=== PATIENT | male | born 1960 | race Caucasian/White ===

== ENCOUNTER → 2017-12-14 07:42 | Outpatient (CLI) | payer BC, SELFPAY ==
--- NOTE | 2017-12-14 07:49 | CA_ITS ---
PROCEDURE: 2-D M-mode and color Doppler study INDICATIONS FOR THE TEST: Chest pain+ COPD Heart Murmur Tobacco Smoking Palpitations Fatigue Syncope Edema Hypertension+Diabetes Mellitus+ Rheumatic Fever SOB JOEL Obesity Hyperlipidemia+ Family History HD+ Additional History cad, 6 stents, smokeless tobacco PATIENT INFORMATION HEIGHT: 73 WEIGHT: 209 GENDER: Male B/P: 142/78 2-D/M-MODE INTERPRETATION: 2-D MEASUREMENTS OBSERVED VALUES IN CMS Right Ventricular Dimension (RVDd) 1.7 Interventricular Septum (Thickness)(IVsd) 0.9 Left Ventricular Internal Dimensions(LVIDd) 5.6 Left Ventricular Posterior Wall (Thickness)(LVPWd) 0.9 Aortic Root 3.5 Aortic Cusp Separation 2.4 Left Atrial Dimensions (LAD) 3.7 2D 1. Left atrium is qualitatively mildly enlarged, left ventricle is normal size, there is no concentric left ventricular hypertrophy, visually estimated ejection fraction approximately 40-45%, there appears to be moderate hypokinesis involving the inferobasal, and it to distal septum wall. 2. The right atrium and right ventricle are relatively normal size and function. 3. The aortic, mitral and tricuspid valve are grossly normal. 4. The pulmonic valve is poorly visualized. 5. There is no significant pericardial effusion noted. DOPPLER INTERROGATION: Doppler interrogation of the aortic, mitral and tricuspid valvular presence of mild mitral and tricuspid regurgitation, tricuspid regurgitant jet velocity is insufficient for calculation of the right ventricular systolic pressure, grade 1 diastolic dysfunction seen with tissue Doppler evidence of raised left atrial pressure. CONCLUSION: 1. Mildly enlarged left atrium, normal left ventricular size, visually estimated ejection fraction approximately 40-45% with segmental wall motion abnormality described above, grade 1 diastolic dysfunction seen with tissue Doppler evidence of raised left atrial pressure. 2. Mild mitral and tricuspid regurgitation 3. No significant pericardial effusion noted.
== END ==
PROVIDERS: PCP Family Medicine; Visit Provider Family Medicine
DX: R93.1 Abnormal findings on diagnostic imaging of heart and coronary circulation (principal)
CPT/HCPCS: 93306

== ENCOUNTER 2018-01-24 14:19 | Observation (INO) ==
[2018-01-24 14:45] LABS: Basophils # 0.1 K/mm3 (0-0.2); Basophils % 0.6 % (0.1-2.0); Eosinophils # 0.2 K/mm3 (0.0-0.4); Eosinophils % 1.9 % (0.1-12.0); Hematocrit 49.6 % (42.0-52.0); Hemoglobin 16.8 g/dL (14.1-18.0); Lymphocytes # 2.3 K/mm3 (0.7-4.5); Mean Corpuscular HGB Conc 33.9 g/dL (31.8-35.4); Mean Corpuscular Hemoglobin 30.8 pg (27.0-31.2); Mean Platelet Volume 6.9 fl (7.4-10.4); Monocytes # 0.7 K/mm3 (0.1-1.0); Monocytes % 7.9 % (1.7-9.3); Neutrophils # 5.7 K/mm3 (1.8-7.8); Neutrophils % 63.7 % (37.0-80.0); Platelet Count 310 K/mm3 (142-424); Red Blood Count 5.45 M/mm3 (4.60-6.20); Red Cell Distribution Width 12.5 % (11.5-17.5); White Blood Count 8.9 K/mm3 (4.8-10.8)
[2018-01-24 15:04] LABS: Alanine Aminotransferase 28 U/L (12-78); Albumin Level 4.3 gm/dL (3.4-5.0); Albumin/Globulin Ratio 1.2 (1.1-1.8); Alkaline Phosphatase 92 U/L (46-116); Aspartate Amino Transferase 15 U/L (15-37); Bilirubin,Total 0.4 mg/dL (0.2-1.0); Blood Urea Nitrogen 16 mg/dL (7-18); Calcium 9.7 mg/dL (8.5-10.1); Carbon Dioxide 31 mmol/L (21.0-32.0); Chloride 100 mmol/L (98-107); Creatine Kinase 137 U/L (39-308); Globulin 3.7 gm/dl (1.3-3.2); Glucose 134 mg/dL (74-106); Sodium 138 mmol/L (136-145)
--- NOTE | 2018-01-24 15:53 | Emergency Department Note ---
ED Disposition Clinical Impression: Chest pain Disposition: Admitted As Inpatient Condition on Discharge: Good - Critical Care Critical Care Time: No Attestation: On 01/24/18, the high probability of a clinically significant, sudden or life threatening deterioration of the following system(s) required my full and direct attention, intervention and personal management. The time I documented below is in addition to time spent performing reported procedures but includes the following listed in this critical care notation. Medical Decision Making - Medical Records Medical records reviewed: Yes: I reviewed the patient's medical records. - Danny Inquiry Pt receiving controlled substance: No Vital Signs: 01/24/18 14:19 01/24/18 15:20 01/24/18 16:16 Temperature 98.1 F 98.1 F Temperature Source Oral Oral Pulse Rate Pulse Rate [Right Brachial] 82 80 75 Respiratory Rate 16 18 16 Blood Pressure Blood Pressure [Right Arm] 161/94 127/94 144/94 Blood Pressure Mean [Right Arm] 116 105 110 Blood Pressure Source Blood Pressure Source [Right Arm] Automatic Cuff Automatic Cuff Automatic Cuff Blood Pressure Position Blood Pressure Position [Right Arm] Sitting Sitting Sitting 02 Sat by Pulse Oximetry 97 97 95 Oxygen Delivery Method Room Air Room Air Room Air 01/24/18 16:17 Temperature 98.1 F Temperature Source Oral Pulse Rate 75 Pulse Rate [Right Brachial] Respiratory Rate 16 Blood Pressure 144/94 Blood Pressure [Right Arm] Blood Pressure Mean [Right Arm] Blood Pressure Source Automatic Cuff Blood Pressure Source [Right Arm] Blood Pressure Position Sitting Blood Pressure Position [Right Arm] 02 Sat by Pulse Oximetry Oxygen Delivery Method Room Air - Lab Data Lab results reviewed: Yes: I reviewed the patient's lab results. Lab Results 01/24/18 14:20: WBC 8.9, RBC 5.45, Hgb 16.8, Hct 49.6, MCV 91.0, MCH 30.8, MCHC 33.9, RDW 12.5, Plt Count 310, MPV 6.9 L, Neut % (Auto) 63.7, Lymph % (Auto) 26.0, [place] % (Auto) 7.9, Eos % (Auto) 1.9, Baso % (Auto) 0.6, Neut # (Auto) 5.7 , Lymph # (Auto) 2.3, [place] # (Auto) 0.7, Eos # (Auto) 0.2, Baso # (Auto) 0.1 01/24/18 14:20: Sodium 138, Potassium 4.0, Chloride 100, Carbon Dioxide 31, Anion Gap 11.0, BUN 16, Creatinine 0.88, Estimated Creat Clear 126, Estimated GFR 90, Est GFR ( Amer) 108, Glucose 134 H, Calcium 9.7, Total Bilirubin 0.4, AST 15, ALT 28, Alkaline Phosphatase 92, Total Creatine Kinase 137, CK-MB ( CK-2) 2.2, CK-MB (CK-2) Rel Index 1.6, Troponin I < 0.02, Total Protein 8.0, Albumin 4.3, Globulin 3.7 H, Albumin/Globulin Ratio 1.2 Result diagrams: 01/24/18 14:20 01/24/18 14:20 Orders (Tests/Meds): ED MEDICATIONS Generic Name Dose Route Start Last Admin Trade Name Freq PRN Reason Stop Dose Admin Amlodipine Besylate 5 mg 01/25/18 09:00 Norvasc 5mg Tablet PO 02/24/18 08:59 DAILY [facility] Aspirin 81 mg 01/25/18 09:00 Aspirin 81mg Enteric Coated Tablet PO 02/24/18 08:59 DAILY [facility] Blood Glucose Test Strips 1 each 01/24/18 16:30 Fsbs (Bedside Glucose), Results Only !! FS 02/23/18 16:29 ACHS [facility] Carvedilol 6.25 mg 01/24/18 21:00 Coreg 6.25mg Tablet PO 02/23/18 20:59 BID [facility] Fentanyl Citrate 25 mcg 01/24/18 17:06 Fentanyl 250mcg/5ml Vial IV 01/25/18 17:06 Q3MINP PRN Moderate to Severe Pain Fentanyl Citrate 50 mcg 01/24/18 17:06 Fentanyl 250mcg/5ml Vial IV 01/25/18 17:06 Q3MINP PRN Moderate to Severe Pain Flumazenil 0.2 mg 01/24/18 17:06 Romazicon 0.1mg/Ml 5ml Vial IV 01/24/18 23:00 NEEDED PRN Sedation Glimepiride 2 mg 01/25/18 09:00 Amaryl 2mg Tablet PO 02/24/18 08:59 DAILY [facility] Insulin Human Lispro 0 unit 01/24/18 16:30 Humalog 100 Units/Ml 3ml Vial (Ssi) SQ 02/23/18 16:29 ACHS [facility] Protocol Lisinopril 20 mg 01/24/18 21:00 Zestril 20mg Tab PO 02/23/18 20:59 BID MI Midazolam HCl 1 mg 01/24/18 17:06 Midazolam 2mg/2ml Vial IV 01/25/18 17:06 Q3MINP PRN Sedation Midazolam HCl 1 mg 01/24/18 17:06 Midazolam 1mg/Ml 5ml Vial IV 01/25/18 17:06 Q3MINP PRN Sedation Naloxone HCl 0.4 mg 01/24/18 17:06 Narcan 0.4mg/Ml Vial IV 01/25/18 17:06 Q5MINP PRN Decreased respirations Nitroglycerin 1 gm 01/25/18 01:00 Nitroglycerin 1 Inch Oint Udp TD 02/24/18 00:59 Q8H [facility] Paroxetine HCl 20 mg 01/25/18 09:00 Paxil 20mg Tablet PO 02/24/18 08:59 DAILY [facility] Discontinued Medications Generic Name Dose Route Start Last Admin Trade Name Freq PRN Reason Stop Dose Admin Aspirin 243 mg 01/24/18 14:22 01/24/18 14:35 Aspirin 81mg Chewable Tablet PO 01/24/18 14:23 243 mg ONCE ONE Administration Nitroglycerin 1 gm 01/24/18 16:02 01/24/18 16:05 Nitroglycerin 1 Inch Oint Udp TD 01/24/18 16:03 1 gm ONCE ONE Administration Nitroglycerin 1 gm 01/24/18 16:18 01/24/18 17:20 Nitroglycerin 1 Inch Oint Udp TD 01/24/18 16:19 Not Given ONCE ONE ORDERS Category Date Time Status Consult to Cardiology [CONS] Routine Cons 01/24/18 16:18 Active - Radiology Data #1 Image(s): Chest Image Reviewed: Yes I reviewed the patient's radiology results, Yes I reviewed the patient's radiology image, Yes I have reviewed radiologist's interpretation Preliminary Findings: Normal/NAD - Physician Consults Physician Consulted: Dr Beltran Time: 15:53 Reason -: Admission, Pt condition Comment/Response: agreeable with admission Additional Consult: Dr. Blanco Time: 15:53 Reason -: Admission, Pt condition, Cardiology Eval/Care - Reevaluation(s) Time: 15:52 Reevaluation #1: patient medically stable, complains with chest pain 12/02. Chest Pain HPI - General Chief Complaint: Chest Pain Stated Complaint: chest pain Time Seen by Provider: 01/24/18 14:35 Mode of Arrival: Ambulatory Limitations: No Limitations Description of Symptoms (Recalled from ER Triage Doc. by RN): Pt reports chest pain that began approx 1030 this morning, pt describes pain as pressure like in nature. - History of Present Illness HPI narrative: Patient is a 57-year-old male patient presented to emergency room with midsternal chest pain radiating the left shoulder and down the left lower extremity since 10:30 AM. Patient is a known coronary patient, and he has 6 stents. Last cardiac cath was in August 2016, when he has received 3 stents, with Dr. Blanco. Previously he had a cath in March 2015 when he had another 3 stents. She recently had a stress test done by Dr. Blanco which was abnormal , and he was advised that he will need to have a heart cath shortly. MD complaint: chest pain indicative of cardiac Onset (ago): hour(s) (4) Duration: intermittent Activity at onset: during exertion Pain location: substernal Severity: moderate Severity scale (1-10): 4 Quality: heaviness Pain radiation: LUE Relieving factors: remaining still Exacerbating factors: movement Associated symptoms: dyspnea Risk Factors for CAD: Hypertension, Hypercholesterolemia, Family Hx of CAD, Diabetes Treatments prior to or on arrival for Cardiac Chest Pain: aspirin, beta blockers - JULIUS Score Non-Stemi Age of patient: Less than 65 yrs Number of risk factors for CAD: Presence of 3 or more Prior coronary artery stenosis(seen in coronary angiography): 50% or more ST-Segment deviation on ECG (more than 1 min): Absent Prior aspirin intake: ASA intake in the last 7 days Severe anginal chest pain: No or one episode in last 24 hours Elevated cardiac markers(CK-MB or troponin): Present Non-Stemi Risk Score: 4 Risk Stratification: 0-2= Low Risk Patients - Related Data Home Medications Medication Instructions Recorded Confirmed aspirin 81 mg tablet,delayed 81 mg PO QDAY 11/01/17 01/24/18 release glimepiride 2 mg tablet 2 mg PO QAM 11/01/17 01/24/18 insulin detemir (U-100) 100 60 unit SUB-Q BID ml 11/01/17 01/24/18 unit/mL (3 mL) subcutaneous pen sitagliptin 50 mg-metformin 1,000 1 tab PO .QD tab 11/01/17 01/24/18 mg tablet Carvedilol [Carvedilol 6.25mg Tab] 6.25 mg PO BID 01/24/18 01/24/18 PARoxetine HCl [Paxil] 20 mg PO DAILY 01/24/18 01/24/18 Previous Rx's Medication Instructions Recorded amlodipine 5 mg tablet 5 mg PO QDAY #30 tab 11/02/17 lisinopril 20 mg tablet 20 mg PO BID #60 tab 11/02/17 Allergies Allergy/AdvReac Type Severity Reaction Status Date / Time No Known Allergies Allergy Verified 01/24/18 14:25 [facility] History I have reviewed the patient's past medical history: Yes Medical History: Reports:: Coronary Artery Disease, Diabetes Mellitus Type 2, Hyperlipidemia, Hypertension Denies:: Diabetes Mellitus Type 1 Laterality Cases: Bilateral: Tonsillectomy Other Surgeries: Yes: Other (C-6 stents) - Social History Smoking Status: Never smoker Tobacco Type: smokeless tobacco Alcohol Intake: never - Psychiatric History Expresses thoughts of harming self/others: None Suicide Plan Description: No Plan Family Hx:: Coronary Artery Disease, Heart Attack ROS Obtained: Yes All systems reviewed & no additional complaints, Yes Systems reviewed as appropriate & no additional complaints - Cardiovascular Cardiovascular: Reports system reviewed and no additional complaints, except as docu, Reports chest pain Physical Exam - General General appearance: alert, in no apparent distress - Head Head exam: atraumatic, normocephalic, normal inspection - Eye Eye exam: Present: normal appearance, PERRL, EOMI, other (Normal fundi) - Neck Neck exam: Present: normal inspection, full ROM, trachea midline. Absent: meningismus, lymphadenopathy - Chest Chest inspection: Present: normal inspection, symmetric chest wall rise. Absent : tenderness - Respiratory Respiratory exam: Present: normal lung sounds bilaterally. Absent: respiratory distress - Cardiovascular Cardiovascular exam: Present: regular rate, normal rhythm. Absent: JVD - Abdominal Exam Abdominal exam: Present: soft, normal bowel sounds. Absent: distention, tenderness, guarding - Extremities Exam Extremities exam: Present: normal inspection, full ROM, normal capillary refill. Absent: calf tenderness - Back Exam Back exam: Present: normal inspection, full ROM. Absent: tenderness - Neurological Exam Neurological exam: Present: alert, oriented X3, CN II-XII intact, normal gait, motor sensory deficit - Psychiatric Psychiatric exam: Present: normal affect, normal mood - Skin Skin exam: Present: warm, dry, intact, normal color - Lymphatic Lymphatic Findings: no adenopathy
--- NOTE | 2018-01-24 16:12 | History & Physical Report ---
*Admission Date: 01/24/18 <Jean BaptisteSherriNayeli - 01/24/18 16:12> *Chief complaint: chest pain <Jean BaptisteNayeli 01/24/18 16:12> *History of present illness: Mr Lanza is a 57 year old male with a history of CAD , T2DM, HTN, and HLP who experienced CP this AM. The pain started in the left shoulder area, was intense in nature, and without associated SOB, palpitations, nausea or radiation. The pain is similar to the pain with his last heart event at which time he had 6 stents placed. He was working as usual but not doing anything physical. He came home from work and discussed a plan with his . He was experiencing some chills and they decided to be seen at the [facility]. He was directed immediately to the ER for evaluation. He denies any URI and GI symptoms. To Note he had an abnormal stress test 2 months ago at which time repeat cardiac cath was recommended. He did not want to have it done at that time. He did have an ECHO which indicated an EF of 40%. He was evaluated in the ER and given an ASA after which the pain improved. Initial TI was normal. He is to be admitted with further cardiac evaluation and cardiac cath in the AM. <Nayeli Jean Baptiste 01/24/18 17:05> [facility] History Medical History: Reports:: Atherosclerotic Heart Disease, Coronary Artery Disease, Diabetes Mellitus Type 2, Hyperlipidemia, Hypertension Denies:: Diabetes Mellitus Type 1, Gastroesophageal Reflux Disease(GERD), Palpitations <Nayeli Jean Baptiste 01/24/18 16:37> Other Medical History: Denies: Hypothyroidism <Nayeli Jean Baptiste 01/24/18 16:37> Laterality Cases: Right: Other (cyst removed from right knee), Bilateral: Tonsillectomy <Nayeli Jean Baptiste 01/24/18 16:37> Other Surgeries: Yes: Other ([facility]-6 stents) <Nayeli Jean Baptiste 01/24/18 16:12> Comment: left heart cath with stents 02/2015; left heart cath with stents 09/2016 <Nayeli Jean Baptiste 01/24/18 16:37> - *Social History Smoking Status: Never smoker <Nayeli Jean Baptiste 01/24/18 16:12> Tobacco Type: smokeless tobacco <Nayeli Jean Baptiste 01/24/18 16:12> Alcohol Intake: never <Nayeli Jean Baptiste 01/24/18 16:12> - Psychiatric History Expresses thoughts of harming self/others: None <Nayeli Jean Baptiste 01/24/18 16: 12> Suicide Plan Description: No Plan <Nayeli Jean Baptiste 01/24/18 16:12> *Family Hx:: Cancer, Coronary Artery Disease, Heart Attack <Nayeli Jean Baptiste 16:37> Comment: both grandfather and father at the age of 74 with AMI <Nayeli Jean Baptiste 01/24/18 16:37> Review of Systems - Constitutional Reports chills, Denies body ache(s), Denies fever(s), Denies headache(s) < Jean BaptisteNayeli 01/24/18 16:37> - Eyes Denies change in vision <Nayeli Jean Baptiste 01/24/18 16:37> - ENT Denies ear pain, Denies headache(s), Denies nasal congestion, Denies sore throat , Denies dizziness <Nayeli Jean Baptiste 01/24/18 16:37> - *Cardiovascular Reports chest pain, Denies shortness of breath, Denies shortness of breath with activity, Denies generalized swelling, Denies irregular heart rhythm, Denies leg swelling, Denies fast heart rate <Nayeli Jean Baptiste 01/24/18 16:37> - *Respiratory Denies chest congestion, Denies cough, Denies shortness of breath, Denies coughing up blood, Denies wheezing <Jean BaptisteNayeli 01/24/18 16:37> - *Gastrointestinal Denies abdominal pain, Denies change in bowel habits, Denies constipation, Denies heartburn, Denies nausea, Denies vomiting <Jean BaptisteNayeli 01/24/18 16: 37> - *Genitourinary Denies difficulty urinating <Jean BaptisteNayeli 01/24/18 16:37> - *Musculoskeletal Denies abnormal walking, Denies joint pain <Jean BaptisteNayeli 01/24/18 16:37> - *Neurologic Denies abnormal walking, Denies seizure-like activity, Denies dizziness, Denies tingling/numbness/burning sensations, Denies radiating pain <Nayeli Jean Baptiste - 01/24/18 16:37> Meds Home Medications Medication Instructions Recorded Confirmed Type aspirin 81 mg tablet,delayed 81 mg PO QDAY 11/01/17 01/24/18 History release glimepiride 2 mg tablet 2 mg PO QAM 11/01/17 01/24/18 History insulin detemir (U-100) 100 60 unit SUB-Q BID ml 11/01/17 01/24/18 History unit/mL (3 mL) subcutaneous pen sitagliptin 50 mg-metformin 1,000 1 tab PO .QD tab 11/01/17 01/24/18 History mg tablet Carvedilol [Carvedilol 6.25mg Tab] 6.25 mg PO BID 01/24/18 01/24/18 History PARoxetine HCl [Paxil] 20 mg PO DAILY 01/24/18 01/24/18 History <Shemar Beltran - 01/24/18 17:32> Allergies Allergy/AdvReac Type Severity Reaction Status Date / Time No Known Allergies Allergy Verified 01/24/18 14:25 <Shemar Beltran - 01/24/18 17:32> Exam Vital signs and Labs for Last 24 Hours: Temp Pulse Resp BP Pulse Ox 98.1 F 81 18 145/94 97 01/24/18 16:41 01/24/18 16:41 01/24/18 16:41 01/24/18 16:41 01/24/18 16:41 <Shemar Beltran - 01/24/18 17:32> Temp Pulse Resp BP Pulse Ox 98.1 F 86 18 127/94 98 01/24/18 14:19 01/24/18 15:20 01/24/18 15:20 01/24/18 15:20 01/24/18 15:20 Laboratory Tests 01/24/18 01/24/18 14:20 14:20 WBC 8.9 RBC 5.45 Hgb 16.8 Hct 49.6 MCV 91.0 MCH 30.8 MCHC 33.9 Plt Count 310 Neut % (Auto) 63.7 Lymph % (Auto) 26.0 [place] % (Auto) 7.9 Eos % (Auto) 1.9 Sodium 138 Potassium 4.0 Chloride 100 Carbon Dioxide 31 Anion Gap 11.0 BUN 16 Creatinine 0.88 Glucose 134 H Calcium 9.7 Total Bilirubin 0.4 AST 15 ALT 28 Alkaline Phosphatase 92 Total Creatine Kinase 137 CK-MB (CK-2) 2.2 CK-MB (CK-2) Rel Index 1.6 Troponin I < 0.02 Total Protein 8.0 Albumin 4.3 <[facility] 01/24/18 16:37> Radiology Reports for the Last 24 Hours: 01/24/18 CXR IMPRESSION .... nothing definitely acute. Lungs clear. Stable chest <Jean Baptiste,[facility] 01/24/18 16:37> - Constitutional no acute distress <[facility] 01/24/18 16:37> Comments: appears comfortable <[facility] 01/24/18 17:05> - *Routine Respiratory Exam Present: CTA bilaterally (A&P) <[facility] 01/24/18 16:37> - *Routine Cardiovascular Exam Present: RRR <[facility] 01/24/18 16:37> Comments: Occasional PVC <Jean Baptiste,[facility] 01/24/18 16:37> - *Routine Abdominal Exam Present: soft, normoactive bowel sounds. Absent: tenderness, distended, guarding <[facility] 01/24/18 16:37> - *Routine Extremities Exam Absent: edema, calf tenderness <[facility] 01/24/18 16:37> - *Routine Neurological Exam Present: alert, oriented X3 <[facility] 01/24/18 16:37> Assessment and Plan (1) Chest pain Current visit: Yes Status: Acute Category: Medical Code(s): R07.9 - Chest pain, unspecified (2) Coronary arteriosclerosis Current visit: No Status: Chronic Category: Medical Code(s): I25.10 - Atherosclerotic heart disease of [place] coronary artery without angina pectoris (3) Diabetes mellitus Current visit: No Status: Chronic Qualifiers: Diabetes mellitus type: type 2 Diabetes mellitus group home insulin use: unspecified group home insulin use status Diabetes mellitus complication status : without complication Qualified Code(s): E11.9 - Type 2 diabetes mellitus without complications Category: Medical Code(s): E11.9 - Type 2 diabetes mellitus without complications (4) Hyperlipidemia Current visit: No Status: Chronic Qualifiers: Hyperlipidemia type: other hyperlipidemia Qualified Code(s): E78.4 - Other hyperlipidemia Category: Medical Code(s): E78.5 - Hyperlipidemia, unspecified (5) Hypertensive heart disease Current visit: No Status: Chronic Qualifiers: Heart failure presence: without heart failure Qualified Code(s): I11.9 - Hypertensive heart disease without heart failure Category: Medical Code(s): I11.9 - Hypertensive heart disease without heart failure (6) Stented coronary artery Current visit: No Status: Chronic Category: Surgical Code(s): Z95.5 - Presence of coronary angioplasty implant and graft (7) CHF (congestive heart failure) Current visit: Yes Status: Acute Category: Medical Code(s): I50.9 - Heart failure, unspecified <Shemar Beltran - 01/24/18 17:32> (1) Chest pain Current visit: Yes Status: Acute Category: Medical Code(s): R07.9 - Chest pain, unspecified (2) Coronary arteriosclerosis Current visit: No Status: Chronic Category: Medical Code(s): I25.10 - Atherosclerotic heart disease of [place] coronary artery without angina pectoris (3) Diabetes mellitus Current visit: No Status: Chronic Category: Medical Code(s): E11.9 - Type 2 diabetes mellitus without complications (4) Hyperlipidemia Current visit: No Status: Chronic Category: Medical Code(s): E78.5 - Hyperlipidemia, unspecified (5) Hypertensive heart disease Current visit: No Status: Chronic Category: Medical Code(s): I11.9 - Hypertensive heart disease without heart failure (6) Stented coronary artery Current visit: No Status: Chronic Category: Surgical Code(s): Z95.5 - Presence of coronary angioplasty implant and graft <Nayeli Jean Baptiste - 01/24/18 17:02> - Assessment and plan all Dx Assessment and Plan for all problems:: Saw patient, agree with above note. <Shemar Beltran - 01/24/18 17:32> Admit. Cardiology to see. Probable cardiac cath in AM <Nayeli Jean Baptiste - 01/24/18 17:05>
--- NOTE | 2018-01-24 16:29 | Consult Report ---
History of Present Illness Consult date: 01/24/18 Requesting physician: Shemar Beltran Consult reason: chest pain Chief complaint: chest pain Additional Medical History:: 1. CAD A. Cath, [facility]ETH to LAD, diagonal and RCA, 03/18/2015. On DAPT. B. LHC with subsequent LAD/diagonal and RCA stenting, 09/2016. C. Stress test in 03/2017 showed evidence of mild reversible ischemia involving the distal anteroapical and anteroseptal wall, a fixed defect in the inferior wall with normal contractility on the gated SPECT is likely secondary to soft tissue attenuation. Computer derived EF is 46% with segmental wall motion abnormality described above. Right ventricle is mildly enlarged with normal contractility. [facility] recommended but patient did not have it done. D. Admit for UAP, 01/24/2018. 2. DM, poorly controlled. 3. HTN A. Echo, 11/2017, 1. Left atrium is qualitatively mildly enlarged, left ventricle is normal size, there is no concentric left ventricular hypertrophy, visually estimated ejection fraction approximately 40-45%, there appears to be moderate hypokinesis involving the inferobasal, and it to distal septum wall. 2. The right atrium and right ventricle are relatively normal size and function. 3. The aortic, mitral and tricuspid valve are grossly normal. 4. The pulmonic valve is poorly visualized. 5. There is no significant pericardial effusion noted. DOPPLER INTERROGATION: Doppler interrogation of the aortic, mitral and tricuspid valvular presence of mild mitral and tricuspid regurgitation, tricuspid regurgitant jet velocity is insufficient for calculation of the right ventricular systolic pressure, grade 1 diastolic dysfunction seen with tissue Doppler evidence of raised left atrial pressure. 4. Hyperlipidemia, on statin. History of present illness: Mr Lanza is a 57 year old male with a history of CAD , T2DM, HTN, and HLP who experienced CP this AM. The pain started in the left shoulder area, was intense in nature, and without associated SOB, palpitations, nausea or radiation. The pain is similar to the pain with his last heart event at which time he had 6 stents placed. He was working as usual but not doing anything physical. He came home from work and discussed a plan with his . He was experiencing some chills and they decided to be seen at the [facility]. He was directed immediately to the ER for evaluation. He denies any URI and GI symptoms. To Note he had an abnormal stress test 03/2017 but did not hear results until at which time repeat cardiac cath was recommended. He did not want to have it done at that time. He did have an ECHO 11/2017 which indicated an EF of 40-45% with wall motion abnormalities consistent with previous ND. He was evaluated in the ER and given an ASA after which the pain improved. Initial TI was normal. He is to be admitted with further cardiac evaluation and cardiac cath in the AM. The above per Nayeli Jean Baptiste APRN for Dr. Beltran Pt relates some left shoulder discomfort recently without chest pain. The chest pain today did include the left shoulder discomfort at a much higher intensity than previously noted in the last 2 weeks. Patient states he is mosque about his diet and taking his medications as directed. He does not check his blood sugars but notes that his recent hemoglobin A1c was in the 8-9 range. Patient is currently pain-free with nitroglycerin paste in place. [facility] History Medical History: Reports:: Atherosclerotic Heart Disease, Coronary Artery Disease, Diabetes Mellitus Type 2, Hyperlipidemia, Hypertension Denies:: Diabetes Mellitus Type 1, Gastroesophageal Reflux Disease(GERD), Palpitations Other Medical History: Denies: Hypothyroidism Laterality Cases: Right: Other (cyst removed from right knee), Bilateral: Tonsillectomy Other Surgeries: Yes: Other (LHC-6 stents) - *Social History Smoking Status: Never smoker Tobacco Type: smokeless tobacco Alcohol Intake: never - Psychiatric History Expresses thoughts of harming self/others: None Suicide Plan Description: No Plan *Family Hx:: Coronary Artery Disease, Heart Attack Meds Home Medications Medication Instructions Recorded Confirmed Type aspirin 81 mg tablet,delayed 81 mg PO QDAY 11/01/17 01/24/18 History release glimepiride 2 mg tablet 2 mg PO QAM 11/01/17 01/24/18 History insulin detemir (U-100) 100 60 unit SUB-Q BID ml 11/01/17 01/24/18 History unit/mL (3 mL) subcutaneous pen sitagliptin 50 mg-metformin 1,000 1 tab PO .QD tab 11/01/17 01/24/18 History mg tablet Carvedilol [Carvedilol 6.25mg Tab] 6.25 mg PO BID 01/24/18 01/24/18 History PARoxetine HCl [Paxil] 20 mg PO DAILY 01/24/18 01/24/18 History Allergies Allergy/AdvReac Type Severity Reaction Status Date / Time No Known Allergies Allergy Verified 01/24/18 14:25 Review of Systems - *Cardiovascular Reports chest pain, Reports shortness of breath with activity - *Respiratory Reports shortness of breath with activity - *Gastrointestinal Denies abdominal pain Exam Vital signs and Labs for Last 24 Hours: Temp Pulse Resp BP Pulse Ox 98.1 F 75 16 144/94 95 01/24/18 16:17 01/24/18 16:17 01/24/18 16:17 01/24/18 16:17 01/24/18 16:16 - *Routine Neck Exam Absent: JVD, carotid bruit - *Routine Respiratory Exam Present: CTA bilaterally - *Routine Cardiovascular Exam Present: RRR. 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 Diabetes mellitus complication status : without complication Qualified Code(s): E11.9 - Type 2 diabetes mellitus without complications Category: Medical Code(s): E11.9 - Type 2 diabetes mellitus without complications (4) Hyperlipidemia Current visit: No Status: Chronic Qualifiers: Hyperlipidemia type: other hyperlipidemia Qualified Code(s): E78.4 - Other hyperlipidemia Category: Medical Code(s): E78.5 - Hyperlipidemia, unspecified (5) Hypertensive heart disease Current visit: No Status: Chronic Qualifiers: Heart failure presence: without heart failure Qualified Code(s): I11.9 - Hypertensive heart disease without heart failure Category: Medical Code(s): I11.9 - Hypertensive heart disease without heart failure (6) Stented coronary artery Current visit: No Status: Chronic Category: Surgical Code(s): Z95.5 - Presence of coronary angioplasty implant and graft - Assessment and plan all Dx Assessment and Plan for all problems:: 1. Home medications to be continued include aspirin, Coreg, amlodipine and lisinopril. Continue nitroglycerin paste. Patient has been intolerant of statin therapy in the past. 2. Plans will be to proceed with left heart catheterization in the a.m.
--- NOTE | 2018-01-25 07:41 | Pharmacy Consult Notes ---
[facility] Pharmacy VTE Monitoring - Patient Demographics Admission date: 01/24/18 Report Date: 01/25/18 Time: 07:41 Allergies/Adverse Reactions: Patient Allergies No Known Allergies Allergy (Verified 01/24/18 14:25) Height: 1.85 m Weight: 93.922 kg Patient Problems: Current Active Problems Chest pain (Acute) CHF (congestive heart failure) (Acute) - VTE Risk Labs: VTE Related Lab Results Hgb 16.8 g/dL (14.1-18.0) 01/24/18 14:20 Hct 49.6 % (42.0-52.0) 01/24/18 14:20 Plt Count 310 K/mm3 (142-424) 01/24/18 14:20 BUN 16 mg/dL (7-18) 01/24/18 14:20 Creatinine 0.88 mg/dL (0.70-1.30) 01/24/18 14:20 Estimated Creat Clear 126 mL/min (0-300) 01/24/18 14:20 Was VTE Risk Assessment Performed: Yes VTE Score: 1 VTE Risk Level: Very Low Risk - Prophylaxis VTE Prophylaxis Ordered?: Yes Types of VTE Prophylaxis: TEDS Knee High Location of Applied Device: Bilateral Lower Extremeties - VTE Diagnosis Confirmed Treatment or plan recommended: Continue Current Treatment
--- NOTE | 2018-01-25 08:08 | Progress Note ---
<Ramandeep Tucker - Last Filed: 01/25/18 08:07> Internal Medicine - PN: Subj *Date: 01/25/18 *Time: 08:07 Interval history: Patient has had no more chest pain. He slept well last night. Denies any shortness of breath. Exam Vital signs and Labs for Last 24 Hours: Temp Pulse Resp BP Pulse Ox 98.4 F 78 18 147/94 97 01/25/18 07:47 01/25/18 07:47 01/25/18 07:47 01/25/18 07:47 01/25/18 07:47 Laboratory Results - last 24 hr 01/24/18 17:11: POC Glucose 99 01/24/18 18:05: Troponin I < 0.02 01/24/18 20:24: POC Glucose 138 H 01/25/18 05:59: POC Glucose 151 H I & O for Last 24 hours: Intake & Output 01/22/18 01/23/18 01/24/18 01/25/18 11:59 11:59 11:59 11:59 Intake Total 960 / 960 Balance 960 / 960 Weight 207 lb 1 oz - Constitutional no acute distress - *Routine Respiratory Exam Present: CTA bilaterally - *Routine Cardiovascular Exam Present: RRR - *Routine Abdominal Exam Present: soft, normoactive bowel sounds. Absent: tenderness - *Routine Extremities Exam Absent: edema Assessment and Plan (1) Chest pain Current visit: Yes Status: Acute Category: Medical Code(s): R07.9 - Chest pain, unspecified (2) Coronary arteriosclerosis Current visit: No Status: Chronic Category: Medical Code(s): I25.10 - Atherosclerotic heart disease of [place] coronary artery without angina pectoris (3) Diabetes mellitus Current visit: No Status: Chronic Qualifiers: Diabetes mellitus type: type 2 Diabetes mellitus assisted insulin use: unspecified assisted insulin use status Diabetes mellitus complication status : without complication Qualified Code(s): E11.9 - Type 2 diabetes mellitus without complications Category: Medical Code(s): E11.9 - Type 2 diabetes mellitus without complications (4) Hyperlipidemia Current visit: No Status: Chronic Qualifiers: Hyperlipidemia type: other hyperlipidemia Qualified Code(s): E78.4 - Other hyperlipidemia Category: Medical Code(s): E78.5 - Hyperlipidemia, unspecified (5) Hypertensive heart disease Current visit: No Status: Chronic Qualifiers: Heart failure presence: without heart failure Qualified Code(s): I11.9 - Hypertensive heart disease without heart failure Category: Medical Code(s): I11.9 - Hypertensive heart disease without heart failure (6) Stented coronary artery Current visit: No Status: Chronic Category: Surgical Code(s): Z95.5 - Presence of coronary angioplasty implant and graft (7) CHF (congestive heart failure) Current visit: Yes Status: Acute Category: Medical Code(s): I50.9 - Heart failure, unspecified - Assessment and plan all Dx Assessment and Plan for all problems:: Patient is scheduled for heart catheter around 11:45 today. <Shemar Beltran - Last Filed: 01/25/18 08:30> Internal Medicine - PN: Subj *Date: 01/25/18 *Time: 08:29 Exam Vital signs and Labs for Last 24 Hours: Temp Pulse Resp BP Pulse Ox 98.4 F 78 18 147/94 97 01/25/18 07:47 01/25/18 07:47 01/25/18 07:47 01/25/18 07:47 01/25/18 07:47 Laboratory Results - last 24 hr 01/24/18 17:11: POC Glucose 99 01/24/18 18:05: Troponin I < 0.02 01/24/18 20:24: POC Glucose 138 H 01/25/18 05:59: POC Glucose 151 H I & O for Last 24 hours: Intake & Output 01/22/18 01/23/18 01/24/18 01/25/18 11:59 11:59 11:59 11:59 Intake Total 960 / 960 Balance 960 / 960 Weight 207 lb 1 oz Assessment and Plan (1) Chest pain Current visit: Yes Status: Acute Category: Medical Code(s): R07.9 - Chest pain, unspecified (2) Coronary arteriosclerosis Current visit: No Status: Chronic Category: Medical Code(s): I25.10 - Atherosclerotic heart disease of [place] coronary artery without angina pectoris (3) Diabetes mellitus Current visit: No Status: Chronic Qualifiers: Diabetes mellitus type: type 2 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: unspecified superintendent terminal insulin use status Diabetes mellitus complication status : without complication Qualified Code(s): E11.9 - Type 2 diabetes mellitus without complications Category: Medical Code(s): E11.9 - Type 2 diabetes mellitus without complications (4) Hyperlipidemia Current visit: No Status: Chronic Qualifiers: Hyperlipidemia type: other hyperlipidemia Qualified Code(s): E78.4 - Other hyperlipidemia Category: Medical Code(s): E78.5 - Hyperlipidemia, unspecified (5) Hypertensive heart disease Current visit: No Status: Chronic Qualifiers: Heart failure presence: without heart failure Qualified Code(s): I11.9 - Hypertensive heart disease without heart failure Category: Medical Code(s): I11.9 - Hypertensive heart disease without heart failure (6) Stented coronary artery Current visit: No Status: Chronic Category: Surgical Code(s): Z95.5 - Presence of coronary angioplasty implant and graft (7) CHF (congestive heart failure) Current visit: Yes Status: Acute Category: Medical Code(s): I50.9 - Heart failure, unspecified - Assessment and plan all Dx Assessment and Plan for all problems:: Saw patient, agree with above note.
[2018-01-26 06:26] VITALS: BP 116/75
--- NOTE | 2018-01-26 07:58 | Progress Note ---
<Ramandeep Tucker - Last Filed: 01/26/18 07:55> Internal Medicine - PN: Subj *Date: 01/26/18 *Time: 07:55 Interval history: Patient is feeling well this morning. He denies any pain. He slept well. He is anxious to go home. Exam Vital signs and Labs for Last 24 Hours: Temp Pulse Resp BP Pulse Ox 98.5 F 76 20 116/75 96 01/26/18 04:00 01/26/18 06:00 01/26/18 06:00 01/26/18 06:00 01/26/18 06:00 Laboratory Results - last 24 hr 01/25/18 11:21: Activated Clotting Time 318 H* 01/25/18 17:23: POC Glucose 117 H 01/25/18 20:52: POC Glucose 149 H 01/26/18 06:35: POC Glucose 173 H I & O for Last 24 hours: Intake & Output 01/23/18 01/24/18 01/25/18 01/26/18 11:59 11:59 11:59 11:59 Intake Total 960 / 960 420 / 420 Output Total 475 / 475 Balance 960 / 960 -55 / -55 Weight 207 lb 1 oz 207 lb 4 oz Radiology Reports for the Last 24 Hours: Heart cath 1. Severe in-stent restenosis with very large proximal first diagonal artery 2. Successful stenting of the first diagonal artery severe disease reduced to 0 % with 1 drug-eluting stent 3. Normal ejection fraction 4. Normal left ventricular end-diastolic pressure - Constitutional no acute distress - *Routine Respiratory Exam Present: CTA bilaterally - *Routine Cardiovascular Exam Present: RRR - *Routine Abdominal Exam Present: soft, normoactive bowel sounds. Absent: tenderness - *Routine Extremities Exam Absent: edema Assessment and Plan (1) Chest pain Current visit: Yes Status: Acute Category: Medical Code(s): R07.9 - Chest pain, unspecified (2) Stented coronary artery Current visit: No Status: Acute Category: Surgical Code(s): Z95.5 - Presence of coronary angioplasty implant and graft (3) Coronary arteriosclerosis Current visit: No Status: Chronic Category: Medical Code(s): I25.10 - Atherosclerotic heart disease of [place] coronary artery without angina pectoris (4) Diabetes mellitus Current visit: No Status: Chronic Qualifiers: Diabetes mellitus type: type 2 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 Diabetes mellitus complication status : without complication Qualified Code(s): E11.9 - Type 2 diabetes mellitus without complications Category: Medical Code(s): E11.9 - Type 2 diabetes mellitus without complications (5) Hyperlipidemia Current visit: No Status: Chronic Qualifiers: Hyperlipidemia type: other hyperlipidemia Qualified Code(s): E78.4 - Other hyperlipidemia Category: Medical Code(s): E78.5 - Hyperlipidemia, unspecified (6) Hypertensive heart disease Current visit: No Status: Chronic Qualifiers: Heart failure presence: without heart failure Qualified Code(s): I11.9 - Hypertensive heart disease without heart failure Category: Medical Code(s): I11.9 - Hypertensive heart disease without heart failure (7) CHF (congestive heart failure) Current visit: Yes Status: Acute Category: Medical Code(s): I50.9 - Heart failure, unspecified - Assessment and plan all Dx Assessment and Plan for all problems:: Cardiology is following patient. They have stated he is stable to be discharged today. He will need dual antiplatelet therapy, an LDL less than 55, cardiac rehabilitation, and avoidance of tobacco products. <Shemar Beltran - Last Filed: 01/26/18 08:54> Internal Medicine - PN: Subj *Date: 01/26/18 *Time: 08:53 Exam Vital signs and Labs for Last 24 Hours: Temp Pulse Resp BP Pulse Ox 98.5 F 76 20 116/75 96 01/26/18 04:00 01/26/18 06:00 01/26/18 06:00 01/26/18 06:00 01/26/18 06:00 Laboratory Results - last 24 hr 01/25/18 11:21: Activated Clotting Time 318 H* 01/25/18 17:23: POC Glucose 117 H 01/25/18 20:52: POC Glucose 149 H 01/26/18 06:35: POC Glucose 173 H I & O for Last 24 hours: Intake & Output 01/23/18 01/24/18 01/25/18 01/26/18 11:59 11:59 11:59 11:59 Intake Total 960 / 960 420 / 420 Output Total 475 / 475 Balance 960 / 960 -55 / -55 Weight 207 lb 1 oz 207 lb 4 oz Assessment and Plan (1) Chest pain Current visit: Yes Status: Acute Category: Medical Code(s): R07.9 - Chest pain, unspecified (2) Stented coronary artery Current visit: No Status: Acute Category: Surgical Code(s): Z95.5 - Presence of coronary angioplasty implant and graft (3) Coronary arteriosclerosis Current visit: No Status: Chronic Category: Medical Code(s): I25.10 - Atherosclerotic heart disease of [place] coronary artery without angina pectoris (4) Diabetes mellitus Current visit: No Status: Chronic Qualifiers: Diabetes mellitus type: type 2 Diabetes mellitus 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 home 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 Diabetes mellitus complication status : without complication Qualified Code(s): E11.9 - Type 2 diabetes mellitus without complications Category: Medical Code(s): E11.9 - Type 2 diabetes mellitus without complications (5) Hyperlipidemia Current visit: No Status: Chronic Qualifiers: Hyperlipidemia type: other hyperlipidemia Qualified Code(s): E78.4 - Other hyperlipidemia Category: Medical Code(s): E78.5 - Hyperlipidemia, unspecified (6) Hypertensive heart disease Current visit: No Status: Chronic Qualifiers: Heart failure presence: without heart failure Qualified Code(s): I11.9 - Hypertensive heart disease without heart failure Category: Medical Code(s): I11.9 - Hypertensive heart disease without heart failure (7) CHF (congestive heart failure) Current visit: Yes Status: Acute Category: Medical Code(s): I50.9 - Heart failure, unspecified - Assessment and plan all Dx Assessment and Plan for all problems:: Saw patient, agree with above note, OK to discharge today.
--- NOTE | 2018-01-26 09:59 | Progress Note ---
Subjective Date: 01/26/18 Time: 09:56 Principal diagnosis: chest pain Interval history: 57-year-old white male in bed in no acute distress. No further chest pains overnight. He is requesting to go home. Exam Vital signs and Labs for Last 24 Hours: Temp Pulse Resp BP Pulse Ox 98.5 F 71 20 116/75 96 01/26/18 04:00 01/26/18 08:00 01/26/18 06:00 01/26/18 06:00 01/26/18 06:00 Laboratory Results - last 24 hr 01/25/18 11:21: Activated Clotting Time 318 H* 01/25/18 17:23: POC Glucose 117 H 01/25/18 20:52: POC Glucose 149 H 01/26/18 06:35: POC Glucose 173 H I & O for Last 24 hours: Intake & Output 01/23/18 01/24/18 01/25/18 01/26/18 11:59 11:59 11:59 11:59 Intake Total 960 / 960 420 / 420 Output Total 475 / 475 Balance 960 / 960 -55 / -55 Weight 207 lb 1 oz 207 lb 4 oz - *Routine Respiratory Exam Present: CTA bilaterally - *Routine Cardiovascular Exam Present: RRR Progress Note: A&P (1) Chest pain Status: Acute Current Visit: Yes (2) Stented coronary artery Status: Acute Current Visit: No (3) Coronary arteriosclerosis Status: Chronic Current Visit: No (4) Diabetes mellitus Status: Chronic Current Visit: No (5) Hyperlipidemia Status: Chronic Current Visit: No (6) Hypertensive heart disease Status: Chronic Current Visit: No (7) CHF (congestive heart failure) Status: Acute Current Visit: Yes Assessment and Plan for All Diagnoses:: Okay to discharge home from a cardiology standpoint home medications to include aspirin 81 mg daily, Brilinta 90 mg twice daily, Norvasc 5 mg daily, carvedilol 12.5 mg twice daily, lisinopril 20 mg twice daily and atorvastatin 40 mg daily. He will follow-up with us in 1 week. Post-cath precautions of left wrist (no lifting for 48 hours then lifting weight limit of 30 pounds until seen in the office).
--- NOTE | 2018-01-26 10:42 | Discharge Summary ---
General - General Admission date: 01/24/18 Discharge date: 01/26/18 HPI HPI: Mr Lanza is a 57 year old male with a history of CAD , T2DM, HTN, and HLP who experienced CP this AM. The pain started in the left shoulder area, was intense in nature, and without associated SOB, palpitations, nausea or radiation. The pain is similar to the pain with his last heart event at which time he had 6 stents placed. He was working as usual but not doing anything physical. He came home from work and discussed a plan with his . He was experiencing some chills and they decided to be seen at the [facility]. He was directed immediately to the ER for evaluation. He denies any URI and GI symptoms. To Note he had an abnormal stress test 2 months ago at which time repeat cardiac cath was recommended. He did not want to have it done at that time. He did have an ECHO which indicated an EF of 40%. He was evaluated in the ER and given an ASA after which the pain improved. Initial TI was normal. He is to be admitted with further cardiac evaluation and cardiac cath in the AM. Hospital Course Hospital Course: The patient's CXR showed nothing acute. He was seen by Cardiology and they felt he needed a heart cath. His cath showed severe in-stent restenosis with very large proximal first diagonal artery. This was successfully stented and it was recommended the patient have dual antiplatelet therapy, cardiac rehab, and an LDL less than 55. The patient tolerated the procedure well. He had no more CP. He was stable to be discharged home on aspirin 81 mg daily, Brilinta 90 mg twice daily, Norvasc 5 mg daily, carvedilol 12.5 mg twice daily, lisinopril 20 mg twice daily, and atorvastatin 40 mg daily. He will follow-up with cardiology in 1 week. Post-cath precautions of left wrist were recommended (no lifting for 48 hours then lifting weight limit of 30 pounds until seen in the office). Objective Vital signs: Temp Pulse Resp BP Pulse Ox 98.5 F 71 20 116/75 96 01/26/18 04:00 01/26/18 08:00 01/26/18 06:00 01/26/18 06:00 01/26/18 06:00 Narrative: - Constitutional no acute distress Comments: appears comfortable - *Routine Respiratory Exam Present: CTA bilaterally (A&P) - *Routine Cardiovascular Exam Present: RRR Comments: Occasional PVC - *Routine Abdominal Exam Present: soft, normoactive bowel sounds. Absent: tenderness, distended, guarding - *Routine Extremities Exam Absent: edema, calf tenderness - *Routine Neurological Exam Present: alert, oriented X3 Results Labs on day of discharge: Labs from last 24 hours 01/26/18 01/25/18 01/25/18 06:35 20:52 17:23 Activated Clotting Time POC Glucose 173 H 149 H 117 H 01/25/18 11:21 Activated Clotting Time 318 H* POC Glucose DS: Diagnosis - Discharge Diagnosis (1) Chest pain Status: Acute (2) Stented coronary artery Status: Acute (3) Coronary arteriosclerosis Status: Chronic (4) Diabetes mellitus Status: Chronic (5) Hyperlipidemia Status: Chronic (6) Hypertensive heart disease Status: Chronic (7) CHF (congestive heart failure) Status: Acute Discharge Plan - Patient Discharge Instructions ACTIVITY: Continue current activity DIET: continue same diet Patient Instructions: DI for Atypical Chest Pain, DI for Chest Pain - Follow up Plan Follow up with: Shemar Beltran MD [Primary Care Provider] - 1 month Seth Blanco MD [Staff Physician] - 10 days Disposition: Home, Self-Correction Medications: Home Medications Medication Instructions Recorded Confirmed Type aspirin 81 mg tablet,delayed 81 mg PO DAILY 11/01/17 01/25/18 History release glimepiride 2 mg tablet 2 mg PO DAILY 11/01/17 01/25/18 History insulin detemir (U-100) 100 60 unit SUB-Q BID ml 11/01/17 01/24/18 History unit/mL (3 mL) subcutaneous pen sitagliptin 50 mg-metformin 1,000 1 tab PO BID tab 11/01/17 01/25/18 History mg tablet Carvedilol [Carvedilol 6.25mg Tab] 6.25 mg PO BID 01/24/18 01/24/18 History PARoxetine HCl [Paxil] 20 mg PO DAILY 01/24/18 01/24/18 History Amlodipine Besylate [Norvasc 5mg 5 mg PO DAILY 01/25/18 01/25/18 History tablet] Prescriptions/Medication Reconciliation: New Atorvastatin Calcium [Atorvastatin 10mg Tab] 10 mg PO DAILY #90 tab Clopidogrel Bisulfate [Plavix 75mg Tab] 75 mg PO DAILY #90 tab Continue glimepiride 2 mg tablet 2 mg PO DAILY insulin detemir (U-100) 100 unit/mL (3 mL) subcutaneous pen 60 unit SUB-Q BID ml sitagliptin 50 mg-metformin 1,000 mg tablet 1 tab PO BID tab lisinopril 20 mg tablet 20 mg PO BID #60 tab aspirin 81 mg tablet,delayed release 81 mg PO DAILY Carvedilol [Carvedilol 6.25mg Tab] 6.25 mg PO BID Amlodipine Besylate [Norvasc 5mg tablet] 5 mg PO DAILY PARoxetine HCl [Paxil] 20 mg PO DAILY
== END 2018-01-26 10:26 | disposition home or self-care (01) ==
LOC: ER 14:19 → 2ND 14:19
PROVIDERS: ADMIT Family Medicine; ATTEND Family Medicine

== ENCOUNTER 2018-01-26 10:55 | Observation (INO) ==
--- NOTE | 2018-01-26 11:59 | Emergency Department Note ---
ED Disposition Clinical Impression: Syncope, Stented coronary artery Disposition: Admitted as Observation Condition on Discharge: Fair - Critical Care Critical Care Time: Yes Attestation: On 01/26/18, the high probability of a clinically significant, sudden or life threatening deterioration of the following system(s) required my full and direct attention, intervention and personal management. The time I documented below is in addition to time spent performing reported procedures but includes the following listed in this critical care notation. Vital system(s) involved:: Circulatory Failure My critical care processes included: Assessment & monitoring of V/S, Initial and Re-exams, Data Review/Interpretation, Coordinating Care, Documentation Medical Decision Making - Medical Records Medical records reviewed: Yes: I reviewed the patient's medical records. - Danny Inquiry Pt receiving controlled substance: No Vital Signs: 01/26/18 10:55 01/26/18 11:30 01/26/18 11:45 Pulse Rate [Apical] 76 61 59 L Respiratory Rate 12 12 12 Blood Pressure [Right Arm] 108/75 103/55 100/48 Blood Pressure Mean [Right Arm] 86 71 65 Blood Pressure Source [Right Arm] Automatic Cuff Automatic Cuff Automatic Cuff Blood Pressure Position [Right Arm] Supine Supine Supine 02 Sat by Pulse Oximetry 96 96 97 Oxygen Delivery Method Room Air Nasal Cannula Nasal Cannula Nasal Cannula Oxygen Flow Rate (LPM) 3 3 3 01/26/18 12:42 Pulse Rate [Apical] 61 Respiratory Rate 14 Blood Pressure [Right Arm] 107/58 Blood Pressure Mean [Right Arm] 74 Blood Pressure Source [Right Arm] Automatic Cuff Blood Pressure Position [Right Arm] Supine 02 Sat by Pulse Oximetry 97 Oxygen Delivery Method Nasal Cannula Oxygen Flow Rate (LPM) 3 - Lab Data Lab Results 01/26/18 11:00: WBC 10.3, RBC 5.67, Hgb 17.3, Hct 51.1, MCV 90.0, MCH 30.5, MCHC 33.9, RDW 12.7, Plt Count 392 D, MPV 7.1 L, Neut % (Auto) 64.8, Lymph % ( Auto) 26.1, [place] % (Auto) 7.4, Eos % (Auto) 1.5, Baso % (Auto) 0.3, Neut # (Auto ) 6.7, Lymph # (Auto) 2.7, [place] # (Auto) 0.8, Eos # (Auto) 0.2, Baso # (Auto) 0.0 01/26/18 11:00: Sodium 135 L, Potassium 4.0, Chloride 100, Carbon Dioxide 21 D , Anion Gap 18.0 H, BUN 16, Creatinine 1.14 D, Estimated Creat Clear 93, Estimated GFR 66, Est GFR ( Amer) 80 D, Glucose 226 H, Calcium 9.7, Total Bilirubin 0.8, AST 16, ALT 27, Alkaline Phosphatase 99, Total Protein 7.7 , Albumin 3.9, Globulin 3.8 H, Albumin/Globulin Ratio 1.0 L 01/26/18 11:00: Total Creatine Kinase 92, CK-MB (CK-2) 3.1 D, CK-MB (CK-2) Rel Index 3.4, Troponin I 0.68 H Result diagrams: 01/26/18 11:00 01/26/18 11:00 Orders (Tests/Meds): ED MEDICATIONS Discontinued Medications Generic Name Dose Route Start Last Admin Trade Name Freq PRN Reason Stop Dose Admin Sodium Chloride 1,000 mls @ 999 mls/hr 01/26/18 11:15 01/26/18 11:00 Sod Chlor 0.9% 1000ml Bag IV 01/26/18 12:15 999 mls/hr .Q1H1M MI Administration Sodium Chloride 1,000 mls @ 999 mls/hr 01/26/18 11:45 01/26/18 11:00 Sod Chlor 0.9% 1000ml Bag IV 01/26/18 12:45 999 mls/hr .Q1H1M MI Administration Ondansetron HCl 4 mg 01/26/18 11:37 01/26/18 11:27 Zofran 4mg/2ml Vial IV 01/26/18 11:38 4 mg ONCE ONE Administration ORDERS Category Date Time Status Chest XR -- portable [XR chest portable] Stat Exams 01/26/18 11:02 Taken ECG Request by /Kevin Stat Y 01/26/18 11:02 Ordered - CT Data CT Scan: Head Time Received: 12:[address] Reviewed: Yes: I discussed the CT results w/the radiologist Preliminary Findings: Normal/NAD Findings Narrative: neg acute per Dr. Woodson - ECG Data Tracing #1 I reviewed this ECG and interpreted as documented below: NSR 75 no acute changes ECG normal with no acute: arrhythmias, ischemia, conduction abnormalities, chamber hypertrophy Normal Sinus Rhythm: Yes - Physician Consults Physician Consulted: cardiology Time: 10:55 Reason -: Pt condition, Cardiology Eval/Care Comment/Response: De Tripp reports patient on Brilenta; okay to observe and if persistent symptoms, okay to admit to Dr. Beltran for observation; De Tripp also has come to the ED to speak with patient and family Additional Consult: PCP Dr. Beltran Time: 13:13 Reason -: Admission Comment/Response: admit w/ card consult - Reevaluation(s) Time: 12:29 (SBP low 100's, still feeling nauseated and somewhat lightheaded, prefers to stay supine, does not feel well enough to go home; trop still pending and will page PCP when labs back) Medical Decision Narrative: Patient had an episode of emesis and was given Zofran; is quite fatigued but neurologically intact; is a little hypotensive still and receiving IVF; awaiting lab results. 12:06. Syncope HPI - General Chief Complaint: Dizziness Stated Complaint: lethargic, vomitting Time Seen by Provider: 01/26/18 10:55 Mode of Arrival: Wheelchair Source of Information: Spouse Limitations: No Limitations Description of Symptoms (Recalled from ER Triage Doc. by RN): Pt brought in per , pt very lethargic in nature, staff had to get pt out of car. Pt martínez vomitted. states pt was talking like normal and then all of a sudden "stiffened out" and reported to his that he didn't feel well, states he became very pale. states pt had a heart cath yesterday and recieved 1 stent , pt was discharged from hospital yesterday. - History of Present Illness HPI narrative: Patient underwent cardiac stent x [address] Blanco yesterday; placed on Brilenta; discharged home and was in car when he had a brief episode of lightheadedness, vomited without choking, and became diaphoretic and had what may have been a syncopal episode that was brief and self resolving. He arrives able to speak, but is just "coming to" and is diaphoretic. Per d/w De Tripp from cardiology, who was called upon patient arrival to ED, patient had a similar episode s/p [facility] several years ago. Patient initially hypotensive with SBP 108, and with rapid IVF administration recheck is 120's. He denies chest pain. No cephalgia. No unilateral weakness or unilateral neurological sx. No acute back pain. MD complaint: loss of consciousness Onset (ago): minute(s) -: second(s) Prodromal symptoms: diaphoresis, nausea/vomiting Witnessed: yes - by bystander Context: at rest Injuries sustained associated with event: none Current symptoms: lightheaded, nausea History: previous syncopal episode, history of CAD - Related Data Home Medications Medication Instructions Recorded Confirmed aspirin 81 mg tablet,delayed 81 mg PO DAILY 11/01/17 01/25/18 release glimepiride 2 mg tablet 2 mg PO DAILY 11/01/17 01/25/18 insulin detemir (U-100) 100 60 unit SUB-Q BID ml 11/01/17 01/24/18 unit/mL (3 mL) subcutaneous pen sitagliptin 50 mg-metformin 1,000 1 tab PO BID tab 11/01/17 01/25/18 mg tablet Carvedilol [Carvedilol 6.25mg Tab] 6.25 mg PO BID 01/24/18 01/24/18 PARoxetine HCl [Paxil] 20 mg PO DAILY 01/24/18 01/24/18 Amlodipine Besylate [Norvasc 5mg 5 mg PO DAILY 01/25/18 01/25/18 tablet] Ticagrelor [Brilinta 90mg Tablet] 90 mg PO BID 01/26/18 01/26/18 Previous Rx's Medication Instructions Recorded lisinopril 20 mg tablet 20 mg PO BID #60 tab 11/02/17 Atorvastatin Calcium [Atorvastatin 10 mg PO DAILY #90 tab 01/26/18 10mg Tab] Allergies Allergy/AdvReac Type Severity Reaction Status Date / Time No Known Allergies Allergy Verified 01/24/18 14:25 [facility] History I have reviewed the patient's past medical history: Yes Medical History: Reports:: Atherosclerotic Heart Disease, Coronary Artery Disease, Diabetes Mellitus Type 2, Hyperlipidemia, Hypertension, Myocardial Infarction Denies:: Cancer, Diabetes Mellitus Type 1, Gastroesophageal Reflux Disease( GERD), MRSA, Palpitations Other Medical History: Denies: Hypothyroidism Laterality Cases: Right: Other (cyst removed from right knee), Bilateral: Tonsillectomy Other Surgeries: Yes: Other (LHC-6 stents) Amputation: No Fractures: No Comment: left heart cath with stents 02/2015; left heart cath with stents 09/2016 - Social History Smoking Status: Never smoker Tobacco Type: smokeless tobacco Alcohol Intake: never Occupational Status: employed Housing: house Household Members: spouse Family Hx:: Coronary Artery Disease, Heart Attack Comment: both grandfather and father at the age of 74 with AMI ROS Obtained: Yes All systems reviewed & no additional complaints Physical Exam - General General appearance: alert, other (diaphoretic, verbal, "coming to"; afebrile; NSR on monitor at 75. ) - Head Head exam: atraumatic, normocephalic, normal inspection - Eye Eye exam: Present: normal appearance, PERRL, EOMI - ENT ENT exam: Present: normal exam (airway clear), normal oropharynx, mucous membranes moist, TM's normal bilaterally, normal external ear exam - Neck Neck exam: Present: normal inspection, full ROM, trachea midline. Absent: meningismus, lymphadenopathy - Chest Chest inspection: Present: normal inspection, symmetric chest wall rise. Absent : tenderness - Respiratory Respiratory exam: Present: normal lung sounds bilaterally. Absent: respiratory distress - Cardiovascular Cardiovascular exam: Present: regular rate, normal rhythm. Absent: JVD - Abdominal Exam Abdominal exam: Present: soft, normal bowel sounds. Absent: distention, tenderness, guarding - Extremities Exam Extremities exam: Present: normal inspection, full ROM, normal capillary refill. Absent: pedal edema, calf tenderness - Back Exam Back exam: Present: straight leg raise (R), straight leg raise (L) ( B SLT nl) - Neurological Exam Neurological exam: Present: alert, oriented X3, CN II-XII intact, reflexes normal (no unilateral findings; amnesia for event in car but alert now). Absent : motor sensory deficit - Skin Skin exam: Present: warm, diaphoresis. Absent: rash, cyanosis, erythema, pallor , mottled - Lymphatic Lymphatic Findings: no adenopathy
[2018-01-26 12:21] LABS: Albumin Level 3.9 gm/dL (3.4-5.0); Bilirubin,Total 0.8 mg/dL (0.2-1.0); Calcium 9.7 mg/dL (8.5-10.1); Globulin 3.8 gm/dl (1.3-3.2); Total Protein,Serum 7.7 gm/dL (6.4-8.2)
[2018-01-26 12:22] LABS: Basophils % 0.3 % (0.1-2.0); Eosinophils # 0.2 K/mm3 (0.0-0.4); Eosinophils % 1.5 % (0.1-12.0); Hematocrit 51.1 % (42.0-52.0); Hemoglobin 17.3 g/dL (14.1-18.0); Lymphocytes # 2.7 K/mm3 (0.7-4.5); Lymphocytes % 26.1 K/mm3 (10-50); Mean Corpuscular HGB Conc 33.9 g/dL (31.8-35.4); Mean Corpuscular Hemoglobin 30.5 pg (27.0-31.2); Mean Platelet Volume 7.1 fl (7.4-10.4); Monocytes # 0.8 K/mm3 (0.1-1.0); Monocytes % 7.4 % (1.7-9.3); Neutrophils # 6.7 K/mm3 (1.8-7.8); Neutrophils % 64.8 % (37.0-80.0); Platelet Count 392 K/mm3 (142-424); Red Blood Count 5.67 M/mm3 (4.60-6.20); Red Cell Distribution Width 12.7 % (11.5-17.5); White Blood Count 10.3 K/mm3 (4.8-10.8)
--- NOTE | 2018-01-26 13:56 | History & Physical Report ---
*Admission Date: 01/26/18 <Ramandeep Tucker 01/26/18 14:11> *Chief complaint: syncope, vomiting <Ramandeep Tucker 01/26/18 14:11> *History of present illness: Mr. Lanza is a 57yo male who left [facility] today after an admission for CP. He received a stent during that admission. He states he was in the car driving home and he had a syncopal episode and his legs became weak. He also vomited during the syncopal episode. He denies any other symptoms. He is nauseated and has vomited a few times. He has had no further syncope. He denies any CP, SOA, or dizziness. <Ramandeep Tucker 01/26/18 14:11> [facility] History Medical History: Reports:: Atherosclerotic Heart Disease, Coronary Artery Disease, Diabetes Mellitus Type 2, Hyperlipidemia, Hypertension, Myocardial Infarction Denies:: Cancer, Diabetes Mellitus Type 1, Gastroesophageal Reflux Disease( GERD), MRSA, Palpitations <Ramandeep Tucker 01/26/18 14:11> Other Medical History: Denies: Hypothyroidism <Ramandeep Tucker 01/26/18 14:11> Laterality Cases: Right: Other, Bilateral: Tonsillectomy <Ramandeep Tucker 04/09 14:11> Other Surgeries: Yes: Cardiac Catheterization (With Stent placement), Other ([facility] -6 stents) <Ramandeep Tucker 01/26/18 14:11> Amputation: No <Ramandeep Tucker 01/26/18 14:11> Fractures: No <Ramandeep Tucker 01/26/18 14:11> - *Social History Smoking Status: Never smoker <Ramandeep Tucker 01/26/18 14:11> Tobacco Type: smokeless tobacco <Ramandeep Tucker 01/26/18 14:11> Alcohol Intake: never <Ramandeep Tucker 01/26/18 14:11> Occupational Status: employed <Ramandeep Tucker 01/26/18 14:11> Housing: house <Ramandeep Tucker 01/26/18 14:11> Household Members: spouse <Ramandeep Tucker 01/26/18 14:11> - Psychiatric History Expresses thoughts of harming self/others: None <Ramandeep Tucker 01/26/18 14: 11> Suicide Plan Description: No Plan <Ramandeep Tucker 01/26/18 14:11> *Family Hx:: Coronary Artery Disease, Heart Attack <Ramandeep Tucker 01/26/18 14:11> Review of Systems - Constitutional Reports weakness, Denies body ache(s), Denies chills <Ramandeep Tucker 14:11> - Eyes Denies blurry vision, Denies double vision, Denies loss of vision <Ramandeep Tucker 01/26/18 14:11> - ENT Denies nasal congestion, Denies sore throat <Ramandeep Tucker 01/26/18 14:11> - *Cardiovascular Denies chest pain, Denies shortness of breath <Ramandeep Tucker 01/26/18 14:11> - *Respiratory Denies chest congestion, Denies cough, Denies shortness of breath <Ramandeep Tucker 01/26/18 14:11> - *Gastrointestinal Reports nausea, Reports vomiting, Denies abdominal pain, Denies loose stools < Jayce Tuckera 01/26/18 14:11> - *Genitourinary Denies difficulty urinating, Denies painful urination <Jayce Tuckera 14:11> - *Musculoskeletal Denies joint pain <CaitlinRamandeep 01/26/18 14:11> - *Neurologic Reports fainting, Reports weakness, Denies headache(s), Denies dizziness < Ramandeep Tucker 01/26/18 14:11> Meds Home Medications Medication Instructions Recorded Confirmed Type aspirin 81 mg tablet,delayed 81 mg PO DAILY 11/01/17 01/26/18 History release glimepiride 2 mg tablet 2 mg PO DAILY 11/01/17 01/26/18 History insulin detemir (U-100) 100 60 unit SUB-Q BID ml 11/01/17 01/26/18 History unit/mL (3 mL) subcutaneous pen sitagliptin 50 mg-metformin 1,000 1 tab PO BID tab 11/01/17 01/26/18 History mg tablet Carvedilol [Carvedilol 6.25mg Tab] 6.25 mg PO BID 01/24/18 01/26/18 History PARoxetine HCl [Paxil] 20 mg PO DAILY 01/24/18 01/26/18 History Amlodipine Besylate [Norvasc 5mg 5 mg PO DAILY 01/25/18 01/26/18 History tablet] Atorvastatin Calcium [Atorvastatin 10 mg PO DAILY 01/26/18 01/26/18 History 10mg Tab] Ticagrelor [Brilinta 90mg Tablet] 90 mg PO BID 01/26/18 01/26/18 History <Shemar Beltran - 01/26/18 17:19> Allergies Allergy/AdvReac Type Severity Reaction Status Date / Time No Known Allergies Allergy Verified 01/24/18 14:25 <Shemar Beltran - 01/26/18 17:19> Exam Vital signs and Labs for Last 24 Hours: Temp Pulse Resp BP Pulse Ox 97.3 F L 79 20 136/78 99 01/26/18 15:50 01/26/18 15:50 01/26/18 15:50 01/26/18 15:50 01/26/18 15:50 Laboratory Results - last 24 hr 01/26/18 16:33: POC Glucose 168 H <Shemar Beltran - 01/26/18 17:19> Pulse Resp BP Pulse Ox 75 16 110/61 97 01/26/18 13:38 01/26/18 13:38 01/26/18 13:38 01/26/18 13:38 Lab Results 01/26/18 11:00: WBC 10.3, RBC 5.67, Hgb 17.3, Hct 51.1, MCV 90.0, MCH 30.5, MCHC 33.9, RDW 12.7, Plt Count 392 D, MPV 7.1 L, Neut % (Auto) 64.8, Lymph % ( Auto) 26.1, [place] % (Auto) 7.4, Eos % (Auto) 1.5, Baso % (Auto) 0.3, Neut # (Auto ) 6.7, Lymph # (Auto) 2.7, [place] # (Auto) 0.8, Eos # (Auto) 0.2, Baso # (Auto) 0.0 01/26/18 11:00: Sodium 135 L, Potassium 4.0, Chloride 100, Carbon Dioxide 21 D , Anion Gap 18.0 H, BUN 16, Creatinine 1.14 D, Estimated Creat Clear 93, Estimated GFR 66, Est GFR ( Amer) 80 D, Glucose 226 H, Calcium 9.7, Total Bilirubin 0.8, AST 16, ALT 27, Alkaline Phosphatase 99, Total Protein 7.7 , Albumin 3.9, Globulin 3.8 H, Albumin/Globulin Ratio 1.0 L 01/26/18 11:00: Total Creatine Kinase 92, CK-MB (CK-2) 3.1 D, CK-MB (CK-2) Rel Index 3.4, Troponin I 0.68 H [facility]11> - Constitutional Comments: Does not appear to feel well [facility]/26/[facility] 14:11> - *Routine HEENT Exam Head: Present: normocephalic, atraumatic [facility]/26/[facility] 14:11> Eye: Present: EOMI, PERRL [facility] 01/26/18 14:11> ENT: Present: mucous membranes moist [facility] 01/26/18 14:11> - *Routine Neck Exam Present: supple, full ROM <[facility] 01/26/18 14:11> - *Routine Respiratory Exam Present: CTA bilaterally [facility] 01/26/18 14:11> - *Routine Cardiovascular Exam Present: RRR [facility] 01/26/18 14:11> - *Routine Abdominal Exam Present: soft, normoactive bowel sounds. Absent: tenderness [facility] 01/26/18 14:11> - *Routine Extremities Exam Absent: edema [facility] 01/26/18 14:11> - *Routine Skin Exam Present: intact [facility] 01/26/18 14:11> - *Routine Neurological Exam Present: alert, oriented X3, CN II-XII intact <[facility] 01/26/18 14:11> H&P: Result - Impressions CXR - nothing acute Head CT - nothing acute <[facility] 01/26/18 14:11> Assessment and Plan (1) Syncope Current visit: Yes Status: Acute Category: Medical Code(s): R55 - Syncope and collapse (2) Vomiting Current visit: Yes Status: Acute Category: Medical Code(s): R11.10 - Vomiting, unspecified (3) Stented coronary artery Current visit: Yes Status: Acute Category: Surgical Code(s): Z95.5 - Presence of coronary angioplasty implant and graft (4) Coronary arteriosclerosis Current visit: No Status: Chronic Category: Medical Code(s): I25.10 - Atherosclerotic heart disease of [place] coronary artery without angina pectoris (5) Diabetes mellitus Current visit: No Status: Chronic Qualifiers: Diabetes mellitus type: type 2 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 insulin use status Diabetes mellitus complication status : without complication Qualified Code(s): E11.9 - Type 2 diabetes mellitus without complications Category: Medical Code(s): E11.9 - Type 2 diabetes mellitus without complications (6) Hyperlipidemia Current visit: No Status: Chronic Qualifiers: Hyperlipidemia type: other hyperlipidemia Qualified Code(s): E78.4 - Other hyperlipidemia Category: Medical Code(s): E78.5 - Hyperlipidemia, unspecified (7) Hypertensive heart disease Current visit: No Status: Chronic Qualifiers: Heart failure presence: without heart failure Qualified Code(s): I11.9 - Hypertensive heart disease without heart failure Category: Medical Code(s): I11.9 - Hypertensive heart disease without heart failure <Shemar Beltran - 01/26/18 17:19> (1) Syncope Current visit: Yes Status: Acute Category: Medical Code(s): R55 - Syncope and collapse (2) Vomiting Current visit: Yes Status: Acute Category: Medical Code(s): R11.10 - Vomiting, unspecified (3) Stented coronary artery Current visit: Yes Status: Acute Category: Surgical Code(s): Z95.5 - Presence of coronary angioplasty implant and graft (4) Coronary arteriosclerosis Current visit: No Status: Chronic Category: Medical Code(s): I25.10 - Atherosclerotic heart disease of [place] coronary artery without angina pectoris (5) Diabetes mellitus Current visit: No Status: Chronic Qualifiers: Diabetes mellitus type: type 2 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 Diabetes mellitus complication status : without complication Qualified Code(s): E11.9 - Type 2 diabetes mellitus without complications Category: Medical Code(s): E11.9 - Type 2 diabetes mellitus without complications (6) Hyperlipidemia Current visit: No Status: Chronic Qualifiers: Hyperlipidemia type: other hyperlipidemia Qualified Code(s): E78.4 - Other hyperlipidemia Category: Medical Code(s): E78.5 - Hyperlipidemia, unspecified (7) Hypertensive heart disease Current visit: No Status: Chronic Qualifiers: Heart failure presence: without heart failure Qualified Code(s): I11.9 - Hypertensive heart disease without heart failure Category: Medical Code(s): I11.9 - Hypertensive heart disease without heart failure <Ramandeep Tucker - 01/26/18 13:47> - Assessment and plan all Dx Assessment and Plan for all problems:: Saw patient, agree with above note. He appears to have had a vasovagal reaction today while traveling home from the hospital. Will observe him overnight and plan for discharge tomorrow if he does well. <Shemar Beltran - 01/26/18 17:19> The patient will be admitted and placed on a make ready worker. Cardiology will be consulted. He has had fluids and zofran. He is still currently in the ER. <Ramandeep Tucker - 01/26/18 14:11>
--- NOTE | 2018-01-26 15:01 | Consult Report ---
History of Present Illness Consult date: 01/26/18 Requesting physician: Shemar Beltran Chief complaint: Passed out Additional Medical History:: 1. CAD A. Cath, [facility] to LAD, diagonal and RCA, 03/18/2015. On DAPT. B. LHC with subsequent LAD/diagonal and RCA stenting, 09/2016. C. Stress test in 03/2017 showed evidence of mild reversible ischemia involving the distal anteroapical and anteroseptal wall, a fixed defect in the inferior wall with normal contractility on the gated SPECT is likely secondary to soft tissue attenuation. Computer derived EF is 46% with segmental wall motion abnormality described above. Right ventricle is mildly enlarged with normal contractility. [facility] recommended but patient did not have it done. D. Admit for UAP, 01/24/2018. The left heart cath 01/25/2018 with drug-eluting stent placement to ostial diagonal lesion. 2. DM, poorly controlled. 3. HTN A. Echo, 11/2017, mild LAE, normal LV size with EF 40-45% and moderate hypokinesis involving the inferobasal to distal septum wall. No significant valvular heart disease. Right atrium and right ventricle normal size and function. Mild MR TR grade 1 diastolic dysfunction. 4. Hyperlipidemia, on statin. History of present illness: 57-year-old white male discharged this morning after brief hospital stay for chest pain with subsequent left heart catheterization and diagonal artery stenting was on his way home when he developed sudden "stiffening out" per his with seizure-like appearance and became unresponsive. Shortly thereafter the patient began to vomit without apparent choking. Patient did resume consciousness but was severely weak and fatigued. He was brought back to the emergency department and required assistance to be brought into the ER. Patient was noted to be [place] with systolic pressure 100 mmHg which responded quickly to IV fluids. Workup in the emergency department included a CT of the head without acute abnormalities and chest x-ray with no acute abnormalities as well. EKG showed sinus rhythm with no acute changes. Routine labs unremarkable with the exception of troponin slightly elevated in the setting of coronary intervention yesterday. We were notified by the ER of the patient's arrival. I did see the patient in the ER. He did not appear to be in acute distress but was very lethargic. Patient has subsequently been admitted for observation and IV fluids. [facility] History Medical History: Reports:: Atherosclerotic Heart Disease, Coronary Artery Disease, Diabetes Mellitus Type 2, Hyperlipidemia, Hypertension, Myocardial Infarction Denies:: Cancer, Diabetes Mellitus Type 1, Gastroesophageal Reflux Disease( GERD), MRSA, Palpitations Other Medical History: Denies: Hypothyroidism Laterality Cases: Right: Other, Bilateral: Tonsillectomy Other Surgeries: Yes: Cardiac Catheterization (With Stent placement), Other ([facility] -6 stents) Amputation: No Fractures: No - *Social History Smoking Status: Never smoker Tobacco Type: smokeless tobacco Alcohol Intake: never Occupational Status: employed Housing: house Household Members: spouse - Psychiatric History Expresses thoughts of harming self/others: None Suicide Plan Description: No Plan *Family Hx:: Coronary Artery Disease, Heart Attack Meds Home Medications Medication Instructions Recorded Confirmed Type aspirin 81 mg tablet,delayed 81 mg PO DAILY 11/01/17 01/26/18 History release glimepiride 2 mg tablet 2 mg PO DAILY 11/01/17 01/26/18 History insulin detemir (U-100) 100 60 unit SUB-Q BID ml 11/01/17 01/26/18 History unit/mL (3 mL) subcutaneous pen sitagliptin 50 mg-metformin 1,000 1 tab PO BID tab 11/01/17 01/26/18 History mg tablet Carvedilol [Carvedilol 6.25mg Tab] 6.25 mg PO BID 01/24/18 01/26/18 History PARoxetine HCl [Paxil] 20 mg PO DAILY 01/24/18 01/26/18 History Amlodipine Besylate [Norvasc 5mg 5 mg PO DAILY 01/25/18 01/26/18 History tablet] Atorvastatin Calcium [Atorvastatin 10 mg PO DAILY 01/26/18 01/26/18 History 10mg Tab] Ticagrelor [Brilinta 90mg Tablet] 90 mg PO BID 01/26/18 01/26/18 History Allergies Allergy/AdvReac Type Severity Reaction Status Date / Time No Known Allergies Allergy Verified 01/24/18 14:25 Review of Systems - Constitutional Reports malaise - *Cardiovascular Denies chest pain - *Respiratory Denies shortness of breath - *Gastrointestinal Reports vomiting - *Musculoskeletal Reports muscle weakness - *Neurologic Reports fainting, Reports weakness, Denies headache(s), Denies loss of vision, Denies dizziness Exam Vital signs and Labs for Last 24 Hours: Temp Pulse Resp BP Pulse Ox 96.6 F L 65 18 142/90 94 L 01/26/18 14:00 01/26/18 14:00 01/26/18 14:00 01/26/18 14:00 01/26/18 14:00 - *Routine Neck Exam Present: supple. Absent: JVD, carotid bruit - *Routine Respiratory Exam Present: CTA bilaterally. Absent: rhonchi, wheezes - *Routine Cardiovascular Exam Present: RRR, Normal S1, Normal S2. Absent: murmur, gallop, rubs - *Routine Extremities Exam Absent: edema - *Routine Neurological Exam Present: alert, oriented X3, moving all extremities Assessment and Plan (1) Syncope Current visit: Yes Status: Acute Category: Medical Code(s): R55 - Syncope and collapse (2) Vomiting Current visit: Yes Status: Acute Category: Medical Code(s): R11.10 - Vomiting, unspecified (3) Stented coronary artery Current visit: Yes Status: Acute Category: Surgical Code(s): Z95.5 - Presence of coronary angioplasty implant and graft (4) Coronary arteriosclerosis Current visit: No Status: Chronic Category: Medical Code(s): I25.10 - Atherosclerotic heart disease of [place] coronary artery without angina pectoris (5) Diabetes mellitus Current visit: No Status: Chronic Qualifiers: Diabetes mellitus type: type 2 Diabetes mellitus terminal system operator insulin use: unspecified terminal system operator insulin use status Diabetes mellitus complication status : without complication Qualified Code(s): E11.9 - Type 2 diabetes mellitus without complications Category: Medical Code(s): E11.9 - Type 2 diabetes mellitus without complications (6) Hyperlipidemia Current visit: No Status: Chronic Qualifiers: Hyperlipidemia type: other hyperlipidemia Qualified Code(s): E78.4 - Other hyperlipidemia Category: Medical Code(s): E78.5 - Hyperlipidemia, unspecified (7) Hypertensive heart disease Current visit: No Status: Chronic Qualifiers: Heart failure presence: without heart failure Qualified Code(s): I11.9 - Hypertensive heart disease without heart failure Category: Medical Code(s): I11.9 - Hypertensive heart disease without heart failure - Assessment and plan all Dx Assessment and Plan for all problems:: 1. Continue dual antiplatelet therapy (aspirin and Brilinta). 2. Continue IV fluids. 3. Syncopal episode likely related to vasovagal event. 4. No further cardiac workup. 5. Pt was seen by Dr. Blanco on the floor.
[2018-01-27 07:03] LABS: Anion Gap 12.8 mEq/L (5-15); Potassium 3.8 mmoL/L (3.5-5.1)
[2018-01-27 07:08] LABS: Eosinophils # 0.2 K/mm3 (0.0-0.4); Eosinophils % 1.7 % (0.1-12.0)
[2018-01-27 07:33] LABS: Basophils % 0.4 % (0.1-2.0); Hematocrit 45.3 % (42.0-52.0); Lymphocytes # 1.9 K/mm3 (0.7-4.5); Lymphocytes % 21.2 K/mm3 (10-50); Mean Corpuscular HGB Conc 34.1 g/dL (31.8-35.4); Mean Corpuscular Hemoglobin 30.5 pg (27.0-31.2); Mean Corpuscular Volume 89.3 fl (80-94); Mean Platelet Volume 7.1 fl (7.4-10.4); Monocytes # 0.8 K/mm3 (0.1-1.0); Monocytes % 8.2 % (1.7-9.3); Neutrophils # 6.2 K/mm3 (1.8-7.8); Neutrophils % 68.6 % (37.0-80.0); Platelet Count 265 K/mm3 (142-424); Red Blood Count 5.07 M/mm3 (4.60-6.20); Red Cell Distribution Width 12.6 % (11.5-17.5); White Blood Count 9.1 K/mm3 (4.8-10.8)
[2018-01-27 07:34] LABS: Hemoglobin 15.4 g/dL (14.1-18.0)
--- NOTE | 2018-01-27 08:20 | Progress Note ---
Internal Medicine - PN: Subj *Date: 01/27/18 *Time: 08:17 Interval history: Patient has done well overnight. He has no new complaints and wants to go home. He is concerned that he can not afford Brilinta and has taken Plavix in the past and wants to resume its use. Exam Vital signs and Labs for Last 24 Hours: Temp Pulse Resp BP Pulse Ox 97.9 F 68 16 154/88 96 01/27/18 03:54 01/27/18 04:00 01/27/18 03:54 01/27/18 04:30 01/27/18 03:54 Laboratory Results - last 24 hr 01/26/18 16:33: POC Glucose 168 H 01/26/18 21:15: POC Glucose 182 H 01/27/18 06:40: WBC 9.1, RBC 5.07, Hgb 15.4 D, Hct 45.3, MCV 89.3, MCH 30.5, MCHC 34.1, RDW 12.6, Plt Count 265 D, MPV 7.1 L, Neut % (Auto) 68.6, Lymph % ( Auto) 21.2, [place] % (Auto) 8.2, Eos % (Auto) 1.7, Baso % (Auto) 0.4, Neut # (Auto ) 6.2, Lymph # (Auto) 1.9, [place] # (Auto) 0.8, Eos # (Auto) 0.2, Baso # (Auto) 0.0 01/27/18 06:40: Sodium 139, Potassium 3.8, Chloride 106, Carbon Dioxide 24, Anion Gap 12.8, BUN 13, Creatinine 0.83 D, Estimated Creat Clear 129, Estimated GFR 96, Est GFR ( Amer) 116 D, Glucose 185 H Vital Signs Temp Pulse Pulse Pulse Resp BP BP 01/27/18 04:30 154/88 01/27/18 04:00 68 01/27/18 03:54 97.9 F 77 16 165/94 01/27/18 00:00 80 01/26/18 23:55 97.3 F L 77 17 144/86 01/26/18 20:45 01/26/18 20:00 98.4 F 88 84 18 139/81 01/26/18 19:28 01/26/18 16:00 80 01/26/18 15:50 97.3 F L 79 20 01/26/18 15:30 01/26/18 14:00 96.6 F L 65 18 01/26/18 13:46 97.9 F 61 16 117/64 01/26/18 13:38 75 16 01/26/18 12:42 61 14 01/26/18 11:45 59 L 12 01/26/18 11:30 61 12 01/26/18 10:55 76 12 BP Pulse Ox 01/27/18 04:30 01/27/18 04:00 01/27/18 03:54 96 01/27/18 00:00 01/26/18 23:55 95 01/26/18 20:45 95 01/26/18 20:00 95 01/26/18 19:28 95 01/26/18 16:00 01/26/18 15:50 136/78 99 01/26/18 15:30 95 01/26/18 14:00 142/90 94 L 01/26/18 13:46 01/26/18 13:38 110/61 97 01/26/18 12:42 107/58 97 01/26/18 11:45 100/48 97 01/26/18 11:30 103/55 96 01/26/18 10:55 108/75 96 Intake and Output 01/26/18 01/27/18 01/27/18 19:59 03:59 11:59 Intake Total 2480 / 2480 Balance 2480 / 2480 Intake: Intake, Oral Amount 480 / 480 Intake, Total IV Amount 1999 Other: Weight 201 lb 8.992 oz Patient Weight 01/27/18 11:59 Weight 201 lb 8.992 oz I & O for Last 24 hours: Intake & Output 01/24/18 01/25/18 01/26/18 01/27/18 11:59 11:59 11:59 11:59 Intake Total 480 / 2480 Balance 480 / 2480 - Constitutional no acute distress - *Routine Cardiovascular Exam Present: RRR Assessment and Plan (1) Syncope Current visit: Yes Status: Acute Category: Medical Code(s): R55 - Syncope and collapse (2) Vasovagal episode Current visit: Yes Status: Acute Category: Medical Code(s): R55 - Syncope and collapse (3) Vomiting Current visit: Yes Status: Resolved Category: Medical Code(s): R11.10 - Vomiting, unspecified (4) Stented coronary artery Current visit: Yes Status: Acute Category: Surgical Code(s): Z95.5 - Presence of coronary angioplasty implant and graft (5) Coronary arteriosclerosis Current visit: No Status: Chronic Category: Medical Code(s): I25.10 - Atherosclerotic heart disease of [place] coronary artery without angina pectoris (6) Diabetes mellitus Current visit: No Status: Chronic Qualifiers: Diabetes mellitus type: type 2 Diabetes mellitus terminal gauger supervisor insulin use: unspecified terminal gauger supervisor insulin use status Diabetes mellitus complication status : without complication Qualified Code(s): E11.9 - Type 2 diabetes mellitus without complications Category: Medical Code(s): E11.9 - Type 2 diabetes mellitus without complications (7) Hyperlipidemia Current visit: No Status: Chronic Qualifiers: Hyperlipidemia type: other hyperlipidemia Qualified Code(s): E78.4 - Other hyperlipidemia Category: Medical Code(s): E78.5 - Hyperlipidemia, unspecified (8) Hypertensive heart disease Current visit: No Status: Chronic Qualifiers: Heart failure presence: without heart failure Qualified Code(s): I11.9 - Hypertensive heart disease without heart failure Category: Medical Code(s): I11.9 - Hypertensive heart disease without heart failure - Assessment and plan all Dx Assessment and Plan for all problems:: OK for discharge today, patient will keep f/u appointments with Dr. Blanco and myself, ok to take Plavix.
--- NOTE | 2018-01-28 14:49 | Discharge Summary ---
General - General Admission date: 01/26/18 Discharge date: 01/27/18 HPI HPI: Mr. Lanza is a 57yo male who left [facility] today after an admission for CP. He received a stent during that admission. He states he was in the car driving home and he had a syncopal episode and his legs became weak. He also vomited during the syncopal episode. He denies any other symptoms. He is nauseated and has vomited a few times. He has had no further syncope. He denies any CP, SOA, or dizziness. Hospital Course Hospital Course: He had a CXR and heat CT showing nothing acute. He was started on IVF's and zofran as well as a library monitor. Cardiology was consulted. Cardiology and his PCP felt he appeared to have had a vasovagal reaction while traveling home from the hospital. He was observed over night. He had no further episodes. He was stable to be discharged home the next day. He did say he could not afford Brilinta and would prefer plavix. A prescription was sent for this. Objective Vital signs: Temp Pulse Resp BP Pulse Ox 97.7 F 76 20 166/98 97 01/27/18 08:00 01/27/18 08:00 01/27/18 08:00 01/27/18 08:00 01/27/18 08:00 Narrative: - Constitutional Comments: Does not appear to feel well - *Routine HEENT Exam Head: Present: normocephalic, atraumatic Eye: Present: EOMI, PERRL ENT: Present: mucous membranes moist - *Routine Neck Exam Present: supple, full ROM - *Routine Respiratory Exam Present: CTA bilaterally - *Routine Cardiovascular Exam Present: RRR - *Routine Abdominal Exam Present: soft, normoactive bowel sounds. Absent: tenderness - *Routine Extremities Exam Absent: edema - *Routine Skin Exam Present: intact - *Routine Neurological Exam Present: alert, oriented X3, CN II-XII intact Results Labs on day of discharge: Labs from last 24 hours 01/27/18 04:34 POC Glucose 154 H DS: Diagnosis - Discharge Diagnosis (1) Syncope Status: Acute (2) Vomiting Status: Resolved (3) Stented coronary artery Status: Acute (4) Coronary arteriosclerosis Status: Chronic (5) Diabetes mellitus Status: Chronic (6) Hyperlipidemia Status: Chronic (7) Hypertensive heart disease Status: Chronic Discharge Plan - Patient Discharge Instructions ACTIVITY: Continue current activity DIET: continue same diet Patient Instructions: DI for Syncope in Adults (Fainting) - Follow up Plan Follow up with: Shemar Beltran MD [Primary Care Provider] - Seth Blanco MD [Staff Physician] - Disposition: Home, Self-Nursing Home Medications: Home Medications Medication Instructions Recorded Confirmed Type aspirin 81 mg tablet,delayed 81 mg PO DAILY 11/01/17 01/26/18 History release glimepiride 2 mg tablet 2 mg PO DAILY 11/01/17 01/26/18 History insulin detemir (U-100) 100 60 unit SUB-Q BID ml 11/01/17 01/26/18 History unit/mL (3 mL) subcutaneous pen sitagliptin 50 mg-metformin 1,000 1 tab PO BID tab 11/01/17 01/26/18 History mg tablet Carvedilol [Carvedilol 6.25mg Tab] 6.25 mg PO BID 01/24/18 01/26/18 History PARoxetine HCl [Paxil] 20 mg PO DAILY 01/24/18 01/26/18 History Amlodipine Besylate [Norvasc 5mg 5 mg PO DAILY 01/25/18 01/26/18 History tablet] Atorvastatin Calcium [Atorvastatin 10 mg PO DAILY 01/26/18 01/26/18 History 10mg Tab] Prescriptions/Medication Reconciliation: New Clopidogrel Bisulfate [Plavix 75mg Tab] 75 mg PO DAILY 90 Days tablet Continue glimepiride 2 mg tablet 2 mg PO DAILY insulin detemir (U-100) 100 unit/mL (3 mL) subcutaneous pen 60 unit SUB-Q BID ml sitagliptin 50 mg-metformin 1,000 mg tablet 1 tab PO BID tab lisinopril 20 mg tablet 20 mg PO BID #60 tab aspirin 81 mg tablet,delayed release 81 mg PO DAILY Carvedilol [Carvedilol 6.25mg Tab] 6.25 mg PO BID Amlodipine Besylate [Norvasc 5mg tablet] 5 mg PO DAILY PARoxetine HCl [Paxil] 20 mg PO DAILY Atorvastatin Calcium [Atorvastatin 10mg Tab] 10 mg PO DAILY Discontinued Ticagrelor [Brilinta 90mg Tablet] 90 mg PO BID
== END 2018-01-27 09:30 | disposition home or self-care (01) ==
LOC: 2ND 10:58 → ER 10:58 → 2ND 13:47
PROVIDERS: ADMIT Family Medicine; ATTEND Family Medicine

== ENCOUNTER 2020-05-23 16:11 | Emergency (ER) | payer OTHER, SELFPAY ==
[2020-05-23 16:12] VITALS: BP 141/80; PULSE 59; RESP 16; TEMP 36.4; O2SAT 99; BMI 26.6
--- NOTE | 2020-05-23 16:35 | ECG_ITS ---
APPROVED REPORT Exam: Resting ECG HR:60 bpm ECG Measurements Heart Rate 60 AXES NJ 164 P 67 QRSd 86 QRS 65 QT 436 T 73 QTc 436 <Conclusion> Normal sinus rhythm Nonspecific ST abnormality Abnormal ECG Electronically signed by : Bharat Newman, 05/24/2020 22:04:56
--- NOTE | 2020-05-23 16:36 | PC.NURSE ---
Lab at bedside
[2020-05-23 16:37] VITALS: BP 192/104; PULSE 63; O2SAT 99
--- NOTE | 2020-05-23 16:41 | HMH.EDGENADL ---
ED Disposition Condition on Discharge: Fair - Critical Care Critical Care Time: No <Chandler Fernandez - Last Filed: 05/23/20 20:01> Condition on Discharge: Good <Kwame Aldridge - Last Filed: 05/24/20 01:42> Clinical Impression: Pre-syncope Disposition: Home, Self-Care Instructions: DI for Syncope in Adults (Fainting) Additional Instructions: Follow-up with Dr. Blanco in the office, you can be seen at 9 AM on Monday morning. Return to the emergency room if symptoms return. Referrals: Shemar Beltran MD [Primary Care Provider] - Seth Blanco MD [Staff Physician] - Attestation: On 05/23/20, the high probability of a clinically significant, sudden or life threatening deterioration of the following system(s) required my full and direct attention, intervention and personal management. The time I documented below is in addition to time spent performing reported procedures but includes the following listed in this critical care notation. Medical Decision Making - Medical Records Medical records reviewed: Yes: I reviewed the patient's medical records. - Danny Inquiry Pt receiving controlled substance: No - Lab Data Lab results reviewed: Yes: I reviewed the patient's lab results. Result diagrams: 05/23/20 16:46 05/23/20 16:46 - Radiology Data #1 Image(s): Chest Image Reviewed: Yes I reviewed the patient's radiology image Preliminary Findings: Normal/NAD - ECG Data Tracing #1 I reviewed this ECG and interpreted as documented below: ECG initial impression date: 05/23/20 ECG initial impression time: 16:50 ECG normal with no acute: arrhythmias, ischemia, conduction abnormalities, chamber hypertrophy Normal Sinus Rhythm: Yes <Chandler Fernandez - Last Filed: 05/23/20 20:01> - Lab Data Result diagrams: 05/23/20 16:46 05/23/20 16:46 - Physician Consults Physician Consulted: Francis Time: 20:45 Reason -: Cardiology Eval/Care Comment/Response: Discharge, follow-up in the office. Can be seen at 9 AM on Monday. - Reevaluation(s) Time: 20:30 Time: 21:01 <Kwame Aldridge - Last Filed: 05/24/20 01:42> Vital Signs: 05/23/20 16:12 05/23/20 16:37 05/23/20 17:00 Temperature 97.5 F L Temperature Source Oral Pulse Rate Pulse Rate [Radial] 59 L 63 63 Respiratory Rate 16 Blood Pressure Blood Pressure [Right Arm] 141/80 H 192/104 H 141/75 H Blood Pressure Mean [Right Arm] 100 133 97 Blood Pressure Source Blood Pressure Source [Right Arm] Automatic Cuff Automatic Cuff Blood Pressure Position Blood Pressure Position [Right Arm] Supine Sitting 02 Sat by Pulse Oximetry 99 99 99 Oxygen Delivery Method Room Air Room Air Room Air 05/23/20 18:32 05/23/20 20:46 05/23/20 22:02 Temperature 97.5 F L Temperature Source Oral Pulse Rate 54 L Pulse Rate [Radial] 64 54 L Respiratory Rate 18 18 Blood Pressure 145/87 H Blood Pressure [Right Arm] 144/80 H 145/87 H Blood Pressure Mean [Right Arm] 101 106 Blood Pressure Source Automatic Cuff Blood Pressure Source [Right Arm] Automatic Cuff Blood Pressure Position Sitting Blood Pressure Position [Right Arm] Sitting 02 Sat by Pulse Oximetry 98 98 Oxygen Delivery Method Room Air Room Air Room Air - Lab Data Lab Results 05/23/20 16:46: WBC 10.2, RBC 4.59 L, Hgb 14.5, Hct 40.6 L, MCV 88.5, MCH 31.5 H, MCHC 35.6 H, RDW 13.4, Plt Count 324, MPV 7.4, Neut % (Auto) 71.9, Lymph % (Auto) 20.5, [place] % (Auto) 6.7, Eos % (Auto) 0.6, Baso % (Auto) 0.3, Neut # (Auto) 7.3, Lymph # (Auto) 2.1, [place] # (Auto) 0.7, Eos # (Auto) 0.1, Baso # (Auto) 0.0 05/23/20 16:46: Sodium 136, Potassium 4.2, Chloride 99, Carbon Dioxide 23, Anion Gap 18.2 H, BUN 17, Creatinine 0.90, Estimated Creat Clear 100, Estimated GFR 87, Est GFR ( Amer) 105, Glucose 169 H, Calcium 9.6, Total Bilirubin 0.7, AST 20, ALT 20, Alkaline Phosphatase 79, Troponin I < 0.01, Total Protein 7.1, Albumin 4.3, Globulin 2.8, Albumin/Globulin Ratio 1.5 05/23/20 1
[2020-05-23 17:00] VITALS: BP 141/75; PULSE 63; O2SAT 99
--- NOTE | 2020-05-23 17:05 | XR_ITS ---
PROCEDURE: XR CHEST PORTABLE Patient Age:59Y CLINICAL HISTORY: near syncope COMPARISON: CXR2V XR chest 2V from 01/24/2018 CXR1VP XR chest portable from 01/26/2018 Chest from 01/14/2019 FINDINGS: AP portable chest upright. No significant change since December 2018 PA and lateral chest film. Today's graduate assistant, higher contrast AP study Does accentuate markings slightly towards the bases but overall with technique is considered I see no convincing change. No pneumothorax but no pleural effusion. The heart is normal in size. Coronary artery stent noted. Chest wall unremarkable. No pleural effusion or pneumothorax. Stable minimal linear scarring towards left lung base IMPRESSION: nothing definitely acute . No significant change since December 2018 CXR Dictated by: Tom Ortega MD 05/24/2020 12:07 Electronically signed by Tom Ortega MD in [place] 05/24/2020 12:07
[2020-05-23 17:09] LABS: Chloride 99 mmol/L (98-107); Potassium 4.2 mmoL/L (3.5-5.1); Sodium 136 mmol/L (136-145)
[2020-05-23 17:12] LABS: Alanine Aminotransferase 20 U/L (12-78); Albumin Level 4.3 g/dl (3.5-5.0); Albumin/Globulin Ratio 1.5 (1.1-1.8); Alkaline Phosphatase 79 U/L (38-126); Anion Gap 18.2 mEq/L (5-15); Aspartate Amino Transferase 20 U/L (17-59); Bilirubin,Total 0.7 mg/dl (0.2-1.3); Blood Urea Nitrogen 17 mg/dl (9-20); Calcium 9.6 mg/dl (8.4-10.2); Carbon Dioxide 23 mmol/L (22.0-30.0); Creatinine Clearance Estimated 100 mL/min (50-200); Estimated Glomerular Filt Rate 87 ml/min (>60); GFR (African American) 105 ML/MIN (>60); Globulin 2.8 g/dL (1.3-3.2); Glucose 169 mg/dl (74-100); Total Protein,Serum 7.1 g/dl (6.3-8.2)
[2020-05-23 17:13] LABS: Lactic Acid 1.7 mmol/L (0.7-2.1)
[2020-05-23 17:27] LABS: Troponin I < 0.01 ng/ml (0.00-0.034)
[2020-05-23 17:29] LABS: Basophils % 0.3 % (0.1-2.0); Eosinophils # 0.1 K/mm3 (0.0-0.4); Eosinophils % 0.6 % (0.1-12.0); Hematocrit 40.6 % (42.0-52.0); Hemoglobin 14.5 g/dL (14.1-18.0); Lymphocytes # 2.1 K/mm3 (0.7-4.5); Lymphocytes % 20.5 % (10-50); Mean Corpuscular HGB Conc 35.6 g/dL (31.8-35.4); Mean Corpuscular Hemoglobin 31.5 pg (27.0-31.2); Mean Corpuscular Volume 88.5 fl (80-94); Mean Platelet Volume 7.4 fl (7.4-10.4); Monocytes # 0.7 K/mm3 (0.1-1.0); Monocytes % 6.7 % (1.7-9.3); Neutrophils # 7.3 K/mm3 (1.8-7.8); Neutrophils % 71.9 % (37.0-80.0); Platelet Count 324 K/mm3 (142-424); Red Blood Count 4.59 M/mm3 (4.60-6.20); Red Cell Distribution Width 13.4 % (11.5-17.5); White Blood Count 10.2 K/mm3 (4.8-10.8)
[2020-05-23 17:48] LABS: VBG Base Excess -4.5 mmol/L (-2.4-2.3); VBG HCO3 19.8 mmol/L (23-30); VBG Oxygen Saturation 70.5 % (50-70); VBG PCO2 30.6 mmol/L (35-51); VBG PH 7.43 mmol/L (7.31-7.41); VBG PO2 35.4 mmol/L (28-40); VBG Total CO2 20.7 mmol/L (23-27)
[2020-05-23 17:55] LABS: NT Pro Brain Natriuretic Pep. 153 pg/mL (0-125)
[2020-05-23 18:32] VITALS: BP 144/80; PULSE 64; O2SAT 98
--- NOTE | 2020-05-23 18:45 | PC.NURSE ---
Pt up to restroom
[2020-05-23 20:21] LABS: Troponin I < 0.01 ng/ml (0.00-0.034)
[2020-05-23 20:46] VITALS: BP 145/87; PULSE 54; RESP 18; O2SAT 98
[2020-05-23 22:02] VITALS: BP 145/87; PULSE 54; RESP 18; TEMP 36.4; O2SAT 98
== END 2020-05-23 22:05 | disposition home or self-care (01) ==
PROVIDERS: Emergency Medicine; Emergency Provider Emergency Medicine; PCP Family Medicine
DX: R55 Syncope and collapse (principal); I25.10 Atherosclerotic heart disease of native coronary artery without angina pectoris; E11.9 Type 2 diabetes mellitus without complications; E78.5 Hyperlipidemia, unspecified; I25.2 Old myocardial infarction; E03.9 Hypothyroidism, unspecified; I10 Essential (primary) hypertension; Z79.899 Other long term (current) drug therapy
CPT/HCPCS: 71045; 80053; 82803; 83605; 83880; 84484; 85025; 87040; 93005; 96365; 99284

== ENCOUNTER → 2020-06-25 09:07 | Outpatient (CLI) | payer OTHER, SELFPAY ==
[2020-06-25 13:11] LABS: Coronavirus 19 IgG Antibody Negative (Negative); Coronavirus 19 IgM Antibody Negative (Negative)
--- NOTE | 2020-06-26 10:47 | P.PN_ITS ---
[facility] Anesthesia Checklist - Patient Identification Patient Identification: Arm Band - Structural Data Admitted From: Home Planned Operative Procedure/s: colonoscopy Consent for Planned Operative Procedure(s) Verified: Yes Verified Documents: Surgical Consent, History and Physical - NPO Status Verified Time NPO: 00:00 - Additional verifications Anesthesia Reactions: No - Airway Assessment C-Spine Mobility Assessed: Yes (mp2) TMJ Mobility Assessed: Yes Dentition: Good Dentition - Neurological Assessment Level of Consciousness: Awake, Alert - Anesthesia Plan Anesthesia Risk discussed: Yes Anesthesia Plan: Verified ASA Class: III Anesthesia Type: MAC [facility] History I have reviewed the patient's past medical history: Yes Medical History: Reports:: Atherosclerotic Heart Disease, Coronary Artery Disease, Diabetes Mellitus Type 2, Hyperlipidemia, Hypertension, Myocardial Infarction Denies:: Cancer, Diabetes Mellitus Type 1, Gastroesophageal Reflux Disease(GERD), Internal Pacemaker, MRSA, Palpitations, Seizures *Have you ever received a pneumonia vaccine?: Yes *Have you received a flu vaccine this season?: Yes Other Medical History: Denies: Hypothyroidism Anesthesia experience/problems:: nac Laterality Cases: Right: Other, Bilateral: Tonsillectomy Other Surgeries: Yes: Cardiac Catheterization, Coronary Stent, Other. No: Pacemaker Amputation: No Fractures: No - *Social History Smoking Status: Never smoker Tobacco Type: smokeless tobacco # Packs/Day (cigarettes): 1 Alcohol Intake: never Alcohol Intake Frequency:: other Substance Use Type: denies use *Occupational Status:: employed Housing: house Household Members: spouse *Travel in the last 8 weeks: None Family Hx:: Coronary Artery Disease, Heart Attack
== END ==
PROVIDERS: Visit Provider Internal Medicine Gastroenterology
DX: Z01.818 Encounter for other preprocedural examination (principal); Z12.11 Encounter for screening for malignant neoplasm of colon
CPT/HCPCS: 36415; 86328

== ENCOUNTER 2020-06-26 09:30 | Day surgery (SDC) | payer OTHER, SELFPAY ==
[2020-06-23 13:23] VITALS: BMI 26.6
[2020-06-26] VITALS (7 sets, daily range): BP systolic 84–132; BP diastolic 58–83; PULSE 60–72; RESP 16–18; TEMP 36.1–36.6; O2SAT 96–100
[2020-06-26 10:17] LABS: POC Glucose,Bedside 207 (70-110)
--- NOTE | 2020-06-26 11:34 | HMH.PROC ---
[facility] Procedure Note Procedure Note:: Colonoscopy Procedure Report: Colonoscopy with cold snare polypectomy Endoscopist: Grayson Ordonez II, MD Referring physician: Shemar Beltran MD Date of Procedure: June 26, 2020 Equipment: Olympus 180 variable stiffness pediatric colonoscope Sedation: MAC sedation Indication: Mr. Lanza is a 59-year-old gentleman who is here for initial screening colonoscopy. He reports no abdominal pain, weight loss, change in his bowel habits or rectal bleeding. He reports no family history of colon cancer. Procedure: Prior to the procedure, a history and physical exam was performed, and patient's medications and allergies were reviewed. The risks, benefits and alternatives of the sedation and procedure were discussed with the patient. All questions were answered and informed consent was obtained. The patient was brought to the procedure room. Patient identification and proposed procedure were verified by the physician and the nurse. The patient was placed in a left lateral decubitus position and the scope was passed under direct vision. Throughout the procedure, the patient's blood pressure, pulse, and oxygen saturations were monitored continuously. The colonoscopy was accomplished without difficulty. The patient tolerated the procedure well. Findings: On digital rectal examination there was normal rectal tone. There were no external hemorrhoids. The prostate was 2+, smooth, soft, symmetric without nodules. The colonoscope was introduced through the anal canal to the rectum and advanced to the cecum. The ileocecal valve and appendiceal orifice were identified. The scope was advanced a short distance into the ileum which appeared grossly normal. The scope was then withdrawn into the colon. The cecum, ascending and transverse colon and mucosa were grossly normal. There were scattered diverticuli throughout the descending and sigmoid colon (LEFT colon). There was a diminutive 4 mm polyp in the sigmoid colon removed via cold snare polypectomy. The rectum itself was normal. Upon retroflexion within the rectum there were grade 2 internal hemorrhoids. The preparation was excellent throughout with [place] Preparation Score of 9. The cecal time was 12 minutes. Impression: 1. Diminutive sigmoid colon polyp 2. Left-sided diverticulosis 3. Grade 2 internal hemorrhoids Plan: I will follow up the polyp pathology and recommend repeat colonoscopy again in 7-10 years based upon the polyp histology. I would encourage bulk fiber supplementation on a long-term daily maintenance basis.
== END 2020-06-26 12:35 | disposition home or self-care (01) ==
LOC: OUTP 09:31
PROVIDERS: PCP Family Medicine; Visit Provider Internal Medicine Gastroenterology
PROC: 0DJD8ZZ Inspection of Lower Intestinal Tract, Via Natural or Artificial Opening Endoscopic (ICD-10-PCS; CPT 45378; principal; 2020-06-26 10:30)
DX: Z12.11 Encounter for screening for malignant neoplasm of colon (principal); K63.5 Polyp of colon; K57.30 Diverticulosis of large intestine without perforation or abscess without bleeding; K64.1 Second degree hemorrhoids; I11.0 Hypertensive heart disease with heart failure; I50.9 Heart failure, unspecified; E78.5 Hyperlipidemia, unspecified; E11.9 Type 2 diabetes mellitus without complications; I25.10 Atherosclerotic heart disease of native coronary artery without angina pectoris; Z95.818 Presence of other cardiac implants and grafts; Z79.4 Long term (current) use of insulin; Z79.899 Other long term (current) drug therapy
CPT/HCPCS: 45385; 82962

== ENCOUNTER 2020-12-29 12:37 | Emergency (ER) | payer OTHER, SELFPAY ==
[2020-12-29 12:40] VITALS: BP 149/89; PULSE 69; RESP 18; TEMP 35.9; O2SAT 99; BMI 27.4
--- NOTE | 2020-12-29 13:11 | HMH.EDUTC ---
[facility] Disposition Clinical Impression: Exposure to COVID-19 virus Upper respiratory infection Qualifiers: URI type: unspecified URI Qualified Code(s): J06.9 - Acute upper respiratory infection, unspecified Disposition: Home, Self-Care Condition on Discharge: Good Instructions: Preventing the Spread of Coronavirus Discharge Instructions Additional Instructions: Drink plenty of fluids. Take tylenol for pain or fever. Return if you begin to have difficulty breathing. Follow up with your regular doctor. GO TO THE ER FOR ANY WORSENING SYMPTOMS Referrals: Shemar Beltran MD [Primary Care Provider] - Time of Disposition: 13:28 Medical Decision Making - Medical Records Medical records reviewed: No: I reviewed the patient's medical records. - Danny Inquiry Pt receiving controlled substance: No Vital Signs: 12/29/20 12:40 12/29/20 13:34 Temperature 96.7 F L 96.7 F L Temperature Source Oral Pulse Rate 69 Pulse Rate [Right Brachial] 69 Respiratory Rate 18 18 Blood Pressure 149/89 H Blood Pressure [Right Arm] 149/89 H Blood Pressure Mean [Right Arm] 109 Blood Pressure Source [Right Arm] Automatic Cuff Blood Pressure Position [Right Arm] Sitting 02 Sat by Pulse Oximetry 99 Oxygen Delivery Method Room Air Orders (Tests/Meds): ORDERS Category Date Time Status Covid-19 Nasal PCR ([facility]) Routine Lab 12/29/20 12:50 Received [facility] HPI - General Stated complaint: covid exposure Time Seen by Provider: 12/29/20 13:11 Mode of Arrival: Ambulatory Source of Information: Patient Limitations: No Limitations Description of Symptoms (Recalled from Triage Doc. by RN): COVID TEST D/T EXPOSURE. C/O SINUS PAIN AND SORE THROAT X 2-3 DAYS HEENT Symptoms (Recalled from RN notes): Yes Resp Symptoms (Recalled from RN notes): No Skin Symptoms (Recalled from RN notes): No MS Symptoms (Recalled from RN notes): No Functional Status (Recalled from RN notes): WNL - History of Present Illness Provider Complaint: He states that he has been exposed to covid-19 by his son having it. He has had sinus congestion for the past 3 days. He states that he seems to be getting better, but he would like to make sure he - Related Data Home Medications Medication Instructions Recorded Confirmed aspirin 81 mg tablet,delayed 81 mg PO DAILY 11/01/17 06/26/20 release glimepiride 2 mg tablet 2 mg PO DAILY 11/01/17 06/26/20 insulin detemir U-100 100 unit/mL 60 unit SUB-Q BID ml 11/01/17 06/26/20 (3 mL) subcutaneous pen sitagliptin 50 mg-metformin 1,000 1 tab PO BID tab 11/01/17 06/26/20 mg tablet PARoxetine HCl [Paxil] 20 mg PO DAILY 01/24/18 06/26/20 Atorvastatin Calcium [Lipitor 10mg 10 mg PO DAILY 01/26/18 06/26/20 Tab] Lisinopril/Hydrochlorothiazide 1 tab PO DAILY 06/26/20 06/26/20 [Lisinopril-Hctz 20-12.5 mg Tab*] bisoproloL fumarate [Bisoprolol 10 mg PO DAILY 06/26/20 06/26/20 10mg Tablet] Previous Rx's Medication Instructions Recorded amlodipine 5 mg tablet 5 mg PO DAILY #90 tab 07/19/18 Allergies Allergy/AdvReac Type Severity Reaction Status Date / Time No Known Allergies Allergy Verified 06/26/20 09:42 - Worker's Comp Is this a Worker's Comp case?: No [facility] History - Hepatitis A Screen Drug use history?: No High risk sexual behaviors?: No History of sexually transmitted infection?: No Currently employed?: No Childcare worker?: No Do you have indoor plumbing?: Yes Do you have electricity?: Yes Attestation statement:: This patient has been screened for Hepatitis A risk factors. I have reviewed the patient's past medical history: Yes Medical History: Reports:: Atherosclerotic Heart Disease, Coronary Artery Disease, Diabetes Mellitus Type 2, Hyperlipidemia, Hypertension, Myocardial Infarction Denies:: Cancer, Diabetes Mellitus Type 1, Gastroesophageal Reflux Disease(GERD), Internal Pacemaker, MRSA, Palpitations, Seizures Other Medical History: Denies: Hypot
[2020-12-29 13:34] VITALS: BP 149/89; PULSE 69; RESP 18; TEMP 35.9; O2SAT 99
== END 2020-12-29 13:36 | disposition home or self-care (01) ==
PROVIDERS: Emergency Provider Nurse Practitioner Family; PCP Family Medicine
DX: Z20.822 Contact with and (suspected) exposure to COVID-19 (principal); J06.9 Acute upper respiratory infection, unspecified; E11.9 Type 2 diabetes mellitus without complications; I10 Essential (primary) hypertension; E78.5 Hyperlipidemia, unspecified; I25.2 Old myocardial infarction; Z95.5 Presence of coronary angioplasty implant and graft; Z79.899 Other long term (current) drug therapy
CPT/HCPCS: 99202; G0463; U0003

== ENCOUNTER 2021-07-09 11:11 | Inpatient (IN) | payer OTHER, SELFPAY ==
[2021-07-09] VITALS (24 sets, daily range): BP systolic 103–188; BP diastolic 61–95; PULSE 50–72; RESP 14–18; TEMP 36.5–36.8; O2SAT 90–100; BMI 24.4; BMI 21.7; BMI 27.1
--- NOTE | 2021-07-09 | IR_ITS ---
APPROVED REPORT Patient Location: Emergent Test Analyst: JENNIFER Daugherty RT (R) PROCEDURES Left heart catheterization Left ventriculogram Selective coronary angiogram Drug-eluting stent deployment to the proximal and mid LAD Drug-eluting stent deployment to the proximal circumflex artery Drug-eluting stent deployment to the left main artery extending into the proximal LAD INDICATION Acute non-ST elevation myocardial infarction, Coronary artery disease Informed consent was obtained prior to the procedure. COMPLICATIONS None Estimated Blood Loss: Less than 10 mls TECHNIQUE One percent lidocaine used to anesthetize the right anterior aspect of the wrist. The right radial artery was accessed via the Seldinger technique. A 6 [place] sheath was placed in the right radial artery. 2.5 mg of verapamil, 800 mcg of nitroglycerin, 1mg Lidocaine and 5000 U Heparin were given through the arterial sheath. The [place] catheter was also used to perform left heart catheterization, left ventriculogram and selective coronary angiogram. At the end the diagnostic angiogram therapeutic heparin was administered giving a therapeutic ACT and the catheter was kept in the left main artery with a Choice PT extra-support wire being placed distally in the LAD. A 3 mm x 22 mm resolute Aaron stent was deployed at 20 then 24 then 28 lior in the proximal LAD. An additional 3 mm x 18 mm resolute Aaron stent was then placed distal to the stent overlapping the distal aspect and then placed just proximal to the substantive diagonal artery and deployed at 20 lior. The balloon was brought back and deployed at 24 and 28 lior to mesh the 2 stents. Following this the wire was placed into the circumflex artery where primary stenting could not be performed. A balloon was used to predilate the stenosis. Eventually a guide liner was required in order to stent the circumflex artery and deliver a 3 mm x 18 mm resolute Aaron stent to be delivered in the proximal circumflex artery extending back into the left main artery and deployed at 24 lior. Wire was pulled back and placed into the LAD where a 2.5 mm compliant balloon was used to predilate the stenosis and this was followed by a 3.5 x 18 mm and delivered at 24 lior and then 28 lior. There is excellent sizing of the proximal aspect of the stent in the left main artery. There is excellent transitioning with wide patency of the left main artery LAD and circumflex artery. After achieving excellent angiograph results the apparatus removed the sheath was removed and hemostasis was achieved using TR banding patient was transferred to the postoperative area stable patient ANGIOGRAPHIC RESULTS The left main artery Normal The left anterior descending artery Has a proximal complex concentric greater than 90% stenosis at the edge of the stent followed by 50 to 60% concentric stenosis followed by additional 50% stenosis. The stent beyond the diagonal artery is widely patent with mild in-stent restenosis with excellent distal transitioning. A large first diagonal artery has a stent in its ostial proximal segment which is widely patent with a concentric 30 to 40% in-stent restenosis with excellent distal transitioning The circumflex artery Is a nondominant vessel and has an ostial proximal concentric calcified greater than 80% stenosis. The right coronary artery Is a dominant vessel and appears to have stents in the proximal through mid segment which are widely patent free of in-stent restenosis with excellent proximal distal transitioning. Distally the vessel has mild 10% stenoses The CASTANEDA ventriculogram reveals Normal 60% The left ventricular end-diastolic pressure 10 mmHg IMPRESSION Severe proximal L
--- NOTE | 2021-07-09 11:24 | ECG_ITS ---
APPROVED REPORT Exam: Resting ECG HR:70 bpm ECG Measurements Heart Rate 70 AXES MN 172 P 68 QRSd 88 QRS 43 QT 386 T 42 QTc 416 Conclusion Normal sinus rhythm Normal ECG Electronically signed by : Kingston Murrell MD 07/10/2021 21:12:11
--- NOTE | 2021-07-09 11:29 | XR_ITS ---
PROCEDURE: XR CHEST PORTABLE CLINICAL HISTORY: cough Chest pain and cough COMPARISON: CR CXR1VP XR chest portable from 01/26/2018 CR Chest from 01/14/2019 CR XR CHEST PORTABLE from 05/23/2020 FINDINGS: The cardiomediastinal silhouette and pulmonary vascularity are within normal limits. The lungs are clear without infiltrates, suspicious nodules, or pleural effusions. No acute bony abnormalities. IMPRESSION: No acute findings. Dictated by: Mak Lai MD 07/09/2021 11:57 Mak Lai MD in [place] 07/09/2021 11:57
[2021-07-09 11:49] LABS: Basophils # 0.1 K/mm3 (0-0.2); Basophils % 0.9 % (0.1-2.0); Eosinophils # 0.2 K/mm3 (0.0-0.4); Eosinophils % 2.1 % (0.1-12.0); Hematocrit 47.7 % (42.0-52.0); Hemoglobin 16.1 g/dL (14.1-18.0); Lymphocytes # 2.2 K/mm3 (0.7-4.5); Lymphocytes % 27.9 % (10-50); Mean Corpuscular HGB Conc 33.7 g/dL (31.8-35.4); Mean Corpuscular Hemoglobin 31.4 pg (27.0-31.2); Mean Corpuscular Volume 93.2 fl (80-94); Mean Platelet Volume 6.6 fl (7.4-10.4); Monocytes # 0.7 K/mm3 (0.1-1.0); Monocytes % 9.2 % (1.7-9.3); Neutrophils # 4.7 K/mm3 (1.8-7.8); Platelet Count 302 K/mm3 (142-424); Red Blood Count 5.12 M/mm3 (4.60-6.20); Red Cell Distribution Width 12.6 % (11.5-17.5); White Blood Count 7.8 K/mm3 (4.8-10.8)
[2021-07-09 11:52] LABS: Chloride 102 mmol/L (98-107)
[2021-07-09 11:53] LABS: Potassium 4.4 mmoL/L (3.5-5.1); Sodium 140 mmol/L (136-145)
[2021-07-09 11:55] LABS: Alanine Aminotransferase 23 U/L (12-78); Alkaline Phosphatase 78 U/L (38-126); Aspartate Amino Transferase 31 U/L (17-59); Bilirubin,Total 0.4 mg/dl (0.2-1.3); Blood Urea Nitrogen 18 mg/dl (9-20); Creatinine Clearance Estimated 102 mL/min (50-200); Estimated Glomerular Filt Rate 99 ml/min (>60); GFR (African American) 120 ML/MIN (>60)
[2021-07-09 11:56] LABS: Albumin Level 4.4 g/dl (3.5-5.0); Albumin/Globulin Ratio 1.4 (1.1-1.8); Anion Gap 13.4 mEq/L (5-15); Calcium 9.5 mg/dl (8.4-10.2); Carbon Dioxide 29 mmol/L (22.0-30.0); Globulin 3.1 g/dL (1.3-3.2); Glucose 119 mg/dl (74-100); Total Protein,Serum 7.5 g/dl (6.3-8.2)
[2021-07-09 12:10] LABS: Troponin I 0.28 ng/ml (0.00-0.034)
--- NOTE | 2021-07-09 12:12 | PC.NURSE ---
notified ER MD of critical troponin 0.28
[2021-07-09 12:23] LABS: Coronavirus 19, PCR Not Detected (NotDetected); Influenza A, PCR Not Detected (NotDetected); Influenza B, PCR Not Detected (NotDetected)
--- NOTE | 2021-07-09 12:29 | HMH.EDGENADL ---
ED Disposition Clinical Impression: NSTEMI (non-ST elevated myocardial infarction) Disposition: Admitted As Inpatient Condition on Discharge: Good Referrals: Shemar Beltran MD [Primary Care Provider] - - Critical Care Critical Care Time: No Attestation: On 07/09/21, the high probability of a clinically significant, sudden or life threatening deterioration of the following system(s) required my full and direct attention, intervention and personal management. The time I documented below is in addition to time spent performing reported procedures but includes the following listed in this critical care notation. Medical Decision Making - Medical Records Medical records reviewed: Yes: I reviewed the patient's medical records. - Danny Inquiry Pt receiving controlled substance: No Vital Signs: 07/09/21 11:13 07/09/21 11:26 07/09/21 11:30 Temperature 98.1 F Temperature Source Oral Pulse Rate 71 72 Pulse Rate [Apical] 71 Respiratory Rate 18 15 16 Blood Pressure 135/79 149/85 H Blood Pressure [Right Arm] 135/79 Blood Pressure Mean 102 107 Blood Pressure Mean [Right Arm] 97 Blood Pressure Source [Right Arm] Automatic Cuff Blood Pressure Position [Right Arm] Sitting 02 Sat by Pulse Oximetry 98 99 99 Oxygen Delivery Method Room Air 07/09/21 12:00 07/09/21 12:30 Temperature Temperature Source Pulse Rate 68 66 Pulse Rate [Apical] Respiratory Rate 16 16 Blood Pressure 137/83 136/79 Blood Pressure [Right Arm] Blood Pressure Mean 108 98 Blood Pressure Mean [Right Arm] Blood Pressure Source [Right Arm] Blood Pressure Position [Right Arm] 02 Sat by Pulse Oximetry 98 98 Oxygen Delivery Method - Lab Data Lab Results 07/09/21 11:40: WBC 7.8, RBC 5.12, Hgb 16.1, Hct 47.7, MCV 93.2, MCH 31.4 H, MCHC 33.7, RDW 12.6, Plt Count 302, MPV 6.6 L, Neut % (Auto) 60.0, Lymph % (Auto) 27.9, [place] % (Auto) 9.2, Eos % (Auto) 2.1, Baso % (Auto) 0.9, Neut # (Auto) 4.7, Lymph # (Auto) 2.2, [place] # (Auto) 0.7, Eos # (Auto) 0.2, Baso # (Auto) 0.1 07/09/21 11:40: Sodium 140, Potassium 4.4, Chloride 102, Carbon Dioxide 29, Anion Gap 13.4, BUN 18, Creatinine 0.80, Estimated Creat Clear 102, Estimated GFR 99, Est GFR ( Amer) 120, Glucose 119 H, Calcium 9.5, Total Bilirubin 0.4, AST 31, ALT 23, Alkaline Phosphatase 78, Troponin I 0.28 H, Total Protein 7.5, Albumin 4.4, Globulin 3.1, Albumin/Globulin Ratio 1.4 07/09/21 12:19: SARS-CoV-2 (PCR) Not detected, Influenza A Untype (PCR) Not detected, Influenza Type B (PCR) Not detected Result diagrams: 07/09/21 11:40 07/09/21 11:40 Orders (Tests/Meds): ED MEDICATIONS Generic Name Dose Route Start Last Admin Trade Name Freq PRN Reason Stop Dose Admin Fentanyl Citrate 25 mcg 07/09/21 13:06 Fentanyl 100mcg/2ml Vial IV 07/10/21 13:06 Q3MINP PRN Moderate to Severe Pain Fentanyl Citrate 50 mcg 07/09/21 13:06 Fentanyl 100mcg/2ml Vial IV 07/10/21 13:06 Q3MINP PRN Moderate to Severe Pain Fentanyl Citrate 25 mcg 07/09/21 13:06 Fentanyl 250mcg/5ml Vial IV 07/10/21 13:06 Q3MINP PRN Moderate to Severe Pain Fentanyl Citrate 50 mcg 07/09/21 13:06 Fentanyl 250mcg/5ml Vial IV 07/10/21 13:06 Q3MINP PRN Moderate to Severe Pain Flumazenil 0.2 mg 07/09/21 13:06 Flumazenil 0.1mg/Ml 5ml Vial IV 07/09/21 23:00 NEEDED PRN Sedation Heparin Sodium (Porcine) 10,000 unit 07/09/21 13:06 Heparin 1,000 Units/Ml 10ml Vial (Button Tufter) IV 07/09/21 17:06 NEEDED PRN [employer] Associate Sodium Chloride 1,000 mls @ 25 mls/hr 07/09/21 13:15 Sod Chlor 0.9% 1000ml Bag IV 07/10/21 13:06 .Q25H MI Midazolam HCl 1 mg 07/09/21 13:06 Midazolam 2mg/2ml Vial IV 07/10/21 13:06 Q3MINP PRN Sedation Midazolam HCl 1 mg 07/09/21 13:06 Midazolam Hcl 1mg/1ml 5ml Vial IV 07/10/21 13:06 Q3MINP PRN Sedation Naloxone HCl 0.4 mg 07/09/21 13:06
--- NOTE | 2021-07-09 12:58 | PC.NURSE ---
lamar fraire at BS
--- NOTE | 2021-07-09 13:26 | PC.NURSE ---
pt to cardiac cath tech at this time per nora,rn via wheelchair
--- NOTE | 2021-07-09 13:38 | PC.NURSE ---
JT MONTEJO spoke with Dr. Orantes who is regional trainer for Dr. Doll
--- NOTE | 2021-07-09 13:39 | PC.NURSE ---
notified care management of admission, spoke with Keiko
--- NOTE | 2021-07-09 13:41 | HMH.CNCARD ---
History of Present Illness Consult date: 07/09/21 Requesting physician: Shemar Beltran Chief complaint: Left arm pain Additional Medical History:: 1. CAD A. Cath, ELIZABETH to LAD, diagonal and RCA, 03/18/2015. On DAPT. B. LHC with subsequent LAD/diagonal and RCA stenting, 09/2016. C. Stress test in 03/2017 Abnormal. LHC recommended but patient did not have it done. D. Admit for UAP, 01/24/2018. The left heart cath 01/25/2018 with drug-eluting stent placement to large ostial diagonal lesion. 2. DM, poorly controlled. 3. HTN A. Echo, 11/2017, mild LAE, normal LV size with EF 40-45% and moderate hypokinesis involving the inferobasal to distal septum wall. No significant valvular heart disease. Right atrium and right ventricle normal size and function. Mild MR TR grade 1 diastolic dysfunction. 4. Hyperlipidemia, on statin. History of present illness: 60-year-old white male with extensive coronary artery stenting as noted above and diabetic presented to the emergency department for second episode of left arm discomfort. He had an episode 2 or 3 weeks ago with discomfort in the left arm that lasted for about 2 to 3 hours and then resolved spontaneously. Last evening the discomfort occurred again and woke him from sleep. Patient decided to seek evaluation in the emergency department here today and was noted to have initial elevated troponin. His EKG is sinus rhythm with no acute ST segment changes. Cardiology was consulted for evaluation recommendations. Diabetes is managed by PCP with recent hemoglobin A1c between 8 and 9 per patient. Currently left arm discomfort is rated at about a 1 out of 10 but was at a 7 or 8 out of 10 this morning. Patient was last seen in our office in 2019. [facility] [place] History Medical History: Reports:: Atherosclerotic Heart Disease, Coronary Artery Disease, Diabetes Mellitus Type 2, Hyperlipidemia, Hypertension, Myocardial Infarction Denies:: Cancer, Diabetes Mellitus Type 1, Gastroesophageal Reflux Disease(GERD), Internal Pacemaker, MRSA, Palpitations, Seizures *Have you ever received a pneumonia vaccine?: No *Have you received a flu vaccine this season?: No Other Medical History: Denies: Hypothyroidism Laterality Cases: Right: Other, Bilateral: Tonsillectomy Other Surgeries: Yes: Cardiac Catheterization, Coronary Stent, Other. No: Pacemaker Amputation: No Fractures: No - *Social History Smoking Status: Never smoker Tobacco Type: smokeless tobacco # Packs/Day (cigarettes): 1 Alcohol Intake: never Alcohol Intake Frequency:: other Substance Use Type: denies use *Occupational Status:: other Housing: house Household Members: spouse *Travel in the last 8 weeks: Inside the [place] Family Hx:: Coronary Artery Disease, Heart Attack Meds Home Medications Medication Instructions Recorded Confirmed Type aspirin 81 mg tablet,delayed 81 mg PO DAILY 11/01/17 07/09/21 History release glimepiride 2 mg tablet 2 mg PO DAILY 11/01/17 07/09/21 History insulin detemir U-100 100 unit/mL 36 unit SUB-Q BID ml 11/01/17 07/09/21 History (3 mL) subcutaneous pen sitagliptin 50 mg-metformin 1,000 1 tab PO BID tab 11/01/17 07/09/21 History mg tablet PARoxetine HCl [Paxil] 20 mg PO DAILY 01/24/18 07/09/21 History amlodipine 5 mg tablet 5 mg PO DAILY #90 tab 07/19/18 07/09/21 Rx Lisinopril/Hydrochlorothiazide 1 tab PO DAILY 06/26/20 07/09/21 History [Lisinopril-Hctz 20-12.5 mg Tab*] bisoproloL fumarate [Bisoprolol 10 mg PO DAILY 06/26/20 07/09/21 History 10mg Tablet] Allergies Allergy/AdvReac Type Severity Reaction Status Date / Time No Known Allergies Allergy Verified 06/26/20 09:42 Exam Vital signs and Labs for Last 24 Hours: Temp Pulse Resp BP Pulse Ox 98.1 F 66 16 136/79 98 07/09/21 11:13 07/09/21 12:30 07/09/21 12:30 07/09/21 12:30 07/09/21 12:30 Laboratory Results - last 24 hr 07/09/21 11:40: WBC 7.8, RBC 5.12, Hgb 16.1, Hct 47.7, MCV 93.2, MCH 31.4 H, MCHC 33.7, RDW 12.6,
--- NOTE | 2021-07-09 13:51 | PC.NURSE ---
1346 BED ASSIGNMENT REQUESTED, ROOM 206 ALL STAFF NOTIFIED
[2021-07-09 16:27] LABS: CATHL Activated Clotting Time 293 SEC (74-125)
[2021-07-09 16:28] LABS: CATHL Activated Clotting Time 293 SEC (74-125)
--- NOTE | 2021-07-09 17:35 | HMH.HP ---
*Admission Date: 07/09/21 *Chief complaint: chest pain *History of present illness: 60-year-old white male with extensive coronary artery stenting as noted above and diabetic presented to the emergency department for second episode of left arm discomfort. He had an episode 2 or 3 weeks ago with discomfort in the left arm that lasted for about 2 to 3 hours and then resolved spontaneously. Last evening the discomfort occurred again and woke him from sleep. Patient decided to seek evaluation in the emergency department here today and was noted to have initial elevated troponin. His EKG is sinus rhythm with no acute ST segment changes. Cardiology was consulted for evaluation recommendations. Diabetes is managed by PCP with recent hemoglobin A1c between 8 and 9 per patient. Currently left arm discomfort is rated at about a 1 out of 10 but was at a 7 or 8 out of 10 this morning. Patient was last seen in our office in 2019. (above as per [place] Tripp) The patient was directly taken to the Compliance Field Technician with the following report: IMPRESSION Severe proximal LAD disease as described above with successful stenting reducing the critical disease to less than 10% with 2 contiguous drug-eluting stents Severe disease in the ostial proximal nondominant yet still large circumflex artery with successful revascularization reducing the disease to less than 10% Successful reconstruction of the left main artery as described above providing excellent JULIUS-3 inline flow to the LAD and circumflex artery Widely patent stents in the right coronary as described above Normal ejection fraction Normal left ventricular end-diastolic pressure PLAN 1. Continue dual antiplatelet therapy 2. LDL less than 55 3. Cardiac rehabilitation 4. Avoidance of tobacco products 5. Aggressive risk factor modification At this time, patient had just arrived back on the floor and was very groggy from anesthesia [facility] History I have reviewed the patient's past medical history: Yes Medical History: Reports:: Atherosclerotic Heart Disease, Coronary Artery Disease, Diabetes Mellitus Type 2, Hyperlipidemia, Hypertension, Myocardial Infarction Denies:: Cancer, Diabetes Mellitus Type 1, Gastroesophageal Reflux Disease(GERD), Internal Pacemaker, MRSA, Palpitations, Seizures *Have you ever received a pneumonia vaccine?: No *Have you received a flu vaccine this season?: No Other Medical History: Denies: Hypothyroidism Laterality Cases: Right: Other, Bilateral: Tonsillectomy Other Surgeries: Yes: Cardiac Catheterization, Coronary Stent, Other. No: Pacemaker Amputation: No Fractures: No - *Social History Smoking Status: Never smoker Tobacco Type: smokeless tobacco # Packs/Day (cigarettes): 1 Alcohol Intake: never Alcohol Intake Frequency:: other Substance Use Type: denies use *Occupational Status:: employed Housing: house Household Members: spouse *Travel in the last 8 weeks: None Family Hx:: Cancer Review of Systems - Constitutional Denies fever(s), Denies weakness - Eyes Denies blurry vision, Denies double vision - ENT Denies nasal congestion, Denies sore throat - *Cardiovascular Denies chest pain, Denies shortness of breath - *Respiratory Denies cough, Denies shortness of breath - *Gastrointestinal Reports abdominal pain, Denies nausea, Denies vomiting - *Genitourinary Denies difficulty urinating, Denies painful urination - *Musculoskeletal Denies joint pain - *Neurologic Denies headache(s), Denies dizziness, Denies weakness Meds Home Medications Medication Instructions Recorded Confirmed Type aspirin 81 mg tablet,delayed 81 mg PO DAILY 11/01/17 07/09/21 History release glimepiride 2 mg tablet 2 mg PO DAILY 11/01/17 07/09/21 History insulin detemir U-100 100 unit/mL 60 unit SUB-Q DAILY ml 11/01/17 07/09/21 History (3 mL) subcutaneous pen sitagliptin 50 mg-metformin 1,000 1 tab PO BID tab 11/01/17 07/09/21 History mg tablet PARoxetine HCl [Pa
--- NOTE | 2021-07-09 22:36 | PC.NURSE ---
AT BEGINNING OF SHIFT, PT IN BED SLEEPING, AT BEDSIDE, VSS. PT DID AWAKEN WHEN GIVING HIM MEDS. UPON ENTERING ROOM AT 2215, PT IS STANDING NAKED IN ROOM, COVERED IN VOMIT. PT HAS ALSO REMOVED HIS IV. PT IS VERY AGITATED AND CONFUSED. PT WON'T ANSWER MY QUESTION, ONLY SAYING LET ME GO TO SLEEP. VS REMAIN STABLE. SLIGHT BLOOD ON R WRIST CATH DRESSING. MD JUAREZ NOTIFIED OF PT SITUATION, NNO AT THIS TIME. PT IS RESTING IN BED AT THIS TIME, NEW IV ESTABLISHED, CLEANED UP. VSS WILL CONTINUE TO MONITOR.
[2021-07-10] VITALS (7 sets, daily range): BP systolic 101–153; BP diastolic 72–85; PULSE 63–95; RESP 18–20; TEMP 36.7–37.3; O2SAT 96–100
--- NOTE | 2021-07-10 03:27 | PC.NURSE ---
PT HAS SLEPT T/O SHIFT. PT GOT SICK ONCE MORE, ADMINISTERED ZOFRAN PER DEC. PT HAS NOT GOTTEN SICK SINCE. PT IS ABLE TO WALK TO THE BATHROOM INDEPENDENTLY. HAS HAD NO C/O PAIN/SOA. NSR ON TELE, TOLERATING RA. PT CONTINUES TO BE CONFUSED AND AGGRAVATED WHEN WOKEN UP. OTHER THAN THE CONFUSION, PT HAS REMAINED STABLE, VSS. DRESSING PRESENT TO R CATH SITE, CDI. SCANT AMOUNT OF BLOOD PRESENT. WILL CONTINUE TO MONITOR.
[2021-07-10 07:22] LABS: Basophils % 0.2 % (0.1-2.0); Eosinophils % 0.3 % (0.1-12.0); Hematocrit 43.5 % (42.0-52.0); Hemoglobin 14.8 g/dL (14.1-18.0); Lymphocytes # 1.6 K/mm3 (0.7-4.5); Lymphocytes % 12.7 % (10-50); Mean Corpuscular Hemoglobin 30.8 pg (27.0-31.2); Mean Corpuscular Volume 90.8 fl (80-94); Mean Platelet Volume 6.5 fl (7.4-10.4); Monocytes # 0.8 K/mm3 (0.1-1.0); Monocytes % 6.3 % (1.7-9.3); Neutrophils # 10.2 K/mm3 (1.8-7.8); Neutrophils % 80.4 % (37.0-80.0); Platelet Count 303 K/mm3 (142-424); Red Blood Count 4.79 M/mm3 (4.60-6.20); Red Cell Distribution Width 12.6 % (11.5-17.5); White Blood Count 12.6 K/mm3 (4.8-10.8)
[2021-07-10 07:35] LABS: Alanine Aminotransferase 20 U/L (12-78); Albumin Level 3.8 g/dl (3.5-5.0); Albumin/Globulin Ratio 1.5 (1.1-1.8); Alkaline Phosphatase 69 U/L (38-126); Anion Gap 12.8 mEq/L (5-15); Aspartate Amino Transferase 26 U/L (17-59); Bilirubin,Total 0.6 mg/dl (0.2-1.3); Blood Urea Nitrogen 10 mg/dl (9-20); Calcium 8.5 mg/dl (8.4-10.2); Carbon Dioxide 23 mmol/L (22.0-30.0); Chloride 103 mmol/L (98-107); Creatinine Clearance Estimated 170 mL/min (50-200); Estimated Glomerular Filt Rate 138 ml/min (>60); GFR (African American) 167 ML/MIN (>60); Globulin 2.6 g/dL (1.3-3.2); Glucose 166 mg/dl (74-100); Potassium 3.8 mmoL/L (3.5-5.1); Sodium 135 mmol/L (136-145); Total Protein,Serum 6.4 g/dl (6.3-8.2)
--- NOTE | 2021-07-10 08:53 | HMH.ACPN2 ---
Internal Medicine - PN: Subj *Date: 07/10/21 *Time: 08:56 Interval history: Patient noted to have some confusion overnight. Vomited once and pulled his IV out. He does not have a recollection of last nights events right now. He does remember coming to the ER after not feeling well and having left arm pain. Exam Vital signs and Labs for Last 24 Hours: Temp Pulse Resp BP Pulse Ox 98.1 F 63 20 136/79 99 07/10/21 08:00 07/10/21 08:00 07/10/21 08:00 07/10/21 08:00 07/10/21 08:00 Laboratory Results - last 24 hr 07/09/21 11:40: WBC 7.8, RBC 5.12, Hgb 16.1, Hct 47.7, MCV 93.2, MCH 31.4 H, MCHC 33.7, RDW 12.6, Plt Count 302, MPV 6.6 L, Neut % (Auto) 60.0, Lymph % (Auto) 27.9, [place] % (Auto) 9.2, Eos % (Auto) 2.1, Baso % (Auto) 0.9, Neut # (Auto) 4.7, Lymph # (Auto) 2.2, [place] # (Auto) 0.7, Eos # (Auto) 0.2, Baso # (Auto) 0.1 07/09/21 11:40: Sodium 140, Potassium 4.4, Chloride 102, Carbon Dioxide 29, Anion Gap 13.4, BUN 18, Creatinine 0.80, Estimated Creat Clear 102, Estimated GFR 99, Est GFR ( Amer) 120, Glucose 119 H, Calcium 9.5, Total Bilirubin 0.4, AST 31, ALT 23, Alkaline Phosphatase 78, Troponin I 0.28 H, Total Protein 7.5, Albumin 4.4, Globulin 3.1, Albumin/Globulin Ratio 1.4 07/09/21 12:19: SARS-CoV-2 (PCR) Not detected, Influenza A Untype (PCR) Not detected, Influenza Type B (PCR) Not detected 07/09/21 14:11: Activated Clotting Time 293 H* 07/09/21 14:39: Activated Clotting Time 293 H* 07/10/21 06:40: WBC 12.6 H D, RBC 4.79, Hgb 14.8, Hct 43.5, MCV 90.8, MCH 30.8, MCHC 34.0, RDW 12.6, Plt Count 303, MPV 6.5 L, Neut % (Auto) 80.4 H, Lymph % (Auto) 12.7, [place] % (Auto) 6.3, Eos % (Auto) 0.3, Baso % (Auto) 0.2, Neut # (Auto) 10.2 H, Lymph # (Auto) 1.6, [place] # (Auto) 0.8, Eos # (Auto) 0.0, Baso # (Auto) 0.0 07/10/21 06:40: Sodium 135 L, Potassium 3.8, Chloride 103, Carbon Dioxide 23, Anion Gap 12.8, BUN 10 D, Creatinine 0.60 L D, Estimated Creat Clear 170, Estimated GFR 138, Est GFR ( Amer) 167 D, Glucose 166 H D, Calcium 8.5, Total Bilirubin 0.6, AST 26, ALT 20, Alkaline Phosphatase 69, Total Protein 6.4, Albumin 3.8 D, Globulin 2.6, Albumin/Globulin Ratio 1.5 Vital Signs Temp Pulse Pulse Resp BP Pulse Ox 07/10/21 08:00 98.1 F 63 20 136/79 99 07/10/21 04:00 98.6 F 70 74 18 153/79 H 96 07/10/21 00:00 98.0 F 70 69 18 152/85 H 100 07/09/21 22:05 98.2 F 72 18 188/71 H 100 07/09/21 21:05 98.3 F 72 17 183/95 H 100 I & O for Last 24 hours: Intake & Output 07/07/21 07/08/21 07/09/21 07/10/21 23:59 23:59 23:59 23:59 Intake Total 120 / 120 Output Total 400 / 400 Balance -280 / -280 Weight 200 lb - Constitutional no acute distress - *Routine HEENT Exam Head: Present: normocephalic Eye: Present: EOMI, PERRL ENT: Present: mucous membranes moist - *Routine Neck Exam Present: supple. Absent: lymphadenopathy - *Routine Respiratory Exam Present: CTA bilaterally - *Routine Cardiovascular Exam Present: RRR - *Routine Abdominal Exam Present: soft, normoactive bowel sounds. Absent: tenderness - *Routine Extremities Exam Absent: cyanosis, clubbing, edema - *Routine Skin Exam Present: warm. Absent: rash - *Routine Neurological Exam Present: alert Assessment and Plan (1) NSTEMI (non-ST elevated myocardial infarction) Status: Acute Category: Medical Code(s): I21.4 - Non-ST elevation (NSTEMI) myocardial infarction (2) Stented coronary artery Status: Acute Category: Surgical Code(s): Z95.5 - Presence of coronary angioplasty implant and graft (3) Coronary arteriosclerosis Status: Chronic Category: Medical Code(s): I25.10 - Atherosclerotic heart disease of [place] coronary artery without angina pectoris (4) Diabetes mellitus Status: Chronic Category: Medical Code(s): E11.9 - Type 2 diabetes mellitus without complications (5) Hyperlipidemia Status: Chronic Qualifiers: Category: Medical Code(s): E78.5
--- NOTE | 2021-07-10 10:24 | HMH.PHAINT ---
MEDICATION RECONCILIATION COMPLETED ON PATIENT USING EXTERNAL FILL HISTORY FROM PHARMACY. -LEONIE JONES, ERENDIRAD
[2021-07-10 11:50] LABS: POC Glucose,Bedside 192 (70-110)
[2021-07-10 17:07] LABS: POC Glucose,Bedside 224 (70-110)
--- NOTE | 2021-07-10 18:27 | PC.NURSE ---
Pt has been pleasant and cooperative this shift. Mild confusion noted this AM. After a few hours of sleep pt awakened and has since been A&O X4. No complaints of pain. Pt is on room air with sats. >90%. Lungs CTA. No edema noted. Telemetry reveals NSR. RT wrist cath dressing C/D/I. Pt ambulates independently to/from the bathroom and throughout the room. Urine is clear and yellow. No BM thus far today. Appetite is good and pt eats the majority of all meals. 20 G peripheral IV in the RT AC is patent and SL. 20 G peripheral IV in the LT wrist is patent and infusing NS @ 75 ML/HR. VSS. Call light within reach. Will continue to monitor.
[2021-07-10 20:58] LABS: POC Glucose,Bedside 196 (70-110)
[2021-07-11] VITALS: BP 137/82; PULSE 60; PULSE 68; RESP 20; TEMP 36.8; O2SAT 97
--- NOTE | 2021-07-11 03:40 | PC.NURSE ---
Shift summary. No acute changes. Pt has rested well t/o shift. No c/o SOA, pain. CB in reach. Will continue to monitor.
[2021-07-11 04:00] VITALS: PULSE 50
[2021-07-11 04:40] VITALS: BP 143/90; PULSE 59; RESP 20; TEMP 36.6; O2SAT 100
[2021-07-11 05:09] VITALS: BMI 25.4
[2021-07-11 05:41] LABS: POC Glucose,Bedside 147 (70-110)
--- NOTE | 2021-07-11 07:01 | HMH.ACPN2 ---
Internal Medicine - PN: Subj *Date: 07/11/21 *Time: 07:01 Interval history: Patient feels well this morning, no new complaints. Tolerating regular diet, anxious to go home. Exam Vital signs and Labs for Last 24 Hours: Temp Pulse Resp BP Pulse Ox 97.8 F 59 L 20 143/90 H 100 07/11/21 04:40 07/11/21 04:40 07/11/21 04:40 07/11/21 04:40 07/11/21 04:40 Laboratory Results - last 24 hr 07/10/21 04:59: POC Glucose 192 H 07/10/21 06:40: WBC 12.6 H D, RBC 4.79, Hgb 14.8, Hct 43.5, MCV 90.8, MCH 30.8, MCHC 34.0, RDW 12.6, Plt Count 303, MPV 6.5 L, Neut % (Auto) 80.4 H, Lymph % (Auto) 12.7, [place] % (Auto) 6.3, Eos % (Auto) 0.3, Baso % (Auto) 0.2, Neut # (Auto) 10.2 H, Lymph # (Auto) 1.6, [place] # (Auto) 0.8, Eos # (Auto) 0.0, Baso # (Auto) 0.0 07/10/21 06:40: Sodium 135 L, Potassium 3.8, Chloride 103, Carbon Dioxide 23, Anion Gap 12.8, BUN 10 D, Creatinine 0.60 L D, Estimated Creat Clear 170, Estimated GFR 138, Est GFR ( Amer) 167 D, Glucose 166 H D, Calcium 8.5, Total Bilirubin 0.6, AST 26, ALT 20, Alkaline Phosphatase 69, Total Protein 6.4, Albumin 3.8 D, Globulin 2.6, Albumin/Globulin Ratio 1.5 07/10/21 16:47: POC Glucose 224 H 07/10/21 20:48: POC Glucose 196 H 07/11/21 05:03: POC Glucose 147 H Vital Signs - 24 hr 07/10/21 08:00 07/10/21 12:00 07/10/21 13:02 Temperature 98.1 F 99.1 F Pulse Rate 78 Pulse Rate [Apical] 63 Pulse Rate [Left Brachial] 63 75 Respiratory Rate 20 18 Blood Pressure [Left Arm] 136/79 127/81 02 Sat by Pulse Oximetry 99 98 07/10/21 16:00 07/10/21 20:00 07/11/21 00:00 Temperature 98.3 F 98.4 F 98.2 F Pulse Rate 95 H 70 60 Pulse Rate [Apical] Pulse Rate [Left Brachial] 64 68 68 Respiratory Rate 20 18 20 Blood Pressure [Left Arm] 101/72 L 136/73 137/82 02 Sat by Pulse Oximetry 97 96 97 07/11/21 04:00 07/11/21 04:40 Temperature 97.8 F Pulse Rate 50 L Pulse Rate [Apical] Pulse Rate [Left Brachial] 59 L Respiratory Rate 20 Blood Pressure [Left Arm] 143/90 H 02 Sat by Pulse Oximetry 100 I & O for Last 24 hours: Intake & Output 07/08/21 07/09/21 07/10/21 07/11/21 23:59 23:59 23:59 23:59 Intake Total 2019 Output Total 400 / 400 Balance 1620 / 1620 Weight 200 lb 187 lb 9.6 oz - Constitutional no acute distress - *Routine HEENT Exam Head: Present: normocephalic Eye: Present: EOMI, PERRL ENT: Present: mucous membranes moist - *Routine Neck Exam Present: supple. Absent: lymphadenopathy - *Routine Respiratory Exam Present: CTA bilaterally - *Routine Cardiovascular Exam Present: RRR, bradycardia - *Routine Abdominal Exam Present: soft, normoactive bowel sounds. Absent: tenderness - *Routine Extremities Exam Absent: cyanosis, clubbing, edema - *Routine Skin Exam Present: warm. Absent: rash - *Routine Neurological Exam Present: alert, oriented X3 Assessment and Plan (1) NSTEMI (non-ST elevated myocardial infarction) Status: Acute Category: Medical Code(s): I21.4 - Non-ST elevation (NSTEMI) myocardial infarction (2) Stented coronary artery Status: Acute Category: Surgical Code(s): Z95.5 - Presence of coronary angioplasty implant and graft (3) Coronary arteriosclerosis Status: Chronic Category: Medical Code(s): I25.10 - Atherosclerotic heart disease of [place] coronary artery without angina pectoris (4) Diabetes mellitus Status: Chronic Category: Medical Code(s): E11.9 - Type 2 diabetes mellitus without complications (5) Hyperlipidemia Status: Chronic Qualifiers: Category: Medical Code(s): E78.5 - Hyperlipidemia, unspecified (6) Hypertensive heart disease Status: Chronic Qualifiers: Category: Medical Code(s): I11.9 - Hypertensive heart disease without heart failure - Assessment and plan all Dx Assessment and Plan for all problems:: OK for discharge home today, f/u with cardiology in 1 week.
[2021-07-11 08:00] VITALS: BP 156/77; PULSE 59; RESP 16; TEMP 36.9; O2SAT 98
--- NOTE | 2021-07-11 08:48 | HMH.PHACLD ---
Natalio Lanza has received discharge medication counseling on the following medications: BISOPROLOL LISINOPRIL/HCTZ BRILITNA (NEW) ASPIRIN LIPITOR PATIENT HAD NOT FILLED LIPITOR SINCE FEBRUARY AND WAS NOT CURRENTLY TAKING THE MEDICATION PER HIS SPOUSE. CALLED [facility] MD NURSE OBGYN (DR. JUAREZ) AND GOT A REFILL SENT TO [facility] IN [place]. PATIENT HAD NO QUESTIONS AT THIS TIME. -LEONIE JONES, ERENDIRAD
--- NOTE | 2021-07-12 15:27 | HMH.DCSUM ---
General - General Admission date:: 07/09/21 Discharge date: 07/11/21 HPI HPI: 60-year-old white male with extensive coronary artery stenting as noted and diabetes presented to the emergency department for second episode of left arm discomfort. He had an episode 2 or 3 weeks ago with discomfort in the left arm that lasted for about 2 to 3 hours and then resolved spontaneously. The previous evening the discomfort occurred again and woke him from sleep. Patient decided to seek evaluation in the emergency department and was noted to have initial elevated troponin. His EKG was sinus rhythm with no acute ST segment changes. Cardiology was consulted for evaluation recommendations. Diabetes had been managed by PCP with recent hemoglobin A1c between 8 and 9 per patient. Left arm discomfort at this time was about a 1 out of 10 but was at a 7 or 8 out of 10 in the AM. Patient was last seen in the office in 2019. (above as per [place] Tripp) The patient was directly taken to the Vendor Specialist with the following report: IMPRESSION Severe proximal LAD disease as described above with successful stenting reducing the critical disease to less than 10% with 2 contiguous drug-eluting stents Severe disease in the ostial proximal nondominant yet still large circumflex artery with successful revascularization reducing the disease to less than 10% Successful reconstruction of the left main artery as described above providing excellent JULIUS-3 inline flow to the LAD and circumflex artery Widely patent stents in the right coronary as described above Normal ejection fraction Normal left ventricular end-diastolic pressure PLAN 1. Continue dual antiplatelet therapy 2. LDL less than 55 3. Cardiac rehabilitation 4. Avoidance of tobacco products 5. Aggressive risk factor modification At the time of this exam, patient had just arrived back on the floor and was very groggy from anesthesia Hospital Course Hospital Course: Patient was taken directly to the Vendor Specialist from the emergency room given unstable angina with left arm pain reminiscent of prior unstable angina symptoms and with elevated troponins consistent with non-ST elevation MT. Cath results indicated severe LAD disease with successful stenting, severe disease in the ostial proximal nondominant circumflex with successful revascularization, widely patent stents in the right coronary and normal ejection fraction and normal left ventricular end-diastolic pressure. Patient did have some confusion night after catheterization. The following a.m. he did not remember the events of the night. This did resolve in the following a.m. on 07/11/2021 patient was feeling well. He was tolerating regular diet and he was anxious to go home. On this date 07/11/2021 he was discharged home in stable and satisfactory condition. Meds as per medication reconciliation sheet. He was to follow-up with Dr. Beltran in 2 weeks and cardiology in 1 week. See data for specific test results. Objective Vital signs: Temp Pulse Resp BP Pulse Ox 98.4 F 59 L 16 156/77 H 98 07/11/21 08:00 07/11/21 08:00 07/11/21 08:00 07/11/21 08:00 07/11/21 08:00 Narrative: Exam Vital signs and Labs for Last 24 Hours: Temp Pulse Resp BP Pulse Ox 97.8 F 59 L 20 143/90 H 100 07/11/21 04:40 07/11/21 04:40 07/11/21 04:40 07/11/21 04:40 07/11/21 04:40 Laboratory Results - last 24 hr 07/10/21 04:59: POC Glucose 192 H 07/10/21 06:40: WBC 12.6 H D, RBC 4.79, Hgb 14.8, Hct 43.5, MCV 90.8, MCH 30.8, MCHC 34.0, RDW 12.6, Plt Count 303, MPV 6.5 L, Neut % (Auto) 80.4 H, Lymph % (Auto) 12.7, [place] % (Auto) 6.3, Eos % (Auto) 0.3, Baso % (Auto) 0.2, Neut # (Auto) 10.2 H, Lymph # (Auto) 1.6, [place] # (Auto) 0.8, Eos # (Auto) 0.0, Baso # (Auto) 0.0 07/10/21 06:40: Sodium 135 L, Potassium 3.8, Chloride 103, Carbon Dioxide 23, Anion Gap 12.8, BUN 10 D, Creatinine 0.60 L D, Estimated Creat Clear 170, Estimated GFR 138,
== END 2021-07-11 08:55 | disposition home or self-care (01) | DRG 246 ==
LOC: ER 13:39 → SDC 15:29 → 2ND 15:40
PROVIDERS: Admitting Provider Family Medicine; Emergency Provider Emergency Medicine; PCP Family Medicine; Referring Provider Internal Medicine; Visit Provider Family Medicine
PROC: 027237Z Dilation of Coronary Artery, Three Arteries with Four or More Drug-eluting Intraluminal Devices, Percutaneous Approach (ICD-10-PCS; principal; 2021-07-09 13:15)
DX: I21.4 Non-ST elevation (NSTEMI) myocardial infarction (principal); T82.855A Stenosis of coronary artery stent, initial encounter; Y83.1 Surgical operation with implant of artificial internal device as the cause of abnormal reaction of the patient, or of later complication, without mention of misadventure at the time of the procedure; I25.119 Atherosclerotic heart disease of native coronary artery with unspecified angina pectoris; Z20.822 Contact with and (suspected) exposure to COVID-19; Z95.0 Presence of cardiac pacemaker; I25.2 Old myocardial infarction; I10 Essential (primary) hypertension; E78.5 Hyperlipidemia, unspecified; E11.65 Type 2 diabetes mellitus with hyperglycemia; Z79.4 Long term (current) use of insulin; I25.10 Atherosclerotic heart disease of native coronary artery without angina pectoris; K21.9 Gastro-esophageal reflux disease without esophagitis
CPT/HCPCS: 71045; 80053; 82962; 84484; 85025; 85347; 92928; 92941; 93005; 93458; 99152; 99153; 99284; C1725; C1769; C1874; C1876; C9600; C9606; C9803; J1644; J2405; Q9967; U0003; U0005

== ENCOUNTER → 2021-07-16 10:03 | Outpatient (CLI) | payer OTHER, SELFPAY ==
[2021-07-16 10:30] LABS: Hematocrit 47.6 % (42.0-52.0)
[2021-07-16 10:38] LABS: Blood Urea Nitrogen 17 mg/dl (9-20); Estimated Glomerular Filt Rate 76 ml/min (>60); GFR (African American) 93 ML/MIN (>60)
== END ==
PROVIDERS: Visit Provider Internal Medicine
DX: I25.10 Atherosclerotic heart disease of native coronary artery without angina pectoris (principal); Z95.5 Presence of coronary angioplasty implant and graft
CPT/HCPCS: 36415; 82565; 84520; 85014; 85018

== ENCOUNTER → 2021-07-23 09:52 | Outpatient (CLI) | payer OTHER, SELFPAY ==
--- NOTE | 2021-07-23 09:52 | CA_ITS ---
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1) PWd 0.89 cm (0.6-1.1) EF (Teich) 57.00% FS 29.50% EDV (Teich) 74.20 mL ESV (Teich) 31.90 mL LV Diastology E Decel Time 197.00 (160-240 msec) E/A Ratio 0.8 MED E' 7.50 (< 7 cm/sec) E'/MED E' Ratio 8.45 (>14) LAT E' 13.70 (<10 cm/sec) E/LAT E' Ratio 4.63 (>14) Mitral Valve MV E Max Troy. 63.00 (40-130 cm/s) MV A Velocity 84.00 (40-130 cm/s) E/A Ratio 0.75 MV Decel. Time 197.00 (160-240 ms) MV PHT 58.00 ms Left Ventricle Left atrium is mildly enlarged, left ventricle is normal size, mild concentric left ventricular hypertrophy, visually estimated ejection fraction 55% with no regional wall motion abnormality, grade 1 diastolic dysfunction seen without tissue Doppler evidence of raise left atrial pressure. Right Ventricle Right atrium and right ventricle are normal size and contractility. Aortic Valve Aortic valve is minimally thickened and calcified without Doppler evidence of aortic stenosis or significant aortic insufficiency. Mitral Valve Mitral valve grossly normal, there is trace mitral regurgitation. Tricuspid Valve Tricuspid valve grossly normal, there is trace tricuspid regurgitation tricuspid regurgitation jet velocity is inadequate for calculation of the right ventricular systolic pressure. Pulmonic Valve Pulmonic valve is poorly visualized. Great Vessels Aortic root is normal size. Inferior vena cava is normal size with normal inspiratory collapse. Pericardium No significant pericardial effusion noted. Conclusion 1. Mildly enlarged left atrium, normal left ventricular size, mild concentric left ventricular hypertrophy, visually estimated ejection fraction 55% with no regional wall motion abnormality, grade 1 diastolic dysfunction seen without tissue Doppler evidence of raise left atrial pressure. 2. Trace mitral and tricuspid regurgitation. 3. No significant pericardial effusion noted. Electronically signed by : Campbell Lacy MD 07/23/2021 12:51:06
== END ==
PROVIDERS: PCP Family Medicine; Visit Provider Internal Medicine Cardiovascular Disease
DX: I25.10 Atherosclerotic heart disease of native coronary artery without angina pectoris (principal); I11.9 Hypertensive heart disease without heart failure; E78.5 Hyperlipidemia, unspecified; Z95.5 Presence of coronary angioplasty implant and graft
CPT/HCPCS: 93306

== ENCOUNTER → 2021-11-08 13:22 | Outpatient (CLI) | payer OTHER, SELFPAY | PROVIDERS: PCP Family Medicine; Visit Provider Nurse Practitioner | DX: U07.1 COVID-19 (principal) | CPT/HCPCS: C9803; U0003; U0005 ==

== ENCOUNTER 2022-04-26 08:58 | Emergency (ER) | payer OTHER, SELFPAY ==
[2022-04-26 09:05] VITALS: BP 175/99; PULSE 87; RESP 18; TEMP 37; O2SAT 96; BMI 25.8
[2022-04-26 09:11] VITALS: BP 175/99; PULSE 87; RESP 18; TEMP 37; O2SAT 96
--- NOTE | 2022-04-26 09:18 | HMH.EDUTC ---
[facility] [place] Clinical Impression: Exposure to COVID-19 virus Disposition: Home, Self-Care Condition on Discharge: Good Instructions: DI for COVID-19 (Suspected or Confirmed ), Preventing the Spread of Coronavirus Discharge Instructions Additional Instructions: *Monitor Temp, Over the counter Motrin or Tylenol as directed/as needed Tylenol every 4 hours and Motrin every 6 hours (as long as your family doctor has told you that you can take it) for fever or pain. and straight to ER if unable to lower temp less than 101.0 after medication given Follow up IMMEDIATELY for new or worsening symptoms or no Noticeable improvement over the next 48-72 hours. 911 for difficulty breathing or swallowing You were tested for today for COVID19 your test result should be back in the next 24-48 hours, you may check your results on the [facility] My Health Portal Make sure to take your Vitamins Vit. C Vit D and Zinc if you can take them Referrals: Shemar Beltran MD [Primary Care Provider] - As needed Forms: Work/School Release Medical Decision Making - Danny Inquiry Pt receiving controlled substance: No Danny was queried for this patient: No Vital Signs: 04/26/22 09:05 04/26/22 09:11 Temperature 98.6 F 98.6 F Temperature Source Oral Pulse Rate 87 Pulse Rate [Left Brachial] 87 Respiratory Rate 18 18 Blood Pressure 175/99 H Blood Pressure [Left Arm] 175/99 H Blood Pressure Mean [Left Arm] 124 Blood Pressure Source [Left Arm] Automatic Cuff Blood Pressure Position [Left Arm] Sitting 02 Sat by Pulse Oximetry 96 Oxygen Delivery Method Room Air Orders (Tests/Meds): ORDERS Category Date Time Status Covid-19 Nasal PCR ([facility]) Routine Lab 04/26/22 09:05 Received [facility] HPI - General Stated complaint: covid test Time Seen by Provider: 04/26/22 09:18 Mode of Arrival: Ambulatory Source of Information: Patient Limitations: No Limitations Description of Symptoms (Recalled from Triage Doc. by RN): COVID TEST D/T EXPOSURE, DENIES SYMPTOMS HEENT Symptoms (Recalled from RN notes): No Resp Symptoms (Recalled from RN notes): No Skin Symptoms (Recalled from RN notes): No MS Symptoms (Recalled from RN notes): No Functional Status (Recalled from RN notes): WNL - History of Present Illness Provider Complaint: Patient states that was sick all last week and she tested positive for COVID yesterday States that he is not having any symptoms but wanted to get tested for work - Related Data Home Medications Medication Instructions Recorded Confirmed aspirin 81 mg tablet,delayed 81 mg PO DAILY 11/01/17 12/03/21 release glimepiride 2 mg tablet 2 mg PO DAILY 11/01/17 12/03/21 insulin detemir U-100 100 unit/mL 30 unit SQ DAILY ml 11/01/17 12/03/21 (3 mL) subcutaneous pen sitagliptin 50 mg-metformin 1,000 1 tab PO BID tab 11/01/17 12/03/21 mg tablet PARoxetine HCl [Paxil] 20 mg PO DAILY 01/24/18 12/03/21 Lisinopril/Hydrochlorothiazide 1 tab PO DAILY 06/26/20 12/03/21 [Lisinopril-Hctz 20-12.5 mg Tab*] bisoproloL fumarate [Bisoprolol 10 mg PO DAILY 06/26/20 12/03/21 10mg Tablet] Previous Rx's Medication Instructions Recorded Ticagrelor [Brilinta 90mg 90 mg PO BID tab 07/11/21 Tablet] amlodipine 5 mg tablet 5 mg PO DAILY #90 tab 08/27/21 rosuvastatin 20 mg tablet See Rx Instructions .ROUTE 02/15/22 .COMPLEX #30 tab Allergies Allergy/AdvReac Type Severity Reaction Status Date / Time No Known Allergies Allergy Verified 12/03/21 09:47 - Worker's Comp Is this a Worker's Comp case?: No [facility] History - Hepatitis A Screen Attestation statement:: This patient has been screened for Hepatitis A risk factors. I have reviewed the patient's past medical history: Yes Medical History: Reports:: Atherosclerotic Heart Disease, Coronary Artery Disease, Diabetes Mellitus Type 2, Hyperlipidemia, Hypertension, Myocardial Infarction Denies:: Cancer, Diabetes Mellitus Type 1, Gastroesoph
== END 2022-04-26 09:19 | disposition home or self-care (01) ==
PROVIDERS: Emergency Provider Nurse Practitioner; PCP Family Medicine
DX: Z20.822 Contact with and (suspected) exposure to COVID-19 (principal)
CPT/HCPCS: 99212; C9803; G0463; U0003; U0005

== ENCOUNTER 2022-07-25 22:07 | Emergency (ER) | payer OTHER, SELFPAY ==
[2022-07-25 22:08] VITALS: BP 192/117; PULSE 96; RESP 16; TEMP 37.1; O2SAT 97; BMI 26.4
--- NOTE | 2022-07-25 22:10 | PC.NURSE ---
DR notified about pt and condition
--- NOTE | 2022-07-25 22:25 | ECG_ITS ---
APPROVED REPORT Exam: Resting ECG HR:93 bpm ECG Measurements Heart Rate 93 AXES IN 163 P 57 QRSd 85 QRS 52 QT 360 T 13 QTc 411 Conclusion SINUS RHYTHM NORMAL ECG UNCONFIRMED REPORT Electronically signed by : Kingston Murrell MD 07/26/2022 19:58:56
[2022-07-25 22:30] VITALS: BP 191/105; PULSE 95; RESP 16; O2SAT 96
--- NOTE | 2022-07-25 23:26 | PC.NURSE ---
Rechecked pt condition. No needs or complaints voiced.
[2022-07-25 23:30] VITALS: BP 182/102; PULSE 85; RESP 21; O2SAT 96
[2022-07-26] VITALS: BP 185/104; PULSE 91; RESP 17; O2SAT 95
[2022-07-26 00:30] VITALS: BP 180/92; PULSE 86; RESP 15; O2SAT 95
--- NOTE | 2022-07-26 00:57 | XR_ITS ---
PROCEDURE INFORMATION: Exam: XR Chest Exam date and time: 07/26/2022 12:59 AM Age: 61 years old Clinical indication: Other: Elevated BP; Prior surgery; Surgery type: States 10 cardiac stents TECHNIQUE: Imaging protocol: Radiologic exam of the chest. Views: 2 views. COMPARISON: CR XR CHEST PORTABLE 07/09/2021 11:46 AM FINDINGS: Lungs: Minimal bibasilar atelectasis or scarring. Pleural spaces: Unremarkable. No pleural effusion. No pneumothorax. Heart/Mediastinum: Normal. Vasculature: Metallic stents within the coronary arteries. Atherosclerotic vascular disease. Bones/joints: No acute abnormality. IMPRESSION: No acute cardiopulmonary abnormality.
--- NOTE | 2022-07-26 00:57 | PC.NURSE ---
Pt ambulatory to bathroom
[2022-07-26 01:06] LABS: Basophils # 0.1 K/mm3 (0-0.2); Basophils % 1.1 % (0.1-2.0); Eosinophils # 0.2 K/mm3 (0.0-0.4); Hematocrit 47.4 % (42.0-52.0); Lymphocytes # 2.4 K/mm3 (0.7-4.5); Lymphocytes % 20.1 % (10-50); Mean Corpuscular HGB Conc 33.7 g/dL (31.8-35.4); Mean Corpuscular Hemoglobin 30.6 pg (27.0-31.2); Mean Corpuscular Volume 90.9 fl (80-94); Mean Platelet Volume 7.4 fl (7.4-10.4); Monocytes # 1.2 K/mm3 (0.1-1.0); Monocytes % 10.5 % (1.7-9.3); Neutrophils # 7.8 K/mm3 (1.8-7.8); Neutrophils % 66.2 % (37.0-80.0); Platelet Count 355 K/mm3 (142-424); Red Blood Count 5.22 M/mm3 (4.60-6.20); Red Cell Distribution Width 13.2 % (11.5-17.5); White Blood Count 11.8 K/mm3 (4.8-10.8)
[2022-07-26 01:10] LABS: Alanine Aminotransferase 25 U/L (12-78); Albumin Level 4.3 g/dl (3.5-5.0); Albumin/Globulin Ratio 1.3 (1.1-1.8); Alkaline Phosphatase 118 U/L (38-126); Aspartate Amino Transferase 29 U/L (17-59); Bilirubin,Total 0.4 mg/dl (0.2-1.3); Blood Urea Nitrogen 22 mg/dl (9-20); Calcium 9.3 mg/dl (8.4-10.2); Carbon Dioxide 31 mmol/L (22.0-30.0); Chloride 92 mmol/L (98-107); Creatinine Clearance Estimated 112 mL/min (50-200); Estimated Glomerular Filt Rate 86 ml/min (>60); GFR (African American) 104 ML/MIN (>60); Globulin 3.2 g/dL (1.3-3.2); Glucose 275 mg/dl (74-100); Sodium 134 mmol/L (136-145); Total Protein,Serum 7.5 g/dl (6.3-8.2)
[2022-07-26 01:22] LABS: Troponin I 0.02 ng/ml (0.00-0.034)
[2022-07-26 01:32] LABS: Troponin I 0.03 ng/ml (0.00-0.034)
--- NOTE | 2022-07-26 01:50 | HMH.EDGENADL ---
Discharge Plan Disposition Patient Disposition: Home, Self-Care Chief Complaint: PAIN Prescriptions Prescriptions: No Action aspirin [Adult Low Dose Aspirin] 81 mg tablet,delayed release (DR/EC) 81 mg PO DAILY glimepiride 2 mg tablet 2 mg PO DAILY insulin detemir U-100 100 unit/mL (3 mL) insulin pen 30 unit SQ DAILY sitagliptin-metformin [Janumet] 50-1,000 mg tablet 1 tab PO BID Rx Instructions: 50/1000mg paroxetine HCl 20 MG tablet 20 mg PO DAILY rosuvastatin 20 mg tablet See Rx Instructions .ROUTE .COMPLEX Rx Instructions: TAKE 1 TABLET BY MOUTH EVERY DAY ticagrelor 90 MG tablet 90 mg PO BID primidone 50 mg tablet 50 mg PO DAILY Label Comments: TAKE 1 TABLET BY MOUTH EVERY DAY FOR 90 DAYS Referrals Follow up/Referrals: Shemar Beltran MD [Primary Care Provider] - See instructions Clinical Impressions Clinical Impression: RLS (restless legs syndrome), Coronary artery disease, Diabetes mellitus, HTN (hypertension) Instructions Patient Instructions: DI for Restless Legs Syndrome Discharge ED Provider: Chandler Christianson General Adult HPI General Chief complaint: PAIN Stated complaint: HBP 180/123 Time Seen by Provider: 07/26/22 01:50 Mode of Arrival: Ambulatory Source of Information: Patient and Medical Record Limitations: No Limitations Description of Symptoms (Recalled from ER Triage Doc. by RN): pt reports that today makes day for of his quiting tobacco. he has dipped 40 years and is now using a supplement and has 8 mg of nicotine 3 times a day. today he came home and was having a tingling nervous feeling in his thighs and took his bp and it was high. pt has a hx of hypertension nut never this high. pt has an extensive cardiac hx denies chest pain or other symptoms History of Present Illness HPI narrative: pt with diabetes and has tingling and restless rt leg with hx of cad and htn Onset (ago): hour(s) Location: lower extremity Severity: moderate Consistency: intermittent Associated symptoms: denies other symptoms Related Data Home Medications Medication Instructions Recorded Confirmed aspirin 81 mg tablet,delayed 81 mg PO DAILY HEART HEALTH 11/01/17 07/26/22 release (Adult Low Dose Aspirin) glimepiride 2 mg tablet 2 mg PO DAILY diabetes 11/01/17 07/26/22 insulin detemir U-100 100 unit/mL 30 unit SQ DAILY diabetes 11/01/17 07/26/22 (3 mL) subcutaneous pen sitagliptin 50 mg-metformin 1,000 1 tab PO BID Diabetes 11/01/17 07/26/22 mg tablet (Janumet) paroxetine HCl 20 mg tablet 20 mg PO DAILY Depression 01/24/18 07/26/22 primidone 50 mg tablet 50 mg PO DAILY Tremors 07/26/22 07/26/22 rosuvastatin 20 mg tablet See Rx Instructions .Route 07/26/22 07/26/22 .COMPLEX CARDIAC ticagrelor 90 mg tablet 90 mg PO BID Blood thinner 07/26/22 07/26/22 Allergies Allergy/AdvReac Type Severity Reaction Status Date / Time No Known Allergies Allergy Verified 12/03/21 09:47 PFSH PFSH Social History Smoking Status: Former smoker second hand exposure: Yes alcohol intake: never substance use type: denies use current occupational status: employed Travel in the last 8 weeks: Inside the [place] household members: spouse housing: house current occupation: [employer] current occupational exposures/hazards: Yes caffeine: Yes ROS Obtained: Yes All systems reviewed & no additional complaints except as documented Constitutional Constitutional: Denies fever(s) Cardiovascular Cardiovascular: Denies chest pain with activity Physical Exam General General appearance: alert and in no apparent distress Head Head exam: normocephalic Eye Eye exam: Present PERRL and EOMI ENT ENT exam: Present mucous membranes moist Neck Neck exam: Present trachea midline Respiratory Respiratory exam: Present normal lung sounds bilaterally Cardiovascular Cardiovascular exam: Present regular rate and systolic murmur Abdominal
[2022-07-26 02:20] VITALS: BP 165/86; PULSE 89; RESP 16; TEMP 37.2; O2SAT 98
== END 2022-07-26 02:22 | disposition home or self-care (01) ==
PROVIDERS: Emergency Provider Emergency Medicine; PCP Family Medicine
DX: G25.81 Restless legs syndrome (principal); R20.2 Paresthesia of skin; I10 Essential (primary) hypertension; I25.10 Atherosclerotic heart disease of native coronary artery without angina pectoris; E11.9 Type 2 diabetes mellitus without complications; Z79.4 Long term (current) use of insulin; Z79.82 Long term (current) use of aspirin; Z79.84 Long term (current) use of oral hypoglycemic drugs; Z79.899 Other long term (current) drug therapy; Z87.891 Personal history of nicotine dependence
CPT/HCPCS: 71046; 80053; 84484; 85025; 93005; 99284

== ENCOUNTER → 2022-09-16 10:23 | Outpatient (CLI) | payer OTHER, SELFPAY ==
[2022-09-16 10:39] LABS: Coronavirus 19, PCR Not Detected (NotDetected); Influenza A, PCR Not Detected (NotDetected); Influenza B, PCR Not Detected (NotDetected)
[2022-09-16 10:42] LABS: Basophils # 0.1 K/mm3 (0-0.2); Eosinophils # 0.2 K/mm3 (0.0-0.4); Eosinophils % 1.9 % (0.1-12.0); Hematocrit 43.4 % (42.0-52.0); Lymphocytes % 19.1 % (10-50); Mean Corpuscular HGB Conc 34.5 g/dL (31.8-35.4); Mean Corpuscular Hemoglobin 31.5 pg (27.0-31.2); Mean Corpuscular Volume 91.2 fl (80-94); Mean Platelet Volume 7.7 fl (7.4-10.4); Monocytes # 1.4 K/mm3 (0.1-1.0); Monocytes % 13.5 % (1.7-9.3); Neutrophils # 6.8 K/mm3 (1.8-7.8); Neutrophils % 64.5 % (37.0-80.0); Platelet Count 334 K/mm3 (142-424); Red Blood Count 4.76 M/mm3 (4.60-6.20); Red Cell Distribution Width 13.4 % (11.5-17.5); White Blood Count 10.6 K/mm3 (4.8-10.8)
== END ==
PROVIDERS: PCP Family Medicine; Visit Provider Physician Assistant
DX: Z20.822 Contact with and (suspected) exposure to COVID-19 (principal)
CPT/HCPCS: 36415; 85025; C9803; U0003; U0005

== ENCOUNTER 2022-09-19 15:16 | Emergency (ER) | payer OTHER, SELFPAY ==
[2022-09-19 15:19] VITALS: BP 132/59; PULSE 65; RESP 16; TEMP 36.7; O2SAT 97; BMI 27.0
[2022-09-19 15:30] VITALS: BP 133/71; PULSE 63; O2SAT 94
--- NOTE | 2022-09-19 15:38 | HMH.EDGENADL ---
Discharge Plan Disposition Chief Complaint: Nausea/Vomiting/Diarrhea Prescriptions Prescriptions: No Action aspirin [Adult Low Dose Aspirin] 81 mg tablet,delayed release (DR/EC) 81 mg PO DAILY glimepiride 2 mg tablet 2 mg PO DAILY insulin detemir U-100 100 unit/mL (3 mL) insulin pen 30 unit SQ DAILY sitagliptin phos-metformin [Janumet] 50-1,000 mg tablet 1 tab PO BID Rx Instructions: 50/1000mg rosuvastatin 20 mg tablet See Rx Instructions .ROUTE .COMPLEX Qty: 90 1RF Rx Instructions: TAKE 1 TABLET BY MOUTH EVERY DAY amlodipine 5 mg tablet 2.5 mg PO DAILY Qty: 30 2RF paroxetine HCl 20 MG tablet 20 mg PO DAILY ticagrelor 90 MG tablet 90 mg PO BID primidone 50 mg tablet 50 mg PO DAILY Label Comments: TAKE 1 TABLET BY MOUTH EVERY DAY FOR 90 DAYS Referrals Follow up/Referrals: Shemar Beltran MD [Primary Care Provider] - See instructions Instructions Patient Instructions: DI for Nausea -- Adult, DI for Nausea -- Child, DI for Diarrhea and Traveler's Diarrhea -- Adult, DI for Diarrhea and Traveler's Diarrhea -- Child Discharge ED Provider: Jamaal Humphreys General Adult HPI General Chief complaint: Nausea/Vomiting/Diarrhea Stated complaint: NAUSEA/VOMITING Time Seen by Provider: 09/19/22 15:33 Mode of Arrival: EMS Source of Information: Patient and EMS Limitations: No Limitations Description of Symptoms (Recalled from ER Triage Doc. by RN): PT BROUGHT IN VIA EMS, PT REPORTS N/V. DIAGNOSED WITH THE FLU ON 09/15. KNOWN DIABETIC. PT RECEIVED 1000ML OF NS AND 25MG IV [employer] History of Present Illness HPI narrative: Patient presents with vomiting that began earlier today. He is diabetic and has had this problem in the past. He was recently diagnosed with flu. He denies diarrhea or abdominal pain he denies fever. He denies chest pain or shortness of breath at this time. Related Data Home Medications Medication Instructions Recorded Confirmed aspirin 81 mg tablet,delayed 81 mg PO DAILY HEART HEALTH 11/01/17 07/26/22 release (Adult Low Dose Aspirin) glimepiride 2 mg tablet 2 mg PO DAILY diabetes 11/01/17 07/26/22 insulin detemir U-100 100 unit/mL 30 unit SQ DAILY diabetes 11/01/17 07/26/22 (3 mL) subcutaneous pen sitagliptin phosphate 50 1 tab PO BID Diabetes 11/01/17 07/26/22 mg-metformin 1,000 mg tablet (Janmargat) paroxetine HCl 20 mg tablet 20 mg PO DAILY Depression 01/24/18 07/26/22 primidone 50 mg tablet 50 mg PO DAILY Tremors 07/26/22 07/26/22 ticagrelor 90 mg tablet 90 mg PO BID Blood thinner 07/26/22 07/26/22 Previous Rx's Medication Instructions Recorded rosuvastatin 20 mg tablet See Rx Instructions .Route 08/11/22 .COMPLEX CARDIAC #90 tabs amlodipine 5 mg tablet 2.5 mg PO DAILY #30 tabs 08/29/22 Allergies Allergy/AdvReac Type Severity Reaction Status Date / Time No Known Allergies Allergy Verified 12/03/21 09:47 PFSH PFS Social History Smoking Status: Former smoker second hand exposure: Yes alcohol intake: never substance use type: denies use current occupational status: employed Travel in the last 8 weeks: [place] the [place] household members: spouse housing: house current occupation: [employer] current occupational exposures/hazards: Yes caffeine: Yes ROS Obtained: Yes All systems reviewed & no additional complaints except as documented Physical Exam General General appearance: alert and in no apparent distress Head Head exam: atraumatic, normocephalic and normal inspection Eye Eye exam: Present normal appearance, PERRL and EOMI ENT ENT exam: Present normal exam, normal oropharynx, mucous membranes moist, TM's normal bilaterally and normal external ear exam Neck Neck exam: Present normal inspection, full ROM and trachea midline; Absent meningismus or lymphadenopathy Chest Chest inspection: Present normal inspection an
[2022-09-19 15:42] LABS: Basophils # 0.1 K/mm3 (0-0.2); Basophils % 0.7 % (0.1-2.0); Eosinophils # 0.1 K/mm3 (0.0-0.4); Eosinophils % 0.7 % (0.1-12.0); Hematocrit 43.4 % (42.0-52.0); Hemoglobin 14.3 g/dL (14.1-18.0); Lymphocytes # 2.2 K/mm3 (0.7-4.5); Lymphocytes % 20.8 % (10-50); Mean Corpuscular HGB Conc 32.9 g/dL (31.8-35.4); Mean Corpuscular Hemoglobin 30.1 pg (27.0-31.2); Mean Corpuscular Volume 91.3 fl (80-94); Mean Platelet Volume 7.3 fl (7.4-10.4); Monocytes # 0.9 K/mm3 (0.1-1.0); Monocytes % 8.1 % (1.7-9.3); Neutrophils # 7.4 K/mm3 (1.8-7.8); Neutrophils % 69.7 % (37.0-80.0); Platelet Count 346 K/mm3 (142-424); Red Blood Count 4.75 M/mm3 (4.60-6.20); Red Cell Distribution Width 13.1 % (11.5-17.5); White Blood Count 10.6 K/mm3 (4.8-10.8)
[2022-09-19 15:43] LABS: Chloride 100 mmol/L (98-107)
[2022-09-19 15:44] LABS: Potassium 3.2 mmoL/L (3.5-5.1); Sodium 135 mmol/L (136-145)
[2022-09-19 15:46] LABS: Alanine Aminotransferase 24 U/L (12-78); Aspartate Amino Transferase 23 U/L (17-59); Bilirubin,Total 0.6 mg/dl (0.2-1.3); Blood Urea Nitrogen 19 mg/dl (9-20); Creatinine Clearance Estimated 78 mL/min (50-200); Estimated Glomerular Filt Rate 56 ml/min (>60); GFR (African American) 68 ML/MIN (>60)
[2022-09-19 15:47] LABS: Albumin/Globulin Ratio 1.5 (1.1-1.8); Alkaline Phosphatase 122 U/L (38-126); Anion Gap 15.2 mEq/L (5-15); Carbon Dioxide 23 mmol/L (22.0-30.0); Globulin 2.7 g/dL (1.3-3.2); Glucose 261 mg/dl (74-100); Total Protein,Serum 6.7 g/dl (6.3-8.2)
[2022-09-19 16:00] VITALS: BP 156/80; PULSE 65; O2SAT 94
--- NOTE | 2022-09-19 17:08 | PC.NURSE ---
PT DONE WELL WITH HIS PO CHALLENGE
--- NOTE | 2022-09-19 17:09 | PC.NURSE ---
MD at bedside speaking with and pt
--- NOTE | 2022-09-19 17:11 | XR_ITS ---
PROCEDURE INFORMATION: Exam: XR Left Foot Exam date and time: 09/19/2022 5:51 PM Age: 62 years old Clinical indication: Pain; Foot; Left; Additional info: Lt foot pain, no known injury TECHNIQUE: Imaging protocol: Radiologic exam of the Left foot. Views: 1 or 2 views. COMPARISON: No relevant prior studies available. FINDINGS: Bones/joints: On the direct AP view, there is subtle lateral bowing of the 4th metatarsal diaphysis with slight trabecular sclerosis and faint transverse lucency across the mid to distal diaphysis, suspicious for changes of stress reaction and possibly nondisplaced stress fracture. This is not confirmed on the oblique or lateral views however. Correlate clinically. No other suspected fractures or stress injuries. Normal alignment is maintained in the midfoot, hindfoot, and forefoot. Mild osteoarthritic joint space narrowing with subarticular sclerosis and marginal spurring in the first MTP joint. No gross ankle joint effusion. No hindfoot coalition. Moderate plantar calcaneal spurring. Minimal spurring at the Achilles tendon calcaneal attachment. Soft tissues: No gross soft tissue abnormalities. No radiopaque foreign bodies. IMPRESSION: 1. Questionable findings suspicious for nondisplaced stress fracture in the mid to distal 4th metatarsal diaphysis, correlate clinically. 2. Mild osteoarthritic changes in the 1st MTP joint. 3. Moderate plantar calcaneal spurring.
[2022-09-19 18:20] VITALS: BP 136/86; PULSE 78; RESP 17; TEMP 36.7; O2SAT 97
== END 2022-09-19 18:20 | disposition home or self-care (01) ==
PROVIDERS: Emergency Provider Emergency Medicine; PCP Family Medicine
DX: S92.302A Fracture of unspecified metatarsal bone(s), left foot, initial encounter for closed fracture (principal); M79.672 Pain in left foot; R11.2 Nausea with vomiting, unspecified; Z79.82 Long term (current) use of aspirin; Z79.4 Long term (current) use of insulin; Z79.899 Other long term (current) drug therapy; E11.9 Type 2 diabetes mellitus without complications; I25.10 Atherosclerotic heart disease of native coronary artery without angina pectoris; E78.5 Hyperlipidemia, unspecified; I50.9 Heart failure, unspecified; I11.0 Hypertensive heart disease with heart failure; G25.81 Restless legs syndrome
CPT/HCPCS: 29405; 73620; 80053; 85025; 96374; 99284; J2405

== ENCOUNTER 2022-10-12 08:09 | Inpatient (IN) | payer OTHER, SELFPAY ==
[2022-10-12] VITALS (24 sets, daily range): BP systolic 118–163; BP diastolic 77–106; PULSE 64–197; RESP 16–22; TEMP 36.4–36.9; O2SAT 95–100; BMI 26.4; BMI 26.2
--- NOTE | 2022-10-12 08:08 | ECG_ITS ---
APPROVED REPORT Exam: Resting ECG HR:198 bpm ECG Measurements Heart Rate 198 AXES QRSd 174 QRS -35 QT 216 T 0 QTc 315 Conclusion UNCERTAIN REGULAR RHYTHM LEFT AXIS DEVIATION [QRS AXIS < -30] INTRAVENTRICULAR CONDUCTION DELAY [130+ ms QRS DURATION] CRITICAL TEST RESULT UNCONFIRMED REPORT Electronically signed by : Kingston Murrell MD 10/13/2022 20:22:28
--- NOTE | 2022-10-12 08:14 | PC.NURSE ---
Pt moved to bed 3 for further monitoring and medicine administration.
--- NOTE | 2022-10-12 08:18 | PC.NURSE ---
IV leaking with adenosine 6mg push no HR change of 198, at bs, assessed for 1 minute with HR of 194, MD verbalized second dose of 6 mg of adenosine push at this time of HR of 194
--- NOTE | 2022-10-12 08:20 | PC.NURSE ---
PT HR 101, chest pain improved
--- NOTE | 2022-10-12 08:23 | ECG_ITS ---
APPROVED REPORT Exam: Resting ECG HR:101 bpm ECG Measurements Heart Rate 101 AXES TN 158 P 52 QRSd 85 QRS 3 QT 352 T 54 QTc 410 Conclusion SINUS TACHYCARDIA MODERATE ST DEPRESSION [0.05+ mV ST DEPRESSION] ABNORMAL ECG UNCONFIRMED REPORT Electronically signed by : Kingston Murrell MD 10/13/2022 20:22:19
--- NOTE | 2022-10-12 08:23 | HMH.EDGENADL ---
Discharge Plan Disposition Patient Disposition: Still a Patient Condition: Good Clinical Impressions Clinical Impression: Supraventricular tachycardia, Chest pain, Elevated troponin, Abnormal ECG, Non-ST elevated myocardial infarction Discharge ED Provider: Kwame Aldridge General Adult HPI General Chief complaint: Chest Pain Stated complaint: chest pain Time Seen by Provider: 10/12/22 08:09 History of Present Illness HPI narrative: Developed chest pain, rapid heartbeat, mild shortness of breath at 6:30 AM. States that he has heart disease and has 10 stents. His seam taper machine Dr. Blanco and he states that Dr. Blanco has told him he cannot get any more stents. He has never had a problem with an arrhythmia or rapid heartbeat in the past. No nausea, diaphoresis, or syncope. Related Data Home Medications Medication Instructions Recorded Confirmed aspirin 81 mg tablet,delayed 81 mg PO DAILY HEART HEALTH 11/01/17 10/12/22 release (Adult Low Dose Aspirin) glimepiride 2 mg tablet 2 mg PO DAILY diabetes 11/01/17 10/12/22 insulin detemir U-100 100 unit/mL 30 unit SQ DAILY diabetes 11/01/17 10/12/22 (3 mL) subcutaneous pen sitagliptin phosphate 50 1 tab PO BID Diabetes 11/01/17 10/12/22 mg-metformin 1,000 mg tablet (Janumet) paroxetine HCl 20 mg tablet 20 mg PO DAILY Depression 01/24/18 10/12/22 primidone 50 mg tablet 50 mg PO DAILY Tremors 07/26/22 10/12/22 ticagrelor 90 mg tablet 90 mg PO BID Blood thinner 07/26/22 10/12/22 amlodipine 5 mg tablet 2.5 mg PO DAILY blood pressure 10/12/22 10/12/22 bisoprolol fumarate 10 mg tablet 10 mg PO DAILY blood pressure 10/12/22 10/12/22 lisinopril 20 mg tablet 20 mg PO DAILY blood pressure 10/12/22 10/12/22 Previous Rx's Medication Instructions Recorded rosuvastatin 20 mg tablet See Rx Instructions .Route 08/11/22 .COMPLEX CARDIAC #90 tabs Allergies Allergy/AdvReac Type Severity Reaction Status Date / Time No Known Allergies Allergy Verified 10/05/22 14:05 [facility] Disclaimer: The information contained in this section may have been updated after the patient was seen, as this information can be updated by other users. Medical History Diabetes Family History Other No significant family history Social History Smoking Status: Never smoker second hand exposure: Yes alcohol intake: never substance use type: denies use current occupational status: employed Travel in the last 8 weeks: Inside the [place] household members: spouse housing: house current occupation: [employer] current occupational exposures/hazards: Yes caffeine: Yes ROS Obtained: Yes Systems reviewed as appropriate & no additional complaints except as documented Constitutional Constitutional: Denies fever(s), Denies headache(s) and Denies weakness ENT Ears, Nose, Mouth, and Throat: Denies headache(s), Denies nasal discharge and Denies sore throat Cardiovascular Cardiovascular: Reports chest pain and Reports rapid heart rate Respiratory Respiratory: Reports shortness of breath and Denies cough Gastrointestinal Gastrointestingal: Denies abdominal pain, constipation, diarrhea or vomiting Genitourinary Male Genitourinary: Denies difficulty urinating and Denies flank pain Musculoskeletal Musculoskeletal: Denies numbness Neurologic Neurologic: Denies headache(s), Denies numbness and Denies weakness Physical Exam General General appearance: alert, in no apparent distress and anxious Head Head exam: atraumatic and normocephalic Eye Eye exam: Present normal appearance and EOMI ENT ENT exam: Present mucous membranes moist Neck Neck exam: Present normal inspection and trachea midline Chest Chest inspection: Present normal inspection and symmetric chest wall rise Respiratory Respiratory exam: Pre
--- NOTE | 2022-10-12 08:25 | PC.NURSE ---
called for cardiology consult
--- NOTE | 2022-10-12 08:28 | XR_ITS ---
FINAL REPORT CLINICAL HISTORY: cp COMPARISON: 07/26/2022 FINDINGS: SINGLE-VIEW CHEST The heart size is normal. The mediastinum is normal. The lungs are clear. There is no pneumothorax. IMPRESSION: No acute cardiopulmonary process. Reviewed, Interpreted and Dictated by Willy Price III, MD Transcribed by Nayeli Belcher Authenticated and [facility]
[2022-10-12 08:38] LABS: Basophils # 0.2 K/mm3 (0-0.2); Basophils % 1.8 % (0.1-2.0); Chloride 100 mmol/L (98-107); Eosinophils # 0.3 K/mm3 (0.0-0.4); Eosinophils % 2.6 % (0.1-12.0); Hematocrit 47.9 % (42.0-52.0); Hemoglobin 15.9 g/dL (14.1-18.0); Lymphocytes # 2.8 K/mm3 (0.7-4.5); Lymphocytes % 28.8 % (10-50); Mean Corpuscular HGB Conc 33.3 g/dL (31.8-35.4); Mean Corpuscular Volume 90.1 fl (80-94); Mean Platelet Volume 7.3 fl (7.4-10.4); Monocytes # 0.9 K/mm3 (0.1-1.0); Neutrophils # 5.6 K/mm3 (1.8-7.8); Neutrophils % 57.8 % (37.0-80.0); Platelet Count 379 K/mm3 (142-424); Red Blood Count 5.31 M/mm3 (4.60-6.20); Red Cell Distribution Width 13.3 % (11.5-17.5); White Blood Count 9.6 K/mm3 (4.8-10.8)
[2022-10-12 08:39] LABS: Potassium 4.7 mmoL/L (3.5-5.1); Sodium 136 mmol/L (136-145)
[2022-10-12 08:42] LABS: Anion Gap 17.7 mEq/L (5-15); Blood Urea Nitrogen 16 mg/dl (9-20); Calcium 10.5 mg/dl (8.4-10.2); Carbon Dioxide 23 mmol/L (22.0-30.0); Creatinine Clearance Estimated 83 mL/min (50-200); Estimated Glomerular Filt Rate 62 ml/min (>60); GFR (African American) 74 ML/MIN (>60); Glucose 383 mg/dl (74-100)
[2022-10-12 08:47] LABS: Coronavirus 19, PCR Not Detected (NotDetected); Influenza A, PCR Not Detected (NotDetected); Influenza B, PCR Not Detected (NotDetected)
[2022-10-12 08:54] LABS: Troponin I 0.06 ng/ml (0.00-0.034)
--- NOTE | 2022-10-12 09:00 | PC.NURSE ---
doreen waters returned call he is to come see pt
[2022-10-12 09:07] LABS: Triiodothryronine (T3) Uptake 29 % (23.5-40.5)
[2022-10-12 09:08] LABS: Free Thyroxine Index 2.6 ug/dL (5.93-13.13)
[2022-10-12 09:22] LABS: Thyroid Stimulating Hormone 3.52 uIU/mL (0.465-4.68)
--- NOTE | 2022-10-12 09:41 | PC.NURSE ---
VESNA FREGOSO AT BEDSIDE.
--- NOTE | 2022-10-12 09:57 | PC.NURSE ---
pt ambulated to bathroom with assistance
--- NOTE | 2022-10-12 10:00 | EXP.CARD.CON ---
History of Present Illness History of Present Illness Consult date: 10/12/22 Requesting physician: Kwame Aldridge Consult reason: chest pain Chief complaint: rapid HR, chest pain Additional Medical History:: 1. CAD A. [facility], 02/2015, ELIZABETH to LAD, diagonal and RCA B. [facility], 09/2016, ELIZABETH to LAD/diagonal and RCA stenting, 09/2016. C. Abnormal stress test in 03/2017. [facility] recommended but patient did not have it done. D. Admit for UAP, 01/24/2018.? [facility], 01/25/2018, ELIZABETH to large ostial diagonal lesion. E. Admit for chest pain, 07/09/2021, [facility] with ELIZABETH X2 to proximal LAD and circumflex extending back into the left main 2. DM, poorly controlled. 3. HTN A. Echo, 11/2017, mild LAE, normal LV size with EF 40-45% and moderate hypokinesis involving the inferobasal to distal septum wall.? No significant valvular heart disease.? Right atrium and right ventricle normal size and function.? Mild MR TR grade 1 diastolic dysfunction. B. Echocardiogram, 07/23/2021, mild LAE with normal LV size, mild concentric LVH. EF 55% with no regional WMA. Grade 1 diastolic dysfunction. Trace MR and TR. 4. Hyperlipidemia, on statin. 5. SVT, 10/12/2022, converted with IV adenosine x1. History of present illness: 62-year-old white male with known coronary artery disease and diabetes presented to the emergency department after awakening at 6:30 AM with a rapid heartbeat and chest pain with some mild shortness of breath. ER evaluation revealed SVT and patient was given a single dose of adenosine IV with subsequent conversion to sinus rhythm. Cardiology consulted for evaluation and recommendations. Patient's initial troponin is mildly elevated at 0.06. Second troponin is yet to be drawn. Patient is not complaining of any chest pain at this time. He does relate suffering from the flu a couple of weeks ago but has been active around the house without chest pain recently. There is some question as to whether he has been getting his beta-michael therapy. Post-conversion EKG shows slight ST segment depression in the inferolateral leads with slight ST elevation in the aVR. [facility] Disclaimer: The information contained in this section may have been updated after the patient was seen, as this information can be updated by other users. Medical History Diabetes Family History Other No significant family history Social History Smoking Status: Never smoker second hand exposure: Yes alcohol intake: never substance use type: denies use current occupational status: employed Travel in the last 8 weeks: [place] the [place] household members: spouse housing: house current occupation: [employer] current occupational exposures/hazards: Yes caffeine: Yes Review of Systems Review of Systems Review of systems:: pertinent systems reviewed and negative unless documented below Constitutional Constitutional: Denies headache(s) and Denies weakness ENT Ears, Nose, Mouth, and Throat: Denies headache(s) *Musculoskeletal Musculoskeletal: Denies numbness *Neurologic Neurologic: Denies headache(s), Denies numbness and Denies weakness Exam Data for Last 24 hours Vital signs and Labs for Last 24 Hours: Temp Pulse Resp BP Pulse Ox 98.4 F 101 H 22 143/91 H 98 10/12/22 08:10 10/12/22 09:15 10/12/22 08:10 10/12/22 09:15 10/12/22 09:15 Laboratory Results - last 24 hr 10/12/22 08:14: Sodium 136, Potassium 4.7, Chloride 100, Carbon Dioxide 23, Anion Gap 17.7 H, BUN 16, Creatinine 1.20, Estimated Creat Clear 83, Estimated GFR 62, Est GFR ( Amer) 74, Glucose 383 H, Calcium 10.5 H, Troponin I 0.06 H 10/12/22 08:14: TSH 3.52, Free T4 Index 2.6 L, Thyroxine (T4) 9.0, T3 Uptake 29 10/12/22 08:14: WBC 9.6, RBC 5.31, Hgb 15.9, Hct 47.9, MCV 90.1, MCH 30.0, MCHC 33.3, RDW 13.3, Plt Count 379, MPV 7.3
[2022-10-12 11:01] LABS: Troponin I 1.06 ng/ml (0.00-0.034)
--- NOTE | 2022-10-12 11:04 | PC.NURSE ---
Dr Aldridge spoke with De Tripp, he is to come see Pt
--- NOTE | 2022-10-12 11:08 | PC.NURSE ---
De Tripp at bs
--- NOTE | 2022-10-12 11:08 | PC.NURSE ---
De Tripp at bedside speaking with patient and about POC
[2022-10-12 11:14] LABS: Hemoglobin A1C 9.9 % (4.0-6.0)
--- NOTE | 2022-10-12 11:49 | IR_ITS ---
APPROVED REPORT Patient Location: [facility] [employer] Insurance: JENNIFER Candelario RT (R) PROCEDURES Selective coronary angiogram Angioplasty to the circumflex artery Angioplasty to the LAD INDICATION Coronary artery disease, In-stent restenosis to the circumflex artery Informed consent was obtained prior to the procedure. COMPLICATIONS None Estimated Blood Loss: Less than 10 mls TECHNIQUE One percent lidocaine used to anesthetize the right anterior aspect of the wrist. The right radial artery was accessed via the Seldinger technique. A 6 [place] sheath was placed in the right radial artery. 2.5 mg of verapamil, 800 mcg of nitroglycerin, 1mg Lidocaine and 5000 U Heparin were given through the arterial sheath. The papa catheter was also used to perform selective coronary angiography. Therapeutic heparin was administered giving a therapeutic ACT and the guide catheter was placed in the left main artery followed by a Choice PT extra-support wire being placed down the circumflex artery. A 3 mm x 15 mm balloon was deployed at 20 and then 25 lior to dilate the ostium of the circumflex artery. An additional 3.5 x 15 mm noncompliant balloon was then deployed at 24 lior in the ostial segment extending back into the left main artery and then into the circumflex artery. The 90% stenosis was reduced to less than 20%. Following this the wire was pulled back and placed into the LAD where the same balloon was deployed at 24 lior in the distal left main artery extending into the proximal LAD. At the end of the procedure there was some improvement in the stenosis in the LAD but most importantly the left main artery LAD were widely patent with no defect in the stent. JULIUS-3 flow was present down both vessels before and after the procedure. At the end the procedure the sheath was removed and hemostasis was achieved using TR banding patient was transferred to the postop putting in stable addition ANGIOGRAPHIC RESULTS The left main artery Has a stent in the mid to distal segment which is patent with mild in-stent restenosis The left anterior descending artery Has a stent which originates off the left main artery and extends through the proximal and mid segment. The stent has 30 to 40% ostial proximal stenosis with diffuse 20 and 30% stenoses. Large first diagonal artery has a bifurcating stent which is widely patent and then has a 50% concentric stenosis distal to the stent The circumflex artery Is a nondominant yet still large vessel and has an ostial concentric 90% stenosis representing in-stent restenosis The right coronary artery Is a dominant vessel and has mid vessel diffuse 30% stenoses with diffuse distal 30 to 40% stenosis The CASTANEDA ventriculogram reveals Not performed The left ventricular end-diastolic pressure Not measured IMPRESSION Severe in-stent restenosis within the nondominant yet still large circumflex artery Successful angioplasty of the circumflex artery severe disease reduced to less than 20% with plain old balloon angioplasty Successful angioplasty of the left anterior descending artery to assure no circumflex artery stent protruded into the LAD PLAN 1. Continue dual antiplatelet therapy 2. At this point there is no advantage to sending patient for bypass surgery given the minimally diseased LAD which has widely patent stents. In the future should the LAD developed disease patient can then be referred for coronary bypass grafting. At this point there is no survival benefit to single-vessel CABG with the saphenous vein graft and into the circumflex artery. 3. Recommend stress testing in 3 months. 4. LDL less than 55 to be achieved with high intensity statin 5. Avoidance of tobacco products
--- NOTE | 2022-10-12 13:13 | PC.NURSE ---
medical laboratory technicians jadiel called to admit pt per dr gill
--- NOTE | 2022-10-12 13:14 | PC.NURSE ---
Dr Aldridge speaking to Dr Beltran
--- NOTE | 2022-10-12 14:12 | PC.NURSE ---
patient arrived by stretcher from [facility] and plasma laboratory assistant
--- NOTE | 2022-10-12 14:13 | EXP.HP ---
History of Present Illness *Admission Date: 10/12/22 *Reason for visit:: chest pain and rapid HR *History of present illness: History of Present Illness Consult date: 10/12/22 Requesting physician: Kwame Aldridge Consult reason: chest pain Chief complaint: rapid HR, chest pain Additional Medical History:: 1. CAD A. [facility], 02/2015, ELIZABETH to LAD, diagonal and RCA B. [facility], 09/2016,? ELIZABETH to LAD/diagonal and RCA stenting, 09/2016. C.? Abnormal stress test in 03/2017. [facility] recommended but patient did not have it done. D. Admit for UAP, 01/24/2018.? [facility], 01/25/2018, ELIZABETH to large ostial diagonal lesion. E.? Admit for chest pain, 07/09/2021, [facility] with ELIZABETH X2 to proximal LAD and circumflex extending back into the left main 2. DM, poorly controlled. 3. HTN A. Echo, 11/2017, mild LAE, normal LV size with EF 40-45% and moderate hypokinesis involving the inferobasal to distal septum wall.? No significant valvular heart disease.? Right atrium and right ventricle normal size and function.? Mild MR TR grade 1 diastolic dysfunction. B.? Echocardiogram, 07/23/2021, mild LAE with normal LV size, mild concentric LVH.? EF 55% with no regional WMA.? Grade 1 diastolic dysfunction.? Trace MR and TR. 4. Hyperlipidemia, on statin. 5.? SVT, 10/12/2022, converted with IV adenosine x1. History of present illness: 62-year-old white male with known coronary artery disease and diabetes presented to the emergency department after awakening at 6:30 AM with a rapid heartbeat and chest pain with some mild shortness of breath.? ER evaluation revealed SVT and patient was given a single dose of adenosine IV with subsequent conversion to sinus rhythm.? Cardiology consulted for evaluation and recommendations.? Patient's initial troponin is mildly elevated at 0.06.? Second troponin is yet to be drawn.? Patient is not complaining of any chest pain at this time.? He does relate suffering from the flu a couple of weeks ago but has been active around the house without chest pain recently.? There is some question as to whether he has been getting his beta-michael therapy.? Post-conversion EKG shows slight ST segment depression in the inferolateral leads with slight ST elevation in the aVR. The above as per cardiology [facility] performed with significant in-stent stenosis of proximal non-dominant Cx artery noted for which plain old balloon angioplasty performed.? No stenting.? Monitor overnight with plans for discharge home in AM if remains stable. Continue aspirin 81 mg daily, bisoprolol 10 mg daily, lisinopril 20 mg daily, rosuvastatin 20 mg daily and ticagrelor 90 mg twice daily.? Hold amlodipine for now in case additional beta-michael therapy needed for prevention of SVT.? Patient will be referred as an outpatient to Dr. Miller at [facility] for consideration of ablation therapy of SVT. Diabetes and other home meds per Dr. Orantes Addendum Documented By: RADHA Carlson 10/12/22 1352 At time of this exam after cardiac cath. Patient denies chest pain and shortness of breath. He is lethargic after sedation. See review of systems PFSH PFS Disclaimer: The information contained in this section may have been updated after the patient was seen, as this information can be updated by other users. Medical History Coronary arteriosclerosis Diabetes Hyperlipidemia Hypertensive heart disease Influenza A Surgical History Stented coronary artery Family History Family history of hypertension Family history of myocardial infarction Father Grandfather Family history of hyperlipidemia Cancer Mother Social History Smoking Status: Never smoker second hand exposure: Yes alcohol intake: never substance use type: denies use current occupational status: employed Travel in the last 8
[2022-10-12 14:24] LABS: CATHL Activated Clotting Time 278 SEC (74-125)
--- NOTE | 2022-10-12 19:27 | PC.NURSE ---
since arrival to floor patient has done well. no complaints of pain. tracelet removed at 1710 with no bleeding noted. telfa and tegaderm placed over site. bp starting to elevate some. remains on room air. refused dinner but did eat some chips. encouraged to ring out as needed. walked to bathroom on steady feet.
[2022-10-12 20:52] LABS: POC Glucose,Bedside 219 (70-110)
[2022-10-13] VITALS: BP 149/90; PULSE 75; PULSE 77; RESP 17; TEMP 36.7; O2SAT 96
[2022-10-13 01:21] LABS: POC Glucose,Bedside 95 (70-110)
--- NOTE | 2022-10-13 03:40 | PC.NURSE ---
SINUS RHYTHM ON TELEMETRY. DENIES PAIN/SOA/DISCOMFORT. INDEPENDENT TO THE BR. DRSG TO RIGHT RADIAL C/D/I.
[2022-10-13 04:00] VITALS: BP 160/99; PULSE 75; PULSE 78; RESP 17; TEMP 36.4; O2SAT 96; BMI 26.5
[2022-10-13 05:23] LABS: POC Glucose,Bedside 99 (70-110)
[2022-10-13 06:37] LABS: Basophils # 0.1 K/mm3 (0-0.2); Basophils % 0.9 % (0.1-2.0); Eosinophils # 0.3 K/mm3 (0.0-0.4); Eosinophils % 3.2 % (0.1-12.0); Hematocrit 42.8 % (42.0-52.0); Hemoglobin 14.5 g/dL (14.1-18.0); Lymphocytes # 2.2 K/mm3 (0.7-4.5); Mean Corpuscular HGB Conc 33.9 g/dL (31.8-35.4); Mean Corpuscular Hemoglobin 30.3 pg (27.0-31.2); Mean Corpuscular Volume 89.2 fl (80-94); Mean Platelet Volume 7.3 fl (7.4-10.4); Monocytes # 0.8 K/mm3 (0.1-1.0); Monocytes % 8.9 % (1.7-9.3); Neutrophils # 5.7 K/mm3 (1.8-7.8); Neutrophils % 63.1 % (37.0-80.0); Platelet Count 303 K/mm3 (142-424); Red Blood Count 4.79 M/mm3 (4.60-6.20); Red Cell Distribution Width 13.2 % (11.5-17.5); White Blood Count 9.1 K/mm3 (4.8-10.8)
[2022-10-13 06:47] LABS: Potassium 4.1 mmoL/L (3.5-5.1); Sodium 136 mmol/L (136-145)
[2022-10-13 06:48] LABS: Chloride 105 mmol/L (98-107)
[2022-10-13 06:50] LABS: Anion Gap 11.1 mEq/L (5-15); Blood Urea Nitrogen 13 mg/dl (9-20); Calcium 9.2 mg/dl (8.4-10.2); Carbon Dioxide 24 mmol/L (22.0-30.0); Creatinine Clearance Estimated 100 mL/min (50-200); Estimated Glomerular Filt Rate 98 ml/min (>60); GFR (African American) 119 ML/MIN (>60); Glucose 110 mg/dl (74-100)
[2022-10-13 08:00] VITALS: BP 148/97; PULSE 83; PULSE 90; RESP 17; TEMP 36.6; O2SAT 97
--- NOTE | 2022-10-13 08:57 | EXP.ACUTE.PN ---
Subjective *Date: 10/13/22 *Time: 08:57 Interval history: Patient feels much better today, anxious to go home. Medical Exam Vital signs and Labs for Last 24 Hours: Vital Signs Temp Pulse Pulse Resp BP BP Pulse Ox 10/13/22 08:00 97.8 F 83 17 148/97 H 97 10/13/22 04:00 97.6 F 78 17 160/99 H 96 10/13/22 04:00 75 10/12/22 20:00 83 10/13/22 00:00 75 10/13/22 00:00 98.0 F 77 17 149/90 H 96 10/12/22 20:00 98 10/12/22 21:00 97.9 F 82 18 152/92 H 98 10/12/22 20:00 97.6 F 82 17 146/81 H 95 10/12/22 20:00 97.6 F 82 17 146/81 H 95 10/12/22 19:05 72 16 155/87 H 99 10/12/22 18:05 72 16 163/92 H 99 10/12/22 17:05 71 16 145/79 H 99 10/12/22 16:35 64 16 141/81 H 100 10/12/22 16:05 69 16 136/86 100 10/12/22 15:35 71 16 133/81 100 10/12/22 15:05 68 16 131/77 100 10/12/22 14:50 73 18 122/77 100 10/12/22 14:35 69 18 124/80 100 10/12/22 14:20 72 18 126/80 99 10/12/22 12:11 98.4 F 92 H 18 143/88 H 10/12/22 11:00 92 H 143/88 H 100 10/12/22 10:45 90 143/96 H 99 10/12/22 10:30 86 18 158/106 H 99 10/12/22 10:19 94 H 18 148/101 H 98 10/12/22 09:45 100 H 18 143/94 H 98 10/12/22 09:30 90 20 131/82 98 10/12/22 09:15 101 H 143/91 H 98 10/12/22 09:00 95 H 152/94 H 99 Intake and Output 10/12/22 10/13/22 10/13/22 23:59 07:59 15:59 Intake Total 120 / 240 120 / 420 300 / 420 Output Total 0 / 0 0 / 0 Balance 120 / 240 120 / 420 300 / 420 Intake: Intake, Oral Amount 120 / 240 120 / 420 300 / 420 Output: Output, Urine Amount 0 / 0 0 / 0 Other: Number of Unmeasured Voids 1 1 1 Weight 200 lb 5 oz Patient Weight 10/13/22 23:59 Weight 200 lb 5 oz Laboratory Results - last 24 hr 10/12/22 08:14: TSH 3.52, Free T4 Index 2.6 L, Thyroxine (T4) 9.0, T3 Uptake 29 10/12/22 08:14: Hemoglobin A1c 9.9 H 10/12/22 08:24: SARS-CoV-2 (PCR) Not detected, Influenza A Untype (PCR) Not detected, Influenza Type B (PCR) Not detected 10/12/22 10:30: Troponin I 1.06 H 10/12/22 14:20: Activated Clotting Time 278 H* 10/12/22 17:04: POC Glucose 95 10/12/22 20:45: POC Glucose 219 H 10/13/22 05:13: POC Glucose 99 10/13/22 06:03: WBC 9.1, RBC 4.79, Hgb 14.5, Hct 42.8, MCV 89.2, MCH 30.3, MCHC 33.9, RDW 13.2, Plt Count 303, MPV 7.3 L, Neut % (Auto) 63.1, Lymph % (Auto) 24.0, [place] % (Auto) 8.9, Eos % (Auto) 3.2, Baso % (Auto) 0.9, Neut # (Auto) 5.7, Lymph # (Auto) 2.2, [place] # (Auto) 0.8, Eos # (Auto) 0.3, Baso # (Auto) 0.1 10/13/22 06:03: Sodium 136, Potassium 4.1, Chloride 105, Carbon Dioxide 24, Anion Gap 11.1, BUN 13, Creatinine 0.80 D, Estimated Creat Clear 100, Estimated GFR 98, Est GFR ( Amer) 119 D, Glucose 110 H D, Calcium 9.2 I & O for Labs for Last 24 Hours: Intake & Output 10/10/22 10/11/22 10/12/2222/22 23:59 23:59 23:59 23:59 Intake Total 120 / 240 420 / 420 Output Total 0 / 0 0 / 0 Balance 120 / 240 420 / 420 Weight 198 lb 8.42 oz 200 lb 5 oz Constitutional: Present no acute distress Respiratory: Present normal respiratory effort Cardiac: Present Reg Rate and Rhythm GI: Present normal bowel sounds; Absent tenderness Extremities: Present normal inspection and full ROM Skin: Present intact; Absent erythema Neuro: Present Grossly Intact and moves all extremities Assessment and Plan *Assessment and plan (1) Coronary arteriosclerosis: Status: Chronic Category: Medical Code(s): I25.10 - Atherosclerotic heart disease of [place] coronary artery without angina pectoris (2) Stented coronary artery: Status: Acute Category: Surgical Code(s): Z95.5 - Presence of coronary angioplasty implant and graft (3) SVT (supraventricular tachycardia): Status: Acute Category: Medical Code(s): I47.1 - Supraventricular tachycardia (4) Diabetes mellitus:
--- NOTE | 2022-10-13 08:57 | EXP.CARD.PN ---
Subjective Subjective Date: 10/13/22 Time: 08:58 Principal diagnosis: SVT, NSTEMI Interval history: 62-year-old white male in bed in no acute distress. States he feels great after angioplasty yesterday. Denies any chest pain overnight. Anxious to go home Exam Data for Last 24 hours Vital signs and Labs for Last 24 Hours: Temp Pulse Resp BP Pulse Ox 97.8 F 83 17 148/97 H 97 10/13/22 08:00 10/13/22 08:00 10/13/22 08:00 10/13/22 08:00 10/13/22 08:00 Laboratory Results - last 24 hr 10/12/22 08:14: TSH 3.52, Free T4 Index 2.6 L, Thyroxine (T4) 9.0, T3 Uptake 29 10/12/22 08:14: Hemoglobin A1c 9.9 H 10/12/22 08:24: SARS-CoV-2 (PCR) Not detected, Influenza A Untype (PCR) Not detected, Influenza Type B (PCR) Not detected 10/12/22 10:30: Troponin I 1.06 H 10/12/22 14:20: Activated Clotting Time 278 H* 10/12/22 17:04: POC Glucose 95 10/12/22 20:45: POC Glucose 219 H 10/13/22 05:13: POC Glucose 99 10/13/22 06:03: WBC 9.1, RBC 4.79, Hgb 14.5, Hct 42.8, MCV 89.2, MCH 30.3, MCHC 33.9, RDW 13.2, Plt Count 303, MPV 7.3 L, Neut % (Auto) 63.1, Lymph % (Auto) 24.0, Stone % (Auto) 8.9, Eos % (Auto) 3.2, Baso % (Auto) 0.9, Neut # (Auto) 5.7, Lymph # (Auto) 2.2, Stone # (Auto) 0.8, Eos # (Auto) 0.3, Baso # (Auto) 0.1 10/13/22 06:03: Sodium 136, Potassium 4.1, Chloride 105, Carbon Dioxide 24, Anion Gap 11.1, BUN 13, Creatinine 0.80 D, Estimated Creat Clear 100, Estimated GFR 98, Est GFR ( Amer) 119 D, Glucose 110 H D, Calcium 9.2 I & O for Last 24 hours: Intake & Output 10/10/22 10/11/22 10/12/22 10/13/22 11:59 11:59 11:59 11:59 Intake Total 540 / 540 Output Total 0 / 0 Balance 540 / 540 Weight 200 lb 200 lb 5 oz Constitutional Constitutional: no acute distress *Routine Respiratory Exam Respiratory: Present CTA bilaterally *Routine Cardiovascular Exam Cardiovascular: Present RRR Progress Note: A&P Assessment and plan (1) SVT (supraventricular tachycardia): Status: Acute (2) Coronary arteriosclerosis: Status: Chronic (3) NSTEMI (non-ST elevated myocardial infarction): Status: Acute (4) Stented coronary artery: Status: Acute (5) Diabetes mellitus: Status: Chronic (6) Coronary artery disease: Problem details: JUN 2021-Severe proximal LAD disease as described above with successful stenting reducing the critical disease to less than 10% with 2 contiguous drug-eluting stents Severe disease in the ostial proximal nondominant yet still large circumflex artery with successful revascularization reducing the disease to less than 10% Successful reconstruction of the left main artery as described above providing excellent JULIUS-3 inline flow to the LAD and circumflex artery Widely patent stents in the right coronary as described above Normal ejection fraction Normal left ventricular end-diastolic pressure Status: Chronic (7) HTN (hypertension): Status: Acute Assessment and Plan Assessment and Plan for All Diagnoses:: 1. SVT, converted with IV adenosine x1. Continue bisoprolol 10 mg daily which was possibly omitted from home medications due to refill error. 2. Non-ST elevation NV secondary to nondominant circumflex stenosis. Angioplasty performed without stenting yesterday. 3. Hypertension 4. Hyperlipidemia 5. Diabetes mellitus with hemoglobin A1c of 9.9 Okay from cardiology standpoint for discharge home. Resume home medications of aspirin 81 mg daily, bisoprolol 10 mg daily, lisinopril 20 mg daily, rosuvastatin 20 mg daily, ticagrelor 90 mg twice daily. Hold amlodipine for now to allow for beta-michael use to prevent SVT. Patient will follow-up in our office in 1 week at which time we will call to schedule EP evaluation with Dr. Miller for SVT ablation.
--- NOTE | 2022-10-13 10:11 | P.CONPHA_ITS ---
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
--- NOTE | 2022-10-13 11:39 | PC.NURSE ---
Patient was discharged at 1040 and left the floor at 1040 but could not document in chart.
--- NOTE | 2022-10-14 13:47 | CARE MANAGER ---
Attempted post-discharge phone interview, left message.
--- NOTE | 2022-10-17 14:51 | EXP.DC.SUM ---
General Admission date:: 10/12/22 Discharge date: 10/13/22 HPI HPI HPI: History of Present Illness Consult date: 10/12/22 Requesting physician: Kwame Aldridge Consult reason: chest pain Chief complaint: rapid HR, chest pain Additional Medical History:: 1. CAD A. [facility], 02/2015, ELIZABETH to LAD, diagonal and RCA B. [facility], 09/2016,? ELIZABETH to LAD/diagonal and RCA stenting, 09/2016. C.? Abnormal stress test in 03/2017. [facility] recommended but patient did not have it done. D. Admit for UAP, 01/24/2018.? [facility], 01/25/2018, ELIZABETH to large ostial diagonal lesion. E.? Admit for chest pain, 07/09/2021, [facility] with ELIZABETH X2 to proximal LAD and circumflex extending back into the left main 2. DM, poorly controlled. 3. HTN A. Echo, 11/2017, mild LAE, normal LV size with EF 40-45% and moderate hypokinesis involving the inferobasal to distal septum wall.? No significant valvular heart disease.? Right atrium and right ventricle normal size and function.? Mild MR TR grade 1 diastolic dysfunction. B.? Echocardiogram, 07/23/2021, mild LAE with normal LV size, mild concentric LVH.? EF 55% with no regional WMA.? Grade 1 diastolic dysfunction.? Trace MR and TR. 4. Hyperlipidemia, on statin. 5.? SVT, 10/12/2022, converted with IV adenosine x1. History of present illness: 62-year-old white male with known coronary artery disease and diabetes presented to the emergency department after awakening at 6:30 AM with a rapid heartbeat and chest pain with some mild shortness of breath.? ER evaluation revealed SVT and patient was given a single dose of adenosine IV with subsequent conversion to sinus rhythm.? Cardiology consulted for evaluation and recommendations.? Patient's initial troponin is mildly elevated at 0.06.? Second troponin is yet to be drawn.? Patient is not complaining of any chest pain at this time.? He does relate suffering from the flu a couple of weeks ago but has been active around the house without chest pain recently.? There is some question as to whether he has been getting his beta-michael therapy.? Post-conversion EKG shows slight ST segment depression in the inferolateral leads with slight ST elevation in the aVR. The above as per cardiology LHC performed with significant in-stent stenosis of proximal non-dominant Cx artery noted for which plain old balloon angioplasty performed.? No stenting.? Monitor overnight with plans for discharge home in AM if remains stable. Continue aspirin 81 mg daily, bisoprolol 10 mg daily, lisinopril 20 mg daily, rosuvastatin 20 mg daily and ticagrelor 90 mg twice daily.? Hold amlodipine for now in case additional beta-michael therapy needed for prevention of SVT.? Patient will be referred as an outpatient to Dr. Miller at [facility] for consideration of ablation therapy of SVT. Diabetes and other home meds per Dr. Orantes Addendum Documented By: RADHA Carlson 10/12/22 1352 At time of this exam after cardiac cath. Patient denies chest pain and shortness of breath. He is lethargic after sedation. See review of systems Hospital Course Hospital Course Hospital Course: The patient's SVT converted with IV adenosine x1. Cardiology wanted to increase his bisoprolol to 20 mg daily and refer to EP for ablation therapy. The patient's secondary troponin increased to 1.06 consistent with an NSTEMI, therefore they performed a heart cath. The patient received balloon angioplasty to the circumflex artery and had successful angioplasty of the left anterior descending artery to assure no circumflex artery stent protruded into the LAD. Cardiology did not feel there was an advantage to sending patient for bypass surgery given the minimally diseased LAD which was widely patent with stents. They recommended stress testing in 3 months. By 10/13/2022, the patient felt much better and was anxious to go home. It was felt he was stable to be discharged and will follow up with cardiology to arrange for an EP study for SVT. Cardiology wanted to resume hi
--- NOTE | 2022-10-18 14:58 | CARE MANAGER ---
Contacted patient related to hospital discharge. He states he is doing much better and is aware of follow up appointments. Denies any questions or concerns.
== END 2022-10-13 11:39 | disposition home or self-care (01) | DRG 251 ==
LOC: ER 12:18 → CATHLAB 12:20 → 2ND 13:35
PROVIDERS: Internal Medicine; Physician Assistant; Admitting Provider Family Medicine; Emergency Provider Emergency Medicine; PCP Family Medicine; Visit Provider Family Medicine
PROC: 02703ZZ Dilation of Coronary Artery, One Artery, Percutaneous Approach (ICD-10-PCS; principal; 2022-10-12 12:15)
DX: I21.4 Non-ST elevation (NSTEMI) myocardial infarction (principal); I47.1 Supraventricular tachycardia; T82.855A Stenosis of coronary artery stent, initial encounter; I25.10 Atherosclerotic heart disease of native coronary artery without angina pectoris; I10 Essential (primary) hypertension; Z95.5 Presence of coronary angioplasty implant and graft; Z79.4 Long term (current) use of insulin; E11.65 Type 2 diabetes mellitus with hyperglycemia; E78.5 Hyperlipidemia, unspecified; Y83.1 Surgical operation with implant of artificial internal device as the cause of abnormal reaction of the patient, or of later complication, without mention of misadventure at the time of the procedure
CPT/HCPCS: 36415; 71045; 80048; 82962; 83036; 84436; 84443; 84479; 84484; 85025; 85347; 92920; 93005; 93458; 99152; 99153; 99285; C1725; C1769; C9803; J1644; Q9967; U0003; U0005

== ENCOUNTER → 2022-12-23 09:00 | Outpatient (CLI) | payer OTHER, SELFPAY ==
[2022-12-23 10:11] LABS: Blood Urea Nitrogen 15 mg/dl (9-20); Calcium 8.8 mg/dl (8.4-10.2); Carbon Dioxide 27 mmol/L (22.0-30.0); Chloride 99 mmol/L (98-107); Estimated Glomerular Filt Rate 115 ml/min (>60); GFR (African American) 139 ML/MIN (>60); Glucose 264 mg/dl (74-100); Sodium 133 mmol/L (136-145)
[2022-12-23 10:12] LABS: Basophils # 0.1 K/mm3 (0-0.2); Basophils % 0.8 % (0.1-2.0); Eosinophils # 0.2 K/mm3 (0.0-0.4); Eosinophils % 2.1 % (0.1-12.0); Hematocrit 44.7 % (42.0-52.0); Lymphocytes # 1.9 K/mm3 (0.7-4.5); Lymphocytes % 25.2 % (10-50); Mean Corpuscular HGB Conc 33.5 g/dL (31.8-35.4); Mean Corpuscular Hemoglobin 30.4 pg (27.0-31.2); Mean Corpuscular Volume 90.8 fl (80-94); Mean Platelet Volume 7.4 fl (7.4-10.4); Monocytes # 0.7 K/mm3 (0.1-1.0); Monocytes % 8.8 % (1.7-9.3); Neutrophils # 4.8 K/mm3 (1.8-7.8); Neutrophils % 63.1 % (37.0-80.0); Platelet Count 365 K/mm3 (142-424); Red Blood Count 4.93 M/mm3 (4.60-6.20); Red Cell Distribution Width 13.5 % (11.5-17.5); White Blood Count 7.6 K/mm3 (4.8-10.8)
== END ==
PROVIDERS: Nurse Practitioner; PCP Family Medicine; Visit Provider Internal Medicine Clinical Cardiac Electrophysiology
DX: I47.1 Supraventricular tachycardia (principal)
CPT/HCPCS: 36415; 80048; 85025

== ENCOUNTER → 2023-01-24 07:56 | Outpatient (CLI) | payer OTHER, SELFPAY | PROVIDERS: PCP Family Medicine; Visit Provider Nurse Practitioner | DX: I25.10 Atherosclerotic heart disease of native coronary artery without angina pectoris (principal); I11.9 Hypertensive heart disease without heart failure; I47.1 Supraventricular tachycardia; Z95.5 Presence of coronary angioplasty implant and graft | CPT/HCPCS: 78452; 93017; A9502 ==

== ENCOUNTER 2023-02-04 15:19 | Emergency (ER) | payer OTHER, SELFPAY ==
[2023-02-04 15:35] VITALS: BP 137/79; PULSE 66; RESP 18; TEMP 36.9; O2SAT 98; BMI 25.9
--- NOTE | 2023-02-04 16:07 | EXP.UTC ---
Discharge Plan Disposition Patient Disposition: Home, Self-Care Condition: Good Prescriptions Prescriptions: New cephalexin 500 mg capsule 500 mg PO Q12H Qty: 20 0RF No Action potassium chloride 20 mEq packet 20 meq PO DAILY aspirin [Adult Low Dose Aspirin] 81 mg tablet,delayed release (DR/EC) 81 mg PO DAILY glimepiride 2 mg tablet 2 mg PO DAILY insulin detemir U-100 100 unit/mL (3 mL) insulin pen 30 unit SQ DAILY ticagrelor 90 MG tablet 90 mg PO BID primidone 50 mg tablet 50 mg PO DAILY Label Comments: TAKE 1 TABLET BY MOUTH EVERY DAY FOR 90 DAYS lisinopril 20 mg tablet 20 mg PO DAILY Label Comments: TAKE 1 TABLET BY MOUTH EVERY DAY amlodipine 2.5 mg tablet 2.5 mg PO DAILY rosuvastatin 20 mg tablet 20 mg PO HS bisoprolol fumarate 10 mg tablet 10 mg PO DAILY Qty: 90 1RF Referrals Follow up/Referrals: Shemar Beltran MD [Primary Care Provider] - See instructions Clinical Impressions Clinical Impression: Cellulitis and abscess of right leg, Acute stasis dermatitis of right lower extremity Instructions Patient Instructions: Cellulitis, Chronic Venous Insufficiency Discharge ED Provider: Tracy Maravilla [facility] General Stated complaint: Rash on right leg Mode of Arrival: Ambulatory Source of Information: Patient Limitations: No Limitations Time Seen by Provider: 02/04/23 16:06 Description of Symptoms (Recalled from Triage Doc. by RN): PATIENT C/O REDNESS TO RIGHT LOWER LEG X 1 MONTH HEENT Symptoms (Recalled from RN notes): No Resp Symptoms (Recalled from RN notes): No Skin Symptoms (Recalled from RN notes): Yes MS Symptoms (Recalled from RN notes): No Functional Status (Recalled from RN notes): WNL History of Present Illness Provider Complaint: Pt states that he has had red/brown area on his right lower leg that itches. He states that he has scratched open areas on his leg and these have become swollen and tender. He reports putting Vaseline on his leg which helps with the itching. Related Data Home Medications Medication Instructions Recorded Confirmed aspirin 81 mg tablet,delayed 81 mg PO DAILY heart health 11/01/17 01/31/23 release (Adult Low Dose Aspirin) glimepiride 2 mg tablet 2 mg PO DAILY diabetes 11/01/17 01/31/23 insulin detemir U-100 100 unit/mL 30 unit SQ DAILY diabetes 11/01/17 01/31/23 (3 mL) subcutaneous pen primidone 50 mg tablet 50 mg PO DAILY Tremors 07/26/22 01/31/23 ticagrelor 90 mg tablet 90 mg PO BID Blood thinner 07/26/22 01/31/23 amlodipine 2.5 mg tablet 2.5 mg PO DAILY blood pressure 10/12/22 01/31/23 lisinopril 20 mg tablet 20 mg PO DAILY blood pressure 10/12/22 01/31/23 rosuvastatin 20 mg tablet 20 mg PO HS Cholesterol 10/12/22 01/31/23 potassium chloride 20 mEq oral 20 meq PO DAILY 10/20/22 01/31/23 packet Previous Rx's Medication Instructions Recorded bisoprolol fumarate 10 mg tablet 10 mg PO DAILY blood pressure #90 10/13/22 tabs cephalexin 500 mg capsule 500 mg PO Q12H #20 caps 02/04/23 Allergies Allergy/AdvReac Type Severity Reaction Status Date / Time No Known Allergies Allergy Verified 01/31/23 08:49 Worker's Comp Is this a Worker's Comp case?: No [facility] Disclaimer: The information contained in this section may have been updated after the patient was seen, as this information can be updated by other users. Medical History Coronary arteriosclerosis Diabetes Hyperlipidemia Hypertensive heart disease Influenza A Surgical History Stented coronary artery Family History Mother Cancer Father Family history of myocardial infarction Grandfather Family history of myocardial infarction Other Family history of hyperlipidemia Family history of hypertension Social History (Reviewed
[2023-02-04 16:23] VITALS: BP 137/79; PULSE 66; RESP 18; TEMP 36.9; O2SAT 98
== END 2023-02-04 16:26 | disposition home or self-care (01) ==
PROVIDERS: Emergency Provider Nurse Practitioner Family; PCP Family Medicine
DX: L03.115 Cellulitis of right lower limb (principal); L02.415 Cutaneous abscess of right lower limb; I87.2 Venous insufficiency (chronic) (peripheral)
CPT/HCPCS: 99212; 99214; G0463

== ENCOUNTER 2023-09-11 08:00 | Outpatient (RCR) | payer OTHER, SELFPAY ==
--- NOTE | 2023-08-18 12:45 | HMH.PTOPWND ---
Rehab Outpt Wound Evaluation Rehab OP Wound Evaluation Start: 08/18/23 07:58 Freq: Status: Active Protocol: Document 08/18/23 12:36 PHOEILEEN (Rec: 08/18/23 12:45 PHORNE [id number]) E-signed By Reji Flores, PT Subjective/History History History This is the initial PT eval for Natalio Lanza, 63 yowm who presents with R valencia wound x ~ 6 mos. He reports, I had a fall, but just kind of down onto my leg and I didn't have any sores. But it just got worse and it hasn't really healed. He reports 2 rounds of oral abx and topical abx ointment have not healed the wound. He reports hx of DM, CAD with stentx x 10. Subjective Subjective Current pain 1/10, at worst 3/ 10. Minimal TTP noted in the fran-wound skin. Moderate erythema surrounds the wound. New diagnosis of cancer in past 12 No months? Wound Eval Wound Right Lower Anterior Valencia Wound Type Abrasion Is This a Chronic Wound Yes Wound Length (cm) 1.2 Wound Width (cm) 1.2 Wound Depth (cm) 0.1 Wound Bed Appearance Neeses Wound Margins Description Well Defined Surrounding Tissue Appearance Neeses Edema Type Pitting Edema Degree 2+ Query Text:1+ Trace, Barely Detectable, Rebound 15-30 seconds 2+ Moderate, Slight Indentation, Rebound 10-20 seconds 3+ Deep, Deeper Indentation, Rebound > 30 seconds 4+ Very Deep, Rebound > 60 seconds Drainage Description Serosanguineous Drainage Amount Small Primary Dressing collagen Comment puracol Wound Secondary Dressing Type Composite,Adhering Gauze Roll Wound Debridement Method Gauze,Mechanical Wound Debridement Amount of Tissue None Removed Dressing Change Patient Tolerance Tolerated Well Right Upper Anterior Valencia Wound Type Abrasion Is This a Chronic Wound Yes Wound Length (cm) 3.9 Wound Width (cm) 3.2 Wound Depth (cm) 0.1 Wound Bed Appearance Beefy Red Wound Margins Description Well Defined Surrounding Tissue Appearance Neeses,Purple Edema Type Pitting Edema Degree 2+ Query Text:1+ Trace, Barely Detectable, Rebound 15-30 seconds 2+ Moderate, Slight Indentation, Rebound 10-20 seconds 3+ Deep, Deeper Indentation, Rebound > 30 seconds 4+ Very Deep, Rebound > 60 seconds Drainage Description Serosanguineous Drainage Amount Small Wound Topical Solution/Irrigant Saline Irrigant Primary Dressing collagen Comment puracol Wound Secondary Dressing Type Composite,Adhering Gauze Roll Wound Debridement Method Sharps,Gauze,Mechanical Wound Debridement Amount of Tissue Minimal Removed Dressing Change Patient Tolerance Tolerated Well Wound Problems/Impairments Impairments Problems/Impairmments Palpation Tenderness,Impaired Walking,Impaired Standing, Impaired Shower/Bathing, Impaired Household Care, Increased Edema,Lymphedema Present,Wound Care Needs, Subjective C/O Pain,Impaired Self Care/Self Management Prognosis Rehab Potential Good Clinical Impression Consistent with Diagnosis Yes Short Term Goals Number of Weeks 4 Decreased Palpation Tenderness Yes: 0/4 R valencia Decrease Edema Yes: 1+ pitting edema Decrease Wound Area Yes: by 25% Decrease Subjective C/O Pain Yes: 2/10 at worst Fdc Goals Number of Weeks 6-8 Decrease Edema Yes: no pitting edema Decrease Wound Area Yes: by 75% Decrease Subjective C/O Pain Yes: 0/10 Patient to be Ind w/ Home Wound Care/ Yes Dressing Changes Outpatient Therapy Plan of Care Treatment Plan May Include Therapeutic Exercise Including Home Yes Exercise Program Manual Therapy Techniques Yes Neuromuscular Re-education Yes Therapeutic Activities to Return to Yes Previous Functional/Work Level ADL/Self Care Education Yes Orthotics/Bracing/Splinting Yes Manual Lymphatic Drainage Yes Wound Care Yes Eval/Re-Eval Yes Frequency Times per week 1-2 Duration Number of Weeks 6-8 Addendums This patient is a candidate for social No or vocational rehab? Patient/Guardian verbally acknowledges Yes understanding of treatment program and consents to further treatment? Patient/Guardian verbally acknowledges Yes understanding of diagnosis, prognosis and goals for treatment? Eval Complexity PT Charges 16671 - High Complexity PHYSICIAN CERTIFICATION: I certify the specified therapy services for Natalio Lanza are required, authorized, and reviewed every 30 days.
== END 2023-09-11 09:20 | disposition home or self-care (01) ==
LOC: PT 08:00
PROVIDERS: PCP Family Medicine; Visit Provider Family Medicine
DX: S81.801D Unspecified open wound, right lower leg, subsequent encounter (principal)
CPT/HCPCS: 97140; 97163; 97597

== ENCOUNTER 2024-02-01 10:44 | Outpatient (CLI) | payer OTHER, SELFPAY ==
[2024-02-01 12:14] LABS: Basophils # 0.1 K/mm3 (0-0.2); Basophils % 0.6 % (0.1-2.0); Eosinophils # 0.2 K/mm3 (0.0-0.4); Eosinophils % 2.3 % (0.1-12.0); Hematocrit 43.4 % (42.0-52.0); Hemoglobin 14.6 g/dL (14.1-18.0); Lymphocytes # 1.8 K/mm3 (0.7-4.5); Lymphocytes % 23.2 % (10-50); Mean Corpuscular HGB Conc 33.7 g/dL (31.8-35.4); Mean Corpuscular Hemoglobin 31.2 pg (27.0-31.2); Mean Corpuscular Volume 92.6 fl (80-94); Mean Platelet Volume 6.5 fl (7.4-10.4); Monocytes # 0.6 K/mm3 (0.1-1.0); Neutrophils # 5.2 K/mm3 (1.8-7.8); Neutrophils % 65.8 % (37.0-80.0); Platelet Count 272 K/mm3 (142-424); Red Blood Count 4.69 M/mm3 (4.60-6.20); Red Cell Distribution Width 13.6 % (11.5-17.5); White Blood Count 7.9 K/mm3 (4.8-10.8)
[2024-02-01 12:43] LABS: Alanine Aminotransferase 25 U/L (12-78); Albumin Level 4.4 g/dl (3.5-5.0); Alkaline Phosphatase 88 U/L (38-126); Amylase 47 U/L (30-110); Anion Gap 11.8 mEq/L (5-15); Aspartate Amino Transferase 24 U/L (17-59); Bilirubin,Direct 0.2 mg/dl (0.0-0.4); Bilirubin,Indirect 0.4 mg/dL (0.0-0.9); Bilirubin,Total 0.6 mg/dl (0.2-1.3); Bilirubin,Unconjugated 0.5 mg/dL (0.0-1.1); Blood Urea Nitrogen 16 mg/dl (9-20); Calcium 10.2 mg/dl (8.4-10.2); Carbon Dioxide 27 mmol/L (22.0-30.0); Chloride 100 mmol/L (98-107); Chol/HDL Ratio 5.1 (1-3.5); Cholesterol 138 mg/dl (140-200); Estimated Glomerular Filt Rate 86 ml/min (>60); GFR (African American) 103 ML/MIN (>60); Glucose 334 mg/dl (74-100); HDL Cholesterol 27 mg/dl (40-60); Lipase 216 U/L (23-300); Magnesium 1.8 mg/dl (1.6-2.3); Potassium 4.8 mmoL/L (3.5-5.1); Sodium 134 mmol/L (136-145); Total Protein,Serum 6.7 g/dl (6.3-8.2); Triglycerides 165 mg/dl (30-150); VLDL Cholesterol 33 mg/dL (0-40)
[2024-02-01 12:54] LABS: Direct LDL Cholesterol 76.56 mg/dL (100-129)
[2024-02-01 12:59] LABS: Free T4 (Free Thyroxine) 1.06 ng/dl (0.78-2.19)
[2024-02-01 13:13] LABS: Thyroid Stimulating Hormone 1.97 uIU/mL (0.465-4.68)
== END 2024-02-01 23:59 | disposition home or self-care (01) ==
LOC: LAB 10:45
PROVIDERS: PCP Family Medicine; Visit Provider Physician Assistant
DX: K21.9 Gastro-esophageal reflux disease without esophagitis (principal); R11.0 Nausea; R10.9 Unspecified abdominal pain; E11.9 Type 2 diabetes mellitus without complications; R06.00 Dyspnea, unspecified; R11.10 Vomiting, unspecified; I11.9 Hypertensive heart disease without heart failure
CPT/HCPCS: 36415; 80048; 80061; 80076; 82150; 83690; 83735; 84439; 84443; 85025

== ENCOUNTER 2024-02-08 09:07 | Outpatient (CLI) | payer OTHER, SELFPAY ==
--- NOTE | 2024-02-08 09:07 | US_ITS ---
FINAL REPORT CLINICAL HISTORY: abdominal pain COMPARISON: None FINDINGS: Sonographic images of the right upper quadrant were obtained. The pancreas is partially obscured. There is mild increased echogenicity in the liver consistent with mild fatty infiltration. The gallbladder appears normal without evidence of gallstones.There is no evidence of biliary ductal dilatation.The common duct measures 3 mm. Limited images of the right kidney are unremarkable. IMPRESSION: Fatty infiltration of the liver. No evidence of gallstones or biliary ductal dilatation. Reviewed, Interpreted and Dictated by Wenceslao Li MD Transcribed by Melanie Casas Authenticated and . [facility]
== END 2024-02-08 23:59 | disposition home or self-care (01) ==
LOC: RAD 09:07
PROVIDERS: PCP Family Medicine; Visit Provider Physician Assistant
DX: R11.0 Nausea (principal); R10.9 Unspecified abdominal pain; R11.10 Vomiting, unspecified
CPT/HCPCS: 76705

== ENCOUNTER 2024-02-20 09:53 | Outpatient (CLI) | payer OTHER, SELFPAY ==
--- NOTE | 2024-02-20 09:54 | CT_ITS ---
FINAL REPORT TECHNIQUE: Axial CT of the abdomen and pelvis, without and with IV contrast. This study was performed with techniques to keep radiation doses as low as reasonably achievable, (ALARA). Individualized dose reduction techniques using automated exposure control or adjustment of mA and/or kV according to the patient's size were employed. CLINICAL HISTORY: nausea, vomiting, abdominal pain states unable to keep weight on COMPARISON: None FINDINGS: Abdomen: Lung bases are clear. Liver has an unremarkable CT appearance. The gallbladder is unremarkable. The spleen, pancreas and adrenal glands are unremarkable. Mild mesenteric adenopathy is nonspecific and favored to represent mesenteric panniculitis. Precontrast imaging shows no renal stone disease. Postcontrast imaging of the kidneys shows no mass or obstruction. No bowel obstruction or fluid collection is seen. Pelvis: The appendix is normal. There is mild prostate enlargement. Pelvic bowel loops are unremarkable. No fluid collection seen. IMPRESSION: No bowel obstruction or significant inflammatory change. 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 Reviewed, Interpreted and Dictated by Azul Noonan MD Transcribed by Ketty Amos Authenticated and '[facility]
[2024-02-20] MEDS: SODIUM CHLORIDE 0.9% 10ML SYR (RAD ONLY) 10 ML IV (10:09)
[2024-02-20] MEDS: IOPAMIDOL-370 (76%);100ML BOTTLE 75 ML IV (10:09)
== END 2024-02-20 23:59 | disposition home or self-care (01) ==
LOC: RAD 09:54
PROVIDERS: PCP Family Medicine; Visit Provider Physician Assistant
DX: R10.9 Unspecified abdominal pain (principal); R11.0 Nausea; R11.10 Vomiting, unspecified
CPT/HCPCS: 74178; Q9967

== ENCOUNTER 2024-09-04 09:19 | Outpatient (CLI) | payer OTHER, SELFPAY ==
[2024-09-09 19:09] LABS: Pancreatic Elastase, Fecal 337 (>200)
== END 2024-09-04 23:59 | disposition home or self-care (01) ==
LOC: LAB 09:20
PROVIDERS: PCP Family Medicine; Visit Provider Internal Medicine Gastroenterology
DX: R19.7 Diarrhea, unspecified (principal); R14.0 Abdominal distension (gaseous)
CPT/HCPCS: 82656

== ENCOUNTER 2024-09-12 09:30 | Day surgery (SDC) | payer OTHER, SELFPAY ==
[2024-09-10 12:21] VITALS: BMI 25.3
[2024-09-12] MEDS: LACTATED RINGERS 1000ML 1,000 ML 25 ML IV (09:52)
[2024-09-12 09:58] VITALS: BP 155/89; PULSE 89; RESP 16; TEMP 36.1; O2SAT 98
--- NOTE | 2024-09-12 10:16 | EXP.ANES.CKL ---
[facility] Disclaimer: The information contained in this section may have been updated after the patient was seen, as this information can be updated by other users. Medical History Diabetes Closed fracture of metatarsal of left foot Pre-syncope Influenza A Vasovagal episode Syncope Hyperlipidemia Hypertensive heart disease Coronary arteriosclerosis Surgical History Stented coronary artery Family History Mother Cancer Father Family history of myocardial infarction Grandfather Family history of myocardial infarction Other Family history of hyperlipidemia Family history of hypertension Social History Smoking Status: Never smoker second hand exposure: Yes alcohol intake: never substance use type: denies use current occupational status: employed household members: spouse housing: house marital status: current occupation: [employer] current occupational exposures/hazards: Yes caffeine: Yes [facility] Anesthesia Checklist Patient Identification Patient Identification: Arm Band and Verbal (Name & ) Structural Data Admitted From: Home Planned Operative Procedure/s: EGD Consent for Planned Operative Procedure(s) Verified: Yes Verified Documents: Surgical Consent and Cardiac Clearance NPO Status Verified Time NPO: 00:00 Additional verifications Anesthesia Reactions: No Airway Assessment Mallampati Score:: Class III C-Spine Mobility Assessed: Yes TMJ Mobility Assessed: Yes Dentition: Good Dentition Neurological Assessment Level of Consciousness: Awake Hx Seizures: No Numbness or tingling in extremities: No Anesthesia Plan Anesthesia Risk discussed: Yes Anesthesia Plan: Verified ASA Class: III Anesthesia Type: MAC
--- NOTE | 2024-09-12 10:32 | EXP.HP ---
History of Present Illness *Admission Date: 09/12/24 *Reason for visit:: Abnormal weight loss with dyspepsia *History of present illness: Mr. Gallagher is a 64-year-old gentleman who is here for dyspepsia/epigastric discomfort, weight loss, early satiety and bloating. The examination is deemed medically necessary for EGD. The patient has been seen, interviewed and examined prior to the procedure by both myself and the anesthesia provider. [facility] Disclaimer: The information contained in this section may have been updated after the patient was seen, as this information can be updated by other users. Medical History Diabetes Closed fracture of metatarsal of left foot Pre-syncope Influenza A Vasovagal episode Syncope Hyperlipidemia Hypertensive heart disease Coronary arteriosclerosis Surgical History Stented coronary artery Family History Mother Cancer Father Family history of myocardial infarction Grandfather Family history of myocardial infarction Other Family history of hyperlipidemia Family history of hypertension Social History (Updated 09/12/24 @ 10:17 by Ervin Meneses CRNA) Smoking Status: Never smoker second hand exposure: Yes alcohol intake: never substance use type: denies use current occupational status: employed Travel in the last 8 weeks: None household members: spouse housing: house marital status: current occupation: [employer] current occupational exposures/hazards: Yes caffeine: Yes Other Medical History Have you received the Flu Vaccine for this season: No Have you received the Pneumonia Vaccine: No Review of Systems Review of Systems Review of systems (narrative): Negative *Cardiovascular Comments: Negative *Gastrointestinal Comments: Negative *Genitourinary Comments: Negative *Musculoskeletal Comments: Negative *Neurologic Comments: Negative Meds Home Medications and Allergies Home Medications ?Medication ?Instructions ?Recorded ?Confirmed ?Type aspirin 81 mg tablet,delayed 81 mg PO DAILY heart health 11/01/17 09/12/24 History release (Adult Low Dose Aspirin) glimepiride 2 mg tablet 2 mg PO DAILY diabetes 11/01/17 09/12/24 History insulin detemir U-100 100 unit/mL 30 unit SQ DAILY diabetes 11/01/17 09/12/24 History (3 mL) subcutaneous pen primidone 50 mg tablet 50 mg PO DAILY Tremors 07/26/22 09/12/24 History bisoprolol fumarate 10 mg tablet 10 mg PO DAILY blood pressure #90 10/13/22 09/12/24 Rx tabs potassium chloride 20 mEq oral 20 meq PO DAILY 10/20/22 09/12/24 History packet sitagliptin phosphate 50 1 tab PO BID 02/01/24 09/12/24 History mg-metformin 1,000 mg tablet (Janumet) omeprazole 40 mg capsule,delayed 40 mg PO DAILY 05/06/24 09/12/24 History release rifaximin 550 mg tablet (Xifaxan) 550 mg PO TID #42 tabs 08/06/24 09/12/24 Rx amlodipine 5 mg tablet (Norvasc) 5 mg PO DAILY #90 tabs 08/20/24 09/12/24 Rx lisinopril 40 mg tablet 40 mg PO DAILY #90 tabs 08/20/24 09/12/24 Rx ticagrelor 60 mg tablet (Brilinta) 60 mg PO BID #60 tabs 08/20/24 09/12/24 Rx wxppss-ooszdeka-skujykt 1 cap PO .With meals #90 caps 09/10/24 09/12/24 Rx 36,000-114,000-180,000 unit capsule,delay rel (Creon) rosuvastatin 20 mg tablet 20 mg PO DAILY 09/10/24 09/12/24 History New Prescriptions to Start Prescriptions: Allergies Allergy/AdvReac Type Severity Reaction Status Date / Time No Known Allergies Allergy Verified 09/12/24 09:53 Exam Data for Last 24 hours Vital signs and Labs for Last 24 Hours: Temp Pulse Resp BP Pulse Ox O2 Del Method 97 F L 89 16 155/89 H 98 Room Air 09/12/24 09:58 09/12/24 09:58 09/12/24 09:58 09/12/24 09:58 09/12/24 09:58 09/12/24 09:58 I & O for Last 24 hours: Intake & Output 09/09/24 09/10/24 09/11/24 09/12/24 23:59 23:59 23:59 23:59 Weight 192 lb *Routine HEENT Exam Head: Present normocephalic Eye: Present EOMI and PERRL ENT: Present mucous membranes moist *Routine Neck Exam Neck: Present supple *Routine Respiratory Exam Respiratory: Present CTA bilaterally *Routine Cardiovascular Exam Cardiovascular: Present RRR *Routine Abdominal Exam Abdominal: Present soft and normoactive bowel sounds; Absent tenderness *Routine Rectal Exam Rectal:: deferred *Routine Genitalia Exam Genitalia:: deferred *Routine Extremities Exam Extremities: Absent cyanosis, clubbing or edema *Routine Skin Exam Skin: Present warm; Absent rash *Routine Neurological Exam Neurological: Present alert and oriented X3 Assessment and Plan *Assessment and plan (1) Abnormal weight loss: Status: Acute Category: Medical Code(s): R63.4 - Abnormal weight loss (2) Gassiness: Status: Acute Category: Medical Code(s): R14.0 - Abdominal distension (gaseous) (3) Epigastric pain: Status: Acute Category: Medical Code(s): R10.13 - Epigastric pain (4) Early satiety: Status: Acute Category: Medical Code(s): R68.81 - Early satiety Plan A/P: 1. Epigastric pain with abnormal weight loss and early satiety is the preprocedural diagnosis. The patient will be anesthetized/sedated using MAC sedation. The patient has been seen and examined. Cardiac and lung assessment prior to the examination is stable. Proceed with planned EGD
[2024-09-12 10:39] VITALS: O2SAT 100
--- NOTE | 2024-09-12 10:41 | P.PCN_ITS ---
[facility] Procedure Note Date: 09/12/24 Time: 10:50 Procedure Note:: Upper Endoscopy Procedure Report: Esophagogastroduodenoscopy with cold biopsies Endoscopost: Grayson Ordonez II, MD Referring Physician: Shemar Beltran MD/De Tripp PA-C Date of Procedure: September 12, 2024 Equipment: Olympus GIF 190 standard upper endoscope Sedation: MAC sedation Indications: Mr. Gallagher is a 64-year-old gentleman who is here for diagnostic upper endoscopy secondary to epigastric abdominal pain/dyspepsia with abnormal weight loss. The patient had seen me in the office on August 06, 2024. The patient has had an upset stomach with churning abdominal pain and discomfort in the epigastrium. He has had marked gassiness and bloating. He reports early satiety. He reports no nausea. He has lost 20 pounds over the last 4 to 6 months. His CAT scan in January 2024 showed some mild mesenteric adenopathy and probable mesenteric panniculitis. His ultrasound had previously shown some fatty liver. He reports no melena or hematochezia. His colonoscopy with me in June 2020 revealed a single polyp (tubular adenoma) which was removed but was otherwise normal. Since his office visit, he has achieved some better bowel regularity with the psyllium Konsyl and dietary changes. Procedure: Prior to the procedure, a history and physical exam was performed, and patient's medications and allergies were reviewed. The risks, benefits and alternatives of the sedation and procedure were discussed with the patient. All questions were answered and informed consent was obtained. The patient was brought to the procedure room. Patient identification and proposed procedure were verified by the physician and the nurse. The patient was placed in a left lateral decubitus position and the scope was passed under direct vision. Throughout the procedure, the patient's blood pressure, pulse, and oxygen saturations were monitored continuously. The upper GI endoscopy was accomplished without difficulty. The patient tolerated the procedure well. Findings: The scope was passed directly into the upper esophagus and advanced to the third portion of the duodenum. The post bulbar duodenum and duodenal bulb were normal with normal mucosa and conniventes. Cold biopsies were taken from the duodenal bulb and there was minimal peptic duodenitis of the bulb. The scope was withdrawn through a otherwise normal duodenal bulb and spastic pylorus into the stomach. There was moderate bile reflux with mild to moderate reactive (bile chemical) gastropathy of the antrum. The remainder of the body and fundus were normal. Upon retroflexion there was a small 2 cm hiatal hernia. Cold biopsies were taken from the antrum. The scope was then withdrawn into the esophagus. There was no evidence of reflux esophagitis or Schatzki's ring. There was a single tongue of salmon-colored mucosa at the GE junction that was biopsied to rule out intestinal metaplasia. The remainder of the esophageal mucosa was normal. Impression: 1. Nonerosive GERD with small 2 cm hiatal hernia 2. Bile reflux with mild to moderate linear reactive gastropathy Plan: I will follow-up the biopsies. The patient does have functional dyspepsia. We will discuss dietary measures and treatment options. I do believe that most of these symptoms of dyspepsia are related to and driven by lower intestinal gas pressure gradients/high gas pressure buildup resulting in backflow of bile and peptic fluid from the duodenum into the stomach (duodenal reflux). This gas production (carbon dioxide, hydrogen, methane, etc.) from the lower intestinal tract is the byproduct of colonic bacterial fermentation. This colonic fermentation occurs when there is more carbohydrate (dietary starches, sugars and high residue plant fiber) substrate that does not get digested (in the middle or small intestine) or occurs when there is colonic fecal buildup and colonic bacterial overgrowth. This indeed leads to bloating and the gas pressure buildup with gas pressure gradients that do drive backflow and dyspepsia.
[2024-09-12 11:01] VITALS: BP 97/52; PULSE 78; RESP 16; TEMP 36.1; O2SAT 95
[2024-09-12 11:11] VITALS: BP 103/61; PULSE 80; RESP 16; O2SAT 96
[2024-09-12 11:21] VITALS: BP 98/65; PULSE 78; RESP 18; O2SAT 96
[2024-09-12 11:31] VITALS: BP 136/72; PULSE 79; RESP 16; O2SAT 96
[2024-09-13 13:43] LABS: POC Glucose,Bedside 281 (70-110)
== END 2024-09-12 11:35 | disposition home or self-care (01) ==
PROVIDERS: PCP Family Medicine; Visit Provider Internal Medicine Gastroenterology
PROC: 0DJ08ZZ Inspection of Upper Intestinal Tract, Via Natural or Artificial Opening Endoscopic (ICD-10-PCS; CPT 43235; principal; 2024-09-12 11:00)
DX: R63.4 Abnormal weight loss (principal); R14.0 Abdominal distension (gaseous); R68.81 Early satiety; K30 Functional dyspepsia; K21.9 Gastro-esophageal reflux disease without esophagitis; K44.9 Diaphragmatic hernia without obstruction or gangrene; K31.9 Disease of stomach and duodenum, unspecified
CPT/HCPCS: 43239; 82962; J7120

== ENCOUNTER 2025-01-31 09:44 | Day surgery (SDC) | payer OTHER, SELFPAY ==
[2025-01-31] VITALS (13 sets, daily range): BP systolic 111–162; BP diastolic 68–92; PULSE 55–73; RESP 16–20; TEMP 36.7–37.1; O2SAT 95–100; BMI 55.8
--- NOTE | 2025-01-31 07:08 | IR_ITS ---
APPROVED REPORT Patient Location: Outpatient PROCEDURES Left heart catheterization Left ventriculogram Selective coronary angiogram Drug-eluting stent deployment to the distal dominant right coronary Intravascular ultrasound to the LAD and left main artery INDICATION Accelerated angina pectoris, Coronary artery disease, Angiographic ambiguity in the left main artery and LAD Informed consent was obtained prior to the procedure. COMPLICATIONS NONE Estimated Blood Loss: LESS THAN 10 ML TECHNIQUE One percent lidocaine used to anesthetize the right anterior aspect of the wrist. The right radial artery was accessed via the Seldinger technique. A 6 Bahamian sheath was placed in the right radial artery. 2.5 mg of Verapamil, 800 mcg of nitroglycerin, 1mg Lidocaine and 5000 U Heparin were given through the arterial sheath. The 6 Bahamian JL 3 guide catheter was also used to perform left heart catheterization, left ventriculogram and selective coronary angiogram. At the end the diagnostic angiogram therapeutic heparin was administered giving a therapeutic ACT and the guide catheters placed in the right coronary followed by Choice PT extra-support wire placed distally. A 2.5 x 38 mm Aaron frontier stent was deployed at 16 lior reducing the severe stenosis to 0%. JULIUS-3 flow was present before and after the procedure. At the end the procedure the apparatus was removed and the guide catheter was placed in left main artery and a Choice PT extra-support wire was placed distally into the LAD. Intravascular ultrasound probe was advanced which demonstrated distally the LAD had good stent apposition and expansion. Proximally it was slightly undersized with some in-stent restenosis however the MLA measured 4.2 mm??? in the proximal LAD. At this point it was decided to continue with medical management involving the left main LAD and circumflex arteries. The apparatus was removed the sheath was removed good hemostasis was achieved and TR banding patient was transferred to the postop putting in stable condition ANGIOGRAPHIC RESULTS The left main artery Has a stent in the proximal segment which extends into the LAD. The stent is widely patent with mild to moderate concentric in-stent restenosis The left anterior descending artery Has a stent originating from the left main artery which has an ostial mild to moderate in-stent restenosis which proved to have an MLA of 4.2 mm???. The proximal LAD was then widely patent with mild in-stent restenosis with additional mild concentric in-stent restenosis in the mid LAD. There is excellent distal transitioning. A large first diagonal artery has a stent branching off the LAD and the stent is widely patent with mild in-stent restenosis The circumflex artery Is a nondominant vessel and has an ostial proximal 30% concentric in-stent restenotic lesion followed by an additional eccentric 30% stenosis in the proximal obtuse marginal artery. The right coronary artery Is dominant and has stents in the proximal to mid segment which are widely patent with minimal in-stent restenosis. Distally there is a 50 followed by concentric 70% stenosis proximal to a large PDA and posterior lateral branch The CASTANEDA ventriculogram reveals Not performed The left ventricular end-diastolic pressure Not measured IMPRESSION Severe disease in distal dominant right coronary artery as described above Excessive stenting the distal dominant right coronary artery severe disease reduced to 0% with 1 drug-eluting stent Moderate in-stent restenosis as described above with an MLA in the proximal LAD of 4.2 mm??? PLAN 1. Dual antiplatelet therapy 2. Maximize antianginal medications 3. Outside of the right coronary artery I do not believe the left main artery or LAD stenoses would be producing resting chest pain. If patient continues with resting chest pain at this point following stenting of the right coronary artery I would recommend noncardiac evaluation 4. LDL less than 55 achieved high intensity statin 5. Avoidance of tobacco products 6. Risk factor modification Electronically signed by : Seth Blanco MD 01/31/2025 14:12:09
[2025-01-31 10:02] LABS: Basophils # 0.1 K/mm3 (0-0.2); Eosinophils # 0.1 K/mm3 (0.0-0.4); Eosinophils % 1.7 % (0.1-12.0); Hematocrit 44.4 % (42.0-52.0); Hemoglobin 15.6 g/dL (14.1-18.0); Lymphocytes # 1.8 K/mm3 (0.7-4.5); Mean Corpuscular HGB Conc 35.1 g/dL (31.8-35.4); Mean Corpuscular Hemoglobin 30.3 pg (27.0-31.2); Mean Corpuscular Volume 86.2 fl (80-94); Mean Platelet Volume 9.1 fl (7.4-10.4); Monocytes # 0.8 K/mm3 (0.1-1.0); Monocytes % 10.6 % (1.7-9.3); Neutrophils # 4.8 K/mm3 (1.8-7.8); Neutrophils % 63.4 % (37.0-80.0); Nucleated Red Blood Cells # 0 10^3/uL; Nucleated Red Blood Cells % 0 %; Platelet Count 303 K/mm3 (142-424); Red Blood Count 5.15 M/mm3 (4.60-6.20); Red Cell Distribution Width 11.9 % (11.5-17.5); Red Cell Distribution Width-SD 37.9 fL; White Blood Count 7.6 K/mm3 (4.8-10.8)
[2025-01-31 10:09] LABS: Chloride 98 mmol/L (98-107); Sodium 134 mmol/L (136-145)
[2025-01-31 10:10] LABS: Potassium 5.3 mmoL/L (3.5-5.1)
[2025-01-31 10:13] LABS: Anion Gap 15.3 mEq/L (5-15); Blood Urea Nitrogen 21 mg/dl (9-20); Calcium 9.7 mg/dl (8.4-10.2); Carbon Dioxide 26 mmol/L (22.0-30.0); Creatinine Clearance Estimated 78 mL/min (50-200); Estimated Glomerular Filt Rate 68 ml/min (>60); GFR (African American) 82 ML/MIN (>60); Glucose 394 mg/dl (74-100)
[2025-01-31] MEDS: 0.9 % SODIUM CHLORIDE 500 ML 25 ML IV (10:56)
[2025-01-31] MEDS: diphenhydrAMINE 50MG/ML VIAL 50 MG IV (10:56)
[2025-01-31] MEDS: HEPARIN 1,000 UNITS/ML 10ML VIAL (CATH LAB) 5000 UNIT IV (10:57)
[2025-01-31] MEDS: HEPARIN 1,000 UNITS/500ML NS (CATH LAB) 3000 UNIT IV (10:57)
[2025-01-31] MEDS: LIDOCAINE 1% 10ML MDV 10 ML IJ (10:57)
[2025-01-31] MEDS: NITROGLYCERIN 800MCG/8ML SYR (CATH LAB) 800 MCG IA (10:57)
[2025-01-31] MEDS: VERAPAMIL 2.5MG/ML 2ML VIAL 2.5 MG IV (10:57)
[2025-01-31] MEDS: MIDAZOLAM HCL 1MG/ML 5ML VIAL 1 MG IV (11:20)
[2025-01-31] MEDS: FENTANYL 100MCG/2ML VIAL 50 MCG IV (11:21)
[2025-01-31] MEDS: TICAGRELOR 90MG TABLET 90 MG PO (11:47)
[2025-01-31] MEDS: IOPAMIDOL-370 (76%);100ML BOTTLE 90 ML IV (14:41)
[2025-01-31 14:46] LABS: CATHL Activated Clotting Time 372 SEC (74-125)
== END 2025-01-31 15:02 | disposition home or self-care (01) ==
PROVIDERS: PCP Family Medicine; Visit Provider Internal Medicine
DX: I25.110 Atherosclerotic heart disease of native coronary artery with unstable angina pectoris (principal); Z95.5 Presence of coronary angioplasty implant and graft; T82.855A Stenosis of coronary artery stent, initial encounter; Z79.4 Long term (current) use of insulin; Z79.899 Other long term (current) drug therapy; E11.9 Type 2 diabetes mellitus without complications; I11.9 Hypertensive heart disease without heart failure; E78.5 Hyperlipidemia, unspecified; Z82.49 Family history of ischemic heart disease and other diseases of the circulatory system; I47.10 Supraventricular tachycardia, unspecified; I77.1 Stricture of artery
CPT/HCPCS: 36415; 80048; 85025; 85347; 92928; 92978; 92979; 93454; 99152; 99153; C1725; C1769; C1874; C9600; J1200; J1644; J3010; Q9967

== ENCOUNTER 2025-02-01 10:56 | Emergency (ER) | payer OTHER, SELFPAY ==
[2025-02-01] VITALS (11 sets, daily range): BP systolic 105–147; BP diastolic 52–82; PULSE 53–69; RESP 11–16; TEMP 35.7–36.6; O2SAT 95–100; BMI 25.3
--- NOTE | 2025-02-01 11:01 | ECG_ITS ---
APPROVED REPORT Exam: Resting ECG HR:58 bpm ECG Measurements Heart Rate 58 AXES OK 175 P 52 QRSd 91 QRS 22 QT 436 T 25 QTc 432 Conclusion SINUS BRADYCARDIA Electronically signed by : JASE LAST, 02/01/2025 13:32:46
--- NOTE | 2025-02-01 11:06 | PC.NURSE ---
DR LAST AT BEDSIDE
--- NOTE | 2025-02-01 11:08 | CT_ITS ---
PROCEDURE INFORMATION: Exam: CTA Head With Contrast, Arteriography Exam date and time: 02/01/2025 11:50 AM Age: 64 years old Clinical indication: Other: Syncopal episode, recent heart cath TECHNIQUE: Imaging protocol: Computed tomographic angiography of the head with contrast. Exam focused on the arteries. 3D rendering (Not supervised by radiologist): MIP and/or 3D reconstructed images were created by the technologist. Radiation optimization: All CT scans at this facility use at least one of these dose optimization techniques: automated exposure control; mA and/or kV adjustment per patient size (includes targeted exams where dose is matched to clinical indication); or iterative reconstruction. Contrast material: ISO 370; Contrast volume: 80 ml; Contrast route: INTRAVENOUS (IV); COMPARISON: CT HEAD/BRAIN WO CON 02/01/2025 11:44 AM FINDINGS: ANTERIOR CIRCULATION: Right internal carotid artery: Intracranial segment is patent with no significant stenosis. No aneurysm. Right middle cerebral artery: No occlusion or significant stenosis. No aneurysm. Right anterior cerebral artery: No occlusion or significant stenosis. No aneurysm. Left internal carotid artery: Intracranial segment is patent with no significant stenosis. No aneurysm. Left middle cerebral artery: No occlusion or significant stenosis. No aneurysm. Left anterior cerebral artery: No occlusion or significant stenosis. No aneurysm. POSTERIOR CIRCULATION: Right vertebral artery: Diminutive barely visualized intracranial segment right vertebral artery limits assessment. Left vertebral artery: No occlusion or significant stenosis. No aneurysm. Basilar artery: No occlusion or significant stenosis. No aneurysm. Right posterior cerebral artery: No occlusion or significant stenosis. No aneurysm. Left posterior cerebral artery: No occlusion or significant stenosis. No aneurysm. Brain: No definite mass, mass effect, or midline shift. Cerebral ventricles: No ventriculomegaly. Bones/joints: Unremarkable. No acute fracture. Soft tissues: Unremarkable. Other findings: There is calcific atherosclerosis of the bilateral cavernous ICA. IMPRESSION: 1. Diminutive barely visualized intracranial segment right vertebral artery limits assessment. 2. No large vessel occlusion, additional significant stenosis or aneurysm identified.
--- NOTE | 2025-02-01 11:08 | CT_ITS ---
PROCEDURE INFORMATION: Exam: CT Head Without Contrast Exam date and time: 02/01/2025 11:44 AM Age: 64 years old Clinical indication: Other: Syncopal episode, recent heart cath TECHNIQUE: Imaging protocol: Computed tomography of the head without contrast. Radiation optimization: All CT scans at this facility use at least one of these dose optimization techniques: automated exposure control; mA and/or kV adjustment per patient size (includes targeted exams where dose is matched to clinical indication); or iterative reconstruction. COMPARISON: No relevant prior studies available. FINDINGS: Brain: Normal. No hemorrhage. Unremarkable white matter. No mass effect. Cerebral ventricles: No ventriculomegaly. Paranasal sinuses: There is mild mucosal thickening of the sinuses. Atelectasis of the right maxillary sinus consistent with chronic inflammation. Mastoid air cells: Visualized mastoid air cells are well aerated. Nasal cavity: Nasal septal deviation appears to be likely longstanding. Bones: Unremarkable. No acute fracture. Soft tissues: Unremarkable. IMPRESSION: No acute process, mass, or bleed.
--- NOTE | 2025-02-01 11:08 | CT_ITS ---
PROCEDURE INFORMATION: Exam: CTA Neck With Contrast Exam date and time: 02/01/2025 11:50 AM Age: 64 years old Clinical indication: Other: Syncopal episode, recent heart cath TECHNIQUE: Imaging protocol: Computed tomographic angiography of the neck with contrast. Exam focused on the cervical segments of the vasculature. 3D rendering (Not supervised by radiologist): MIP and/or 3D reconstructed images were created by the technologist. Radiation optimization: All CT scans at this facility use at least one of these dose optimization techniques: automated exposure control; mA and/or kV adjustment per patient size (includes targeted exams where dose is matched to clinical indication); or iterative reconstruction. Contrast material: ISO 370; Contrast volume: 80 ml; Contrast route: INTRAVENOUS (IV); COMPARISON: CT CERVICAL SPINE WO CON 02/01/2025 11:46 AM FINDINGS: Right common carotid artery: No stenosis. No dissection or occlusion. Right internal carotid artery: No stenosis of the extracranial segment. No dissection or occlusion. Right external carotid artery: No occlusion or stenosis of the origin. Left common carotid artery: No stenosis. No dissection or occlusion. Left internal carotid artery: No stenosis of the extracranial segment. No dissection or occlusion. Left external carotid artery: No occlusion or stenosis of the origin. Right vertebral artery: Diminutive intracranial segment right vertebral artery limits assessment. Left vertebral artery: No stenosis. No dissection or occlusion. Soft tissues: Normal. No significant soft tissue swelling. Bones/joints: No acute fracture. IMPRESSION: 1. Diminutive intracranial segment right vertebral artery limits assessment. 2. No large vessel occlusion, additional significant stenosis or dissection identified. REFERENCES: NASCET CRITERIA. The degree of stenosis in the cervical segment of the internal carotid artery is based on NASCET criteria. Normal is no stenosis. Mild is less than 50% stenosis. Moderate is 50-69% stenosis. Severe is 70% to 99% stenosis. Total occlusion is no detectable patent lumen.
--- NOTE | 2025-02-01 11:08 | CT_ITS ---
PROCEDURE INFORMATION: Exam: CTA Chest With Contrast Exam date and time: 02/01/2025 11:53 AM Age: 64 years old Clinical indication: Other: Syncopal episode, recent heart cath TECHNIQUE: Imaging protocol: Computed tomographic angiography of the chest with contrast. Exam focused on the arteries. 3D rendering (Not supervised by radiologist): MIP and/or 3D reconstructed images were created by the technologist. Radiation optimization: All CT scans at this facility use at least one of these dose optimization techniques: automated exposure control; mA and/or kV adjustment per patient size (includes targeted exams where dose is matched to clinical indication); or iterative reconstruction. Contrast material: ISOVUE 370; Contrast volume: 80 ml; Contrast route: INTRAVENOUS (IV); COMPARISON: CR XR CHEST PORTABLE 10/12/2022 8:46 AM FINDINGS: Pulmonary arteries: Negative for acute pulmonary embolism. Aorta: Unremarkable. No aortic aneurysm. No aortic dissection. Lungs: Unremarkable. No consolidation. No masses. Pleural spaces: Unremarkable. No pneumothorax. No pleural effusion. Heart: No cardiomegaly. Coronary arteries: Stents evident within coronary arteries. Lymph nodes: Unremarkable. No enlarged lymph nodes. Bones/joints: Unremarkable. No acute fracture. Soft tissues: Unremarkable. Other findings: Previous granulomatous exposure. IMPRESSION: Negative for acute pulmonary embolism.
--- NOTE | 2025-02-01 11:08 | CT_ITS ---
PROCEDURE INFORMATION: Exam: CT Cervical Spine Without Contrast Exam date and time: 02/01/2025 11:46 AM Age: 64 years old Clinical indication: Other: Syncope and collapse TECHNIQUE: Imaging protocol: Computed tomography of the cervical spine without contrast. Radiation optimization: All CT scans at this facility use at least one of these dose optimization techniques: automated exposure control; mA and/or kV adjustment per patient size (includes targeted exams where dose is matched to clinical indication); or iterative reconstruction. COMPARISON: CT HEAD/BRAIN WO CON 02/01/2025 11:44 AM FINDINGS: Bones: No acute fracture. Normal alignment. No significant disc bulge or herniation. No severe spinal canal stenosis. No significant neural foraminal narrowing. Lungs: Lung apices are normal. Soft tissues: Unremarkable. IMPRESSION: No acute findings.
--- NOTE | 2025-02-01 11:18 | PC.NURSE ---
notified RT of vbg order
--- NOTE | 2025-02-01 11:19 | PC.NURSE ---
notified rad of orders, per ER MD pt does not need to wait on labs for cts
--- NOTE | 2025-02-01 11:20 | ED_ITS ---
Discharge Plan Disposition Patient Disposition: Home, Self-Care Condition: Good Prescriptions Prescriptions: No Action Janumet 50-1,000 mg tablet 1 tab PO BID Patient Comments: TAKE 1 TABLET BY MOUTH TWICE A DAY lisinopril 40 mg tablet 40 mg PO DAILY Qty: 90 3RF nitroglycerin 0.4 mg tablet, sublingual 0.4 mg sublingual Q5-15M PRN (Reason: chest pain) Qty: 30 0RF Rx Instructions: do not exceed 3 doses per episode isosorbide mononitrate 30 mg tablet extended release 24 hr 30 mg PO DAILY Qty: 30 2RF amlodipine 10 mg tablet 10 mg PO DAILY Qty: 30 3RF aspirin [Adult Low Dose Aspirin] 81 mg tablet,delayed release (DR/EC) 81 mg PO DAILY glimepiride 2 mg tablet 2 mg PO DAILY insulin detemir U-100 100 unit/mL (3 mL) insulin pen 30 unit SQ DAILY primidone 50 mg tablet 50 mg PO DAILY Patient Comments: TAKE 1 TABLET BY MOUTH EVERY DAY FOR 90 DAYS bisoprolol fumarate 10 mg tablet 10 mg PO DAILY Qty: 90 1RF atorvastatin [Lipitor] 40 mg Tablet 40 mg PO HS Qty: 30 3RF Brilinta 90 mg Tablet 90 mg PO BID Qty: 60 6RF Referrals Follow up/Referrals: Shemar Beltran MD [Primary Care Provider] - See instructions Activity Restrictions/Add. Instructions Additional Instructions/Restrictions: You were evaluated in the emergency department today. As we discussed, your blood sugar was very high. Lease keep a close eye on this at home. You also have an abnormal right vertebral artery noted on CT scan, however it does not appear that this is a stroke, it is likely an anatomic variant. Please follow- up closely with primary care for reassessment of this. Please also follow-up closely with cardiology. Return to the emergency department right away for new or worsening symptoms. Clinical Impressions Clinical Impression: Syncope, Hyperglycemia, Hypomagnesemia Stand Alone Forms Stand Alone Forms: Work/School Release Instructions Patient Instructions: DI for Syncope in Adults (Fainting), DI for Hyperglycemia -- Adult Print Language Print Language: Sami Discharge ED Provider: Kayce George General Adult HPI General Chief complaint: Syncope Stated complaint: syncople epsidode,weakness Time Seen by Provider: 02/01/25 10:59 Mode of Arrival: EMS Source of Information: Patient, Spouse and EMS Description of Symptoms (Recalled from ER Triage Doc. by RN): Per EMS report pt was in the car at the pharmacy when he passed out. Pt had a heart cath with 1 stent placement yesterday per Dr. Blanco. Pt reports felt really good today when he woke up. Pt denies Chest pain or SOA. Pt reports he feels very weak . EMS reprots pt had vomitted and was incontinent of urine upon their arrival to pt. Pt reported to ems that pt looked like he was convulsing . Pt diaphoretic upon arrival to ED. History of Present Illness HPI narrative: This patient is a 64-year-old male with a history of hypertension, hyperlipidemia, hypertensive heart disease, CAD, type 2 diabetes, unstable angina status post recent cardiac catheterization yesterday, stenting to the RCA, and discharged home presenting with concern for syncope. 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 According to EMS, the witnessed syncopal episode and patient had vomited and was incontinent of stool. had reported that it was like he was briefly convulsing. Patient was diaphoretic on arrival and complains of we general weakness, feeling cold, and feeling very tired. No postictal period, no history of seizure disorder. Patient denies any pain anywhere. He denies any headache, vision changes, unilateral numbness or tingling, chest pain, abdominal pain, or other concerns. He states that otherwise he had been fine since discharge. He was prescribed new medications but had not yet started them, as he was in line to pick them up. Related Data Home Medications ?Medication ?Instructions ?Recorded ?Confirmed aspirin 81 mg tablet,delayed 81 mg PO DAILY heart health 11/01/17 01/30/25 release (Adult Low Dose Aspirin) glimepiride 2 mg tablet 2 mg PO DAILY diabetes 11/01/17 01/30/25 insulin detemir U-100 100 unit/mL 30 unit SQ DAILY diabetes 11/01/17 01/30/25 (3 mL) subcutaneous pen primidone 50 mg tablet 50 mg PO DAILY Tremors 07/26/22 01/30/25 sitagliptin phosphate 50 1 tab PO BID 02/01/24 01/30/25 mg-metformin 1,000 mg tablet (Janumet) Previous Rx's ?Medication ?Instructions ?Recorded bisoprolol fumarate 10 mg tablet 10 mg PO DAILY blood pressure #90 10/13/22 tabs lisinopril 40 mg tablet 40 mg PO DAILY #90 tabs 08/20/24 amlodipine 10 mg tablet 10 mg PO DAILY #30 tabs 01/23/25 isosorbide mononitrate 30 mg 30 mg PO DAILY #30 tabs 01/23/25 tablet,extended release 24 hr nitroglycerin 0.4 mg sublingual 0.4 mg sublingual Q5-15M PRN chest 01/23/25 tablet pain #30 tabs atorvastatin 40 mg tablet (Lipitor) 40 mg PO HS #30 tabs 01/31/25 ticagrelor 90 mg tablet (Brilinta) 90 mg PO BID #60 tabs 01/31/25 Allergies Allergy/AdvReac Type Severity Reaction Status Date / Time No Known Allergies Allergy Verified 01/30/25 11:03 [facility] Disclaimer: The information contained in this section may have been updated after the patient was seen, as this information can be updated by other users. Medical History Diabetes Closed fracture of metatarsal of left foot Pre-syncope Influenza A Vasovagal episode Syncope Hyperlipidemia Hypertensive heart disease Coronary arteriosclerosis Surgical History Stented coronary artery Family History Mother Cancer Father Family history of myocardial infarction Grandfather Family history of myocardial infarction Other Family history of hyperlipidemia Family history of hypertension Social History Smoking Status: Never smoker second hand exposure: Yes alcohol intake: never substance use type: denies use current occupational status: employed Travel in the last 8 weeks: None household members: spouse housing: house marital status: 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 current occupational exposures/hazards: Yes caffeine: Yes Have you lived/traveled outside [place] in past 30 days?: No Contact w/someone who lives/traveled outside US past 30 days?: No Exposure to someone with infectious disease in past 14 days?: No Do you have a fever (greater than 100.4 F or 38 C)?: No Have you tested positive for COVID-19: No Exposed to someone with COVID-19 in past 14 days?: No Do you have a sore throat?: No Do you have a cough?: No Do you have any weakness?: Yes Do you have any diarrhea?: No Are you experiencing any unusual bleeding?: No Do you have any muscle aches/pain?: No Do you have any abdominal pain?: No Are you experiencing loss of taste or smell?: No Other Medical History Have you received the Flu Vaccine for this season: No Have you received the Pneumonia Vaccine: No ROS Obtained: Yes All systems reviewed & no additional complaints except as documented Physical Exam General General appearance: alert Comment: Pale, diaphoretic Head Head exam: atraumatic and normocephalic Eye Eye exam: Present normal appearance, PERRL and EOMI ENT ENT exam: Present normal exam, normal oropharynx, mucous membranes moist and normal external ear exam Neck Neck exam: Present normal inspection, full ROM and trachea midline; Absent tenderness Chest Chest inspection: Present normal inspection and symmetric chest wall rise; Absent tenderness Respiratory Respiratory exam: Present normal lung sounds bilaterally; Absent respiratory distress, wheezes, stridor or accessory muscle use Cardiovascular Cardiovascular exam: Present normal rhythm and bradycardia Abdominal Exam Abdominal exam: Present soft; Absent distention, tenderness or guarding Extremities Exam Extremities exam: Present normal inspection, full ROM and normal capillary refill; Absent tenderness or edema Back Exam Back exam: Present normal inspection and full ROM; Absent tenderness Neurological Exam Neurological exam: Present alert, oriented X3, CN II-XII intact and other (Generally weak without focal deficit); Absent motor sensory deficit Psychiatric Psychiatric exam: Present normal affect and normal mood Skin Skin exam: Present warm, dry and pallor Medical Decision Making Medical Records Medical records reviewed: Yes I reviewed the patient's medical records. Screening: Per USPSTF and CDC recommendations, given the prevalence of disease in our region, it is our hospital?s policy to screen for HIV and viral Hepatitis for all patients aged 18 and over and those with ongoing risk factors. Danny Inquiry Pt receiving controlled substance: No Vital Signs: 02/01/25 10:58 02/01/25 11:02 02/01/25 11:30 Temperature 96.3 F L Temperature Source Rectal Pulse Rate 55 L 54 L Pulse Rate [Apical] 61 Respiratory Rate 14 11 L 12 Blood Pressure 108/69 L 114/67 Blood Pressure [Right Arm] 108/69 L Blood Pressure Mean Blood Pressure Mean [Right Arm] 82 Blood Pressure Source [Right Arm] Automatic Cuff Blood Pressure Position [Right Arm] Sitting 02 Sat by Pulse Oximetry 99 100 98 Oxygen Delivery Method Room Air Room Air Room Air 02/01/25 12:01 02/01/25 12:30 02/01/25 13:00 Temperature Temperature Source Pulse Rate 53 L 56 L Pulse Rate [Apical] Respiratory Rate 14 12 12 Blood Pressure 147/74 H 124/81 136/82 Blood Pressure [Right Arm] Blood Pressure Mean 95 Blood Pressure Mean [Right Arm] Blood Pressure Source [Right Arm] Blood Pressure Position [Right Arm] 02 Sat by Pulse Oximetry 98 100 Oxygen Delivery Method Room Air Room Air 02/01/25 13:30 02/01/25 14:00 02/01/25 14:30 Temperature Temperature Source Pulse Rate 65 64 Pulse Rate [Apical] Respiratory Rate 12 12 14 Blood Pressure 138/79 132/77 141/72 H Blood Pressure [Right Arm] Blood Pressure Mean Blood Pressure Mean [Right Arm] Blood Pressure Source [Right Arm] Blood Pressure Position [Right Arm] 02 Sat by Pulse Oximetry 99 97 Oxygen Delivery Method Room Air 02/01/25 15:01 Temperature Temperature Source Pulse Rate 69 Pulse Rate [Apical] Respiratory Rate 12 Blood Pressure 105/52 L Blood Pressure [Right Arm] Blood Pressure Mean Blood Pressure Mean [Right Arm] Blood Pressure Source [Right Arm] Blood Pressure Position [Right Arm] 02 Sat by Pulse Oximetry 95 Oxygen Delivery Method Room Air Lab Data Lab results reviewed: Yes I reviewed the patient's lab results. Lab Results 02/01/25 11:08: VBG pH 7.39, VBG pCO2 35.8, VBG pO2 58.4 H, VBG HCO3 21.1 L, VBG Total CO2 22.2 L, VBG O2 Saturation 90.4 H, VBG Base Excess -3.8 L, VBG Lactic Acid 2.6 H 02/01/25 11:16: WBC 9.0, RBC 4.77, Hgb 14.4, Hct 41.1 L, MCV 86.2, MCH 30.2, MCHC 35.0, RDW 12.0, Plt Count 337, MPV 9.1, Neut % (Auto) 60.6, Lymph % (Auto) 26.1, [place]well % (Auto) 11.0 H, Eos % (Auto) 1.3, Baso % (Auto) 0.7, Neut # (Auto) 5.5, Lymph # (Auto) 2.4, [place]well # (Auto) 1.0, Eos # (Auto) 0.1, Baso # (Auto) 0.1, PT 10.7, INR 0.95, APTT 22.2 L, Sodium 133 L, Potassium 4.8, Chloride 103, C arbon Dioxide 18 L, Anion Gap 16.8 H, BUN 18, Creatinine 1.00, Estimated Creat Clear 93, Estimated GFR 75, Est GFR ( Amer) 91, Glucose 423 H*, Calcium 8.8, Magnesium 1.4 L, Total Bilirubin 0.7, AST 34, ALT 18, Alkaline Phosphatase 73, Troponin I 0.03, NT-Pro-B Natriuret Pep 97.1, Total Protein 6.7, Albumin 3.9, Globulin 2.8, Albumin/Globulin Ratio 1.4, TSH 4.23, Thyroxine (T4) 7.8, Acetone Level Small, HCV Ab TELMA w/Rflx PCR Qn Negative, HIV Ag/Ab Combo Qual Negative 02/01/25 13:54: Sodium 135 L, Potassium 4.5, Chloride 104, Carbon Dioxide 20 L, Anion Gap 15.5 H, BUN 17, Creatinine 0.90, Estimated Creat Clear 93, Estimated GFR 85, Est GFR ( Amer) 103, Glucose 287 H D, Calcium 9.1, Troponin I 0.03 02/01/25 11:16 02/01/25 13:54 Orders (Tests/Meds): ED MEDICATIONS Generic Name Dose Route Start Last Admin Trade Name Freq PRN Reason Stop Dose Admin Sodium Chloride 10 ml 02/01/25 11:47 02/01/25 11:51 Sodium Chloride 0.9% 10ml Syr (Rad Only) IV 03/03/25 11:46 10 ml NEEDED PRN Administration Maintain IV Site Discontinued Medications Generic Name Dose Route Start Last Admin Trade Name Freq PRN Reason Stop Dose Admin Lactated Ringer's 1,000 mls @ 999 mls/hr 02/01/25 11:29 02/01/25 12:11 Lactated Ringer's 1000 Ml Bag IV 02/01/25 12:29 999 mls/hr .Q1H1M ONE Administration Magnesium Sulfate 2 gm in 50 mls @ 50 mls/hr 02/01/25 12:20 02/01/25 12:42 Magnesium Sulfate 2gm/50ml Premix IV 02/01/25 13:19 50 mls/hr ONCE ONE Administration Insulin Human Regular 10 unit 02/01/25 12:20 02/01/25 12:42 Insulin Human Regular 100 Units/Ml 10ml Vial IVP 02/01/25 12:21 10 unit ONCE ONE Administration Iopamidol 160 ml 02/01/25 11:47 02/01/25 11:51 Iopamidol-370 (76%);100ml Bottle IV 02/01/25 11:48 160 ml ONCE ONE Administration Sodium Chloride 100 ml 02/01/25 11:47 02/01/25 11:51 0.9 % Sodium Chloride 50 Ml Vial IV 02/01/25 11:48 100 ml ONCE ONE Administration ORDERS Category Date Time Status CT angio abdomen pelvis Stat Cat Scan 02/01/25 11:[address] angio chest PE protocol Stat Cat Scan 02/01/25 11:[address] angio head Stat Cat Scan 02/01/25 11:[address] angio neck Stat Cat Scan 02/01/25 11:[address] cervical spine wo con Stat Cat Scan 02/01/25 11:[address] head/brain wo con Stat Cat Scan 02/01/25 11:08 Completed Acetone, Serum (Rapid) Stat Lab 02/01/25 11:16 Completed BMP [Basic Metabolic Panel] Timed Lab 02/01/25 13:54 Completed BNP [NT Pro Brain Natriuretic Pep.] Stat Lab 02/01/25 11:16 Completed Complete Blood Count Auto Diff Stat Lab 02/01/25 11:16 Completed Comprehensive Metabolic Panel Stat Lab 02/01/25 11:16 Completed HIV Combo Stat Lab 02/01/25 11:16 Completed Hepatitis C Ab Qual. W/ RFX Stat Lab 02/01/25 11:16 Completed MAG [Magnesium] Stat Lab 02/01/25 11:16 Completed PT INR [Prothrombin Time INR] Stat Lab 02/01/25 11:16 Completed PTT [Activated Partial Thrombo Time] Stat Lab 02/01/25 11:16 Completed T4 (Thyroxine) Stat Lab 02/01/25 11:16 Completed TSH [Thyroid Stimulating Hormone] Stat Lab 02/01/25 11:16 Completed Trop I [Troponin I] Stat Lab 02/01/25 11:16 Completed Troponin I Q3H Lab 02/01/25 13:54 Completed Troponin I Q3H Lab 02/01/25 17:15 Ordered VBG [Venous Blood Gas] Stat RT 02/01/25 11:08 Completed ECG Data Tracing #1: I reviewed this ECG and interpreted as documented below: Sinus bradycardia with a ventricular rate of [address] changes concerning for STEMI. Normal intervals ECG initial impression date: 02/01/25 ECG initial impression time: 11:07 Medical Decision Narrative: In summary, this patient is a 64-year-old presenting to the Emergency Department for evaluation of syncopal episode. Patient recently had cardiac catheterization with stenting yesterday. Differential diagnoses considered include but are not limited to ACS, PE, aortic dissection, dysrhythmia, CVA, intracranial hemorrhage, vasovagal syncope, hypoglycemia. Ruling out the most morbid conditions drove assessment. It should be noted patient's history includes diabetes, hypertension, hyperlipidemia, CHF, CAD status post recent stenting which may or may not be at goal therapy. This complicates all aspects of care by increasing patient's risk for morbidity. I reviewed patient's past medical records and noted cath yesterday with stenting to the RCA. On exam, the patient is lying in bed in no acute distress. He is alert and oriented without focal deficit but is generally weak. He is neurologically intact in all 4 extremities. He has symmetric pulses. Cardiopulmonary and abdominal exams are benign. Fingerstick blood glucose demonstrates a fingerstick of 421. EKG obtained demonstrates sinus bradycardia with normal intervals, no acute ST changes concerning for STEMI. workup included CBC, CMP, VBG, lactic acid, troponin, coags, CT head, CT angiogram head and neck, CT C- spine, CTA PE protocol, CTA abdomen and pelvis. I independently interpreted CT scans prior to the radiologist read and noted no intracranial hemorrhage, no large vessel occlusion, no aortic dissection, no PE. Please see their read for final interpretation. Radiology does note that he has a diminutive right intracranial vertebral artery, however he is neurologically intact without focal deficit, NIH stroke scale of 0, I feel it is likely structural. labs were obtained that demonstrated reassuring CBC with no significant leukocytosis or anemia. He does have mild lactic acidosis. He has a mildly elevated anion gap at 16.8 with hyperglycemia with a glucose of 423. He has small acetone. I do not feel that he is truly in DKA based on presentation with lack of acidosis on labs, but I did elect to give him a liter bolus of IV fluids as well as IV insulin. Will repeat BMP afterward. He did have hypomagnesemia as well, for which IV repletion was ordered. On reassessment, patient had minimal improvement after administration of above. He still feels very generally weak without focal deficit suggestive of any acute stroke or intracranial process. Vitals are reassuring on cardiac telemetry.. At 1300, patient was placed in ED observation status pending second troponin, repeat BMP after fluids and insulin, reassessment to determine whether or not the patient would be appropriate for discharge versus admission. The patient was provided serial reevaluations and cardiac monitoring while awaiting ultimate disposition. On multiple subsequent reassessments, he is lying in bed, neurologically intact with reassuring cardiopulmonary exam and reassuring vitals on cardiac telemetry. Repeat BMP is reassuring with improvement in anion gap, improvement in hyperglycemia. Second troponin negative without significant change. I discussed the case with Dr. Blanco who feels outpatient follow-up is appropriate. Given reassuring workup and exam, it is felt that the patient is appropriate for discharge at 1515. Total ED observation time was 2 hours and 15 minutes. I had a [id number] visit with the patient when providing discharge instructions. The total time involved in discharging this patient was less than 30 minutes. He was given strict return precautions and instructions for close follow-up. Critical Care Critical Care Time Critical Care Time: Yes Attestation: On 02/01/25, the high probability of a clinically significant, sudden or life threatening deterioration of the following system(s) required my full and direct attention, intervention and personal management. The time I documented below is in addition to time spent performing reported procedures but includes the following listed in this critical care notation. Total Time Total Critical Care Time: 35
--- NOTE | 2025-02-01 11:21 | PC.NURSE ---
pt family at BS, updated pt and family on POC. pt states no needs at this time, call light within reach.
[2025-02-01 11:25] LABS: VBG Base Excess -3.8 mmol/L (-2.4-2.3); VBG HCO3 21.1 mmol/L (23-30); VBG Oxygen Saturation 90.4 % (50-70); VBG PCO2 35.8 mmol/L (35-51); VBG PH 7.39 mmol/L (7.31-7.41); VBG PO2 58.4 mmol/L (28-40); VBG Total CO2 22.2 mmol/L (23-27)
[2025-02-01 11:26] LABS: Lactate Venous 2.6 mmol/L (0.4-2.0)
[2025-02-01 11:27] LABS: Basophils # 0.1 K/mm3 (0-0.2); Basophils % 0.7 % (0.1-2.0); Eosinophils # 0.1 K/mm3 (0.0-0.4); Eosinophils % 1.3 % (0.1-12.0); Hematocrit 41.1 % (42.0-52.0); Hemoglobin 14.4 g/dL (14.1-18.0); Lymphocytes # 2.4 K/mm3 (0.7-4.5); Lymphocytes % 26.1 % (10-50); Mean Corpuscular Hemoglobin 30.2 pg (27.0-31.2); Mean Corpuscular Volume 86.2 fl (80-94); Mean Platelet Volume 9.1 fl (7.4-10.4); Neutrophils # 5.5 K/mm3 (1.8-7.8); Neutrophils % 60.6 % (37.0-80.0); Nucleated Red Blood Cells # 0 10^3/uL; Nucleated Red Blood Cells % 0 %; Platelet Count 337 K/mm3 (142-424); Red Blood Count 4.77 M/mm3 (4.60-6.20); Red Cell Distribution Width-SD 37.5 fL
--- NOTE | 2025-02-01 11:29 | [facility].ITSTN ---
per Dr. George, GFR results not needed on a risk vs benefit situation.
[2025-02-01 11:30] LABS: Albumin Level 3.9 g/dl (3.5-5.0); Chloride 103 mmol/L (98-107); Potassium 4.8 mmoL/L (3.5-5.1); Sodium 133 mmol/L (136-145)
[2025-02-01 11:33] LABS: Alanine Aminotransferase 18 U/L (12-78); Albumin/Globulin Ratio 1.4 (1.1-1.8); Alkaline Phosphatase 73 U/L (38-126); Anion Gap 16.8 mEq/L (5-15); Aspartate Amino Transferase 34 U/L (17-59); Bilirubin,Total 0.7 mg/dl (0.2-1.3); Blood Urea Nitrogen 18 mg/dl (9-20); Calcium 8.8 mg/dl (8.4-10.2); Carbon Dioxide 18 mmol/L (22.0-30.0); Creatinine Clearance Estimated 93 mL/min (50-200); Estimated Glomerular Filt Rate 75 ml/min (>60); GFR (African American) 91 ML/MIN (>60); Globulin 2.8 g/dL (1.3-3.2); Total Protein,Serum 6.7 g/dl (6.3-8.2)
[2025-02-01 11:35] LABS: Glucose 423 mg/dl (74-100)
--- NOTE | 2025-02-01 11:35 | PC.NURSE ---
patient going to CT
--- NOTE | 2025-02-01 11:35 | PC.NURSE ---
CRITICAL GLUCOSE, 423. PT NAME AND R/V. DR LAST NOTIFIED
--- NOTE | 2025-02-01 11:37 | PC.NURSE ---
PT TO CT
--- NOTE | 2025-02-01 11:37 | PC.NURSE ---
pt in radiology
[2025-02-01 11:42] LABS: NT Pro Brain Natriuretic Pep. 97.1 pg/mL (0-125)
[2025-02-01 11:46] LABS: Troponin I 0.03 ng/ml (0.00-0.034)
[2025-02-01 11:49] LABS: Activated Partial Thrombo Time 22.2 seconds (22.8-30.6); INR 0.95 (0.9-1.1); Prothrombin Time 10.7 seconds (10.1-12.5)
--- NOTE | 2025-02-01 11:50 | CT_ITS ---
PROCEDURE INFORMATION: Exam: CTA Abdomen and Pelvis With Contrast Exam date and time: 02/01/2025 11:53 AM Age: 64 years old Clinical indication: Other: Syncope, recent heart cath TECHNIQUE: Imaging protocol: Computed tomographic angiography of the abdomen and pelvis with contrast. Exam focused on the arteries. 3D rendering (Not supervised by radiologist): MIP and/or 3D reconstructed images were created by the technologist. Radiation optimization: All CT scans at this facility use at least one of these dose optimization techniques: automated exposure control; mA and/or kV adjustment per patient size (includes targeted exams where dose is matched to clinical indication); or iterative reconstruction. Contrast material: ISO 370; Contrast volume: 80 ml; Contrast route: INTRAVENOUS (IV); COMPARISON: CT ABDOMEN PELVIS WO/W CON 02/20/2024 10:02 AM FINDINGS: Aorta: Negative for aortic aneurysm or dissection. Celiac trunk and mesenteric arteries: No occlusion or significant stenosis. Renal arteries: No occlusion or significant stenosis. Right iliac arteries: No occlusion or significant stenosis. Right femoral/popliteal arteries: Approximately 50% stenosis distal right common femoral artery, stable. Left iliac arteries: No occlusion or significant stenosis. Liver: No mass. Gallbladder and biliary ducts: Unremarkable. No calcified stones. No ductal dilation. Pancreas: Unremarkable. No mass. No ductal dilation. Spleen: Unremarkable. No splenomegaly. Adrenal glands: Unremarkable. No mass. Kidneys and ureters: Unremarkable. No solid mass. No hydronephrosis. Stomach and bowel: Unremarkable. No obstruction. No mucosal thickening. Appendix: No evidence of appendicitis. Intraperitoneal space: Unremarkable. No free air. No significant fluid collection. Lymph nodes: Unremarkable. No enlarged lymph nodes. Urinary bladder: Unremarkable. No mass. Reproductive: Unremarkable as visualized. Bones/joints: No acute fracture. Soft tissues: Unremarkable. IMPRESSION: Negative for aortic aneurysm or dissection.
[2025-02-01 11:51] LABS: T4 (Thyroxine) 7.8 ug/dl (5.53-11.0)
[2025-02-01] MEDS: SODIUM CHLORIDE 0.9% 10ML SYR (RAD ONLY) 10 ML IV (11:51)
[2025-02-01] MEDS: IOPAMIDOL-370 (76%);100ML BOTTLE 160 ML IV (11:51)
[2025-02-01] MEDS: 0.9 % SODIUM CHLORIDE 50 ML VIAL 100 ML IV (11:51)
[2025-02-01 11:57] LABS: Acetone, Serum (Rapid) Small (None Detect)
--- NOTE | 2025-02-01 12:00 | PC.NURSE ---
pt return from radiology
--- NOTE | 2025-02-01 12:00 | PC.NURSE ---
pt back from radiology
[2025-02-01 12:02] LABS: Magnesium 1.4 mg/dl (1.6-2.3)
[2025-02-01 12:05] LABS: Thyroid Stimulating Hormone 4.23 uIU/mL (0.465-4.68)
[2025-02-01] MEDS: LACTATED RINGERS 1000ML 1,000 ML 999 ML IV (12:11)
[2025-02-01] MEDS: INSULIN HUMAN REGULAR 100 UNITS/ML 10ML VIAL 10 UNIT IVP (12:42)
[2025-02-01] MEDS: MAGNESIUM SULFATE IN WATER 2 GM/50 ML PIGGYBACK IV (12:42)
--- NOTE | 2025-02-01 12:42 | PC.NURSE ---
DR LAST AT BEDSIDE TO UPDATE PT AND FAMILY
[2025-02-01 12:43] LABS: HIV Combo NEGATIVE (Negative)
[2025-02-01 12:50] LABS: Hepatitis C Ab Qual. W/ RFX NEGATIVE (Negative)
--- NOTE | 2025-02-01 13:57 | PC.NURSE ---
second trop sent to lab
[2025-02-01 14:18] LABS: Troponin I 0.03 ng/ml (0.00-0.034)
[2025-02-01 14:23] LABS: Chloride 104 mmol/L (98-107)
[2025-02-01 14:24] LABS: Potassium 4.5 mmoL/L (3.5-5.1); Sodium 135 mmol/L (136-145)
[2025-02-01 14:27] LABS: Anion Gap 15.5 mEq/L (5-15); Blood Urea Nitrogen 17 mg/dl (9-20); Calcium 9.1 mg/dl (8.4-10.2); Carbon Dioxide 20 mmol/L (22.0-30.0); Creatinine Clearance Estimated 93 mL/min (50-200); Estimated Glomerular Filt Rate 85 ml/min (>60); GFR (African American) 103 ML/MIN (>60); Glucose 287 mg/dl (74-100)
[2025-02-01 15:27] LABS: Reflex Lactic Add Lactic Reflex
== END 2025-02-01 15:23 | disposition home or self-care (01) ==
PROVIDERS: Emergency Provider Emergency Medicine; PCP Family Medicine
DX: R55 Syncope and collapse (principal); E11.65 Type 2 diabetes mellitus with hyperglycemia; R00.1 Bradycardia, unspecified; E83.42 Hypomagnesemia; Z79.4 Long term (current) use of insulin; Z11.59 Encounter for screening for other viral diseases; Z11.4 Encounter for screening for human immunodeficiency virus [HIV]
CPT/HCPCS: 70450; 70496; 70498; 71275; 72125; 74174; 80048; 80053; 82009; 82803; 83735; 83880; 84436; 84443; 84484; 85025; 85610; 85730; 86803; 87389; 93005; 96361; 96365; 99291; J3475; J7120; Q9967

== ENCOUNTER 2025-02-06 10:55 | Outpatient (CLI) | payer OTHER, SELFPAY ==
[2025-02-06 11:11] LABS: Basophils # 0.1 K/mm3 (0-0.2); Eosinophils # 0.3 K/mm3 (0.0-0.4); Eosinophils % 2.8 % (0.1-12.0); Hematocrit 42.8 % (42.0-52.0); Hemoglobin 14.9 g/dL (14.1-18.0); Lymphocytes % 19.3 % (10-50); Mean Corpuscular HGB Conc 34.8 g/dL (31.8-35.4); Mean Corpuscular Hemoglobin 30.4 pg (27.0-31.2); Mean Corpuscular Volume 87.3 fl (80-94); Mean Platelet Volume 8.9 fl (7.4-10.4); Monocytes # 1.2 K/mm3 (0.1-1.0); Monocytes % 11.4 % (1.7-9.3); Neutrophils # 6.7 K/mm3 (1.8-7.8); Neutrophils % 65.2 % (37.0-80.0); Nucleated Red Blood Cells # 0 10^3/uL; Nucleated Red Blood Cells % 0 %; Platelet Count 329 K/mm3 (142-424); Red Cell Distribution Width 12.4 % (11.5-17.5); Red Cell Distribution Width-SD 39.4 fL; White Blood Count 10.2 K/mm3 (4.8-10.8)
[2025-02-06 11:36] LABS: Anion Gap 16.7 mEq/L (5-15); Blood Urea Nitrogen 24 mg/dl (9-20); Calcium 9.6 mg/dl (8.4-10.2); Carbon Dioxide 25 mmol/L (22.0-30.0); Chloride 100 mmol/L (98-107); Estimated Glomerular Filt Rate 85 ml/min (>60); GFR (African American) 103 ML/MIN (>60); Glucose 204 mg/dl (74-100); Potassium 4.7 mmoL/L (3.5-5.1); Sodium 137 mmol/L (136-145)
[2025-02-06 12:38] LABS: Hemoglobin A1C 11.9 % (4.0-6.0)
== END 2025-02-06 23:59 | disposition home or self-care (01) ==
LOC: LAB 10:55
PROVIDERS: PCP Family Medicine; Visit Provider Internal Medicine
DX: I25.119 Atherosclerotic heart disease of native coronary artery with unspecified angina pectoris (principal); I11.9 Hypertensive heart disease without heart failure; Z95.5 Presence of coronary angioplasty implant and graft
CPT/HCPCS: 36415; 80048; 83036; 85025

== ENCOUNTER 2025-02-11 11:31 | Emergency (ER) | payer OTHER, SELFPAY ==
[2025-02-11 11:36] VITALS: BP 158/89; PULSE 81; O2SAT 100
--- NOTE | 2025-02-11 11:37 | PC.NURSE ---
FSBS 83
--- NOTE | 2025-02-11 11:39 | ED_ITS ---
<Statement entered by Kayce George DO - 02/11/25 15:01> I was consulted by the PATRICIO, and we discussed the complexity of the problems being addressed. I approved the treatment and management plan for this patient's care in the emergency department, thus performing a substantive portion of the medical decision making. Patient is had recurrent syncope in the past which has undergone extensive workup, including cardiac evaluation. He is at his neurologic baseline with reassuring workup with exception of mildly elevated lipase. Blood sugar stable here. CT scan reassuring. Given this, it is felt he is appropriate for discharge home with close follow-up with primary care as well as with cardiology. Very strict return precautions given. Kayce George DO Discharge Plan Disposition Patient Disposition: Home, Self-Care Condition: Good Chief Complaint: Hyper/Hypoglycemia Prescriptions Prescriptions: No Action Janumet 50-1,000 mg tablet 1 tab PO BID Patient Comments: TAKE 1 TABLET BY MOUTH TWICE A DAY lisinopril 40 mg tablet 40 mg PO DAILY Qty: 90 3RF nitroglycerin 0.4 mg tablet, sublingual 0.4 mg sublingual Q5-15M PRN (Reason: chest pain) Qty: 30 0RF Rx Instructions: do not exceed 3 doses per episode isosorbide mononitrate 30 mg tablet extended release 24 hr 30 mg PO DAILY Qty: 30 2RF amlodipine 10 mg tablet 10 mg PO DAILY Qty: 30 3RF aspirin [Adult Low Dose Aspirin] 81 mg tablet,delayed release (DR/EC) 81 mg PO DAILY glimepiride 2 mg tablet 2 mg PO DAILY insulin detemir U-100 100 unit/mL (3 mL) insulin pen 30 unit SQ DAILY primidone 50 mg tablet 50 mg PO DAILY Patient Comments: TAKE 1 TABLET BY MOUTH EVERY DAY FOR 90 DAYS bisoprolol fumarate 10 mg tablet 10 mg PO DAILY Qty: 90 1RF atorvastatin [Lipitor] 40 mg Tablet 40 mg PO HS Qty: 30 3RF Brilinta 90 mg Tablet 90 mg PO BID Qty: 60 6RF Referrals Follow up/Referrals: Shemar Beltran MD [Primary Care Provider] - See instructions Clinical Impressions Clinical Impression: Hypoglycemia, Fatigue Instructions Patient Instructions: DI for Hyperglycemia -- Adult, DI for Hypoglycemia, Insulin Print Language Print Language: [place]ralt[place] Discharge ED Provider: Kayce George General Adult HPI <RADHA Harkins - Last Filed: 02/11/25 14:25> General Chief complaint: Hyper/Hypoglycemia Stated complaint: low blood sugar, cold, clammy, syncope Time Seen by Provider: 02/11/25 11:35 Mode of Arrival: Ambulatory Source of Information: Patient and Spouse Limitations: No Limitations History of Present Illness HPI narrative: 64-year-old male presents to the emergency department with a near syncopal episode, concern for hypoglycemia, patient states this morning when he woke up he felt like he was about to pass out , he felt cold, clammy, weak and confused , patient took his blood sugar and he stated it was low , ate and did have some improvement of his symptoms, blood sugar POC at the bedside was 88, and Dexcom reading was in the 100s. Patient states his symptomatology has improved, he admits to some generalized weakness/fatigue, however denies any fever chills chest pain shortness of breath nausea vomiting constipation diarrhea no urinary type symptomatology, no hematuria melena hematochezia or hematemesis, of note patient was recently seen in the emergency department on 02/01/2025 for hyperglycemia versus syncopal episode, at that time patient had also recent history of heart catheterization with stenting to the right RCA, the past medical history consistent with hypertension, hyperlipidemia, hypertensive heart disease, coronary artery disease, type 2 diabetes, unstable angina, also at this time patient denies any headache, visual changes, denies any numbness or tingling, denies any lightheadedness, patient is a non-smoker, denies any alcohol or drug use, patient was recently started back on his insulin regimen after being off it for 1 year , he took 50 units of insulin this morning, but is not on his typical insulin which he typically takes Levemir , due to financial issues. Initial triage vitals unremarkable. Onset (ago): hour(s) Related Data Home Medications ?Medication ?Instructions ?Recorded ?Confirmed aspirin 81 mg tablet,delayed 81 mg PO DAILY heart health 11/01/17 01/30/25 release (Adult Low Dose Aspirin) glimepiride 2 mg tablet 2 mg PO DAILY diabetes 11/01/17 01/30/25 insulin detemir U-100 100 unit/mL 30 unit SQ DAILY diabetes 11/01/17 01/30/25 (3 mL) subcutaneous pen primidone 50 mg tablet 50 mg PO DAILY Tremors 07/26/22 01/30/25 sitagliptin phosphate 50 1 tab PO BID 02/01/24 01/30/25 mg-metformin 1,000 mg tablet (Janumet) Previous Rx's ?Medication ?Instructions ?Recorded bisoprolol fumarate 10 mg tablet 10 mg PO DAILY blood pressure #90 10/13/22 tabs lisinopril 40 mg tablet 40 mg PO DAILY #90 tabs 08/20/24 amlodipine 10 mg tablet 10 mg PO DAILY #30 tabs 01/23/25 isosorbide mononitrate 30 mg 30 mg PO DAILY #30 tabs 01/23/25 tablet,extended release 24 hr nitroglycerin 0.4 mg sublingual 0.4 mg sublingual Q5-15M PRN chest 01/23/25 tablet pain #30 tabs atorvastatin 40 mg tablet (Lipitor) 40 mg PO HS #30 tabs 01/31/25 ticagrelor 90 mg tablet (Brilinta) 90 mg PO BID #60 tabs 01/31/25 Allergies Allergy/AdvReac Type Severity Reaction Status Date / Time No Known Allergies Allergy Verified 01/30/25 11:03 [facility] <RADHA Harkins - Last Filed: 02/11/25 14:25> [facility] Disclaimer: The information contained in this section may have been updated after the patient was seen, as this information can be updated by other users. Medical History Diabetes Closed fracture of metatarsal of left foot Pre-syncope Influenza A Vasovagal episode Syncope Hyperlipidemia Hypertensive heart disease Coronary arteriosclerosis Surgical History Stented coronary artery Family History Mother Cancer Father Family history of myocardial infarction Grandfather Family history of myocardial infarction Other Family history of hyperlipidemia Family history of hypertension Social History Smoking Status: Unknown if ever smoked second hand exposure: Yes alcohol intake: never substance use type: denies use current occupational status: employed Travel in the last 8 weeks: None household members: spouse housing: house marital status: current occupation: [employer] current occupational exposures/hazards: Yes caffeine: Yes Have you lived/traveled outside [place] in past 30 days?: No Contact w/someone who lives/traveled outside US past 30 days?: No Exposure to someone with infectious disease in past 14 days?: No Do you have a fever (greater than 100.4 F or 38 C)?: No Have you tested positive for COVID-19: No Exposed to someone with COVID-19 in past 14 days?: No Do you have a sore throat?: No Do you have a cough?: No Do you have any weakness?: Yes Do you have any diarrhea?: No Are you experiencing any unusual bleeding?: No Do you have any muscle aches/pain?: No Do you have any abdominal pain?: No Are you experiencing loss of taste or smell?: No Other Medical History Have you received the Flu Vaccine for this season: No Have you received the Pneumonia Vaccine: No <RADHA Harkins - Last Filed: 02/11/25 14:25> ROS Obtained: Yes All systems reviewed & no additional complaints except as documented Physical Exam <RADHA Harkins - Last Filed: 02/11/25 14:25> General General appearance: alert and in no apparent distress Head Head exam: atraumatic and normocephalic Eye Eye exam: Present PERRL and EOMI ENT ENT exam: Present mucous membranes moist Neck Neck exam: Present normal inspection Chest Chest inspection: Present normal inspection and symmetric chest wall rise Respiratory Respiratory exam: Present normal lung sounds bilaterally; Absent respiratory distress Cardiovascular Cardiovascular exam: Present regular rate and normal rhythm Abdominal Exam Abdominal exam: Present soft; Absent tenderness, guarding, rebound or rigidity Extremities Exam Extremities exam: Present normal inspection Neurological Exam Neurological exam: Present alert, oriented X3 and other (5 out of 5 strength in bilateral lower extremities, patient moves extremities,) Psychiatric Psychiatric exam: Present normal affect Skin Skin exam: Present warm and dry Medical Decision Making <RADHA Harkins - Last Filed: 02/11/25 14:25> Medical Records Medical records reviewed: Yes I reviewed the patient's medical records. Screening: Per USPSTF and CDC recommendations, given the prevalence of disease in our region, it is our hospital?s policy to screen for HIV and viral Hepatitis for all patients aged 18 and over and those with ongoing risk factors. Danny Inquiry Pt receiving controlled substance: No Danny was queried for this patient: No Vital Signs: 02/11/25 11:36 02/11/25 11:42 02/11/25 12:30 Temperature 98.1 F Temperature Source Oral Pulse Rate 81 84 Pulse Rate [Radial] 89 Respiratory Rate 16 Blood Pressure 158/89 H 152/82 H Blood Pressure [Right Arm] 158/89 H Blood Pressure Mean [Right Arm] 112 Blood Pressure Source [Right Arm] Automatic Cuff Blood Pressure Position [Right Arm] Sitting 02 Sat by Pulse Oximetry 100 100 99 Oxygen Delivery Method Room Air Room Air Room Air 02/11/25 13:01 02/11/25 13:30 Temperature Temperature Source Pulse Rate 83 75 Pulse Rate [Radial] Respiratory Rate Blood Pressure 163/102 H 132/78 Blood Pressure [Right Arm] Blood Pressure Mean [Right Arm] Blood Pressure Source [Right Arm] Blood Pressure Position [Right Arm] 02 Sat by Pulse Oximetry 98 98 Oxygen Delivery Method Room Air Room Air Lab Data Lab Results 02/11/25 11:40: WBC 10.9 H, RBC 5.06, Hgb 15.6, Hct 44.6, MCV 88.1, MCH 30.8, MCHC 35.0, RDW 12.2, Plt Count 336, MPV 8.8, Neut % (Auto) 69.1, Lymph % (Auto) 17.0, [place] % (Auto) 11.0 H, Eos % (Auto) 1.7, Baso % (Auto) 0.7, Neut # (Auto) 7.5, Lymph # (Auto) 1.9, [place] # (Auto) 1.2 H, Eos # (Auto) 0.2, Baso # (Auto) 0.1, Sodium 141, Potassium 4.4, Chloride 102, Carbon Dioxide 32 H, Anion Gap 11.4, BUN 32 H, Creatinine 1.00, Estimated Creat Clear 93, Estimated GFR 75, Est GFR ( Amer) 91, Glucose 86, Calcium 10.5 H, Magnesium 1.8, Total Bilirubin 0.4, AST 34, ALT 30, Alkaline Phosphatase 74, Troponin I < 0.01, NT-Pro-B Natriuret Pep 25.2, Total Protein 8.0, Albumin 4.6, Globulin 3.4 H, Albumin/Globulin Ratio 1.4, Lipase 410 H 02/11/25 12:01: Urine Color Yellow, Urine Appearance Clear, Urine pH 7.0, Ur Specific Jermyn 1.010, Urine Protein Negative, Urine Glucose (UA) Negative, Urine Ketones Negative, Urine Blood Negative, Urine Nitrate Negative, Urine Bilirubin Negative, Urine Urobilinogen 0.2, Ur Leukocyte Esterase Negative, Urine RBC None, Urine WBC None, Ur Squamous Epith Cells Occasional, Urine Bacteria Trace 02/11/25 11:40 02/11/25 11:40 Orders (Tests/Meds): ED MEDICATIONS Discontinued Medications Generic Name Dose Route Start Last Admin Trade Name Freq PRN Reason Stop Dose Admin Lactated Ringer's 1,000 mls @ 999 mls/hr 02/11/25 11:49 02/11/25 12:10 Lactated Ringer's 1000 Ml Bag IV 02/11/25 12:49 999 mls/hr .Q1H1M ONE Administration Iopamidol 75 ml 02/11/25 13:00 02/11/25 13:01 Iopamidol-370 (76%);100ml Bottle IV 02/11/25 13:01 75 ml ONCE ONE Administration Sodium Chloride 10 ml 02/11/25 13:00 02/11/25 13:01 Sodium Chloride 0.9% 10ml Syr (Rad Only) IV 02/11/25 13:01 10 ml ONCE ONE Administration ORDERS Category Date Time Status CT abdomen pelvis w con Stat Cat Scan 02/11/25 12:[address] head/brain wo con Stat Cat Scan 02/11/25 11:48 Completed XR chest portable Stat Exams 02/11/25 11:49 Completed Complete Blood Count Auto Diff Stat Lab 02/11/25 11:40 Completed Comprehensive Metabolic Panel Stat Lab 02/11/25 11:40 Completed Lipase Stat Lab 02/11/25 11:40 Completed Magnesium Stat Lab 02/11/25 11:40 Completed NT Pro Brain Natriuretic Pep. Stat Lab 02/11/25 11:40 Completed Troponin I Q3H Lab 02/11/25 15:00 Ordered Troponin I Q3H Lab 02/11/25 18:00 Ordered Troponin I Stat Lab 02/11/25 11:40 Completed Urinalysis and Microscopic Stat Lab 02/11/25 12:01 Completed Medical Decision Narrative: 64-year-old male presents the emergency department with concern for hypoglycemia/near syncopal episode, differential diagnosis include but not limited to hypoglycemic episode, Side effect of antihyperglycemic medicine, infection, acute UTI, cardiac arrhythmia, electrolyte disturbance, vasovagal syncope, situational syncope, cardiogenic syncope, among others I discussed this case with attending physician Dr. George Will obtain basic laboratory studies, lipase magnesium level proBNP troponin urinalysis, EKG, CT head without contrast, chest x-ray will give 1 L LR IV. CBC unremarkable CMP is notable for elevated BUN at 32, creatinine within normals, mild hypercalcemia at 10.5, lipase is mildly elevated at [address] and pelvis with contrast for further evaluation/characterization. Urinalysis is unremarkable, negative nitrites negative leukocyte esterase. I reviewed the patient's CT head without contrast along with the corresponding radiologic report no acute intracranial process Reviewed the patient's chest x-ray along with the corresponding radiologic report mild bibasilar scarring Discussed all results with the patient at the bedside, preliminary read of the patient's CT abdomen pelvis shows mesenteric adenitis, but no acute intra- abdominal or pelvic pathology, no concerns of patient's pancreas at this time, lipase could be elevated from emergent reasons, recommend follow-up with PCP for this as well as cardiology, patient did not have true syncopal episode today, had previous workup for cardiogenic syncope which was negative, 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 Patient voiced understanding agreement contract plan/discharge plan. Patient has remained hemodynamically stable throughout his time in the emergency department. <Kayce George, DO - Last Filed: 02/11/25 12:15> Vital Signs: 02/11/25 11:36 02/11/25 11:42 02/11/25 12:30 Temperature 98.1 F Temperature Source Oral Pulse Rate 81 84 Pulse Rate [Radial] 89 Respiratory Rate 16 Blood Pressure 158/89 H 152/82 H Blood Pressure [Right Arm] 158/89 H Blood Pressure Mean [Right Arm] 112 Blood Pressure Source [Right Arm] Automatic Cuff Blood Pressure Position [Right Arm] Sitting 02 Sat by Pulse Oximetry 100 100 99 Oxygen Delivery Method Room Air Room Air Room Air 02/11/25 13:01 02/11/25 13:30 Temperature Temperature Source Pulse Rate 83 75 Pulse Rate [Radial] Respiratory Rate Blood Pressure 163/102 H 132/78 Blood Pressure [Right Arm] Blood Pressure Mean [Right Arm] Blood Pressure Source [Right Arm] Blood Pressure Position [Right Arm] 02 Sat by Pulse Oximetry 98 98 Oxygen Delivery Method Room Air Room Air Lab Data Lab Results 02/11/25 11:40: WBC 10.9 H, RBC 5.06, Hgb 15.6, Hct 44.6, MCV 88.1, MCH 30.8, MCHC 35.0, RDW 12.2, Plt Count 336, MPV 8.8, Neut % (Auto) 69.1, Lymph % (Auto) 17.0, [place] % (Auto) 11.0 H, Eos % (Auto) 1.7, Baso % (Auto) 0.7, Neut # (Auto) 7.5, Lymph # (Auto) 1.9, [place] # (Auto) 1.2 H, Eos # (Auto) 0.2, Baso # (Auto) 0.1, Sodium 141, Potassium 4.4, Chloride 102, Carbon Dioxide 32 H, Anion Gap 11.4, BUN 32 H, Creatinine 1.00, Estimated Creat Clear 93, Estimated GFR 75, Est GFR ( Amer) 91, Glucose 86, Calcium 10.5 H, Magnesium 1.8, Total Bilirubin 0.4, AST 34, ALT 30, Alkaline Phosphatase 74, Troponin I < 0.01, NT-Pro-B Natriuret Pep 25.2, Total Protein 8.0, Albumin 4.6, Globulin 3.4 H, Albumin/Globulin Ratio 1.4, Lipase 410 H 02/11/25 12:01: Urine Color Yellow, Urine Appearance Clear, Urine pH 7.0, Ur Specific Jermyn 1.010, Urine Protein Negative, Urine Glucose (UA) Negative, Urine Ketones Negative, Urine Blood Negative, Urine Nitrate Negative, Urine Bilirubin Negative, Urine Urobilinogen 0.2, Ur Leukocyte Esterase Negative, Urine RBC None, Urine WBC None, Ur Squamous Epith Cells Occasional, Urine Bacteria Trace Orders (Tests/Meds): ED MEDICATIONS Discontinued Medications Generic Name Dose Route Start Last Admin Trade Name Freq PRN Reason Stop Dose Admin Lactated Ringer's 1,000 mls @ 999 mls/hr 02/11/25 11:49 02/11/25 12:10 Lactated Ringer's 1000 Ml Bag IV 02/11/25 12:49 999 mls/hr .Q1H1M ONE Administration Iopamidol 75 ml 02/11/25 13:00 02/11/25 13:01 Iopamidol-370 (76%);100ml Bottle IV 02/11/25 13:01 75 ml ONCE ONE Administration Sodium Chloride 10 ml 02/11/25 13:00 02/11/25 13:01 Sodium Chloride 0.9% 10ml Syr (Rad Only) IV 02/11/25 13:01 10 ml ONCE ONE Administration ORDERS Category Date Time Status CT abdomen pelvis w con Stat Cat Scan 02/11/25 12:[address] head/brain wo con Stat Cat Scan 02/11/25 11:48 Completed XR chest portable Stat Exams 02/11/25 11:49 Completed Complete Blood Count Auto Diff Stat Lab 02/11/25 11:40 Completed Comprehensive Metabolic Panel Stat Lab 02/11/25 11:40 Completed Lipase Stat Lab 02/11/25 11:40 Completed Magnesium Stat Lab 02/11/25 11:40 Completed NT Pro Brain Natriuretic Pep. Stat Lab 02/11/25 11:40 Completed Troponin I Q3H Lab 02/11/25 15:00 Ordered Troponin I Q3H Lab 02/11/25 18:00 Ordered Troponin I Stat Lab 02/11/25 11:40 Completed Urinalysis and Microscopic Stat Lab 02/11/25 12:01 Completed ECG Data Tracing #1: I reviewed this ECG and interpreted as documented below: Normal sinus rhythm at a ventricular rate of [address] changes concerning for ischemia. Some motion artifact in V5. Normal intervals ECG initial impression date: 02/11/25 ECG initial impression time: 11:42 Critical Care <RADHA Harkins - Last Filed: 02/11/25 14:25> Critical Care Time Critical Care Time: No
--- NOTE | 2025-02-11 11:40 | ECG_ITS ---
APPROVED REPORT Exam: Resting ECG HR:77 bpm ECG Measurements Heart Rate 77 AXES CA 182 P 65 QRSd 93 QRS 62 QT 373 T 3 QTc 405 Conclusion SINUS RHYTHM NORMAL ECG Electronically signed by : JASE LAST, 02/11/2025 15:33:25
[2025-02-11 11:42] VITALS: BP 158/89; PULSE 89; RESP 16; TEMP 36.7; O2SAT 100; BMI 25.3
--- NOTE | 2025-02-11 11:48 | CT_ITS ---
FINAL REPORT TECHNIQUE: Axial CT images were performed through the head. Coronal reformatted images were submitted. This study was performed with techniques to keep radiation doses as low as reasonably achievable (ALARA). Individualized dose reduction techniques using automated exposure control or adjustment of mA and/or kV according to the patient's size were employed. CLINICAL HISTORY: Altered mental status COMPARISON: 02/01/2025 FINDINGS: The ventricles are normal in size. There is no evidence of hemorrhage. There is no mass or edema identified. There is no abnormal extra-axial fluid seen. The right maxillary sinus is hypoplastic. Mild changes of bilateral maxillary sinusitis are noted. IMPRESSION: No acute intracranial process. Reviewed, Interpreted and Dictated by Wenceslao Li MD Transcribed by Ketty Amos Authenticated and [facility]
--- NOTE | 2025-02-11 11:49 | XR_ITS ---
FINAL REPORT CLINICAL HISTORY: Shortness of breath COMPARISON: 10/12/2022 FINDINGS: The heart size is normal. The mediastinum is normal. The lungs are underinflated. There is mild bibasilar scarring. There are no pleural effusions. There is no pneumothorax. There is no osseous abnormality. IMPRESSION: Mild bibasilar scarring. Reviewed, Interpreted and Dictated by Wenceslao Li MD Transcribed by Ketty Amos Authenticated and [facility][1]
[2025-02-11 11:54] LABS: Basophils # 0.1 K/mm3 (0-0.2); Basophils % 0.7 % (0.1-2.0); Eosinophils # 0.2 Kmm3 (0.0-0.4); Eosinophils % 1.7 % (0.1-12.0); Hematocrit 44.6 % (42.0-52.0); Hemoglobin 15.6 g/dL (14.1-18.0); Lymphocytes # 1.9 K/mm3 (0.7-4.5); Mean Corpuscular Hemoglobin 30.8 pg (27.0-31.2); Mean Corpuscular Volume 88.1 fl (80-94); Mean Platelet Volume 8.8 fl (7.4-10.4); Monocytes # 1.2 K/mm3 (0.1-1.0); Neutrophils # 7.5 K/mm3 (1.8-7.8); Neutrophils % 69.1 % (37.0-80.0); Nucleated Red Blood Cells # 0 10^3/uL; Nucleated Red Blood Cells % 0 %; Platelet Count 336 K/mm3 (142-424); Red Blood Count 5.06 M/mm3 (4.60-6.20); Red Cell Distribution Width 12.2 % (11.5-17.5); Red Cell Distribution Width-SD 39.1 fL; White Blood Count 10.9 K/mm3 (4.8-10.8)
[2025-02-11 12:02] LABS: Alanine Aminotransferase 30 U/L (12-78); Albumin Level 4.6 g/dl (3.5-5.0); Albumin/Globulin Ratio 1.4 (1.1-1.8); Alkaline Phosphatase 74 U/L (38-126); Anion Gap 11.4 mEq/L (5-15); Aspartate Amino Transferase 34 U/L (17-59); Bilirubin,Total 0.4 mg/dl (0.2-1.3); Blood Urea Nitrogen 32 mg/dl (9-20); Calcium 10.5 mg/dl (8.4-10.2); Carbon Dioxide 32 mmol/L (22.0-30.0); Chloride 102 mmol/L (98-107); Creatinine Clearance Estimated 93 mL/min (50-200); Estimated Glomerular Filt Rate 75 ml/min (>60); GFR (African American) 91 ML/MIN (>60); Globulin 3.4 g/dL (1.3-3.2); Glucose 86 mg/dl (74-100); Lipase 410 U/L (23-300); Magnesium 1.8 mg/dl (1.6-2.3); Potassium 4.4 mmoL/L (3.5-5.1); Sodium 141 mmol/L (136-145)
[2025-02-11 12:06] LABS: Appearance,Urine CLEAR (Clear); Bilirubin,Urine Negative (Negative); Blood, Urine Negative (Negative); Color,Urine YELLOW (Yellow); Glucose,Urine (UA) Negative (Negative); Ketones,Urine Negative (Negative); Leukocyte Esterase,Urine Negative (Negative); Microscopic, Urine URINE MICROSCOPIC (MICROSCOPIC); Nitrate,Urine Negative (Negative); Protein,Urine Negative (Negative); Urobilinogen,Urine 0.2 EU/dl (0.2)
[2025-02-11] MEDS: LACTATED RINGERS 1000ML 1,000 ML 999 ML IV (12:10)
[2025-02-11 12:13] LABS: NT Pro Brain Natriuretic Pep. 25.2 pg/mL (0-125)
[2025-02-11 12:18] LABS: Troponin I < 0.01 ng/ml (0.00-0.034)
[2025-02-11 12:21] LABS: Bacteria,Urine Trace /lpf; Squamous Epithelial Cell,Urine Occasional #/hpf (0-5)
--- NOTE | 2025-02-11 12:24 | CT_ITS ---
FINAL REPORT TECHNIQUE: After the administration of oral and intravenous contrast, axial images were obtained through the abdomen and pelvis by computed tomography. The study was performed with techniques to keep radiation dose as low as reasonably achievable, (ALARA). Individual dose reduction techniques using automated exposure control or adjustment of mA and/or kV according to the patient's size were employed. CLINICAL HISTORY: Nausea, elevated lipase COMPARISON: 02/20/2024 FINDINGS: Abdomen: The lung bases are clear. There is mild fatty infiltration of the liver. The gallbladder is present. The spleen, pancreas, adrenals and kidneys appear unremarkable. There are small mesenteric lymph nodes, similar to the previous exam. There is mild haziness in the root of the mesentery, similar to the previous exam. These may be related to mild mesenteric adenitis. Pelvis: The appendix is unremarkable. The urinary bladder is of normal size and configuration. There is no free air or fluid collection. IMPRESSION: Changes of mild mesenteric adenitis. No definite pancreatitis. Reviewed, Interpreted and Dictated by Wenceslao Li MD Transcribed by Estefania Huff Authenticated and . [facility]
[2025-02-11 12:30] VITALS: BP 152/82; PULSE 84; O2SAT 99
--- NOTE | 2025-02-11 12:51 | PC.NURSE ---
patient gone to CT at this time.
[2025-02-11 13:01] VITALS: BP 163/102; PULSE 83; O2SAT 98
[2025-02-11] MEDS: IOPAMIDOL-370 (76%);100ML BOTTLE 75 ML IV (13:01)
[2025-02-11] MEDS: SODIUM CHLORIDE 0.9% 10ML SYR (RAD ONLY) 10 ML IV (13:01)
[2025-02-11 13:30] VITALS: BP 132/78; PULSE 75; O2SAT 98
[2025-02-11 14:28] VITALS: BP 112/79; PULSE 81; RESP 18; TEMP 36.7; O2SAT 96
== END 2025-02-11 14:28 | disposition home or self-care (01) ==
PROVIDERS: Physician Assistant; Emergency Provider Emergency Medicine; PCP Family Medicine
DX: E11.649 Type 2 diabetes mellitus with hypoglycemia without coma (principal); R55 Syncope and collapse; R53.83 Other fatigue; R74.8 Abnormal levels of other serum enzymes
CPT/HCPCS: 70450; 71045; 74177; 80053; 81001; 83690; 83735; 83880; 84484; 85025; 93005; 96360; 99285; J7120; Q9967

== ENCOUNTER 2025-02-24 09:41 | Outpatient (RCR) | payer OTHER, SELFPAY | END 2025-04-21 10:00 | disposition home or self-care (01) | LOC: CR 09:41 | PROVIDERS: Visit Provider Internal Medicine | DX: Z48.812 Encounter for surgical aftercare following surgery on the circulatory system (principal); Z95.5 Presence of coronary angioplasty implant and graft | CPT/HCPCS: 93798 ==

== ENCOUNTER 2025-05-24 10:06 | Emergency (ER) | payer OTHER, SELFPAY ==
--- OUTSIDE RECORDS SUMMARY | 2025-02-06 07:30 | XMS_ITS ---
Author Organization [facility] Address [address] [id number] Care Team Providers Care Dopster Name Role Phone Shemar Beltran Primary Care [...] 02/06/2025 Encounters Encounter Location Date Provider Diagnosis [facility] [address] [place], [place] [phone] 02/06/2025 Shemar Beltran Type 2 diabetes handy itus without complication E11.9 ; Recurrent syncope R55 ; Coronary artery disease involving [place] coronary artery of [place] heart without angina pectoris I25.10 and BMI 25.0-25.9,adult Z68.25 Assessments Encounter Date Diagnosis (ICD Code) Assessment Notes Treatment Notes Treatment Clinical Notes Section Notes 02/06/2025 Type 2 diabetes mellitus without complication (ICD-10 - E11.9) compliance issues reviewed 02/06/2025 Recurrent syncope (ICD-10 - R55) ER records including notes, labs and radiology reports reviewed in office today 02/06/2025 Coronary artery disease involving [place] coronary artery of [place] heart without angina pectoris (ICD-10 - I25.10) [...] [address], [address], [place], [place], [id number], Progress Notes * KIRAN ALBAB:11/1959 (64 yo M)Acc No.[id number]:02/06/2025 Progress Notes Patient: KIRAN LIND Provider: Colby Beltran M.D. :1960 A ge:64 Y S ex:Male Date:02/06/2025 Address:[facility] [address], [id number] Subjective: * Chief Complaints: * 1 . Check Up on Diabetes. * HPI: E ndocrinology: 64 year old male presents with c/o Recent Blood Sugars P t here to f/u on DM 2. H PI: c/o Here for follow up on: 0 02/01/2025 [facility] er visit. Pt was taken to er [...] LT Heart Cath, Cardiac Stent x 4- [facility] 03/2015, LT Heart Cath, Cardiac Stent x 2 09/2016, Cardiac Stent Placement x1 01/2018, Cardiac Catheterization, stent x 3 06/2021. * Hospitalization/Major Diagno stic Procedure: G allbladder- [facility] 07/09-, Dehydration 04/20/2013, Vomiting/Diarrhea/Abdominal Pain- [facility] 10/10-, Dizziness, CABG, Stent placement- [facility] 01/26-04/2018, Syncope- [facility] ER 05/23/2020, Elevated BP & Leg Discomfort- [facility] ER 07/25/2022, Chest Pain - [facility] 10/12/2022. * Family History: F ather: alive. [...] 3 . C oronary artery disease involving [place] coronary artery of [place] heart without angina pectoris - I25.10 4 . B [place] 25.0-25.9,adult - Z68.25 Plan: * Treatment: Value Reference Range H GBA1C 11.9 H 4.0-6.0 - % * Shemar Beltran 02/06/2025 1 2:59:36 PM > Sent to to inform pt.Roselia Berry 02/06/2025 04:40:01 PM > vm is fullGoRoselia hanson 02/07/2025 12:31:52 PM >pt informed of results Notes: compliance issues reviewed??2.?Recurrent syncope? Notes: ER records including notes, labs and radiology reports reviewed in office today??3.?Coronary artery disease involving [place] coronary artery of [place] heart without angina pectoris? Continue Brilinta Tablet, [...] * Images: Billing Information: * Visit Code: 37189 Office Visit, Est Pt., Level 4. * Procedure Codes: 3046F HEMOGLOBIN A1C LEVEL > 9.0%. 3074F SYST BP LT 130 MM HG. 3078F DIAST BP < 80 MM HG. * Electronic signature of Azra Beltran MD on 05/24/2025 at 10:16 AM EDT Sign off status: Pending * Provider: Colby Beltran M.D. Date: 0 02/06/2025 Generated for Aparna munroe/Jewel/eTembersmitting on: 0 05/24/2025 10:16 AM EDT History and Physical Notes * HPI (History of Present Illness) Category Sub-Category Detail Notes Category Not es Endocrinology Recent Blood Sugars Pt here to f/u on DM 2 HPI Here for follow up on: 5 [facility] er visit. Pt was taken to er do to syncope episode and vomiting Examination Category Sub-Category Detail Notes Category Not es Endocrinology Heart: RSR Lungs: clear to auscultatio n Extremities: no leg edema General Appearance: NAD
--- OUTSIDE RECORDS SUMMARY | 2025-03-06 06:00 | XMS_ITS ---
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 Name Role Phone Shemar Beltran Primary Care Provider [phone] Allergies No Known Allergies REASON FOR VISIT 4 weeks Medications Medication SIG (Take, Route, Frequency, Duration) Notes Start Date End Date Status Janumet 50-1000 MG 1 tablet with meals Orally Twice a day Active Brilinta 60 MG 1 tab(s) orally 2 ti mes a day Active Aspir-Low 81 MG 1 tab(s) orally once a day 007 Active amLODIPine Besylate 10 MG TAKE 1 TABLET BY MOUTH EVERY DAY FOR 30 DAYS; Duration: 90 days Active Primidone 50 MG TAKE 1 TABLET BY LEONIE TH EVERY DAY FOR 30 DAYS; Duration: 30 Active PEN NEEDLE 4MM 32G - ONCE DAILY 06/14/2022 Active Basaglar KwikPen 100 UNIT/ML 50 units subcutaneously twice a day Active Lisinopril 40 MG TAKE 1 TABLET BY LEONIE TH EVERY DAY; Duration: 30 days Active Glimepiride 2 MG TAKE 1 TABLET BY LEONIE TH EVERY DAY FOR 30 DAYS Active Bisoprolol Fumarate 10 MG 1 tab(s) orall y once a day; Duration: 15 days Active Isosorbide Dinitrate 20 MG 1 tablet Orally Twice a day Active Insulin Syringe - ONCE A DAY 06/09/2022 Active BD PEN NEEDLE SHORT (OBSOLETE) 1 PEN NEEDLE ONCE A DAY 08/13/2018 Acti ve Vital Signs Blood pressure systolic 168 mm Hg 05/15/20 25 Blood pressure diastolic 90 mm Hg 025 Heart Rate 75 /min 03/06/2025 Height 72.75 in 03/06/2025 Weight 201.6 lbs 03/06/2025 BMI 26.78 kg/m2 03/06/2025 Encounters Encounter Location Date Provider Diagnosis Clara [address]10 [facility] 36 [facility] [address] [place], [place] [id number] 03/06/2025 Shemar Beltran Type 2 diabetes handy itus with other specified complication E11.69 and BMI 26.0-26.9,adult Z68.26 Assessments Encounter Date Diagnosis (ICD Code) Assessment Notes Treatment Notes Treatment Clinical Notes Section Notes 03/06/2025 Type 2 diabetes mellitus with other specified complication (ICD-10 - E11.69) 03/06/2025 BMI 26.0-26.9,adult (ICD-10 - Z68.26) Plan Of Treatment Medication Medication Name Sig Start Date Stop Date Notes Janumet 50-1000 MG 1 tablet with meals Orally Twice a day Basaglar KwikPen 100 UNIT/ML 50 units meza bcutaneously twice a day Glimepiride 2 MG TAKE 1 TABLET BY LEONIE TH EVERY DAY FOR 30 DAYS Next Appt Details Follow Up: 2 Months, Reason: Provider Name:Shemar Morales ry, 08/11/2025 09:00:00 AM, [address] [facility] 36 [facility], [address], [place], [place], [id number], Progress Notes * KIRAN ALBA MARINOIDOB:11/1959 (64 yo M)Acc No.[id number]:03/06/2025 Progress Notes Patient: KIRAN LIND Provider: Colby Beltran M.D. :1960 A ge:64 Y S ex:Male Date:03/06/2025 Address:[place], [id number] Subjective: * Chief Complaints: * 1 . 4 weeks. * HPI: E ndocrinology: 64 year old male presents with c/o Recent Blood Sugars T he pt is here for a check up on Diabetes. Pt states his glucose was 71. Pt states he has been running below 200 on average. Pt is not fasting. * ROS: D ERMATOLOGY: no R marianna. n o H cathryn. G ASTROENTEROLOGY: no N ausea. n o V omiting. n o D iarrhea.? U ROLOGY: no D ifficulty urinating. n o B lood in urine. * Medical History: C oronary Artery Disease, Myocardial Infarction, Type 2 Diabetes, Hypertension, Hyperlipidemia, Vitamin D deficiency. * Surgical History: R T K Cyst Removal 2000, LT Heart Cath, Cardiac Stent x 4- [facility] 03/2015, LT Heart Cath, Cardiac Stent x 2 09/2016, Cardiac Stent Placement x1 01/2018, Cardiac Catheterization, stent x 3 06/2021, Percutaneous coronary intervention, stent x 1 2024. * Hospitalization/Major Diagno stic Procedure: G allbladder- [facility] 07/09-, Dehydration 04/20/2013, Vomiting/Diarrhea/Abdominal Pain- [facility] 10/10-, Dizziness, CABG, Stent placement- [facility] 01/26-04/2018, Syncope- [facility] ER 05/23/2020, Elevated BP & Leg Discomfort- [facility] ER 07/25/2022, Chest Pain - [facility] 10/12/2022. * Family History: F ather: alive. [...] tablet Orally Twice a day , Taking Insulin Syringe - ONCE A DAY , Taking BD PEN NEEDLE SHORT (OBSOLETE) 1 PEN NEEDLE ONCE A DAY , Taking PEN NEEDLE 4MM 32G - ONCE DAILY , Taking Lisinopril 40 MG Tablet TAKE 1 TABLET BY MOUTH EVERY DAY , Taking Bisoprolol Fumarate 10 MG Tablet 1 tab(s) orally once a day , Taking Janumet 50-1000 MG Tablet 1 tablet with meals Orally Twice a day , Taking Glimepiride 2 MG Tablet TAKE 1 TABLET BY MOUTH EVERY DAY FOR 30 DAYS , Taking Brilinta 60 MG Tablet 1 tab(s) orally 2 times a day , Taking Aspir-Low 81 MG Tablet Delayed Release 1 tab(s) orally once a day , Taking Basaglar KwikPen 100 UNIT/ML Solution Pen-injector 50 units subcutaneously twice a day , Taking amLODIPine Besylate 10 MG Tablet TAKE 1 TABLET BY MOUTH EVERY DAY FOR 30 DAYS , Taking Primidone 50 MG Tablet TAKE 1 TABLET BY MOUTH EVERY DAY FOR 30 DAYS , Medication List reviewed and reconciled with the patient * Allergies: N .K.D.A. Objective: * Vitals: W t: 201.6, Temp: 98.4, BP: 168/90, HR: 75, Nurse: CHLOE, Ht: 72.75, Repeat BP:138/74, BMI:26.78. * Examination: E ndocrinology: General Appearance: N AD. H eart: Travis SANDERSON. Nadira ungs:?clear to auscultation. Assessment: * Assessment: 1. T ype 2 diabetes mellitus with other specified complication - E11.69 (Primary) ?2. B CA 26.0-26.9,adult - Z68.26 Plan: * Treatment: * Procedure Codes: 3 075F SYST BP GE 130 - 139MM HG, 3078F DIAST BP < 80 MM HG * Follow Up: 2 Months * Images: Billing Information: * Visit Code: 98329 Office Visit, Est Pt., Level 3. * Procedure Codes: 3075F SYST BP GE 130 - 139MM HG. 3078F DIAST BP < 80 MM HG. * Electronic signature of Azra Beltran MD on 05/24/2025 at 10:17 AM EDT Sign off status: Pending * Provider: Colby Beltran M.D. Date: 0 03/06/2025 Generated for Aparna munroe/Jewel/Elsaitting on: 0 05/24/2025 10:17 AM EDT History and Physical Notes * HPI (History of Present Illness) Category Sub-Category Detail Notes Category Not es Endocrinology Recent Blood Sugars The pt is he re for a check up on Diabetes. Pt states his glucose was 71. Pt states he has been running below 200 on average. Pt is not fasting Examination Category Sub-Category Detail Notes Category Not es Endocrinology Heart: RSR Lungs: clear to auscultatio n General Appearance: NAD
--- OUTSIDE RECORDS SUMMARY | 2025-05-06 07:15 | XMS_ITS ---
Author Organization [facility] Address [address] [facility] [address] [place] [id number] Care Team Providers Care Manager Trainee Name Role Phone Shemar Beltran Primary Care Provider [phone] Allergies No Known Allergies Results Component Value Reference Range Notes Glucose (In-House) Reviewed date:05/06/2025 11:52:27 AM Interpretation: Performing Lab: Notes/Report: blood glucose 226 74 - 106 mg/dL Glycohemoglobin A1c (in hous e) Reviewed date:05/06/2025 11:52:57 AM Interpretation: Performing Lab: Notes/Report: glycohemoglobin 9.6% 5 - 6.5 % P-Comprehensive Metabolic Pa asnjiv (CMP) Reviewed date:05/07/2025 11:12:45 AM Interpretation:gluc 202 Performing Lab: Notes/Report: Test performed by [employer] [employer] [address] [place] [address] , [address], [place] [address] Rajesh Gayle MD, Mrb Engineer CLIA: [id number] Sodium 138 135-145 mmol/L Potassium 4.6 3.5-5.3 mmol/L Chloride 103 97-108 mmol/L CO2 24 20-32 mmol/L Glucose 202 65-99 mg/dL BUN 15 8-23 mg/dL Creatinine 1.04 0.70-1.30 mg/dL Calcium 10.1 8.6-10.4 mg/dL eGFR by Creatinine 80 >59 mL/min/1.73m2 Protein 7.2 6.0-8.3 g/dL Albumin 4.6 3.5-5.3 g/dL Alkaline Phosphatase 114 40-129 IU/L ALT (SGPT) 41 <5-55 IU/L AST (SGOT) 21 <5-46 IU/L Bilirubin, Total 0.5 <0.2-1.2 mg/dL A/G Ratio 1.8 1.1-2.5 P-Lipid Panel Reviewed date:05/07/2025 11:12:45 AM Interpretation:hdl 31 Performing Lab: Notes/Report: Test performed by [employer] [address] , [address], [place] [address] Rajesh Gayle MD, Mrb Engineer CLIA: [id number] Cholesterol 99 <200 mg/dL Triglycerides 102 <150 mg/dL HDL Cholesterol 31 >39 mg/dL Cholesterol / HDL Ratio 3.19 0.00-4.99 Ratio Non-HDL Cholesterol 68 <130 mg/dL LDL Cholesterol (Calculation) 48 <130 mg/dL LDL Cholesterol Levels* Less than 100 mg/dL Optimal 100 to 129 mg/dL Near Optimal/ Above Optimal 130 to 159 mg/dL Borderline High 160 to 189 mg/dL High 190 mg/dL and above Very High * Categories as recommended by the 2004 ATPIII guidelines LDL/HDL Ratio 1.5 <3.3 Ratio LDL Cholesterol Patient History Test Date: 05/06/2025 LDL Results: 48 Units: mg/dL % Change: - P-PSA Reviewed date:05/07/2025 11:12:45 AM Interpretation:Normal Performing Lab: Notes/Report: Test performed by [employer] [address] , [place] [address] Rajesh Gayle MD, Mrb Engineer CLIA: [id number] PSA 1.27 <4.00 ng/mL Please note this is an ultrasensitive PSA assay with a lower limit of detection of 0.014 ng/mL. This test is performed by the [employer] ECLIA methodology. Values obtained with different assay methods or kits cannot be directly compared. P-TSH reflex to FT4 Reviewed date:05/07/2025 11:12:45 AM Interpretation:Normal Performing Lab: Notes/Report: Test performed by [employer] [address] , [place] [address] Rajesh Gayle MD, Mrb Engineer CLIA: [id number] TSH reflex to FT4 3.31 0.43-5.25 mU/L P-Microalbumin/Creatinine, R andom Urine Sample Reviewed date:05/07/2025 11:12:45 AM Interpretation:a/c 53 Performing Lab: Notes/Report: Test performed by [employer] [address] , [place] [address] Rajesh Gayle MD, Mrb Engineer CLIA: [id number] Albumin/Creatinine Ratio, Urine 53 0-30 ug/m g Microalbumin, Urine, Random 3.2 Creatinine, Urine 60.3 P-Vitamin D 25-Hydroxy Reviewed date:05/07/2025 11:12:45 AM Interpretation:Normal Performing Lab: Notes/Report: Test performed by [employer] [address] , [address], [place] [address] Rajesh Gayle MD, Mrb Engineer CLIA: [id number] Vitamin D 25-Hydroxy 62.8 30.0-100.0 ng/mL Interpretation of Vitamin D 25 OH: < 20 ng/mL - Deficiency 20 - 29 ng/mL - Insufficiency 30 - 100 ng/mL - Sufficiency > 100 ng/mL - Super-therapeutic- toxicity may occur above this level. Clinical correlation required. REASON FOR VISIT 2 months Medications Medication SIG (Take, Route, Frequency, Duration) Notes Start Date End Date Status Primidone 50 MG TAKE 1 TABLET BY LEONIE TH EVERY DAY; Duration: 30 Active Glimepiride 2 MG TAKE 1 TABLET BY LEONIE TH EVERY DAY; Duration: 30 Active Basaglar KwikPen 100 UNIT/ML 60 units subcutaneously once a day Active amLODIPine Besylate 10 MG TAKE 1 TABLET BY MOUTH EVERY DAY FOR 30 DAYS; Duration: 90 days Active Zituvimet XR 50-1000 MG 2 tablets with f ood Orally Once a day; Duration: 90 days 03/24/2025 Active PEN NEEDLE 4MM 32G - ONCE DAILY 06/14/2022 Active Lisinopril 40 MG TAKE 1 TABLET BY LEONIE TH EVERY DAY; Duration: 30 days Active Bisoprolol Fumarate 10 MG 1 tab(s) orall y once a day; Duration: 15 days Active Brilinta 60 MG 1 tab(s) orally 2 ti mes a day Active Aspir-Low 81 MG 1 tab(s) orally once a day 007 Active Isosorbide Dinitrate 20 MG 1 tablet Orally Twice a day Active Insulin Syringe - ONCE A DAY 06/09/2022 Active BD PEN NEEDLE SHORT (OBSOLETE) 1 PEN NEEDLE ONCE A DAY 08/13/2018 Acti ve Vital Signs Blood pressure systolic 134 mm Hg 05/06/20 25 Blood pressure diastolic 80 mm Hg 025 Heart Rate 99 /min 05/06/2025 Height 72.75 in 05/06/2025 Weight 198 lbs 05/06/2025 BMI 26.3 kg/m2 05/06/2025 Encounters Encounter Location Date Provider Diagnosis [facility] [address] [facility] [address] [place] [address], [place] [id number] 05/06/2025 Shemar Beltran Type 2 diabetes handy itus without complication E11.9 ; Essential hypertension I10 ; Pure hypercholesterolemia E78.00 ; Vitamin D deficiency E55.9 ; terminal carman (current) use of insulin Z79.4 ; Prostate cancer screening Z12.5 and BMI 26.0-26.9,adult Z68.26 Assessments Encounter Date Diagnosis (ICD Code) Assessment Notes Treatment Notes Treatment Clinical Notes Section Notes 05/06/2025 Type 2 diabetes handy itus without complication (ICD-10 - E11.9) 05/06/2025 Essential hypertensi on (ICD-10 - I10) 05/06/2025 Pure hypercholesterolemia (ICD-10 - E78.00) 05/06/2025 Vitamin D deficiency (ICD-10 - E55.9) 05/06/2025 terminal carman (current) use of insulin (ICD-10 - Z79.4) 05/06/2025 Prostate cancer screening (ICD-10 - Z12.5) 05/06/2025 BMI 26.0-26.9,adult (ICD-10 - Z68.26) Plan Of Treatment Medication Medication Name Sig Start Date Stop Date Notes Basaglar KwikPen 100 UNIT/ML 60 units subcutaneously once a day Next Appt Details Follow Up: 3 Months, Reason: Provider Name:Shemar Morales ry, 08/11/2025 09:00:00 AM, [address] [facility] [address] [facility], [address] , [place], [place], [id number], Progress Notes * ANJALI KIRAN QUIROZB:11/1959 (64 yo M)Acc No.[id number]:05/06/2025 Progress Notes Patient: KIRAN LIND Provider: Colby Beltran M.D. :1960 A ge:64 Y S ex:Male Date:05/06/2025 Address:[address] [place] [address] [facility], [id number] Subjective: * Chief Complaints: * 1 . 2 months. * HPI: E ndocrinology: 64 year old male presents with c/o Recent Blood Sugars P t here to f/u on DM 2. Pt states he checks blood sugar at home sometimes and it is getting better . Pt states he has been exercising and being better with his diet. * ROS: D ERMATOLOGY: no R marianna. [...] LT Heart Cath, Cardiac Stent x 4- [facility] 03/2015, LT Heart Cath, Cardiac Stent x 2 09/2016, Cardiac Stent Placement x1 01/2018, Cardiac Catheterization, stent x 3 06/2021, Percutaneous coronary intervention, stent x 1 2024. * Hospitalization/Major Diagno stic Procedure: G allbladder- [facility] 07/09-, Dehydration 04/20/2013, Vomiting/Diarrhea/Abdominal Pain- [facility] 10/10-, Dizziness, CABG, Stent placement- [facility] 01/26-04/2018, Syncope- [facility] 05/23/2020, Elevated BP & Leg Discomfort- [facility] 07/25/2022, Chest Pain - [facility] 10/12/2022. * Family History: F ather: alive. [...] tab(s) orally once a day , Taking amLODIPine Besylate 10 MG Tablet TAKE 1 TABLET BY MOUTH EVERY DAY FOR 30 DAYS , Taking Basaglar KwikPen 100 UNIT/ML Solution Pen-injector 56 units subcutaneously once a day , Taking Zituvimet XR 50-1000 MG Tablet Extended Release 24 Hour 2 tablets with food Orally Once a day , Taking Primidone 50 MG Tablet TAKE 1 TABLET BY MOUTH EVERY DAY , Taking Glimepiride 2 MG Tablet TAKE 1 TABLET BY MOUTH EVERY DAY , Medication List reviewed and reconciled with the patient * Allergies: N .K.D.A. Objective: * Vitals: W t: 198, Temp: 98.0, BP: 134/80, HR: 99, Nurse: areli, Ht: 72.75, BMI:26.3. * Examination: E ndocrinology: General Appearance: N AD. H eart: R SR. L ungs:?clear to auscultation. E xtremities: n o leg edema. Assessment: * Assessment: 1. T ype 2 diabetes mellitus without complication - E11.9 (Primary) 2 . E ssential hypertension - I10 3 . P ure hypercholesterolemia - E78.00 ?4. V itamin D deficiency - E55.9 5 . L tatiana term (current) use of insulin - Z79.4 6 . P rostate cancer screening - Z12.5 7 . B KS 26.0-26.9,adult - Z68.26 Plan: * Treatment: Value Reference Range A /G Ratio 1.8 1.1-2.5 - * A lbumin 4.6 3.5-5.3 - g/dL * A lkaline Phosphatase 114 40-129 - IU/L * A LT (SGPT) 41 <5-55 - IU/L * A ST (SGOT) 21 <5-46 - IU/L * B ilirubin, Total 0.5 <0.2-1.2 - mg/dL * B UN 15 8-23 - mg/dL * C alcium 10.1 8.6-10.4 - mg/dL * C hloride 103 97-108 - mmol/L * C O2 24 20-32 - mmol/L * C reatinine 1.04 0.70-1.30 - mg/dL * G lucose 202 H 65-99 - mg/dL * P otassium 4.6 3.5-5.3 - mmol/L * S odium 138 135-145 - mmol/L * P rotein 7.2 6.0-8.3 - g/dL * e GFR by Creatinine 80 >59 - mL/min/1.73m2 * Barbara Lyons 05/07/2025 11:1 2:37 AM EDT > See phone encounter ?LAB: P-Microalbumin/Creatinine, Random Urine Sample (Collection Date & Time - 05/06/2025 10:32 AM)?a/c 53* Value Reference Range A lbumin/Creatinine Ratio, Urine 53 H 0-30 - ug /mg * C reatinine, Urine 60.3 - mg/dL * M icroalbumin, Urine, Random 3.2 - mg/dL * Barbara Lyons 05/07/2025 11:1 2:37 AM EDT > See phone encounter ?LAB: Glucose (In-House) (Collection Date & Time - 05/06/2025)* Value Reference Range b lood glucose 226 74 - 106 mg/dL * Fartun Yoder 05/06/2025 11:52: 09 AM EDT > Provider reviewed results while patient in office. ?LAB: Glycohemoglobin A1c (in house) (Collection Date & Time - 05/06/2025)* Value Reference Range g lycohemoglobin 9.6% 5 - 6.5 % * Fartun Yoder 05/06/2025 11:52: 47 AM EDT > Provider reviewed results while patient in office. 2.?Essential hypertension?LAB: P-Comprehensive Metabolic Panel (CMP) (Collection Date & Time - 05/06/2025 10:32 AM)?gluc 202* Value Reference Range A /G Ratio 1.8 1.1-2.5 - * A lbumin 4.6 3.5-5.3 - g/dL * A lkaline Phosphatase 114 40-129 - IU/L * A LT (SGPT) 41 <5-55 - IU/L * A ST (SGOT) 21 <5-46 - IU/L * B ilirubin, Total 0.5 <0.2-1.2 - mg/dL * B UN 15 8-23 - mg/dL * C alcium 10.1 8.6-10.4 - mg/dL * C hloride 103 97-108 - mmol/L * C O2 24 20-32 - mmol/L * C reatinine 1.04 0.70-1.30 - mg/dL * G lucose 202 H 65-99 - mg/dL * P otassium 4.6 3.5-5.3 - mmol/L * S odium 138 135-145 - mmol/L * P rotein 7.2 6.0-8.3 - g/dL * e GFR by Creatinine 80 >59 - mL/min/1.73m2 * Barbara Lyons 05/07/2025 11:1 2:37 AM EDT > See phone encounter 3.?Pure hypercholesterolemia?LAB: P-Comprehensive Metabolic Panel (CMP) (Collection Date & Time - 05/06/2025 10:32 AM)?gluc 202* Value Reference Range A /G Ratio 1.8 1.1-2.5 - * A lbumin 4.6 3.5-5.3 - g/dL * A lkaline Phosphatase 114 40-129 - IU/L * A LT (SGPT) 41 <5-55 - IU/L * A ST (SGOT) 21 <5-46 - IU/L * B ilirubin, Total 0.5 <0.2-1.2 - mg/dL * B UN 15 8-23 - mg/dL * C alcium 10.1 8.6-10.4 - mg/dL * C hloride 103 97-108 - mmol/L * C O2 24 20-32 - mmol/L * C reatinine 1.04 0.70-1.30 - mg/dL * G lucose 202 H 65-99 - mg/dL * P otassium 4.6 3.5-5.3 - mmol/L * S odium 138 135-145 - mmol/L * P rotein 7.2 6.0-8.3 - g/dL * e GFR by Creatinine 80 >59 - mL/min/1.73m2 * Barbara Lyons 05/07/2025 11:1 2:37 AM EDT > See phone encounter ?LAB: P-Lipid Panel (Collection Date & Time - 05/06/2025 10:32 AM)?hdl 31* Value Reference Range C holesterol / HDL Ratio 3.19 0.00-4.99 - Ratio * C holesterol 99 <200 - mg/dL * H DL Cholesterol 31 L >39 - mg/dL * L DL Cholesterol (Calculation) 48 <130 - mg/d L * L DL/HDL Ratio 1.5 <3.3 - Ratio * N on-HDL Cholesterol 68 <130 - mg/dL * T riglycerides 102 <150 - mg/dL * Barbara Lyons 05/07/2025 11:1 2:37 AM EDT > See phone encounter ?LAB: P-TSH reflex to FT4 (Collection Date & Time - 05/06/2025 10:32 AM)? Normal* Value Reference Range T SH reflex to FT4 3.31 0.43-5.25 - mU/L * Barbara Lyons 05/07/2025 11:1 2:37 AM EDT > See phone encounter 4.?Vitamin D deficiency?LAB: P-Vitamin D 25-Hydroxy (Collection Date & Time - 05/06/2025 10:32 AM)? Normal* Value Reference Range V itamin D 25-Hydroxy 62.8 30.0-100.0 - ng/mL * Barbara Lyons 05/07/2025 11:1 2:37 AM EDT > See phone encounter 5.?Prostate cancer screening?LAB: P-PSA (Collection Date & Time - 05/06/2025 10:32 AM)?Normal* Value Reference Range P SA 1.27 <4.00 - ng/mL * Barbara Lyons 05/07/2025 11:1 2:37 AM EDT > See phone encounter * Procedure Codes: 8 2950 GLUCOSE TEST, 44682 GLYCATED HEMOGLOBIN TEST, Modifiers: QW , 3046F HEMOGLOBIN A1C LEVEL > 9.0%, 1036F TOBACCO NON-USER, G8420 BMI<30 AND >=22 CALC & DOCU, G8950 PREHTN/HTN BP DOC INDCD F/U DOC, 3075F SYST BP GE 130 - 139MM HG, 3079F DIAST BP 80-89 MM HG * Follow Up: 3 Months * Images: Billing Information: * Visit Code: 48999 Office Visit, Est Pt., Level 4. * Procedure Codes: 08651 GLUCOSE TEST. 34304 GLYCATED HEMOGLOBIN TEST. Modifiers: QW 3046F HEMOGLOBIN A1C LEVEL > 9.0%. 1036F TOBACCO NON-USER. G8420 BMI<30 AND >=22 CALC & DOCU. G8950 PREHTN/HTN BP DOC INDCD F/U DOC. 3075F SYST BP GE 130 - 139MM HG. 3079F DIAST BP 80-89 MM HG. * Electronic signature of Azra Beltran MD on 05/24/2025 at 10:17 AM EDT Sign off status: Pending * Provider: Colby Beltran M.D. Date: 0 05/06/2025 Generated for Aparna munroe/Jewel/eTransmitting on: 0 05/24/2025 10:17 AM EDT History and Physical Notes * HPI (History of Present Illness) Category Sub-Category Detail Notes Category Not es Endocrinology Recent Blood Sugars Pt here to f /u on DM 2. Pt states he checks blood sugar at home sometimes and it is getting better . Pt states he has been exercising and being better with his diet Examination Category Sub-Category Detail Notes Category Not es Endocrinology Heart: RSR Lungs: clear to auscultatio n Extremities: no leg edema General Appearance: NAD
[2025-05-24 10:14] VITALS: BP 161/90; PULSE 74; RESP 16; TEMP 37; O2SAT 99; BMI 25.8
--- OUTSIDE RECORDS SUMMARY | 2025-05-24 10:17 | XMS_ITS | Clinical Summary ---
Author Organization [facility] Address [address] [place] [address] Phone Care Team Providers Care Decision Analyst Name Role Phone Shemar Beltran MD Primary Care Provider [phone] Allergies No known active allergies Medications sitaGLIPtin-met FORMIN (JANUMET) 50-500 mg per tablet Take 1 Tab by mouth 2 times daily (with meals). Active insulin detemir (LEVEMIR) 100 unit/mL (3 mL) InPn injection Subcutaneous (Inject under the skin) nightly. 54 units, bid Active meloxicam (MOBIC) 15 mg tablet Take 15 mg by mouth daily. Active pravastatin (PRAVACHOL) 40 mg tablet Take 40 mg by mouth daily. Active glimepiride (AMARYL) 2 mg Take 2 mg by mouth daily. Active PARoxetine (PAXIL) 20 mg tablet Take by mouth daily. Active Aspirin 81 mg tablet Take 1 Tab by mouth daily. 1 Tab 30 3 Active amLODIPine (NORVASC) 2.5 mg Oral Tablet Take 2.5 mg by mouth daily. 3 Active lisinopriL (PRINIVIL;ZESTR IL) 20 mg Oral Tablet tablet Take 20 mg by mouth daily. 3 Active primidone (MYSOLINE) 50 mg Oral Tablet Take 50 mg by mouth daily. 3 Active rosuvastatin (CRESTOR) 20 mg Oral Tablet Take 20 mg by mouth daily. 3 Active BRILINTA 90 mg Oral Tablet TAKE 1 TABLET BY MOUTH TWICE A DAY FOR 90 DAYS 3 Active bisoprolol (ZEBETA) 10 mg Oral Tablet Take 1 Tablet by mouth 2 times daily. 60 Tablet 5 3 Active cephALEXin (KEFLEX) 500 mg Oral Capsule Take 500 mg by mouth every 12 hours. for 10 days 3 Active Active Problems Problem Noted Date Diagnosed Date SVT (supraventricular tachycardia) 12/06/2022 Benign essential HTN 03/05/2022 Coronary artery disease invo lving [place] coronary artery of [place] heart without angina pectoris 03/05/2022 Tobacco use 03/05/2022 Type 2 diabetes mellitus with hyperglycemia 02/20 Syncope 03/05/2022 Syncope and collapse 04/21/2013 Diabetes mellitus 04/21/2013 Dyslipidemia 04/21/2013 Immunizations Immunization Administration Dates Next Due DT 07/19/2010 Medical History Medical History Date Comments Diabetes mellitus (HCC) Hypertension Hypercholesteremia Syncope 04/20/2013 Family History Medical History Relation Name Comments Heart Disease Father Cancer Mother Heart Disease Paternal Grandfather Cancer Paternal Uncle Relation Name Status Comments Father Mother Paternal Grandfather Paternal Uncle Social History Tobacco Use Types Packs/Day Years Used Date Smoking Tobacco: Never Smokeless Tobacco: Current Chew Tobacco Cessation:Ready to Q uit: Not Asked; Counseling Given: Not Answered Alcohol Use Standard Drinks/Week Comments No 0 (1 standard drink = 0.6 oz pur e alcohol) Sex and Gender Information Value Date Recorded Sex Assigned at Not on file Legal Sex Male 12:22 AM EDT Gender Identity Not on file Sexual Orientation Not on file Obstetrics History Last Filed Vital Signs Vital Sign Reading Time Taken Comments Blood Pressure 130/78 02/08/2023 2:09 PM EDT Pulse 72 02/08/2023 2:09 PM EDT Temperature 36.1 C (97 F) 12/28/2022 11:09 AM EST Respiratory Rate 13 12/28/2022 2:34 PM EST Oxygen Saturation 98% 02/08/2023 2:09 PM EDT Inhaled Oxygen Concentration - - Weight 92.1 kg (203 lb) 02/08/2023 2:09 PM EDT Height 185.4 cm (6' 1 ) 12/28/2022 11:00 AM EST Body Mass Index 26.78 12/28/2022 11:00 AM EST Plan of Treatment Health Maintenance Due Date Last Done Comments Annual Wellness Exam 1964 Kidney Health: uACR 1971 Diabetic Eye Exam 1979 Hepatitis C Screening 1979 Pneumococcal Vaccine 50+ (1 of 2 - PCV) 1980 Cologuard 2006 Colon Cancer Screening 2006 Colonoscopy 2006 FIT 2006 Sigmoidoscopy 2006 Virtual Colonography 2006 Zoster (1 of 2) 2011 Kidney Health: eGFR 04/22/2014 04/22/2013, 04/21/2013, 04/20/2013 DTaP/TDaP/Td (2 - Tdap) 07/19/2020 07/19/2010 RSV or 60+ (1 - Ris k 60-74 years 1-dose series) 2021 Hemoglobin A1c 09/04/2022 03/04/2022 Lipids 03/05/2023 03/05/2022 COVID-19 Vaccine (1 - 2023-2 5 season) 2024 Influenza Vaccine (#1) 2025 , 11/11/2019 Hepatitis B Vaccine Aged Out No longe r eligible based on patient's age to complete this topic Meningococcal B Vaccine Aged Out No l onger eligible based on patient's age to complete this topic Procedures Procedure Name Priority Date/Time Associated Diagnosis Comments BASIC METABOLIC PANEL Routine 04/22/2013 5:17 AM EDT from Last 3 Months or Most Recently Relevant to Health Maintenance Results * (ABNORMAL) BASIC METABOLIC PANEL (04/22/2013 5:17 AM EDT) Sodium 136 135 - 143 mmol/L [facility] Potassium 4.2 3.5 - 5.0 mmol/L [facility] Chloride 102 98 - 108 mmol/L [facility] Total CO2 25 22 - 31 mmol/L [facility] Anion Gap 9 7 - 16 mmol/L [facility] Calcium 9.0 8.6 - 10.3 mg/dL [facility] Glucose Lvl 121(H) 70 - 100 mg/dL [facility] BUN 11 8 - 23 mg/dL [facility] Creatinine 0.8 0.7 - 1.3 mg/dL [facility] GFR Afr Am >60 [facility] Comment: GFR is estimated using creatinine, age, gender, and race. GFR has been validated for patients between 18 and 70 years of age. GFR has not been validated for women, patients with serious comorbid conditions, or persons with extremes of body size, muscle mass, or nutritional status. For additional information: www.kidney.org. Chronic kidney disease stage GFR (ml/min/1.73 square meters) Stage 3 30 - 59 Stage 4 15 - 29 Stage 5 14 or less GFR Non Afr Am >60 [facility] Blood specimen (specimen) UPPER LIMB STRUCTURE / Unknown 04/22/2013 5:17 AM EDT 04/22/2013 6:13 AM EDT us Xavier Eisenberg MD CHEMISTRY ORDERABLES Final R esult [facility] [address] [place] [address] from Last 3 Months or Most Recently Relevant to Health Maintenance Insurance Care Teams Decision Analyst Relationship Specialty Start Date End Date Shemar Beltran MD [address] [place] [id number] PCP - General 07/19/07
--- OUTSIDE RECORDS SUMMARY | 2025-05-24 10:17 | XMS_ITS | Clinical Summary ---
Author Organization [facility] Address [address] [place] [id number] Care Team Providers Care Dispatcher Maintenance Name Role Phone Shemar Beltran MD Primary Care Provider [phone] Allergies No known active allergies Medications aspirin 81 MG chewable tablet Chew 81 mg daily. Active sitaGLIPtin-met FORMIN (JANUMET) 50-1000 MG per tablet Take 1 tablet by mouth Daily. Active bisoprolol (ZEBeta) 5 MG tablet Take 1 tablet by mouth Daily. 30 tablet 1 2 Active ticagrelor (BRILINTA) 90 MG tablet tablet Take 1 tablet by mouth Every 12 (Twelve) Hours. 60 tablet 1 2 Active lisinopril (PRINIVIL,ZESTR IL) 20 MG tablet Take 1 tablet by mouth Daily. 30 tablet 1 2 Active nicotine (NICODERM CQ) 14 MG/24HR patch Place 1 patch on the skin as directed by provider Daily. 28 patch 1 2 Active insulin detemir (LEVEMIR) 100 UNIT/ML injection Inject 35 Units under the skin into the appropriate area as directed Daily. 3 mL 12 2 Active Insulin Syringe 31G X 5/16 0.3 ML misc Inject 1 each under the skin into the appropriate area as directed Daily. 100 each 1 2 Active Blood Glucose Monitoring Suppl (FreeStyle Lite) device 1 Device 4 (Four) Times a Day. 1 each 2 Active glucose blood (FREESTYLE LITE) test strip 1 each by Other route 4 (Four) Times a Day. Use as instructed 120 each 12 2 Active Lancets (freestyle) lancets 1 each by Other route 4 (Four) Times a Day. Use as instructed 100 each 12 2 Active Active Problems Problem Noted Date Diagnosed Date Syncope, unspecified syncope type 03/05/2022 Benign essential HTN 03/05/2022 Coronary artery disease invo lving [place] coronary artery of [place] heart without angina pectoris 03/05/2022 Type 2 diabetes mellitus with hyperglycemia 02/20 Tobacco use 03/05/2022 Family History Medical History Relation Name Comments Heart disease Father Cancer Mother Relation Name Status Comments Father Mother Social History Tobacco Use Types Packs/Day Years Used Date Smoking Tobacco: Every Day Cigarettes Smokeless Tobacco: Never Tobacco Cessation:Ready to Q uit: No; Counseling Given: No Alcohol Use Standard Drinks/Week Comments No 0 (1 standard drink = 0.6 oz pur e alcohol) AUDIT-C Answer Date Recorded Q1: How often do you have a drink containing alc ohol? Monthly or less 03/05/2022 Q2: How many drinks containi ng alcohol do you have on a typical day when you are drinking? 1 or 2 03/05/2022 Q3: How often do you have si x or more drinks on one occasion? Less than monthly 03/05/2022 Abuse Screen Answer Date Recorded Unsafe at Home or Work/School Not on file Feels Threatened by Someone? Not on file 08/2023 Does Anyone Keep You from Co ntacting Others or Doint Things Outside the Home? Not on file 08/02/2023 Physical Sign of Abuse Present Not on file 1 Housing Stability Answer Date Recorded Current Living Arrangements Not on file 07/23 Potentially Unsafe Housing Conditions Not on jace e 08/02/2023 Family and Community Support Answer Pablito e Recorded Help with Day-to-Day Activities Not on file 08/02/2023 Lonely or Isolated Not on file 08/02/2023 Employment Answer Date Recorded Do you want help finding or keeping work or a theo b? Not on file 08/02/2023 Disabilities Answer Date Recorded Concentrating, Remembering, or Making Decisions Difficulty Not on file 08/02/2023 Doing Errands Independently Difficulty Not on fi le 08/02/2023 Education Answer Date Recorded Help with school or training? Not on file Preferred Language Not on file 08/02/2023 Sex and Gender Information Value Date Recorded Sex Assigned at Not on file Legal Sex Male 5:02 PM EDT Gender Identity Not on file Sexual Orientation Not on file Last Filed Vital Signs Vital Sign Reading Time Taken Comments Blood Pressure 149/93 03/05/2022 11:21 AM EDT Pulse 59 03/05/2022 11:21 AM EDT Temperature 37 C (98.6 F) 03/05/2022 11:21 AM EDT Respiratory Rate 18 03/05/2022 11:21 AM EDT Oxygen Saturation 98% 03/05/2022 3:01 AM EDT Inhaled Oxygen Concentration - - Weight 90.7 kg (200 lb) 03/05/2022 10:52 AM EDT Height 185.4 cm (6' 1 ) 03/05/2022 10:52 AM EDT Body Mass Index 26.39 03/05/2022 10:52 AM EDT Plan of Treatment Health Maintenance Due Date Last Done Comments ANNUAL PHYSICAL 1960 HEPATITIS C SCREENING 1960 TDAP/TD VACCINES (1 - Tdap) 1980 COLOGUARD 2006 COLON CANCER SCREENING 5 YEAR SIGMOIDOSCOPY 2006 COLONOSCOPY [address] CANCER SCREENING [address] COLONOGRAPHY 2006 FECAL OCCULT BLOOD TEST 2006 FIT Testing (1 year) 2006 Pneumococcal Vaccine 50+ (1 of 1 - PCV) 2011 ZOSTER VACCINE (1 of 2) 2011 COVID-19 Vaccine (1 - season) 2024 INFLUENZA VACCINE 07/23/2025 HEMOGLOBIN A1C Discontinued 03/04/2022 Procedures Procedure Name Priority Date/Time Associated Diagnosis Comments HEMOGLOBIN A1C Add-On 03/04/2022 10:50 PM EDT from Last 3 Months or Most Recently Relevant to Health Maintenance Results * (ABNORMAL) Hemoglobin A1c (03/04/2022 10:50 PM EDT) Hemoglobin A1C 13.00(H) 4.80 - 5.60 % 03/05/2022 1:31 PM EDT [facility] Blood Venipuncture / Unknown 03/04/2022 10:50 PM EDT 03/04/2022 11:05 PM EDT Narrative [facility] - 03/05/2022 1:31 PM EDT Hemoglobin A1C Ranges: Increased Risk for Diabetes 5.7% to 6.4% Diabetes >= 6.5% Diabetic Goal < 7.0% us Jaelyn Starks [facility] BLOOD ORDERABLES Final Resu lt [facility]
[address] [place] [address], from Last 3 Months or Most Recently Relevant to Health Maintenance Insurance [employer] Advance Directives * CPR (Attempt to Resuscitate) (Latest Code Status on File) Date Activated Date Inactivated Comments 03/05/2022 2:22 AM 03/05/2022 4:36 PM Question Answer Comments Code Status (Patient has no pulse and is not breathing): CPR (Attempt to Resuscitate) Medical Interventions (Patie nt has pulse or is breathing): Full Support Level Of Support Discussed With: Patient Care Teams Dispatcher Maintenance Relationship Specialty Start Date End Date Shemar Beltran MD [address] [place] [address] [address] [facility] [address] [place] [address] PCP - General Family Medicine 06/21/16
--- OUTSIDE RECORDS SUMMARY | 2025-05-24 10:17 | XMS_ITS | Patient Health Record ---
Author Organization [facility] [place] Address [address] [facility] [address] [place] [id number] Care Team Providers Care Procedures Rn Name Role Phone Shemar Beltran Primary Care Provider Ramandeep Tucker Unavailable [phone] Allergies No Known Allergies Results Component Value Reference Range Notes H-Glycohemoglobin A1C Reviewed date:02/07/2025 12:32:03 PM Interpretation:11.9 Performing Lab: Notes/Report: HGBA1C 11.9 4.0-6.0 % < 6% Non-Diabetic Level < 7% Controlled Diabetic Level > 8% Poorly Controlled Diabetic Level Glucose (In-House) Reviewed date:05/06/2025 11:52:27 AM Interpretation: Performing Lab: Notes/Report: blood glucose 226 74 - 106 mg/dL Glycohemoglobin A1c (in hous e) Reviewed date:05/06/2025 11:52:57 AM Interpretation: Performing Lab: Notes/Report: glycohemoglobin 9.6% 5 - 6.5 % P-Comprehensive Metabolic Pa sanjiv (CMP) Reviewed date:05/07/2025 11:12:45 AM Interpretation:gluc 202 Performing Lab: Notes/Report: Test performed by [employer], [employer] [facility] [facility] , [address], [place] [address] Rajesh Gayle MD, Transportation Director CLIA: [id number] Sodium 138 135-145 mmol/L Potassium 4.6 3.5-5.3 [...] 31 Performing Lab: Notes/Report: Test performed by [employer], [employer] [address] [facility] , [place] [address] Rajesh Gayle MD, Transportation Director CLIA: [id number] Cholesterol 99 <200 mg/dL Triglycerides 102 <150 [...] Interpretation:Normal Performing Lab: Notes/Report: Test performed by [facility] [address] [place] [address] , [address], [place] [address] Rajesh Gayle MD, Transportation Director CLIA: [id number] PSA 1.27 <4.00 ng/mL Please note this is an ultrasensitive PSA assay with a lower limit of detection of 0.014 ng/mL. This test is performed by the [employer] ECLIA methodology. Values obtained with different assay methods or kits cannot be directly compared. P-TSH reflex to FT4 Reviewed date:05/07/2025 11:12:45 AM Interpretation:Normal Performing Lab: Notes/Report: Test performed by [facility] [address] , [address], [place] [address] Rajesh Gayle MD, Transportation Director CLIA: [id number] TSH reflex to FT4 3.31 0.43-5.25 mU/L P-Microalbumin/Creatinine, R andom Urine Sample Reviewed date:05/07/2025 11:12:45 AM Interpretation:a/c 53 Performing Lab: Notes/Report: Test performed by [facility] [address] , [address], [place] [address] Rajesh Gayle MD, Transportation Director CLIA: [id number] Albumin/Creatinine Ratio, Urine 53 0-30 ug/m g Microalbumin, Urine, Random 3.2 Creatinine, Urine 60.3 P-Vitamin D 25-Hydroxy Reviewed date:05/07/2025 11:12:45 AM Interpretation:Normal Performing Lab: Notes/Report: Test performed by [employer] [address] , [address], [place] [address] Rajesh Gayle MD, Transportation Director CLIA: [id number] Vitamin D 25-Hydroxy 62.8 30.0-100.0 ng/mL Interpretation of Vitamin D 25 OH: < 20 ng/mL - Deficiency 20 - 29 ng/mL - Insufficiency 30 - 100 ng/mL - Sufficiency > 100 ng/mL - Super-therapeutic- toxicity may occur above this level. Clinical correlation required. Reason For Referral No Information Medications Medication SIG (Take, Route, Frequency, Duration) Notes Start Date End Date Status amLODIPine Besylate 10 MG TAKE 1 TABLET BY MOUTH EVERY DAY FOR 30 DAYS; Duration: 90 days Active Zituvimet XR 50-1000 MG 2 tablets with f ood Orally Once a day; Duration: 90 days 03/24/2025 Active Isosorbide Dinitrate 20 MG 1 tablet Orally Twice a day Active Primidone 50 MG TAKE 1 TABLET BY LEONIE TH EVERY DAY; Duration: 30 Active Insulin Syringe - ONCE A DAY 06/09/2022 Active Glimepiride 2 MG TAKE 1 TABLET BY LEONIE TH EVERY DAY; Duration: 30 Active Basaglar KwikPen 100 UNIT/ML 60 units subcutaneously once a day Active BD PEN NEEDLE SHORT (OBSOLETE) 1 [...] tab(s) orally once a day 007 Active Immunizations Vaccine Route Administration Date Status Comme nts Fluzone Quad (6months&older) IM Intramuscular 11/11/2019 Administered Fluzone Quad (6months&older) IM Intramuscular 07/23/2021 Administered Problems Problem Type SNOMED Code ICD Code Onset Dates Problem Status W/U Status Risk Notes Problem Type II diabetes mellitus without complication (096389429) Type 2 diabetes mellitus without complications (E11.9) Active confirmed Problem Vitamin D deficiency (44165557) Vitamin D deficiency (E55.9) Active confirmed Problem Essential hypertension (27353388) Essential hypertension (I10) Active confirmed Problem Acute non-ST segment elevation myocardial infarction (385250497) NSTEMI (non-ST elevated myocardial infarction) (I21.4) Active confirmed Problem Supraventricular tachycardia (0743791) SVT (supraventricular tachycardia) (I47.1) Active confirmed Problem Type 2 diabetes mellitus with other specified complication (E11.69) Active confirmed Problem Premature ejaculatio n (23849336) Premature ejaculation (F52.4) Active confirmed Problem Long-term current us e of insulin (130931370) salvage determiner current use of insulin (Z79.4) Active confirmed Problem Long-term current us e of insulin (202214177) salvage determiner (current) use of insulin (Z79.4) Active confirmed Problem Type II diabetes mellitus without complication (578072497) Type 2 diabetes mellitus without complication (E11.9) Active confirmed Problem Atherosclerotic hear t disease of cabazon coronary artery without angina pectoris (131020624354737) Coronary artery disease involving cabazon coronary artery of cabazon heart without angina pectoris (I25.10) Active confirmed Problem Hyperlipidaemia (98770616) Hyperlipidemia, unspecified hyperlipidemia type (E78.5) Active confirmed Problem Stented coronary artery (553187861) Stented coronary artery (Z95.5) Active confirmed Problem Atherosclerotic hear t disease of cabazon coronary artery without angina pectoris (772167272206385) Atherosclerosis of cabazon coronary artery without angina pectoris, unspecified whether cabazon or transplanted heart (I25.10) Active confirmed Problem Pure hypercholesterolemia (504037108) Pure hypercholesterolemia (E78.00) Active confirmed Problem Acute non-ST segment elevation myocardial infarction (925518812) Non-STEMI (non-ST elevated myocardial infarction) (I21.4) Active confirmed Problem History of placement of stent for coronary artery disease (situation) (544264927) S/P coronary artery stent placement (Z95.5) Active confirmed Problem Type II diabetes mellitus without complication (632911405) Type 2 diabetes mellitus without complication, unspecified whether long term acute care registered nurse insulin use (E11.9) Active confirmed Problem Intention tremor (98839529) Intention tremor (G25.2) Active confirmed Vital Signs Heart Rate 99 /min 05/06/2025 Blood pressure diastolic 80 mm Hg 05/06/2025 Height 72.75 in 05/06/2025 Blood pressure systolic 134 mm Hg 05/06/2025 Weight 198 lbs 05/06/2025 BMI 26.3 kg/m2 05/06/2025 Encounters Encounter Location Date Provider Diagnosis [facility] [facility] [address] [place] [id number] 02/06/2025 Shemar Greenup Type 2 diabetes handy itus without complication E11.9 ; Recurrent syncope R55 ; Coronary artery disease involving cabazon coronary artery of cabazon heart without angina pectoris I25.10 and BMI 25.0-25.9,adult Z68.25 [facility] [address] [place] [facility] [address] [place] Parkinson [id number] 03/06/2025 Shemar Greenup Type 2 diabetes handy itus with other specified complication E11.69 and BMI 26.0-26.9,adult Z68.26 [facility] [facility] [address] [place] Parkinosn [id number] 05/06/2025 Shemar Greenup Type 2 diabetes handy itus without complication E11.9 ; Essential hypertension I10 ; Pure hypercholesterolemia E78.00 ; Vitamin D deficiency E55.9 ; salvage determiner (current) use of insulin Z79.4 ; Prostate cancer screening Z12.5 and BMI 26.0-26.9,adult Z68.26 [facility] [address] [facility] 36 [facility] [address] [place], [place] [id number] 10/29/2024 Shemar Greenup [facility] [address] [facility] [address] [place], [place] [id number] 11/05/2024 Shemar Greenup [facility] [address] [facility] 36 [facility] [address] [place], [place] [id number] 03/24/2025 Shemar Greenup [facility] [address] [facility] 36 [facility] [address] [place], [place] [id number] 03/25/2025 Shemar Greenup [facility] [address] [facility] 36 [facility] [address] [place], [place] [id number] 05/07/2025 Shemar Greenup Assessments Encounter Date Diagnosis (ICD Code) Assessment Notes Treatment Notes Treatment Clinical Notes Section Notes 02/06/2025 Recurrent syncope (ICD-10 - R55) ER records including notes, labs and radiology reports reviewed in office today 03/06/2025 BMI 26.0-26.9,adult (ICD-10 - Z68.26) 03/06/2025 Type 2 diabetes handy itus with other specified complication (ICD-10 - E11.69) 02/06/2025 Type 2 diabetes handy itus without complication (ICD-10 - E11.9) compliance issues reviewed 05/06/2025 Essential hypertensi on (ICD-10 - I10) 05/06/2025 Type 2 diabetes handy itus without complication (ICD-10 - E11.9) 05/06/2025 Pure hypercholesterolemia (ICD-10 - E78.00) 02/06/2025 Coronary artery dise ase involving cabazon coronary artery of cabazon heart without angina pectoris (ICD-10 - I25.10) 02/06/2025 BMI 25.0-25.9,adult (ICD-10 - Z68.25) 05/06/2025 Vitamin D deficiency (ICD-10 - E55.9) 05/06/2025 halfway (current) use of insulin (ICD-10 - Z79.4) 05/06/2025 Prostate cancer screening (ICD-10 - Z12.5) 05/06/2025 BMI 26.0-26.9,adult (ICD-10 - Z68.26) Plan Of Treatment Next Appt Details Provider Name:Shemar villalta, 08/11/2025 09:00:00 AM, [address] [facility], [address], [place], [place], [phone], Insurance Providers Payer Name Payer Address Payer Phone Subscriber Number Group Number Insured Name Patient Relationship to Insured Coverage Start Date Coverage End Date [facility] [address] [address] [place] [phone] [id number] KIRAN ALBA Self - patient is the insured Medical (General) History Medical History History ICD Code Coronary Artery Disease Myocardial Infarction Type 2 Diabetes Hypertension Hyperlipidemia Vitamin D deficiency Surgical History Surgery Date(Month/Year) RT K Cyst Removal 2000 LT Heart Cath, Cardiac Stent x 4- [facility] 03/2015 LT Heart Cath, Cardiac Stent x 2 09/2016 Cardiac Stent Placement x1 01/2018 Cardiac Catheterization, stent x 3 07/12 21 Percutaneous coronary intervention, sten t x 1 2024 Hospitalization History Reason Date(Month/Year) Chest Pain - [facility] 10/12/2022 Elevated BP & Leg Discomfort- [facility] ER 12/2021 Syncope- [facility] 05/23/2020 Dizziness, CABG, Stent placement- [facility] -04/2018 Vomiting/Diarrhea/Abdominal Pain- [facility] - Dehydration 04/20/2013 Gallbladder- [facility] 07/09-
--- NOTE | 2025-05-24 10:23 | XR_ITS ---
PROCEDURE INFORMATION: Exam: XR Right Ankle Exam date and time: 05/24/2025 10:41 AM Age: 64 years old Clinical indication: Pain; Ankle; Right; Additional info: Pain since this morning, heard a pop , right medial ankle TECHNIQUE: Imaging protocol: Radiologic exam of the right ankle. Views: 1 or 2 views. COMPARISON: CR XR ANKLE RT 2V 05/24/2025 10:41 AM FINDINGS: Bones/joints: No acute fracture or dislocation. Spurring along the plantar calcaneus. Soft tissues: Normal. IMPRESSION: No acute findings.
--- NOTE | 2025-05-24 10:23 | XR_ITS ---
PROCEDURE INFORMATION: Exam: XR Right Foot Exam date and time: 05/24/2025 10:41 AM Age: 64 years old Clinical indication: Pain; Foot; Right; Additional info: Pain since this morning, heard a pop , right ankle/foot TECHNIQUE: Imaging protocol: Radiologic exam of the right foot. Views: 1 or 2 views. COMPARISON: CR XR ANKLE RT 2V 05/24/2025 10:41 AM FINDINGS: Bones/joints: No acute fracture or dislocation. Soft tissues: Normal. IMPRESSION: No acute findings.
--- NOTE | 2025-05-24 10:24 | HMH.EDGENADL ---
Discharge Plan Disposition Patient Disposition: Home, Self-Care Prescriptions Prescriptions: No Action Janumet 50-1,000 mg tablet 1 tab PO BID Patient Comments: TAKE 1 TABLET BY MOUTH TWICE A DAY lisinopril 40 mg tablet 40 mg PO DAILY Qty: 90 3RF nitroglycerin 0.4 mg tablet, sublingual 0.4 mg sublingual Q5-15M PRN (Reason: chest pain) Qty: 30 0RF Rx Instructions: do not exceed 3 doses per episode isosorbide mononitrate 30 mg tablet extended release 24 hr 30 mg PO DAILY Qty: 30 2RF aspirin [Adult Low Dose Aspirin] 81 mg tablet,delayed release (DR/EC) 81 mg PO DAILY glimepiride 2 mg tablet 2 mg PO DAILY insulin detemir U-100 100 unit/mL (3 mL) insulin pen 30 unit SQ DAILY amlodipine 10 mg tablet 10 mg PO DAILY Qty: 30 5RF primidone 50 mg tablet 50 mg PO DAILY Patient Comments: TAKE 1 TABLET BY MOUTH EVERY DAY FOR 90 DAYS bisoprolol fumarate 10 mg tablet 10 mg PO DAILY Qty: 90 1RF atorvastatin [Lipitor] 40 mg Tablet 40 mg PO HS Qty: 30 3RF Brilinta 90 mg Tablet 90 mg PO BID Qty: 60 6RF Referrals Follow up/Referrals: Shemar Beltran MD [Primary Care Provider, Medical] - See instructions Matt Trevizo DO [Staff Physician, Orthopedics] - See instructions Activity Restrictions/Add. Instructions Additional Instructions/Restrictions: You do not have any broken bones on your x-rays today. I have given you referral to our orthopedic surgeon, Dr. Trevizo, and I encourage you to follow-up with him early next week. It is possible you have a tendon or ligament injury and may need further MRI or imaging studies. You can take Tylenol and ibuprofen to help your symptoms. I am giving you a walking boot to help with comfort. You can take this off when resting. If you develop any new or worsening symptoms, or if you become concerned for your health for any reason, return to the emergency department for evaluation Clinical Impressions Clinical Impression: Pain of right heel, Right ankle swelling Print Language Print Language: Ugandan Discharge ED Provider: [place] Adult [facility] General Chief complaint: Extremity Problem,Nontraumatic Stated complaint: R foot pain Time Seen by Provider: 05/24/25 10:16 Mode of Arrival: Ambulatory Source of Information: Patient Description of Symptoms (Recalled from ER Triage Doc. by RN): patient states yesterday he was walking and turned and felt a pop in his right heel. he now has intermittent pain that is radiating to his toes and sharp.03/01 History of Present Illness HPI narrative: Natalio Lanza is a 64M with a history of diabetes, hypertension, NSTEMI, CHF who presents to the emergency department for complaints of pain in his right foot. Patient states that yesterday, while reaching for PCP., He felt a pop along the medial aspect of his right ankle. He states that the pain runs from his ankle/heel all the way to the end of his foot. States that he has had some swelling in this area ever since. He states that he has been able to bear weight on it, however it is painful to do so. He denies any swelling or pain up the leg. Related Data Home Medications ?Medication ?Instructions ?Recorded ?Confirmed aspirin 81 mg tablet,delayed 81 mg PO DAILY heart health 11/01/17 01/30/25 release (Adult Low Dose Aspirin) glimepiride 2 mg tablet 2 mg PO DAILY diabetes 11/01/17 01/30/25 insulin detemir U-100 100 unit/mL 30 unit SQ DAILY diabetes 11/01/17 01/30/25 (3 mL) subcutaneous pen primidone 50 mg tablet 50 mg PO DAILY Tremors 07/26/22 01/30/25 sitagliptin phosphate 50 1 tab PO BID 02/01/24 01/30/25 mg-metformin 1,000 mg tablet (Janumet) Previous Rx's ?Medication ?Instructions ?Recorded bisoprolol fumarate 10 mg tablet 10 mg PO DAILY blood pressure #90 10/13/22 tabs lisinopril 40 mg tablet 40 mg PO DAILY #90 tabs 08/20/24 isosorbide mononitrate 30 mg 30 mg PO DAILY #30 tabs 01/23/25 tablet,extended release 24 hr nitroglycerin 0.4 mg sublingual 0.4 mg sublingual Q5-15M PRN chest 01/23/25 tablet pain #30 tabs atorvastatin 40 mg tablet (Lipitor) 40 mg PO HS #30 tabs 01/31/25 ticagrelor 90 mg tablet (Brilinta) 90 mg PO BID #60 tabs 01/31/25 amlodipine 10 mg tablet 10 mg PO DAILY #30 tabs 03/24/25 Allergies Allergy/AdvReac Type Severity Reaction Status Date / Time No Known Allergies Allergy Verified 01/30/25 11:03 [facility] Disclaimer: The information contained in this section may have been updated after the patient was seen, as this information can be updated by other users. Medical History Diabetes Closed fracture of metatarsal of left foot Pre-syncope Influenza A Vasovagal episode Syncope Hyperlipidemia Hypertensive heart disease Coronary arteriosclerosis Surgical History Stented coronary artery Family History Mother Cancer Father Family history of myocardial infarction Grandfather Family history of myocardial infarction Other Family history of hyperlipidemia Family history of hypertension Social History Smoking Status: Never smoker second hand exposure: Yes alcohol intake: never substance use type: denies use current occupational status: employed Travel in the last 8 weeks?: None household members: spouse housing: house marital status: current occupation: [employer] current occupational exposures/hazards: Yes caffeine: Yes Have you lived/traveled outside US in past 30 days?: No Contact w/someone who lives/traveled outside US past 30 days?: No Exposure to someone with infectious disease in past 14 days?: No Do you have a fever (greater than 100.4 F or 38 C)?: No Have you tested positive for COVID-19?: No Exposed to someone with COVID-19 in past 14 days?: No Do you have a sore throat?: No Do you have a cough?: No Do you have any weakness?: No Do you have any diarrhea?: No Are you experiencing any unusual bleeding?: No Do you have any muscle aches/pain?: No Do you have any abdominal pain?: No Are you experiencing loss of taste or smell?: No Other Medical History Have you received the Flu Vaccine for this season: No Have you received the Pneumonia Vaccine: No ROS Obtained: Yes Systems reviewed as appropriate & no additional complaints except as documented Physical Exam General General appearance: alert and in no apparent distress Head Head exam: atraumatic Eye Eye exam: Present normal appearance ENT ENT exam: Present normal external ear exam Neck Neck exam: Present full ROM Chest Chest inspection: Present symmetric chest wall rise Respiratory Respiratory exam: Present normal lung sounds bilaterally; Absent respiratory distress Cardiovascular Cardiovascular exam: Present regular rate and normal rhythm Abdominal Exam Abdominal exam: Present soft; Absent tenderness or guarding exam: Present deferred Extremities Exam Extremities exam: Present normal inspection and other (Right lower extremity: Tenderness over the posterior aspect of the right heel. Nonpitting edema to the forefoot. 2+ DP and PT pulses. Sensation grossly intact throughout the foot. Less than 2-second capillary refill. No tenderness or swelling to the proximal valencia) Back Exam Back exam: Present normal inspection Neurological Exam Neurological exam: Present alert and oriented X3 Psychiatric Psychiatric exam: Present normal affect Skin Skin exam: Present warm and dry Medical Decision Making Medical Records Screening: Per USPSTF and CDC recommendations, given the prevalence of disease in our region, it is our hospital?s policy to screen for HIV and viral Hepatitis for all patients aged 18 and over and those with ongoing risk factors. Danny Inquiry Pt receiving controlled substance: No Vital Signs: 05/24/25 10:14 05/24/25 11:35 05/24/25 11:44 Temperature 98.6 F Temperature Source Oral Pulse Rate 68 66 Pulse Rate [Right Radial] 74 Respiratory Rate 16 16 Blood Pressure 151/72 H 151/72 H Blood Pressure [Right Arm] 161/90 H Blood Pressure Mean [Right Arm] 113 Blood Pressure Source [Right Arm] Automatic Cuff Blood Pressure Position [Right Arm] Sitting 02 Sat by Pulse Oximetry 99 99 99 Oxygen Delivery Method Room Air Room Air Room Air 05/24/25 12:33 Temperature 98.6 F Temperature Source Pulse Rate 66 Pulse Rate [Right Radial] Respiratory Rate 18 Blood Pressure 153/119 H Blood Pressure [Right Arm] Blood Pressure Mean [Right Arm] Blood Pressure Source [Right Arm] Blood Pressure Position [Right Arm] 02 Sat by Pulse Oximetry Oxygen Delivery Method Orders (Tests/Meds): ORDERS Category Date Time Status Ankle XR - Right 2 Views [XR ankle RT 2V] Stat Exams 05/24/25 10:23 Completed Foot XR right 2 views [XR foot RT 2V] Stat Exams 05/24/25 10:23 Completed Medical Decision Narrative: Natalio Lanza is a 64M with a history of diabetes, hypertension, NSTEMI, CHF who presents to the emergency department for complaints of pain in his right foot. Patient states that yesterday, while reaching for PCP., He felt a pop along the medial aspect of his right ankle. He states that the pain runs from his ankle/heel all the way to the end of his foot. States that he has had some swelling in this area ever since. He states that he has been able to bear weight on it, however it is painful to do so. He denies any swelling or pain up the leg. On arrival, patient is hemodynamically stable, no acute respiratory distress, breathing comfortably on room air with appropriate oxygen saturation. Physical exam, as stated above, revealed an overall well-appearing male in no distress. He has some tenderness over the posterior aspect of the heel and some swelling over the forefoot. 2+ DP and PT pulses. Sensation grossly intact. Less than 2-second capillary refill. He does have full range of motion of the ankle. Differential diagnosis includes, but is not limited to: Fracture, plantar fasciitis, Achilles tendon strain/rupture, low concern for vascular injury at this time given adequate pulses. The most morbid conditions were considered and workup was based on these. Workup in the emergency department included: Right foot x-ray, right ankle x-ray. Patient was offered Tylenol and ibuprofen, however he declined at this time. X-ray imaging was interpreted by me personally. No acute fracture or dislocation. See final radiology reports for details. On reassessment, patient was in stable condition. Is felt that he is likely strained a ligament or tendon within the foot. His Achilles appears to be grossly intact at this time as he does have plantar and dorsiflexion capabilities intact. Will place patient in a walking boot for comfort and will refer to Dr. Trveizo with orthopedic surgery team. I discussed this plan with the patient and he was in agreement with this plan. I encouraged him to take Tylenol and ibuprofen as well as use ice packs to help with swelling and pain. Return precautions were given. All questions were answered. He demonstrated understanding and was in agreement this plan. He was then discharged from the emergency department in stable condition. Critical Care Critical Care Time Critical Care Time: No
[2025-05-24 11:35] VITALS: BP 151/72; PULSE 68; O2SAT 99
[2025-05-24 11:44] VITALS: BP 151/72; PULSE 66; RESP 16; O2SAT 99
[2025-05-24 12:33] VITALS: BP 153/119; PULSE 66; RESP 18; TEMP 37
== END 2025-05-24 12:39 | disposition home or self-care (01) ==
PROVIDERS: Emergency Provider Student in an Organized Health Care Education/Training Program; PCP Family Medicine
DX: M25.471 Effusion, right ankle (principal); M79.671 Pain in right foot
CPT/HCPCS: 73600; 73620; 99284

== ENCOUNTER 2025-07-14 06:47 | Outpatient (CLI) | payer OTHER, SELFPAY ==
--- OUTSIDE RECORDS SUMMARY | 2024-11-01 05:00 | XMS_ITS ---
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 Name Role Phone Shemar Beltran Primary Care Provider Ramandeep Tucker [phone] REASON FOR VISIT checkup; fatigue, Needs labs with PSA, diabetic eye exam, Tdap, shingles, & flu vaccines Encounters Encounter Location Date Provider Diagnosis [facility] [address] [facility] [address] [place] [id number] 11/01/2024 Ramandeep Tucker Plan Of Treatment Next Appt Details Provider Name:Shemar Morales ry, 08/11/2025 09:00:00 AM, [address], [place], [place], [id number], Progress Notes * KIRAN ALBA MARINOIDOB:11/1959 (64 yo M)Acc No.[id number]:11/01/2024 Progress Notes Patient: KIRAN LIND Provider: RADHA London :1960 A ge:64 Y S ex:Male Date:11/01/2024 Address:[id number] Pcp:Shemar Beltran Subjective: * Chief Complaints: * 1 . Checkup; fatigue. 2. Needs labs with PSA, diabetic eye exam, Tdap, shingles, & flu vaccines. * Medical History: Objective: * Vitals: Assessment: Plan: * Treatment: * Images: Billing Information: * Visit Code: * Procedure Codes: * Electronic signature of RADHA Bush on 07/14/2025 at 06:50 AM EDT Sign off status: Pending * Provider: RADHA London Date: 0 11/01/2024 Generated for Aparna munroe/Jewel/eTransmitting on: 0 07/14/2025 06:50 AM EDT
--- OUTSIDE RECORDS SUMMARY | 2025-02-06 07:30 | XMS_ITS ---
Author Organization [facility] Address [address] [id number] Care Team Providers Care Pairer Substandard Name Role Phone Shemar Beltran Primary Care Provider Allergies No Known Allergies Results Component Value Reference Range Notes H-Glycohemoglobin A1C Reviewed date:02/07/2025 12:32:03 PM Interpretation:11.9 Performing Lab: Notes/Report: HGBA1C 11.9 4.0-6.0 % < 6% Non-Diabetic Level < 7% Controlled Diabetic Level > 8% Poorly Controlled Diabetic Level REASON FOR VISIT Check Up on Diabetes Medications Medication SIG (Take, Route, Frequency, Duration) Notes Start Date End Date Status amLODIPine Besylate 2.5 MG 1 tablet Orally Once a day; Duration: 30 days Active BD PEN NEEDLE SHORT (OBSOLETE) 1 PEN NEEDLE ONCE A DAY 08/13/2018 Acti ve PEN NEEDLE 4MM 32G - ONCE DAILY 06/14/2022 Active Primidone 50 MG 1 tablet Orally Once a day; Duration: 30 days Active Lisinopril 20 MG TAKE 1 TABLET BY EVERY DAY; Duration: 30 Active Bisoprolol Fumarate 10 MG 1 tab(s) orall y once a day; Duration: 15 days Active Insulin Syringe - ONCE A DAY 06/09/2022 Active Brilinta 60 MG 1 tab(s) orally 2 ti mes a day Active Aspir-Low 81 MG 1 tab(s) orally once a day 007 Active Levemir FlexPen 100 UNIT/ML 50 units subcutaneously Two times a day; Duration: 90 days Active Isosorbide Dinitrate 20 MG 1 tablet Orally Twice a day Active Janumet 50-1000 MG 1 tablet with meals Orally Twice a day Active Glimepiride 2 MG TAKE 1 TABLET BY LEONIE TH EVERY DAY FOR 30 DAYS Active Vital Signs Blood pressure systolic 110 mm Hg 02/07/20 25 Blood pressure diastolic 70 mm Hg 025 Heart Rate 80 /min 02/06/2025 Height 72.75 in 02/06/2025 Weight 191.4 lbs 02/06/2025 BMI 25.42 kg/m2 02/06/2025 Encounters Encounter Location Date Provider Diagnosis [facility] [address] [place], [place] [id number] 02/06/2025 Shemar Beltran Type 2 diabetes handy itus without complication E11.9 ; Recurrent syncope R55 ; Coronary artery disease involving [place] coronary artery of [place] heart without angina pectoris I25.10 and BMI 25.0-25.9,adult Z68.25 Assessments Encounter Date Diagnosis (ICD Code) Assessment Notes Treatment Notes Treatment Clinical Notes Section Notes 02/06/2025 Type 2 diabetes mellitus without complication (ICD-10 - E11.9) compliance issues reviewed 02/06/2025 Recurrent syncope (ICD-10 - R55) ER records including notes, labs and radiology reports reviewed in office today 02/06/2025 Coronary artery disease involving [place] coronary artery of [place] heart without angina pectoris (ICD-10 - I25.10) 02/06/2025 BMI 25.0-25.9,adult (ICD-10 - Z68.25) Plan Of Treatment Medication Medication Name Sig Start Date Stop Date Notes Brilinta 60 MG 1 tab(s) orally 2 times a day Aspir-Low 81 MG 1 tab(s) orally once a day 05/24/2007 Levemir FlexPen 100 UNIT/ML 50 units sub cutaneously Two times a day; Duration: 90 days Janumet 50-1000 MG 1 tablet with meals Orally Twice a day Glimepiride 2 MG TAKE 1 TABLET BY LEONIE TH EVERY DAY FOR 30 DAYS Treatment Notes Assessment Notes Type 2 diabetes mellitus wit hout complication compliance issues reviewed Recurrent syncope ER records including notes, labs and radiology reports reviewed in office today Next Appt Details Follow Up: 4 Weeks, Reason: Provider Name:Shemar Morales ry, 08/11/2025 09:00:00 AM, [address], [address], [place], [place], [phone], Progress Notes * KIRAN ALBAB:11/1959 (64 yo M)Acc No.[id number]:02/06/2025 Progress Notes Patient: KIRAN LIND Provider: Colby Beltran M.D. :1960 A ge:64 Y S ex:Male Date:02/06/2025 Address:[facility] [address], [id number] Subjective: * Chief Complaints: * 1 . Check Up on Diabetes. * HPI: E ndocrinology: 64 year old male presents with c/o Recent Blood Sugars P t here to f/u on DM 2. H PI: c/o Here for follow up on: 0 02/01/2025 [facility] er visit. Pt was taken to er do to syncope episode and vomiting. * ROS: D ERMATOLOGY: no R marianna. n o H cathryn. G ASTROENTEROLOGY: no N ausea. n o V omiting. U ROLOGY: no D ifficulty urinating. n o B lood in urine. * Medical History: C oronary Artery Disease, Type 2 Diabetes, Hypertension, Hyperlipidemia. * Surgical History: R T K Cyst Removal 2000, LT Heart Cath, Cardiac Stent x 4- [facility] 03/2015, LT Heart Cath, Cardiac Stent x 2 09/2016, Cardiac Stent Placement x1 01/2018, Cardiac Catheterization, stent x 3 06/2021. * Hospitalization/Major Diagno stic Procedure: G allbladder- [facility] 07/09-, Dehydration 04/20/2013, Vomiting/Diarrhea/Abdominal Pain- [facility] 10/10-, Dizziness, CABG, Stent placement- [facility] 01/26-04/2018, Syncope- [facility] ER 05/23/2020, Elevated BP & Leg Discomfort- [facility] ER 07/25/2022, Chest Pain - [facility] 10/12/2022. * Family History: F ather: alive. M other: alive, cancer-breast. 1 sister(s) . 1 son(s) , 1 daughter(s) . . * Social History: C URRENT TOBACCO USE S moking Status: Patient does NOT smoke, Type of smokeless tobacco used: dip. C affeine: yes, frequency:. Marital Status: . Past smoking status: no, smokeless tobacco- 12 yrs. Alcohol: no. * Medications: T aking Isosorbide Dinitrate 20 MG Tablet 1 tablet Orally Twice a day , Taking Janumet 50-1000 MG Tablet 1 tablet with meals Orally Twice a day , Taking Insulin Syringe - ONCE A DAY , Taking BD PEN NEEDLE SHORT (OBSOLETE) 1 PEN NEEDLE ONCE A DAY , Taking PEN NEEDLE 4MM 32G - ONCE DAILY , Taking Aspir-Low 81 MG Tablet Delayed Release 1 tab(s) orally once a day , Taking Brilinta 60 MG Tablet 1 tab(s) orally 2 times a day , Taking Glimepiride 2 MG Tablet TAKE 1 TABLET BY MOUTH EVERY DAY FOR 30 DAYS , Taking Lisinopril 20 MG Tablet TAKE 1 TABLET BY MOUTH EVERY DAY , Taking Bisoprolol Fumarate 10 MG Tablet 1 tab(s) orally once a day , Taking Primidone 50 MG Tablet 1 tablet Orally Once a day , Taking amLODIPine Besylate 2.5 MG Tablet 1 tablet Orally Once a day , Not-Taking Levemir FlexPen 100 UNIT/ML Solution Pen-injector INJECT 50 UNITS SUBCUTANEOUSLY 2 TIMES A DAY , Discontinued Rosuvastatin Calcium 20 MG Tablet 1 tab(s) orally once a day , Discontinued Potassium Chloride 20 MEQ Packet 1 ea orally once daily , Discontinued metroNIDAZOLE 500 MG Tablet 1 tablet Orally Three times a day , Discontinued FreeStyle Tim 3 Sensor - Miscellaneous as directed , Discontinued Omeprazole 40 MG Capsule Delayed Release TAKE 1 CAPSULE BY MOUTH EVERY DAY 30 MINUTES BEFORE MORNING MEAL FOR 30 DAYS , Discontinued PARoxetine HCl 20 MG Tablet 1 tab(s) orally once a day , Discontinued Januvia 100 MG Tablet 1 tablet Orally Once a day , Discontinued metFORMIN HCl ER 500 MG Tablet Extended Release 24 Hour 2 tabs Orally Two times a day , Discontinued sAXagliptin HCl 5 MG Tablet 1 tablet Orally Once a day , Discontinued Clindamycin HCl 300 MG Capsule 1 capsule Orally every 8 hrs , Medication List reviewed and reconciled with the patient * Allergies: N .K.D.A. Objective: * Vitals: W t: 191.4, Temp: 98.0, BP: 110/70, HR: 80, Nurse: kk, Ht: 72.75, BMI:25.42. * Examination: E ndocrinology: General Appearance: N AD. H eart: R SR. L ungs:?clear to auscultation. E xtremities: n o leg edema. Assessment: * Assessment: 1. T ype 2 diabetes mellitus without complication - E11.9 (Primary) 2 . R ecurrent syncope - R55 3 . C oronary artery disease involving [place] coronary artery of [place] heart without angina pectoris - I25.10 4 . B IA 25.0-25.9,adult - Z68.25 Plan: * Treatment: Value Reference Range H GBA1C 11.9 H 4.0-6.0 - % * Shemar Beltran 02/06/2025 1 2:59:36 PM > Sent to to inform pt.Roseila Berry 02/06/2025 04:40:01 PM > vm is fullGoRoselia hanson 02/07/2025 12:31:52 PM >pt informed of results Notes: compliance issues reviewed??2.?Recurrent syncope? Notes: ER records including notes, labs and radiology reports reviewed in office today??3.?Coronary artery disease involving [place] coronary artery of [place] heart without angina pectoris? Continue Brilinta Tablet, 60 MG, 1 tab(s), orally, 2 times a day;?Continue Aspir-Low Tablet Delayed Release, 81 MG, 1 tab(s), orally, once a day.?? * Procedure Codes: 3 046F HEMOGLOBIN A1C LEVEL > 9.0%, 3074F SYST BP LT 130 MM HG, 3078F DIAST BP < 80 MM HG * Follow Up: 4 Weeks * Images: Billing Information: * Visit Code: 83772 Office Visit, Est Pt., Level 4. * Procedure Codes: 3046F HEMOGLOBIN A1C LEVEL > 9.0%. 3074F SYST BP LT 130 MM HG. 3078F DIAST BP < 80 MM HG. * Electronic signature of Azra Beltran MD on 07/14/2025 at 06:50 AM EDT Sign off status: Pending * Provider: Colby Beltran M.D. Date: 0 02/06/2025 Generated for Aparna munroe/Jewel/eTembersmitting on: 0 07/14/2025 06:50 AM EDT History and Physical Notes * HPI (History of Present Illness) Category Sub-Category Detail Notes Category Not es Endocrinology Recent Blood Sugars Pt here to f/u on DM 2 HPI Here for follow up on: 5 [facility] er visit. Pt was taken to er do to syncope episode and vomiting Examination Category Sub-Category Detail Notes Category Not es Endocrinology Heart: RSR Lungs: clear to auscultatio n Extremities: no leg edema General Appearance: NAD
--- OUTSIDE RECORDS SUMMARY | 2025-03-06 06:00 | XMS_ITS ---
Author Organization [facility] Address [address] [id number] Care Team Providers Care Rn Maternity Name Role Phone Shemar Beltran Primary Care Provider [phone] Allergies No Known Allergies REASON FOR VISIT [...] Encounter Location Date Provider Diagnosis Clara 1210 [facility] 36 [facility] [address] [place], [place] [id number] 03/06/2025 Shemar Beltran Type 2 diabetes handy [...] Name:Shemar Morales ry, 08/11/2025 09:00:00 AM, 12[address] [facility] 36 [facility], [address], [place], [place], [id number], Progress Notes * KIRAN ALBA MARINOIDOB:11/1959 (64 yo M)Acc No.[id number]:03/06/2025 Progress Notes Patient: KIRAN LIND Provider: Colby Beltran M.D. :1960 A ge:64 Y S ex:Male Date:03/06/2025 Address:[place], [id number] Subjective: * Chief Complaints: * 1 . [...] LT Heart Cath, Cardiac Stent x 4- [facility] 03/2015, LT Heart Cath, Cardiac Stent x 2 09/2016, Cardiac Stent Placement x1 01/2018, Cardiac Catheterization, stent x 3 06/2021, Percutaneous coronary intervention, stent x 1 2024. * Hospitalization/Major Diagno stic Procedure: G allbladder- [facility] 07/09-, Dehydration 04/20/2013, Vomiting/Diarrhea/Abdominal Pain- [facility] 10/10-, Dizziness, CABG, Stent placement- [facility] 01/26-04/2018, Syncope- [facility] ER 05/23/2020, Elevated BP & Leg Discomfort- [facility] ER 07/25/2022, Chest Pain - [facility] 10/12/2022. * Family History: F ather: alive. [...] specified complication - E11.69 (Primary) ?2. B IN 26.0-26.9,adult - Z68.26 Plan: * Treatment: * Procedure Codes: 3 075F SYST BP GE 130 - 139MM HG, 3078F DIAST BP < 80 MM HG * Follow Up: 2 Months * Images: Billing Information: * Visit Code: 65781 Office Visit, Est Pt., Level 3. * Procedure Codes: 3075F SYST BP GE 130 - 139MM HG. 3078F DIAST BP < 80 MM HG. * Electronic signature of Azra Beltran MD on 07/14/2025 at 06:50 AM EDT Sign off status: Pending * Provider: Colby Beltran M.D. Date: 0 03/06/2025 Generated for Aparna munroe/Jewel/Elsaitting on: 0 07/14/2025 06:50 AM EDT History [...]
--- OUTSIDE RECORDS SUMMARY | 2025-05-06 07:15 | XMS_ITS ---
Author Organization [facility] Address [address] [facility] [address] [place] [id number] Care Team Providers Care Metal Caster Name Role Phone Shemar Beltran Primary Care Provider [phone] Allergies No Known Allergies Results Component Value Reference Range Notes Glucose (In-House) Reviewed date:05/06/2025 11:52:27 AM Interpretation: Performing Lab: Notes/Report: blood glucose 226 74 - 106 mg/dL Glycohemoglobin A1c (in hous e) Reviewed date:05/06/2025 11:52:57 AM Interpretation: Performing Lab: Notes/Report: glycohemoglobin 9.6% 5 - 6.5 % P-Comprehensive Metabolic Pa sanjiv (CMP) Reviewed date:05/07/2025 11:12:45 AM Interpretation:gluc 202 Performing Lab: Notes/Report: Test performed by [facility] [address] [place] [address] , [address], [place] [address] Rajesh Gayle MD, Investment Executive CLIA: [id number] Sodium 138 135-145 mmol/L Potassium 4.6 3.5-5.3 [...] 31 Performing Lab: Notes/Report: Test performed by [facility] [address] , [address], [place] [address] Rajesh Gayle MD, Investment Executive CLIA: [id number] Cholesterol 99 <200 mg/dL Triglycerides 102 <150 [...] Interpretation:Normal Performing Lab: Notes/Report: Test performed by [facility] [address] , [place] [address] Rajesh Gayle MD, Investment Executive CLIA: [id number] PSA 1.27 <4.00 ng/mL Please note this is an ultrasensitive PSA assay with a lower limit of detection of 0.014 ng/mL. This test is performed by the [employer]ila ECLIA methodology. Values obtained with different assay methods or kits cannot be directly compared. P-TSH reflex to FT4 Reviewed date:05/07/2025 11:12:45 AM Interpretation:Normal Performing Lab: Notes/Report: Test performed by [facility] [address] , [place] [address] Rajesh Gayle MD, Investment Executive CLIA: [id number] TSH reflex to FT4 3.31 0.43-5.25 mU/L P-Microalbumin/Creatinine, R andom Urine Sample Reviewed date:05/07/2025 11:12:45 AM Interpretation:a/c 53 Performing Lab: Notes/Report: Test performed by [facility] [address] , [place] [address] Rajesh Gayle MD, Investment Executive CLIA: [id number] Albumin/Creatinine Ratio, Urine 53 0-30 ug/m g Microalbumin, Urine, Random 3.2 Creatinine, Urine 60.3 P-Vitamin D 25-Hydroxy Reviewed date:05/07/2025 11:12:45 AM Interpretation:Normal Performing Lab: Notes/Report: Test performed by [facility] [address] , [address], [place] [address] Rajesh Gayle MD, Investment Executive CLIA: [id number] Vitamin D 25-Hydroxy 62.8 30.0-100.0 ng/mL Interpretation [...] 05/06/2025 Encounters Encounter Location Date Provider Diagnosis [facility] [address] [facility] [address] [place] [address], [place] [id number] 05/06/2025 Shemar Beltran Type 2 diabetes handy itus without complication E11.9 ; Essential hypertension I10 ; Pure hypercholesterolemia E78.00 ; Vitamin D deficiency E55.9 ; longterm (current) use of insulin Z79.4 ; Prostate cancer screening Z12.5 and BMI 26.0-26.9,adult Z68.26 Assessments Encounter Date Diagnosis (ICD Code) Assessment Notes Treatment Notes Treatment Clinical Notes Section Notes 05/06/2025 Type 2 diabetes handy itus without complication (ICD-10 - E11.9) 05/06/2025 Essential hypertensi on (ICD-10 - I10) 05/06/2025 Pure hypercholesterolemia (ICD-10 - E78.00) 05/06/2025 Vitamin D deficiency (ICD-10 - E55.9) 05/06/2025 longterm (current) use of insulin (ICD-10 - Z79.4) 05/06/2025 Prostate cancer screening (ICD-10 - Z12.5) 05/06/2025 BMI 26.0-26.9,adult (ICD-10 - Z68.26) Plan Of Treatment Medication Medication Name Sig Start Date Stop Date Notes Basaglar KwikPen 100 UNIT/ML 60 units subcutaneously once a day Next Appt Details Follow Up: 3 Months, Reason: Provider Name:Shemar Morales ry, 08/11/2025 09:00:00 AM, [address] [facility] [address] [facility], [address] , [place], [place], [id number], Progress Notes * ANJALI KIRAN QUIROZB:11/1959 (64 yo M)Acc No.[id number]:05/06/2025 Progress Notes Patient: KIRAN LIND Provider: Colby Beltran M.D. :1960 A ge:64 Y S ex:Male Date:05/06/2025 Address:[address] [place] [address] [facility], [id number] Subjective: * Chief Complaints: * 1 . [...] LT Heart Cath, Cardiac Stent x 4- [facility] 03/2015, LT Heart Cath, Cardiac Stent x 2 09/2016, Cardiac Stent Placement x1 01/2018, Cardiac Catheterization, stent x 3 06/2021, Percutaneous coronary intervention, stent x 1 2024. * Hospitalization/Major Diagno stic Procedure: G allbladder- [facility] 07/09-, Dehydration 04/20/2013, Vomiting/Diarrhea/Abdominal Pain- [facility] 10/10-, Dizziness, CABG, Stent placement- [facility] 01/26-04/2018, Syncope- [facility] ER 05/23/2020, Elevated BP & Leg Discomfort- [facility] ER 07/25/2022, Chest Pain - [facility] 10/12/2022. * Family History: F ather: [...] cancer screening - Z12.5 7 . B [place] 26.0-26.9,adult - Z68.26 Plan: * Treatment: Value [...] * Procedure Codes: 8 2950 GLUCOSE TEST, [address]6330 GLYCATED HEMOGLOBIN TEST, Modifiers: QW , 3046F HEMOGLOBIN A1C LEVEL > 9.0%, 1036F TOBACCO NON-USER, G8420 BMI<30 AND >=22 CALC & DOCU, G8950 PREHTN/HTN BP DOC INDCD F/U DOC, 3075F SYST BP GE 130 - 139MM HG, 3079F DIAST BP 80-89 MM HG * Follow Up: 3 Months * Images: Billing Information: * Visit Code: 60984 Office Visit, Est Pt., Level 4. * Procedure Codes: 08653 GLUCOSE TEST. 24632 GLYCATED HEMOGLOBIN TEST. Modifiers: QW 3046F HEMOGLOBIN A1C LEVEL > 9.0%. 1036F TOBACCO NON-USER. G8420 BMI<30 AND >=22 CALC & DOCU. G8950 PREHTN/HTN BP DOC INDCD F/U DOC. 3075F SYST BP GE 130 - 139MM HG. 3079F DIAST BP 80-89 MM HG. * Electronic signature of Azra Beltran MD on 07/14/2025 at 06:51 AM EDT Sign off status: Pending * Provider: Colby Beltran M.D. Date: 0 05/06/2025 Generated for Aparna munroe/Jewel/eTembersmitting on: 0 07/14/2025 06:51 AM EDT History and Physical Notes * [...]
--- OUTSIDE RECORDS SUMMARY | 2025-06-02 11:00 | XMS_ITS ---
[facility] [address] [facility] [address] [place], [place] [id number] Care Team Providers Care Windows Technical Specialist Name Role Phone Shemar Beltran Primary Care Provider [phone] Allergies No Known Allergies Results Component Value Reference Range Notes P-Uric Acid Reviewed date:06/09/2025 01:29:46 PM Interpretation:Normal Performing Lab: Notes/Report: Test performed by [email or web address], [facility] [address] [place] [address] , [address], [place] [address] Rajesh Gayle MD, Engineering Drawings Checker CLIA: [id number] Uric Acid 4.3 3.4-8.0 mg/dL Reason For Referral Reason Dr. Duarte at [facility], prefers a Monday appt. 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 (Z79.4) Referral Organization [facility] Referring Provider First Name Shemar Referring Provider Last Name Devin Referring Provider Speciality Family Pra ctice Referred Provider Specialty Endocrinolog y General Notes Dorys Baxter 2024 10:07:48 AM > faxed to [facility] Endocrinology Referral Priority Routine REASON FOR VISIT right ankle swollen and hurting Medications Medication SIG (Take, Route, Frequency, Duration) Notes Start Date End Date Status Colchicine 0.6 MG 1 capsule Orally vicky ly; Duration: 30 days 06/02/2025 Active Basaglar KwikPen 100 UNIT/ML 60 units subcutaneously once a day Active busPIRone HCl 10 MG 1 tablet Orally Twice a day Active Brilinta 90 MG 1 tablet Orally Twice a day Active amLODIPine Besylate 10 MG TAKE 1 TABLET BY MOUTH EVERY DAY FOR 30 DAYS; Duration: 90 days Active Aspir-Low 81 MG 1 tab(s) orally once a day 007 Active Glimepiride 2 MG TAKE 1 TABLET BY LEONIE TH EVERY DAY; Duration: 30 Active Primidone 50 MG TAKE 1 TABLET BY LEONIE TH EVERY DAY; Duration: 30 Active Lisinopril 40 MG TAKE 1 TABLET BY LEONIE TH EVERY DAY; Duration: 30 days Active PEN NEEDLE 4MM 32G - ONCE DAILY 06/14/2022 Active BD PEN NEEDLE SHORT (OBSOLETE) 1 PEN NEEDLE ONCE A DAY 08/13/2018 Acti ve Bisoprolol Fumarate 10 MG 1 tab(s) orall y once a day; Duration: 15 days Active Insulin Syringe - ONCE A DAY 06/09/2022 Active Vital Signs Blood pressure systolic 122 mm Hg 06/02/20 25 Blood pressure diastolic 70 mm Hg 025 Heart Rate 70 /min 06/02/2025 Height 72.75 in 06/02/2025 Weight 197.4 lbs 06/02/2025 BMI 26.22 kg/m2 06/02/2025 Encounters Encounter Location Date [facility] [address] [id number] 06/02/2025 Shemar Beltran Acute right ankle pa in M25.571 ; Type 2 diabetes mellitus with other specified complication E11.69 ; 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 Z79.4 and BMI 26.0-26.9,adult Z68.26 Assessments Encounter Date Diagnosis (ICD Code) Assessment Notes Treatment Notes Treatment Clinical Notes Section Notes 06/02/2025 Acute right ankle pain (ICD-10 - M25.571) 06/02/2025 Type 2 diabetes mellitus with other specified complication (ICD-10 - E11.69) 06/02/2025 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 Paula wei at [facility], prefers a Monday appt. Next Appt Details Follow Up: via phone to repo rt progress, Reason: Provider Name:Shemardeni Morales ry, 08/11/2025 09:00:00 AM, [address], [address], [place], [place], [id number], Progress Notes * KIRAN ALBAIDOB:11/1959 (64 yo M)Acc No.[id number]:06/02/2025 Progress Notes Patient: KIRAN LIND Provider: Colby Beltran M.D. :1960 A ge:64 Y S ex:Male Date:06/02/2025 Address:[address] [place] [address] JOSE GARCIA , [id number] Subjective: * Chief Complaints: * 1 . Right ankle swollen and hurting. * HPI: A nkle/Foot: 64 year old male presents with c/o Pain P t complains of right ankle pain and swelling for about 2 weeks. Pt states he went to ER Thursday 05/24. Pt states he was walking on Monday and when he turned he felt a pop in his rt ankle. Pt states that pain is not improving. He saw Dr. Trevizo in Ortho at [facility] last week as well and was diagnosed with plantar fasciitis. * ROS: D ERMATOLOGY: no R marianna. [...] LT Heart Cath, Cardiac Stent x 4- [facility] 03/2015, LT Heart Cath, Cardiac Stent x 2 09/2016, Cardiac Stent Placement x1 01/2018, Cardiac Catheterization, stent x 3 06/2021, Percutaneous coronary intervention, stent x 1 2024. * Hospitalization/Major Diagno stic Procedure: G allbladder- [facility] 07/09-, Dehydration 04/20/2013, Vomiting/Diarrhea/Abdominal Pain- [facility] 10/10-, Dizziness, CABG, Stent placement- [facility] 01/26-04/2018, Syncope- [facility] ER 05/23/2020, Elevated BP & Leg Discomfort- [facility] ER 07/25/2022, Chest Pain - [facility] 10/12/2022. * Family History: F ather: alive. M other: alive, cancer-breast. 1 sister(s) . 1 son(s) , 1 daughter(s) . . * Social History: C URRENT TOBACCO USE S moking Status: Patient does NOT smoke, Type of smokeless tobacco used: dip. C affeine: yes, frequency:. Marital Status: . Past smoking status: no, smokeless tobacco- 12 yrs. Alcohol: no. * Medications: T aking Brilinta 90 MG Tablet 1 tablet Orally Twice a day , Taking busPIRone HCl 10 MG Tablet 1 tablet Orally Twice a [...] tab(s) orally once a day , Taking Aspir-Low 81 MG Tablet Delayed Release 1 tab(s) orally once a day , Taking amLODIPine Besylate 10 MG Tablet TAKE 1 TABLET BY MOUTH EVERY DAY FOR 30 DAYS , Taking Primidone 50 MG Tablet TAKE 1 TABLET BY MOUTH EVERY DAY , Taking Glimepiride 2 MG Tablet TAKE 1 TABLET BY MOUTH EVERY DAY , Taking Basaglar KwikPen 100 UNIT/ML Solution Pen-injector 60 units subcutaneously once a day , Discontinued Isosorbide Dinitrate 20 MG Tablet 1 tablet Orally Twice a day , Discontinued Brilinta 60 MG Tablet 1 tab(s) orally 2 times a day , Discontinued Zituvimet XR 50-1000 MG Tablet Extended Release 24 Hour 2 tablets with food Orally Once a day , Medication List reviewed and reconciled with the patient * Allergies: N .K.D.A. Objective: * Vitals: W t: 197.4, Temp: 97.7, BP: 122/70, HR: 70, Nurse: pe, Ht: 72.75, BMI:26.22. * Examination: G eneral Examination: General Appearance: N AD. A nkle / Foot: Ankle: r ight. P alpation: n o tenderness on malleoli, calcaneum or Achillis. F oot: s ome tenderness to palpation over the plantar fascia.? Assessment: * Assessment: 1. A cute right ankle pain - M25.571 (Primary) 2 . T ype 2 diabetes mellitus with other specified complication - E11.69 3 . L tatiana term (current) use of insulin - Z79.4 4 . B NE 26.0-26.9,adult - Z68.26 Plan: * Treatment: Value Reference Range U nikole Acid 4.3 3.4-8.0 - mg/dL * Shemar Beltran 06/03/2025 11:23:12 PM EDT >Sent to [facility] to inform.Fartun Yoder 06/04/2025 04:51:54 PM EDT > Tried to call pt, voicemail box Roselia De Los Santos 06/09/2025 01:29:08 PM EDT > pt informed. 2.?Type 2 diabetes mellitus with other specified complication? Referral To:Endocrinology ?Reason:Dr. Duarte at [facility], prefers a Monday appt. 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 Referral To:Endocrinology ?Reason:Dr. Duarte at [facility], prefers a Monday appt. * Procedure Codes: 1 036F TOBACCO NON-USER, 3074F SYST BP LT 130 MM HG, 3078F DIAST BP < 80 MM HG * Follow Up: v ia phone to report progress * Images: Billing Information: * Visit Code: 57013 Office Visit, Est Pt., Level 3. * Procedure Codes: 1036F TOBACCO NON-USER. 3074F SYST BP LT 130 MM HG. 3078F DIAST BP < 80 MM HG. * Electronic signature of Azra Beltran MD on 07/14/2025 at 06:51 AM EDT Sign off status: Pending * Provider: Colby Beltran M.D. Date: 0 06/02/2025 Generated for Aparna munroe/Jewel/Elsaitting on: 0 07/14/2025 06:51 AM EDT History and Physical Notes * HPI (History of Present Illness) Category Sub-Category Detail Notes Category Not es Ankle/Foot Pain Pt complains of right ankle pain and swelling for about 2 weeks. Pt states he went to ER Thursday 05/24. Pt states he was walking on Monday and when he turned he felt a pop in his rt ankle. Pt states that pain is not improving. He saw Dr. Trevizo in Ortho at [facility] last week as well and was diagnosed with plantar fasciitis Examination Category Sub-Category Detail Notes Category Not es General Examination General Appearance: NAD Ankle / Foot Palpation: no tenderness on malleoli, calcaneum or Achillis Ankle: right Foot: some tenderness to p alpation over the plantar fascia Consultation Request Notes Referral Date Referring Provider Referred Provider Not es 06/02/2025 Shemar Beltran , Dr. Duarte at [facility], prefers a Monday appt.
--- OUTSIDE RECORDS SUMMARY | 2025-07-14 06:50 | XMS_ITS | Clinical Summary ---
Author Organization [facility] Address [address] [place] [phone] Care Team Providers Care Digital Composer Name Role Phone Shemar Beltran MD Primary Care Provider + [phone] Allergies No known active allergies Medications aspirin [...] HTN 03/05/2022 Coronary artery disease invo lving [place] coronary artery of [place] heart without angina pectoris 03/05/2022 Type 2 [...] 2011 ZOSTER VACCINE (1 of 2) 2011 INFLUENZA VACCINE 05/23/2025 HEMOGLOBIN A1C Discontinued 03/04/2022 Procedures Procedure Name Priority Date/Time Associated Diagnosis Comments HEMOGLOBIN A1C Add-On 03/04/2022 10:50 PM EDT from Last 3 Months or Most Recently Relevant to Health Maintenance Results * (ABNORMAL) Hemoglobin A1c (03/04/2022 10:50 PM EDT) Hemoglobin A1C 13.00(H) 4.80 - 5.60 % 03/05/2022 1:31 PM EDT [facility] Blood Venipuncture / Unknown 03/04/2022 10:50 PM EDT 03/04/2022 11:05 PM EDT Narrative [facility] - 03/05/2022 1:31 PM EDT Hemoglobin A1C Ranges: Increased Risk for Diabetes 5.7% to 6.4% Diabetes >= 6.5% Diabetic Goal < 7.0% us Jaelyn Tatumdle HARD METALS ENGRAVER HAND LAB BLOOD ORDERABLES Final Resu lt [facility]
[address] [place] [address], from Last 3 Months or Most Recently Relevant to Health Maintenance Insurance Advance Directives * CPR (Attempt to Resuscitate) (Latest Code Status on File) Date Activated Date Inactivated Comments 03/05/2022 2:22 AM 03/05/2022 4:36 PM Question Answer Comments Code Status (Patient has no pulse and is not breathing): CPR (Attempt to Resuscitate) Medical Interventions (Patie nt has pulse or is breathing): Full Support Level Of Support Discussed With: Patient Care Teams Digital Composer Relationship Specialty Start Date End Date Shemar Beltran MD [address] [place] [address] PCP - General Family Medicine 06/21/16
--- OUTSIDE RECORDS SUMMARY | 2025-07-14 06:50 | XMS_ITS | Patient Health Record ---
Author Organization [facility] Address [address] [facility] [address] [place] [id number] Care Team Providers Care Bundle Wrapper Name Role Phone Shemar Beltran Primary Care Provider [phone] Ramandeep Tucker Unavailable [phone] Allergies No Known Allergies Results Component Value Reference Range Notes H-Glycohemoglobin A1C Reviewed date:02/07/2025 12:32:03 PM Interpretation:11.9 Performing Lab: Notes/Report: HGBA1C 11.9 4.0-6.0 % < 6% Non-Diabetic Level < 7% Controlled Diabetic Level > 8% Poorly Controlled Diabetic Level P-Uric Acid Reviewed date:06/09/2025 01:29:46 PM Interpretation:Normal Performing Lab: Notes/Report: CLIA: [id number] Rajesh Gayle MD, Chart Computer [address] [place] [address] , [address], [place] [address] Test performed by [email or web address] Uric Acid 4.3 3.4-8.0 mg/dL Glucose (In-House) Reviewed date:05/06/2025 11:52:27 AM Interpretation: Performing Lab: Notes/Report: blood glucose 226 74 - 106 mg/dL Glycohemoglobin A1c (in hous e) Reviewed date:05/06/2025 11:52:57 AM Interpretation: Performing Lab: Notes/Report: glycohemoglobin 9.6% 5 - 6.5 % P-Comprehensive Metabolic Pa sanjiv (CMP) Reviewed date:05/07/2025 11:12:45 AM Interpretation:gluc 202 Performing Lab: Notes/Report: CLIA: [id number] Rajesh Gayle MD, [employer] [address] [place] [address] , [address], [place] [address] Test performed by [email or web address] Sodium 138 135-145 mmol/L Potassium 4.6 3.5-5.3 [...] 0.5 <0.2-1.2 mg/dL A/G Ratio 1.8 1.1-2.5 P-PSA Reviewed date:05/07/2025 11:12:45 AM Interpretation:Normal Performing Lab: Notes/Report: Test performed by [email or web address] [address] [place] [address] , [place] [address] Rajesh Gayle MD, Chart Computer CLIA: [id number] PSA 1.27 <4.00 ng/mL Please note this is an ultrasensitive PSA assay with a lower limit of detection of 0.014 ng/mL. This test is performed by the [employer] ECLIA methodology. Values obtained with different assay methods or kits cannot be directly compared. P-TSH reflex to FT4 Reviewed date:05/07/2025 11:12:45 AM Interpretation:Normal Performing Lab: Notes/Report: Test performed by [email or web address] [address] [place] [address] , [place] [address] Rajesh Gayle MD, Chart Computer CLIA: [id number] TSH reflex to FT4 3.31 0.43-5.25 mU/L P-Microalbumin/Creatinine, R andom Urine Sample Reviewed date:05/07/2025 11:12:45 AM Interpretation:a/c 53 Performing Lab: Notes/Report: Test performed by [email or web address] [address] [place] [address] , [address], [place] [address] Rajesh Gayle MD, Chart Computer CLIA: [id number] Albumin/Creatinine Ratio, Urine 53 0-30 ug/m g Microalbumin, Urine, Random 3.2 Creatinine, Urine 60.3 P-Vitamin D 25-Hydroxy Reviewed date:05/07/2025 11:12:45 AM Interpretation:Normal Performing Lab: Notes/Report: Test performed by [email or web address] [address] [place] [address] , [address], [place] [address] Rajesh Gayle MD, Chart Computer CLIA: [id number] Vitamin D 25-Hydroxy 62.8 30.0-100.0 ng/mL Interpretation of Vitamin D 25 OH: < 20 ng/mL - Deficiency 20 - 29 ng/mL - Insufficiency 30 - 100 ng/mL - Sufficiency > 100 ng/mL - Super-therapeutic- toxicity may occur above this level. Clinical correlation required. P-Lipid Panel Reviewed date:05/07/2025 11:12:45 AM Interpretation:hdl 31 Performing Lab: Notes/Report: Test performed by [email or web address] [address] [place] [address] , [address], [place] [address] Rajesh Gayle MD, Chart Computer CLIA: [id number] Cholesterol 99 <200 mg/dL Triglycerides 102 <150 [...] Results: 48 Units: mg/dL % Change: - Reason For Referral Reason Dr. Duarte at [facility], prefers a Monday appt. 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) Referral Organization [facility] Referring Provider First Name Shemar Referring Provider Last Name Devin Referring Provider [facility] Referred Provider Specialty Endocrinolog y General Notes Dorys Baxter 2024 10:07:48 AM > faxed to [facility] Endocrinology Referral Priority Routine Medications Medication SIG (Take, Route, Frequency, Duration) Notes Start Date End Date Status Lisinopril 40 MG TAKE 1 TABLET BY LEONIE TH EVERY DAY; Duration: 30 days Active PEN NEEDLE 4MM 32G - ONCE DAILY 06/14/2022 Active BD PEN NEEDLE SHORT (OBSOLETE) 1 PEN NEEDLE ONCE A DAY 08/13/2018 Acti ve Primidone 50 MG 1 tablet Orally Once a day; Duration: 30 days Active Glimepiride 2 MG 1 tablet with breakf ast or the first main meal of the day Orally Once a day; Duration: 30 days Active Mitigare 0.6 MG 1 capsule Orally vicky ly; Duration: 90 days Active amLODIPine Besylate 10 MG TAKE 1 TABLET BY MOUTH EVERY DAY FOR 30 DAYS; Duration: 90 days Active Aspir-Low 81 MG 1 tab(s) orally once a day 007 Active Bisoprolol Fumarate 10 MG 1 tab(s) orall y once a day; Duration: 15 days Active Insulin Syringe - ONCE A DAY 06/09/2022 Active Basaglar KwikPen 100 UNIT/ML 60 units subcutaneously once a day Active busPIRone HCl 10 MG 1 tablet Orally Twice a day Active Brilinta 90 MG 1 tablet Orally Twice a day Active Immunizations Vaccine Route Administration Date Status Comme nts Fluzone Quad (6months&older) IM Intramuscular 11/11/2019 Administered Fluzone Quad (6months&older) IM Intramuscular 07/23/2021 Administered Problems Problem Type SNOMED Code ICD Code Onset Dates Problem Status W/U Status Risk Notes Problem Type II diabetes mellitus without complication (839575845) Type 2 diabetes mellitus without complications (E11.9) Active confirmed Problem Vitamin D deficiency (55196977) Vitamin D deficiency (E55.9) Active confirmed Problem Essential hypertension (44549941) Essential hypertension (I10) Active confirmed Problem Acute non-ST segment elevation myocardial infarction (960567527) NSTEMI (non-ST elevated myocardial infarction) (I21.4) Active confirmed Problem Supraventricular tachycardia (1135498) SVT (supraventricular tachycardia) (I47.1) Active confirmed Problem Type 2 diabetes mellitus with other specified complication (E11.69) Active confirmed Problem Premature ejaculatio n (76402876) Premature ejaculation (F52.4) Active confirmed Problem Long-term current us e of insulin (336086574) intermediate current use of insulin (Z79.4) Active confirmed Problem Long-term current us e of insulin (763111117) 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.4) Active confirmed Problem Type II diabetes mellitus without complication (636793468) Type 2 diabetes mellitus without complication (E11.9) Active confirmed Problem Atherosclerotic hear t disease of [place] coronary artery without angina pectoris (639458828932170) Coronary artery disease involving [place] coronary artery of [place] heart without angina pectoris (I25.10) Active confirmed Problem Hyperlipidaemia (28245306) Hyperlipidemia, unspecified hyperlipidemia type (E78.5) Active confirmed Problem Stented coronary artery (645420793) Stented coronary artery (Z95.5) Active confirmed Problem Atherosclerotic hear t disease of [place] coronary artery without angina pectoris (959686826530219) Atherosclerosis of [place] coronary artery without angina pectoris, unspecified whether [place] or transplanted heart (I25.10) Active confirmed Problem Pure hypercholesterolemia (551137638) Pure hypercholesterolemia (E78.00) Active confirmed Problem Acute non-ST segment elevation myocardial infarction (026836997) Non-STEMI (non-ST elevated myocardial infarction) (I21.4) Active confirmed Problem History of placement of stent for coronary artery disease (situation) (836916259) S/P coronary artery stent placement (Z95.5) Active confirmed Problem Type II diabetes mellitus without complication (903906233) Type 2 diabetes mellitus without complication, unspecified whether terminal carman insulin use (E11.9) Active confirmed Problem Intention tremor (22580045) Intention tremor (G25.2) Active confirmed Vital Signs Heart Rate 70 /min 06/02/2025 Blood pressure diastolic 70 mm Hg 06/02/2025 Height 72.75 in 06/02/2025 Blood pressure systolic 122 mm Hg 06/02/2025 Weight 197.4 lbs 06/02/2025 BMI 26.22 kg/m2 06/02/2025 Encounters Encounter Location Date Provider Diagnosis [facility] [address] [id number] 02/06/2025 Shemar Cordell Type 2 diabetes handy itus without complication E11.9 ; Recurrent syncope R55 ; Coronary artery disease involving [place] coronary artery of [place] heart without angina pectoris I25.10 and BMI 25.0-25.9,adult Z68.25 [facility] [address] [id number] 03/06/2025 Shemar Cordell Type 2 diabetes handy itus with other specified complication E11.69 and BMI 26.0-26.9,adult Z68.26 [facility] [address] [facility] [address], [place] [id number] 05/06/2025 Shemar Cordell Type 2 diabetes handy itus without complication E11.9 ; Essential hypertension I10 ; Pure hypercholesterolemia E78.00 ; Vitamin D deficiency E55.9 ; 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 [address] [id number] 06/02/2025 Shemar Cordell Acute right ankle pa in M25.571 ; Type 2 diabetes mellitus with other specified complication E11.69 ; intermediate (current) use of insulin Z79.4 and BMI 26.0-26.9,adult Z68.26 [facility] [address] [place], [place] [id number] 10/29/2024 Shemar Cordell [facility] [address] [place], [place] [id number] 11/05/2024 Shemar Cordell [facility] [address] [place], [place] [id number] 03/24/2025 Shemar Cordell [facility] [address] [place], [place] [id number] 03/25/2025 Shemar Cordell [facility] [address] [place], [place] [id number] 05/07/2025 Shemar Cordell Assessments Encounter Date Diagnosis (ICD Code) Assessment Notes Treatment Notes Treatment Clinical Notes Section Notes 02/06/2025 Type 2 diabetes handy itus without complication (ICD-10 - E11.9) compliance issues reviewed 02/06/2025 Recurrent syncope (ICD-10 - R55) ER records including notes, labs and radiology reports reviewed in office today 03/06/2025 BMI 26.0-26.9,adult (ICD-10 - Z68.26) 03/06/2025 Type 2 diabetes handy itus with other specified complication (ICD-10 - E11.69) 05/06/2025 Essential hypertensi on (ICD-10 - I10) 05/06/2025 Type 2 diabetes handy itus without complication (ICD-10 - E11.9) 06/02/2025 Type 2 diabetes handy itus with other specified complication (ICD-10 - E11.69) 06/02/2025 Acute right ankle pa in (ICD-10 - M25.571) 06/02/2025 intermediate (current) use of insulin (ICD-10 - Z79.4) 05/06/2025 Pure hypercholesterolemia (ICD-10 - E78.00) 02/06/2025 Coronary artery dise ase involving [place] coronary artery of [place] heart without angina pectoris (ICD-10 - I25.10) 02/06/2025 BMI 25.0-25.9,adult (ICD-10 - Z68.25) 05/06/2025 Vitamin D deficiency (ICD-10 - E55.9) 06/02/2025 BMI 26.0-26.9,adult (ICD-10 - Z68.26) 05/06/2025 intermediate (current) use of insulin (ICD-10 - Z79.4) 05/06/2025 Prostate cancer screening (ICD-10 - Z12.5) 05/06/2025 BMI 26.0-26.9,adult (ICD-10 - Z68.26) Plan Of Treatment Next Appt Details Provider Name:Shemar Morales ry, 08/11/2025 09:00:00 AM, [address], [place], [place], [id number], Insurance Providers Payer Name Payer Address Payer Phone Subscriber Number Group Number Insured Name Patient Relationship to Insured Coverage Start Date Coverage End Date [facility] [address] [address] [place] [address] [id number] KIRAN ALBA Self - patient is the insured Medical (General) History Medical History History ICD Code Coronary Artery Disease Myocardial Infarction Type 2 Diabetes Hypertension Hyperlipidemia Vitamin D deficiency Surgical History Surgery Date(Month/Year) RT K Cyst Removal 2000 LT Heart Cath, Cardiac Stent x 4- [facility] 03/2015 LT Heart Cath, Cardiac Stent x 2 09/2016 Cardiac Stent Placement x1 01/2018 Cardiac Catheterization, stent x 3 07/12 21 Percutaneous coronary intervention, sten t x 1 2024 Hospitalization History Reason Date(Month/Year) Chest Pain - [facility] 10/12/2022 Elevated BP & Leg Discomfort- [facility] ER 12/2021 Syncope- [facility] ER 05/23/2020 Dizziness, CABG, Stent placement- [facility] -04/2018 Vomiting/Diarrhea/Abdominal Pain- [facility] - Dehydration 04/20/2013 Gallbladder- [facility] 07/09-
--- OUTSIDE RECORDS SUMMARY | 2025-07-14 06:51 | XMS_ITS | Clinical Summary ---
Author Organization [facility] Address [address] [place] [address] Phone Care Team Providers Care Maintenance Analyst Name Role Phone Shemar Beltran MD Primary Care Provider [phone] Allergies No known active allergies Medications sitaGLIPtin-met [...] HTN 03/05/2022 Coronary artery disease invo lving mentasta coronary artery of mentasta heart without angina pectoris 03/05/2022 Tobacco use [...] Last Done Comments Annual Wellness Exam 1964 Diabetic Eye Exam 1979 Hepatitis C Screening 1979 Kidney Health: uACR 1979 Pneumococcal Vaccine 50+ (1 of 2 [...] COVID-19 Vaccine (1 - 2023-2 5 season) 2025 Influenza Vaccine (#1) 2025 , 11/11/2019 Hepatitis [...] EDT) Sodium 136 135 - 143 mmol/L [facility] Potassium 4.2 3.5 - 5.0 mmol/L [facility] Chloride 102 98 - 108 mmol/L [facility] Total CO2 25 22 - 31 mmol/L [facility] Anion Gap 9 7 - 16 mmol/L [facility] Calcium 9.0 8.6 - 10.3 mg/dL [facility] Glucose Lvl 121(H) 70 - 100 mg/dL [facility] BUN 11 8 - 23 mg/dL [facility] Creatinine 0.8 0.7 - 1.3 mg/dL [facility] GFR Afr Am >60 SEH [...] Eisenberg MD CHEMISTRY ORDERABLES Final R esult [facility] [address] [place] [address] from Last 3 Months or Most Recently Relevant to Health Maintenance Insurance Care Teams Maintenance Analyst Relationship Specialty Start Date End Date Shemar Beltran MD [address] [place] [id number] PCP - General 07/19/07
--- NOTE | 2025-07-14 07:00 | MR_ITS ---
FINAL REPORT CLINICAL HISTORY: right ankle pain. lateral sided ankle pain since hearing a pop. swelling in foot FINDINGS: Multiplanar and multisequence imaging of the right ankle was obtained without intravenous contrast. BONES/JOINT: Bone marrow signal intensity is normal. There is no edema, contusion or pathologic marrow replacement. LIGAMENTS: Lateral ligaments are intact. There is abnormal signal intensity within the deltoid ligament which could represent sprain or partial tear. TENDONS: The Achilles tendon is normal in size and signal intensity. The medial tendons are within normal limits. There is fluid in the peroneal tendon sheath. The peroneus longus tendon is torn along the lateral hindfoot and retracted towards the ankle. There is fluid in the flexor digitorum sheath along the plantar aspect of the foot. The extensor tendons are within normal limits. OTHER SOFT TISSUES: There is no joint effusion. Signal intensity within the sinus tarsi is preserved. There is thickening of the plantar fascia consistent with plantar fasciitis. Nonspecific soft tissue edema is seen in the hindfoot and midfoot. Remaining soft tissues are within normal limits. IMPRESSION: Complete tear of the peroneus longus tendon. Plantar fasciitis. Flexor digitorum tenosynovitis. Reviewed, Interpreted and Dictated by Nneka Fajardo MD Transcribed by Zo Chaney Authenticated and [facility]
== END 2025-07-14 23:59 | disposition home or self-care (01) ==
LOC: RAD 06:48
PROVIDERS: PCP Family Medicine; Visit Provider Physician Assistant
DX: S86.311A Strain of muscle(s) and tendon(s) of peroneal muscle group at lower leg level, right leg, initial encounter (principal); M72.2 Plantar fascial fibromatosis; M65.971 Unspecified synovitis and tenosynovitis, right ankle and foot
CPT/HCPCS: 73721